=== PATIENT | male | born 1980 | race Caucasian/White ===

== ENCOUNTER 2019-10-25 17:31 | Emergency (ER) | payer OTHER, SELFPAY ==
--- NOTE | ~2019-10-25 | XR_ITS ---
XR foot RT min 3V DATE: 10/25/2019 18:17 INDICATION: Fall yesterday. Pain and bruising at the first digit TECHNIQUE: 4 views COMPARISON: None FINDINGS: There is severe osteoarthritic change at the first metatarsophalangeal joint. Diffuse osteopenia. There is a linear nondisplaced intra-articular fracture of the base of the proximal phalanx of the se cond digit. No other fracture, dislocation, periosteal reaction or bone destruction is detected. There are arterial calcifications including metatarsal artery calcifications, suggesting diabetes mos t likely. IMPRESSION: There is a linear nondisplaced intra-articular fracture of the base of the proximal phala nx of the second digit Severe osteoarthritic change at first metatarsophalangeal joint Extensive arterial calcifications for age, including tarsal artery calcifications, suggesting diabete s Reviewed, dictated and finalized at location A. IMPRESSION: There is a linear nondisplaced intra-articular fracture of the base of the proximal phalanx of the second digit Severe osteoarthritic change at first metatarsophalangeal joint Extensive arterial calcifications for age, including tarsal artery calcificatio ns, suggesting diabetes
[2019-10-25 17:32] VITALS: PULSE 101; RESP 18; TEMP 36.4; O2SAT 99
--- NOTE | 2019-10-25 17:42 | ED.FALL ---
HPI - Fall General Chief Complaint: Fall Stated Complaint: RIGHT FOOT INJURY Time Seen by Provider: 10/25/19 17:37 Source: patient and family Mode of arrival: ambulatory Limitations: no limitations History of Present Illness HPI Narrative: 38-year-old white male tripped and fell yesterday. Complaining of pain on the right big toe . Patient denies other injuries. Related Data Home Medications Medication Instructions Recorded Confirmed linagliptin [Tradjenta] mg 10/25/19 10/25/19 Allergies Allergy/AdvReac Type Severity Reaction Status Date / Time latex Allergy Unknown Unknown Verified 10/25/19 17:32 metformin AdvReac Unknown Unknown Verified 10/25/19 17:32 levimir insulin Allergy Unknown Unknown Uncoded 10/25/19 17:32 Review of Systems Review of Systems: Narrative: CONSTITUTIONAL: Denies fever, chills, or sweats. EYES: Denies visual changes, redness, or discharge. ENT: Denies rhinorrhea, congestion, sore throat, or otalgia. CARDIOVASCULAR: Denies chest pain, palpitations, or edema. RESPIRATORY: Denies cough or dyspnea. GASTROINTESTINAL: Denies abdominal pain, nausea, vomiting, or diarrhea. GENITOURINARY: Denies dysuria or hematuria. SKIN: Denies rash or itching. MUSCULOSKELETAL: Denies back pain, joint pain, or myalgia. NEUROLOGIC: Denies headache, numbness, or weakness. PSYCHIATRIC: Denies anxiety or depression. [facility] Past Medical History Medical History (Updated 10/25/19 @ 19:02 by Trino Sears MD) Chronic pain Social History Social History Gender identity (if verbalized by the patient): Female Exam Narrative: Exam Narrative: General appearance: Well-developed, well-nourished Skin: Normal color Head: Normocephalic, nontraumatic Eyes: Clear conjunctiva ENT: Oropharynx normal, ears normal, nose normal Neck: Supple, nontender Chest and respiratory: Airway patent, no respiratory distress, no accessory muscle use Heart: Regular rate/rhythm Abdomen: Soft, nontender, no organomegaly, quiet bowel sounds Vascular: Normal peripheral pulses, normal capillary refill. 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 X-ray ordered Critical Care Time Critical Care Time Critical Care Time: No Discharge Plan Discharge Clinical Impression: Closed fracture of toe Qualifiers: Encounter type: sequela Toe: unspecified toe Fracture alignment: displaced Laterality: right Qualified Code(s): S92.911S - Unspecified fracture of right toe(s), sequela Patient Disposition: Home, Self-Care Condition: Stable Instructions: Toe Fracture (ED) Additional Instructions: Return if symptoms are worsening , call Dr. Mireles for appointment, take Tylenol as as needed for aches and pain, continue home medications. Crutches, keep foot elevated Prescriptions: New tramadol 50 mg tablet 50 mg PO Q6H PRN (Reason: pain) Qty: 20 RF: 0 No Action Tradjenta 5 mg tablet RF: 0 Follow-up/Referrals: Martín Mireles MD [Physician] -
[2019-10-25 19:21] VITALS: BP 152/98; PULSE 108; RESP 19; O2SAT 99
== END 2019-10-25 19:23 | disposition home or self-care (01) ==
PROVIDERS: Emergency Provider Emergency Medicine
DX: S92.911A Unspecified fracture of right toe(s), initial encounter for closed fracture (principal); W01.0XXA Fall on same level from slipping, tripping and stumbling without subsequent striking against object, initial encounter
CPT/HCPCS: 73630; 99283

== ENCOUNTER 2022-04-07 17:57 | Emergency (ER) | payer OTHER, SELFPAY ==
--- NOTE | ~2022-04-07 | XR_ITS ---
EXAM: XR shoulder LT min 2V DATE: 04/07/2022 18:24 HISTORY: PAIN AFTER HEAVY LIFTING . COMPARISON: None. FINDINGS: Normal mineralization. No fracture or dislocation. No lytic or blastic lesion. Joint space s are maintained. No erosion or periosteal change. Soft tissues within normal limits. IMPRESSION: No acute osseous finding the left shoulder. Reviewed, dictated and finalized at location K. [employer]IC
[2022-04-07 18:07] VITALS: BP 149/99; PULSE 100; RESP 14; TEMP 36.6; O2SAT 100
[2022-04-07 18:09] VITALS: BP 149/99; PULSE 100; RESP 14; TEMP 36.6; O2SAT 100
--- NOTE | 2022-04-07 18:10 | ED.UPPEXIN ---
HPI - Extremity Injury (Upper) General Chief Complaint: Extremity Injury, Upper Stated Complaint: Left Shoulder Pain Time Seen by Provider: 04/07/22 18:10 Source: patient, RN notes reviewed and old records reviewed Mode of arrival: ambulatory Limitations: no limitations History of Present Illness HPI narrative: 41-year-old male presents to the [facility] with left shoulder since yesterday. Patient reports that he was moving furniture on , tried cracking is back yesterday and the pain started. Pain is worse when lifting his head above 90?. Patient denies any chest pain or shortness of breath. No swelling noted. No bruising noted. Has good range of motion. Full strength of the elbow and wrist. 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 Positive radial pulse. Capillary refill under 2 seconds MD complaint: injury to: left and shoulder Related Data Home Medications Medication Instructions Recorded Confirmed linagliptin 5 mg tablet (Tradjenta) mg 10/25/19 10/25/19 amlodipine 10 mg tablet mg 04/07/22 atorvastatin 10 mg tablet mg 04/07/22 gabapentin 300 mg capsule mg 04/07/22 insulin glargine 100 unit/mL (3 unit subcut 04/07/22 mL) subcutaneous pen (Lantus Solostar U-100 Insulin) Allergies Allergy/AdvReac Type Severity Reaction Status Date / Time latex Allergy Unknown Unknown Verified 04/07/22 18:09 metformin AdvReac Unknown Unknown Verified 04/07/22 18:09 levimir insulin Allergy Unknown Unknown Uncoded 04/07/22 18:09 Review of Systems Review of Systems: All systems reviewed & are unremarkable except as noted in HPI and below Constitutional: Constitutional: Reports no additional constitutional complaints Eyes: Eyes: Reports no additional eye complaints ENT: Reports system reviewed and no additional complaints, except as documented Cardiovascular: Cardiovascular: Reports no additional cardiovascular complaints, Denies chest pain and Denies dyspnea Respiratory: Respiratory: Reports no additional respiratory complaints, Denies chest congestion, Denies cough and Denies dyspnea Gastrointestinal: Gastrointestinal: Reports no additional gastrointestinal complaints, Denies abdominal pain, Denies nausea and Denies vomiting Musculoskeletal: Musculoskeletal: Reports as per HPI, Reports arthralgias (Left posterior shoulder), Denies joint swelling and Denies muscle cramps Integumentary/Breasts: Skin/Breast: Reports system reviewed and no additional complaints, except as docu Neurologic: Reports system reviewed and no additional complaints, except as documented Psychiatric: Psychiatric: Reports no additional psychiatric complaints Allergic/Immunologic: Allergic/Immunologic: Reports no additional allergic/immunologic complaints [facility] Past Medical History Medical History Abscess Arthritis Asthma Chronic pain Club foot of both lower extremities Diabetes Dizziness Food allergy History of adverse reaction to anesthesia HTN (hypertension) Muscular dystrophy Skin ulcer Vision abnormalities Weight gain Surgical History Surgical History Hx of clubfoot correction Family History Family History Other Arthritis Diabetes mellitus Heart disease Hypertension Malignant neoplasm Social History Social History Smoking packs per day: 0.1 Smoking cigarettes per day: 2.0 Years smoked: 5 Smoking pack-years: 0.50 Smoking status: Current some day smoker Alcohol intake: current Gender identity (if verbalized by the patient): Male Comments At the time of my signature, I reviewed and agree with the nursing past medical, surgical, social, and family history. There is no relevant family history pertinent to the patient complaint. Exam Const: General: cooperative, healthy appearing, comfortable, no ac
== END 2022-04-07 18:48 | disposition home or self-care (01) ==
PROVIDERS: Emergency Provider Nurse Practitioner; PCP Nurse Practitioner Family
DX: S46.912A Strain of unspecified muscle, fascia and tendon at shoulder and upper arm level, left arm, initial encounter (principal); X50.9XXA Other and unspecified overexertion or strenuous movements or postures, initial encounter; M19.90 Unspecified osteoarthritis, unspecified site; E11.9 Type 2 diabetes mellitus without complications; I10 Essential (primary) hypertension; G71.00 Muscular dystrophy, unspecified; F17.210 Nicotine dependence, cigarettes, uncomplicated
CPT/HCPCS: 73030; 99213; G0463

== ENCOUNTER 2022-05-22 13:21 | Outpatient (CLI) | payer OTHER, SELFPAY ==
--- NOTE | ~2022-05-22 | XR_ITS ---
EXAM: XR knee RT 3V DATE: 05/22/2022 13:39 HISTORY: PAIN RT KNEE JOINT. FALL 2 YRS AGO, BROKE FOOT. PAIN SINCE . COMPARISON: None available. FINDINGS: Normal mineralization. No fracture or dislocation. No lytic or blastic lesion. Mild tricom partmental osteophytosis. Smoothly marginated ossification projecting off the medial aspect of the me dial femoral condyle. Small volume joint fluid. No erosion or periosteal change. Soft tissues within normal limits. IMPRESSION: Mild tricompartmental right knee osteoarthritis. Medial osseous excrescence, in a positio n that may cause soft tissue irritation, correlate with pain/point tenderness. Small right knee joint effusion. Reviewed, dictated and finalized at location K. IMPRESSION: Mild tricompartmental right knee osteoarthritis. Medial osseous exc rescence, in a position that may cause soft tissue irritation, correlate with p ain/point tenderness. Small right knee joint effusion.
== END 2022-05-22 13:22 | disposition home or self-care (01) ==
PROVIDERS: PCP Nurse Practitioner Family; Visit Provider Nurse Practitioner Family
DX: M25.561 Pain in right knee (principal); M17.11 Unilateral primary osteoarthritis, right knee; M25.461 Effusion, right knee
CPT/HCPCS: 73562

== ENCOUNTER 2023-01-16 18:51 | Emergency (ER) | payer MEDICAID, SELFPAY ==
--- NOTE | ~2023-01-16 | XR_ITS ---
EXAMINATION: XR tibia fibula RT 2V DATE: 01/16/2023 19:12 INDICATION: Right ankle swelling TECHNIQUE: AP and lateral views of the right lower leg were obtained. COMPARISON: Right knee radiographs dated 05/22/2022 and right foot radiographs dated 10/29/2019 FINDINGS: Bone alignment is normal. No fracture. Joint spaces are normal at the right knee. Moderate osteoarthr itis at the first metatarsophalangeal joint. Mild osteoarthritis at the right ankle and multiple keny tional joints in the right mid and hindfoot.. No cortical erosions or periosteal reaction. Progressiv manuel cranial to caudal worsening subcutaneous edema beginning at the mid third of the right calf and m ost severe about the right ankle. No soft tissue gas or radiopaque foreign bodies. No evident right k nee or ankle joint effusions. IMPRESSION: 1. Prominent nonspecific soft tissue swelling about the right ankle. No acute osseous abnormality. Reviewed, dictated and finalized at location A. OPERATOR IMPRESSION: 1. Prominent nonspecific soft tissue swelling about the right ankle. No acute o sseous abnormality.
--- NOTE | 2023-01-16 18:59 | ED.LOWEXIN ---
HPI - Extremity Injury (Lower) General Chief Complaint: Extremity Problem,Nontraumatic Stated Complaint: Right Calf/Ankle Pain Time Seen by Provider: 01/16/23 18:59 Source: patient Mode of arrival: ambulatory Limitations: no limitations History of Present Illness HPI Narrative: Patient is a 42-year-old male who presents with right calf and ankle pain neutral. 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 Patient has history of MS and clubfoot. Patient concerned for redness on lateral side of ankle and swelling. Related Data Home Medications Medication Instructions Recorded Confirmed linagliptin 5 mg tablet (Tradjenta) mg 10/25/19 10/25/19 amlodipine 10 mg tablet mg 04/07/22 atorvastatin 10 mg tablet mg 04/07/22 gabapentin 300 mg capsule mg 04/07/22 insulin glargine 100 unit/mL (3 unit subcut 04/07/22 mL) subcutaneous pen (Lantus Solostar U-100 Insulin) hydrochlorothiazide 12.5 mg tablet mg 01/16/23 losartan 100 mg tablet mg 01/16/23 tirzepatide 2.5 mg/0.5 mL mg subcut 01/16/23 subcutaneous pen injector (Mounjaro) Allergies Allergy/AdvReac Type Severity Reaction Status Date / Time latex Allergy Unknown Unknown Verified 01/16/23 19:16 metformin AdvReac Unknown Unknown Verified 01/16/23 19:16 levimir insulin Allergy Unknown Unknown Uncoded 01/16/23 19:16 Review of Systems Review of Systems: All systems reviewed & are unremarkable except as noted in HPI and below Constitutional: Constitutional: Denies body ache(s), Denies chills, Denies fatigue, Denies fever(s), Denies headache(s), Denies malaise and Denies weakness Eyes: Eyes: Denies blurry vision, Denies irritation and Denies loss of vision ENT: Denies otalgia, Denies headache(s), Denies nasal discharge, Denies sinus pain and Denies sore throat Cardiovascular: Cardiovascular: Denies chest pain, Denies irregular heart rhythm and Denies dyspnea Respiratory: Respiratory: Denies dyspnea Gastrointestinal: Gastrointestinal: Denies abdominal pain, Denies melena, Denies hematochezia, Denies diarrhea, Denies nausea and Denies vomiting Musculoskeletal: Musculoskeletal: Denies back pain, Denies myalgias and Reports arthralgias Integumentary/Breasts: Skin/Breast: Denies pruritus and Denies rash Neurologic: Denies headache(s), Denies loss of vision and Denies weakness Psychiatric: Psychiatric: Reports no additional psychiatric complaints Endocrine: Endocrine: Denies fatigue PMFSH Past Medical History Medical History Abscess Arthritis Asthma Chronic pain Club foot of both lower extremities Diabetes Dizziness Food allergy History of adverse reaction to anesthesia HTN (hypertension) Muscular dystrophy Skin ulcer Vision abnormalities Weight gain Surgical History Surgical History Hx of clubfoot correction Family History Family History Other Arthritis Diabetes mellitus Heart disease Hypertension Malignant neoplasm Social History Social History Smoking packs per day: 0.1 Smoking cigarettes per day: 2.0 Years smoked: 5 Smoking pack-years: 0.50 Smoking status: Current some day smoker Alcohol intake: current Gender identity (if verbalized by the patient): Male Comments At time of signature, agree with nursing past medical, surgical, social and family history. There is no relevant family history pertinent to the presenting complaint. Exam Const: General: cooperative, healthy appearing, comfortable, no acute distress and well nourished Nutritional Appearance: well nourished Orientation/consciousness: patient oriented x3 Limitations: no limitations HENMT: Head: normal to inspection, normocephalic and atraumatic Ears: hearing grossly normal bilaterally an
[2023-01-16 19:03] VITALS: BP 168/104; PULSE 98; RESP 16; TEMP 36.8; O2SAT 100
== END 2023-01-16 20:05 | disposition home or self-care (01) ==
PROVIDERS: Emergency Provider Nurse Practitioner Family; PCP Family Medicine
DX: M76.61 Achilles tendinitis, right leg (principal); F17.210 Nicotine dependence, cigarettes, uncomplicated; G71.00 Muscular dystrophy, unspecified; M19.90 Unspecified osteoarthritis, unspecified site; E11.9 Type 2 diabetes mellitus without complications; I10 Essential (primary) hypertension
CPT/HCPCS: 73590; 99213; G0463

== ENCOUNTER 2023-01-25 15:45 | Emergency (ER) | payer MEDICAID, SELFPAY ==
--- NOTE | 2023-01-25 15:46 | ED.EXTPRO ---
HPI - Extremity Problem General Chief complaint: Extremity Problem,Nontraumatic Stated complaint: Right Foot Pain Time Seen by Provider: 01/25/23 15:45 Source: patient Mode of arrival: ambulatory Limitations: no limitations History of Present Illness HPI Narrative: Jose Roberto is a 42-year-old male patient presenting to the clinic today with complaints of right foot pain over last few days however he noticed blood blisters to the bottom of his right foot/heel approximately 20 minutes ago with redness and swelling. Area is very tender to palpation with erythema. Just finished of 5 days of prednisone for Achilles tendinitis. Related Data Home Medications Medication Instructions Recorded Confirmed linagliptin 5 mg tablet (Tradjenta) mg 10/25/19 10/25/19 amlodipine 10 mg tablet mg 04/07/22 atorvastatin 10 mg tablet mg 04/07/22 gabapentin 300 mg capsule mg 04/07/22 insulin glargine 100 unit/mL (3 unit subcut 04/07/22 mL) subcutaneous pen (Lantus Solostar U-100 Insulin) hydrochlorothiazide 12.5 mg tablet mg 01/16/23 losartan 100 mg tablet mg 01/16/23 tirzepatide 2.5 mg/0.5 mL mg subcut 01/16/23 subcutaneous pen injector (Mounjaro) Allergies Allergy/AdvReac Type Severity Reaction Status Date / Time latex Allergy Unknown Unknown Verified 01/25/23 15:59 metformin AdvReac Unknown Unknown Verified 01/25/23 15:59 levimir insulin Allergy Unknown Unknown Uncoded 01/25/23 15:59 Review of Systems Review of Systems: Pertinent positives per HPI. Patient denies any fever, chills, rash, headache, visual changes, dizziness, cough, shortness of breath, chest pain, palpitations, nausea, vomiting, diarrhea, constipation, abdominal pain, or any urinary issues. [facility] Past Medical History Medical History Abscess Arthritis Asthma Chronic pain Club foot of both lower extremities Diabetes Dizziness Food allergy History of adverse reaction to anesthesia HTN (hypertension) Muscular dystrophy Skin ulcer Vision abnormalities Weight gain Surgical History Surgical History Hx of clubfoot correction Family History Family History Other Arthritis Diabetes mellitus Heart disease Hypertension Malignant neoplasm Social History Social History Smoking packs per day: 0.1 Smoking cigarettes per day: 2.0 Years smoked: 5 Smoking pack-years: 0.50 Smoking status: Current some day smoker Alcohol intake: current Gender identity (if verbalized by the patient): Male Comments At the time of my signature, I reviewed and agree with the nursing past medical, surgical, social, and family history. There is no relevant family history pertinent to the patient complaint. Exam Narrative: General: Well-developed, well nourished, in no apparent distress Head: Normocephalic, atraumatic. Cardio: Regular rate and rhythm, s1 and s2 normal, no murmur appreciated. Resp: Clear to auscultation bilaterally, no rhonchi, rales, wheezing or rubs. Musculoskeletal: No deformity, tender to palpation over the posterior heel with redness and erythema-blood blisters to posterior, medial, and lateral heel-areas are not open or draining, grossly normal range of motion, muscle strength strong and equal, peripheral pulse strong, mild swelling noted, no cyanosis, normal gait and station Course Course Emergency Course: Portions of this record may have been created with voice recognition software. Level of Care: Express Care Visit Vital Signs Vital signs: Vital signs reviewed MDM - Extremity (Nontraumatic) MDM Narrative Medical decision making narrative: At the time of visit patient is resting comfortably on the exam table. Patient is nontoxic appearing. i suspect patient has a skin infect
[2023-01-25 15:52] VITALS: BP 174/98; PULSE 88; RESP 16; TEMP 36.5; O2SAT 100
== END 2023-01-25 16:14 | disposition home or self-care (01) ==
PROVIDERS: Emergency Provider Nurse Practitioner Family; PCP Family Medicine
DX: L08.9 Local infection of the skin and subcutaneous tissue, unspecified (principal); F17.210 Nicotine dependence, cigarettes, uncomplicated; M19.90 Unspecified osteoarthritis, unspecified site; J45.909 Unspecified asthma, uncomplicated; E11.9 Type 2 diabetes mellitus without complications; I10 Essential (primary) hypertension; G71.00 Muscular dystrophy, unspecified
CPT/HCPCS: 99213; G0463

== ENCOUNTER 2023-01-28 03:02 | Inpatient (IN) | payer BC, MEDICAID, SELFPAY ==
[2023-01-28] VITALS (7 sets, daily range): BP systolic 143–181; BP diastolic 77–99; PULSE 82–117; RESP 16–20; TEMP 36.2–38.6; O2SAT 97–100; BMI 38.8
--- NOTE | ~2023-01-28 | XR_ITS ---
Right foot Technique: AP and lateral views were obtained. Clinical History: Heel wound Findings: No acute fracture or dislocation is seen. There is advanced degenerative change the first m etatarsophalangeal joint, with associated subchondral cystic change or geode in the proximal portion of the first proximal phalanx. Remaining joint spaces are preserved. Possible tiny amount of soft tis hermila gas at the plantar aspect of the heel region. Impression: Possible small amount of soft tissue gas relatively superficially in the plantar aspect of the heel r egion. No radiographic evidence for osteomyelitis. Advanced degenerative change of the first MTP joint. Reviewed, dictated and finalized at location . [employer]ACH[employer] Impression: Possible small amount of soft tissue gas relatively superficially in the planta r aspect of the heel region. No radiographic evidence for osteomyelitis. Advanced degenerative change of the first MTP joint.
--- NOTE | ~2023-01-28 | CT_ITS ---
EXAMINATION: CT foot RT w con DATE: 01/29/2023 08:25 INDICATION: Right heel infection. TECHNIQUE: Computed tomography (CT) of the right foot was performed with 100 mL Omnipaque 350 intrave nous contrast. Automated exposure control and iterative reconstruction technique were employed. The d ose-length product was 399.95 mGy-cm. COMPARISON: Right foot radiographs 01/28/2023 FINDINGS: Bone alignment is normal. No fracture. There is mild osteoarthritis of the ankle joint, sub talar joint, and many of the midfoot joints and interphalangeal joints. There is severe osteoarthriti s of first metatarsophalangeal joint. There are widespread arterial calcifications. There is diffuse intense edema of the foot and ankle. IMPRESSION: 1. No evidence of osteomyelitis. 2. Polyarticular osteoarthritis. Reviewed, dictated and finalized at location A. [employer]
--- NOTE | 2023-01-28 03:25 | ED.GENADULT ---
HPI - General Adult General Chief complaint: Wound/Laceration Stated complaint: R foot wound Time Seen by Provider: 01/28/23 03:14 History of Present Illness HPI narrative: patient presents emergency department with concern for a he wound. He has a history of diabetes. He also had bilateral foot surgery due to clubbed feet when he was born. He has difficulty working on his feet due to pain. Three days ago he woke up and saw a blood blister on the heel of his right foot. Kept clean and covered but it progressed to involve the entire heel a separation of the skin is noted. He was seen in urgent care and started on clindamycin. Erythema was outlined than. Skin sloughing is worse now. Due to his diabetes he does not feel any pain of his heel Related Data Home Medications Medication Instructions Recorded Confirmed linagliptin 5 mg tablet (Tradjenta) mg 10/25/19 10/25/19 amlodipine 10 mg tablet mg 04/07/22 atorvastatin 10 mg tablet mg 04/07/22 gabapentin 300 mg capsule mg 04/07/22 insulin glargine 100 unit/mL (3 unit subcut 04/07/22 mL) subcutaneous pen (Lantus Solostar U-100 Insulin) hydrochlorothiazide 12.5 mg tablet mg 01/16/23 losartan 100 mg tablet mg 01/16/23 tirzepatide 2.5 mg/0.5 mL mg subcut 01/16/23 subcutaneous pen injector (Mounjaro) Allergies Allergy/AdvReac Type Severity Reaction Status Date / Time latex Allergy Unknown Unknown Verified 01/28/23 03:23 metformin AdvReac Unknown Unknown Verified 01/28/23 03:23 hydrochlorothiazide AdvReac Dizziness Verified 01/28/23 03:23 levimir insulin Allergy Unknown Unknown Uncoded 01/28/23 03:23 Review of Systems Review of Systems: review of systems negative except what is documented in the HPI [facility] Past Medical History Medical History Abscess Arthritis Asthma Chronic pain Club foot of both lower extremities Diabetes Dizziness Food allergy History of adverse reaction to anesthesia HTN (hypertension) Muscular dystrophy Skin ulcer Vision abnormalities Weight gain Surgical History Surgical History Hx of clubfoot correction Family History Family History Other Arthritis Diabetes mellitus Heart disease Hypertension Malignant neoplasm Social History Social History Smoking packs per day: 0.1 Smoking cigarettes per day: 2.0 Years smoked: 5 Smoking pack-years: 0.50 Smoking status: Current some day smoker Alcohol intake: current Gender identity (if verbalized by the patient): Male Exam Narrative: GENERAL: Well-appearing, well-nourished, and in no acute distress. HEAD: Normocephalic, atraumatic. EYES: PERRLA and EOMI. ENT: Nares clear, no rhinorrhea or epistaxis. Mucous membranes moist. NECK: Supple. CHEST: Clear to auscultation. No respiratory distress. HEART: tachycardic rate and normal sinus rhythm. ABDOMEN: Soft, nontender, nondistended. EXTREMITIES: Normal range of motion. No edema. right heel diffuse white tissue with large deficit medial aspect and erythema of plantar aspect of foot up midway to ankle SKIN: Warm, dry, no rash. NEURO: No focal deficits. Alert and oriented x3. PSYCH: Normal mood and affect. Course Vital Signs Vital signs: Vital Signs Temperature 38.6 C H 01/28/23 03:03 Pulse Rate 117 H 01/28/23 03:03 Respiratory Rate 20 01/28/23 03:03 Blood Pressure 181/99 H 01/28/23 03:03 Pulse Oximetry 100 01/28/23 03:03 Oxygen Delivery Room Air 01/28/23 03:03 Temperature 38.6 C H 01/28/23 03:03 Pulse Rate 107 H 01/28/23 04:54 Respiratory Rate 18 01/28/23 03:22 Blood Pressure 162/84 H 01/28/23 04:54 Pulse Oximetry 97 01/28/23 04:54 Oxygen Delivery Room Air 01/28/23 03:03 Medical Decision Making ALLIE Yao
[2023-01-28 03:53] LABS: Basophils Percent Auto 0.3 % (0.2-1.2); Eosinophils Absolute Auto 0.3 K/mm3 (0-0.3); Eosinophils Percent Auto 2.5 % (0-4.4); Hematocrit 30.4 % (42.0-52.0); Hemoglobin 9.8 g/dL (14.0-18.0); Immature Granulocyte Absolute 0.07 K/mm3 (0.00-0.031); Immature Granulocyte Percent A 0.6 % (0-0.5); Lymphocytes Percent Auto 6.4 % (18.3-44.2); Mean Corpuscular HGB Conc 32.2 g/dl (32-36); Mean Corpuscular Hemoglobin 28.6 pg (26-34); Mean Corpuscular Volume 88.6 fl (80-100); Mean Platelet Volume 9.6 fl (7.4-10.4); Monocytes Absolute Auto 0.8 K/mm3 (0.1-0.6); Monocytes Percent Auto 7.7 % (2.6-8.5); Neutrophils Percent Auto 82.5 % (45.5-73.1); Platelet Count Result 287 k/mm3 (150-375); Red Blood Count 3.43 M/mm3 (4.6-6.20); Red Cell Distribution Width 12.8 % (11.5-14.5); White Blood Count 10.9 K/mm3 (4.5-10.0)
[2023-01-28 04:03] LABS: Lactic Acid Reflex 0.8 mmol/L (0.7-2.0)
[2023-01-28 04:04] LABS: Alanine Aminotransferase 34 U/L (6-50); Albumin Level 3.5 g/dL (3.5-5.1); Alkaline Phosphatase 126 U/L (38-126); Anion Gap 7 mmol/L (8-16); Aspartate Amino Transferase 18 U/L (17-59); Bilirubin,Total 1.2 mg/dL (0.2-1.3); Blood Urea Nitrogen 31 mg/dL (9-20); Calcium 8.6 mg/dL (8.4-10.2); Carbon Dioxide 21 mmol/L (22-30); Chloride 107 mmol/L (98-107); Estimated CRCL calculation 66 ml/min; Estimated Glomerular Filt Rate 42; Glucose 189 mg/dL (65-110); Potassium 5.5 mmol/L (3.4-5.0); Sodium 135 mmol/L (137-145)
[2023-01-28] MEDS: VANCOMYCIN 1,250 MG/NS 250 ML 1,250 MG/250 ML BAG 166.67 MG IVPB ×2 (06:35→08:08)
--- NOTE | 2023-01-28 07:00 | PC.NURSE ---
This patient, Jose Roberto Maria, was admitted to [facility] Surg Room 330-02. Patient/family oriented to hospital policies and general routines including ID bracelet, bed and alarms, visiting hours, pain management, procedures, bathroom and other care routines, personal items, smoking policy, room service/diet, and visiting hours. Information on how to activate the Rapid Response Team has been discussed. Patient/Family are encouraged to report perceived risks to care and to ask questions if they do not understand what they are told or what they should do.
[2023-01-28 07:40] LABS: Glucose Point of Care 206 mg/dl (65-105)
[2023-01-28] MEDS: ACETAMINOPHEN 500 MG TABLET 1000 MG PO (08:15)
[2023-01-28] MEDS: INSULIN ASPART (*BKC) 100 UNITS/ML SUB-Q ×3 (08:45→21:28)
[2023-01-28 09:18] LABS: Hemoglobin A1C 6.5 % (<5.7)
[2023-01-28 11:10] LABS: Glucose Point of Care 243 mg/dl (65-105)
[2023-01-28 12:21] LABS: Anion Gap 6 mmol/L (8-16); Blood Urea Nitrogen 30 mg/dL (9-20); Calcium 8.2 mg/dL (8.4-10.2); Carbon Dioxide 20 mmol/L (22-30); Chloride 109 mmol/L (98-107); Estimated CRCL calculation 75 ml/min; Estimated Glomerular Filt Rate 48; Glucose 271 mg/dL (65-110); Potassium 4.9 mmol/L (3.4-5.0); Sodium 135 mmol/L (137-145)
--- NOTE | 2023-01-28 13:25 | PM.IMHP ---
H&P: HPI History of Present Illness Date/Time: 01/28/23 13:25 Chief Complaint: Diabetic right heel wound Narrative: 01/28: This is a 42 year old male patient With a history of type 2 diabetes hypertension hyperlipidemia who is admitted to the hospital with right heel diabetic wound. Patient reports that he was having some callus removal and had some cracks in his feet, noted 3 days ago he had a blood blister on the right heel. It began to drain the next day he. While patient was working yesterday it was causing him significant pain when he usually does not feel much in his feet due to his diabetes. He came to the hospital was found to have purulence drainage and a large boggy wound present. Patient started on IV antibiotics and admitted to the hospital. Wound Care was consulted and recommended surgical consult. At this time patient is pending surgery evaluation. X-ray shows possible small foci of gas no apparent foreign body and no signs osteomyelitis on x-ray. Patient denies fever chills, shortness of breath, chest pain, abdominal pain, nausea, vomiting or diarrhea. He states that he had some constipation but that is now relieved. Patient denies any other concerns at this time. Review of Systems Review of Systems: All systems reviewed & are unremarkable except as noted in HPI and below PMFSH Past Medical History Medical History Abscess Arthritis Asthma Chronic pain Club foot of both lower extremities Diabetes Dizziness Food allergy History of adverse reaction to anesthesia HTN (hypertension) Muscular dystrophy Skin ulcer Vision abnormalities Weight gain Surgical History Surgical History Hx of clubfoot correction Family History Family History Grandparent Arthritis Heart disease Diabetes mellitus Hypertension Malignant neoplasm Mother Heart disease Diabetes mellitus Hypertension Social History Social History Smoking packs per day: 0.1 Smoking cigarettes per day: 2.0 Years smoked: 5 Smoking pack-years: 0.50 Smoking status: Former smoker Tobacco type: cigarettes, cigars and e-cigarettes/vaping Alcohol intake: never Substance use: current Substance use type: prescription drug Lack of Transportation: No Lack of Food: Never True Current Housing: I Have Housing Concerned About Future Housing: No Difficulty Paying Gas/Electric Bills: No Difficulty Paying for Meds: No Currently Unemployed: No Education: Associate Degree Difficulty w/ Childcare or Family Care: No Gender identity (if verbalized by the patient): Male Spiritual care concerns: No Meds Home Medications and Allergies Home Medications Medication Instructions Recorded Confirmed Type linagliptin 5 mg tablet (Tradjenta) 5 mg PO DAILY 10/25/19 01/28/23 History amlodipine 10 mg tablet 10 mg PO DAILY 04/07/22 01/28/23 History atorvastatin 10 mg tablet 10 mg PO DAILY 04/07/22 01/28/23 History gabapentin 300 mg capsule 600 mg PO BID 04/07/22 01/28/23 History insulin glargine 100 unit/mL (3 50 unit subcut DAILY 04/07/22 01/28/23 History mL) subcutaneous pen (Lantus Solostar U-100 Insulin) hydrochlorothiazide 12.5 mg tablet 12.5 mg PO DAILY 01/16/23 01/28/23 History losartan 100 mg tablet 100 mg PO DAILY 01/16/23 01/28/23 History Allergies Allergy/AdvReac Type Severity Reaction Status Date / Time latex Allergy Unknown Unknown Verified 01/28/23 03:23 metformin AdvReac Unknown Unknown Verified 01/28/23 03:23 hydrochlorothiazide AdvReac Dizziness Verified 01/28/23 03:23 levimir insulin Allergy Unknown Unknown Uncoded 01/28/23 03:23 Vital Signs Vital Signs - 24 hr 01/28/23 03:03 01/28/23 03:22 01/28/23 04:54 Temperature 38.6 C H Pulse Rate 117 H 117 H 1
[2023-01-28] MEDS: metroNIDAZOLE 500 MG/ISO 100ML 500 MG/100 ML BAG 100 MG IVPB ×2 (15:50→23:20)
[2023-01-28] MEDS: GABAPENTIN 300 MG CAPSULE 600 MG PO (16:03)
[2023-01-28 16:39] LABS: Glucose Point of Care 196 mg/dl (65-105)
[2023-01-28] MEDS: CEFEPIME 2 GM/NS 50 ML 2 GM/50 ML BAG IVPB (17:02)
--- NOTE | 2023-01-28 18:38 | PM.CNGS ---
Assessment and Plan Assessment and plan (1) Diabetic foot infection: Code(s): E11.628 - Type 2 diabetes mellitus with other skin complications; L08.9 - Local infection of the skin and subcutaneous tissue, unspecified Status: Acute Assessment and Plan: I have reviewed the x-ray and assess the patient's right foot wound. He has evidence of cellulitis and some necrotic skin on the plantar surface of the right heel. There could be some deeper underlying infection involving the necrotic area, but this also could be just very superficial necrosis. Will get a CT of his right foot tomorrow morning to determine if deeper underlying infection needs to be drained. If no large abscess or infection is identified, could consider superficial debridement at the bedside. Will continue to follow along the patient. (2) Cellulitis: Qualifiers: Laterality: left Site of cellulitis: extremity Site of cellulitis of extremity: lower extremity Qualified Code(s): L03.116 - Cellulitis of left lower limb Code(s): L03.90 - Cellulitis, unspecified Status: Acute History of Present Illness Consult details Consult date: 01/28/23 Reason for consult: wound care Requesting physician: Jason Jacobo, TIFFANY Narrative: Is a 42-year-old man who presents with a right heel ulcer then I am asked to see for wound care. He had recently noticed a blister that eventually did began developing redness and drainage. There was some skin that from the area and he was experiencing pain with standing his heel. He has a history of diabetes and has had other abscesses and infections in the past, but no prior history of foot wounds. He states that his blood sugars are usually fairly well controlled. He does not recall what his last hemoglobin A1c was. The patient does have a history of clubfoot and had surgery as an infant. He denies any other prior surgeries on his foot. In the emergency department he was noted to have signs of cellulitis and was admitted for further treatment. Review of Systems Review of Systems: All systems reviewed & are unremarkable except as noted in HPI and below Constitutional: Constitutional: Denies chills and Denies fever(s) Eyes: Eyes: Denies change in vision ENT: Denies hearing loss, Denies neck pain and Denies sore throat Cardiovascular: Cardiovascular: Denies chest pain and Denies dyspnea Respiratory: Respiratory: Denies cough, Denies dyspnea and Denies wheezing Genitourinary: Genitourinary: Denies hematuria and Denies dysuria Musculoskeletal: Musculoskeletal: Denies arthralgias, Denies joint swelling and Denies neck pain Allergic/Immunologic: Allergic/Immunologic: Denies wheezing [facility] Past Medical History Medical History Abscess Arthritis Asthma Chronic pain Club foot of both lower extremities Diabetes Dizziness Food allergy History of adverse reaction to anesthesia HTN (hypertension) Muscular dystrophy Skin ulcer Vision abnormalities Weight gain Surgical History Surgical History Hx of clubfoot correction Family History Family History Grandparent Arthritis Heart disease Diabetes mellitus Hypertension Malignant neoplasm Mother Heart disease Diabetes mellitus Hypertension Social History Social History Smoking packs per day: 0.1 Smoking cigarettes per day: 2.0 Years smoked: 5 Smoking pack-years: 0.50 Smoking status: Former smoker Tobacco type: cigarettes, cigars and e-cigarettes/vaping Alcohol intake: never Substance use: current Substance use type: prescription drug Lack of Transportation: No Lack of Food: Never True Current Housing: I Have Housing Concerned About Future Housing: No Difficulty Paying Gas/E
[2023-01-28 20:27] LABS: Glucose Point of Care 212 mg/dl (65-105)
[2023-01-28] MEDS: INSULIN GLARGINE (*BKC) 100 UNITS/ML 50 UNITS SUB-Q (21:29)
[2023-01-29] MEDS: VANCOMYCIN 1,500 MG/NS 500 ML 1,500 MG/500 ML BAG 200 MG IVPB ×2 (00:20→18:20)
[2023-01-29 04:45] VITALS: BP 165/88; PULSE 89; RESP 20; TEMP 36.6; O2SAT 98
[2023-01-29] MEDS: metroNIDAZOLE 500 MG/ISO 100ML 500 MG/100 ML BAG 100 MG IVPB ×4 (05:15→22:28)
[2023-01-29 07:31] LABS: Glucose Point of Care 118 mg/dl (65-105)
[2023-01-29 07:32] LABS: Estimated CRCL calculation 75 ml/min; Estimated Glomerular Filt Rate 48
[2023-01-29 07:32] LABS: Basophils Percent Auto 0.3 % (0.2-1.2); Eosinophils Absolute Auto 0.3 K/mm3 (0-0.3); Eosinophils Percent Auto 3.1 % (0-4.4); Hematocrit 28.7 % (42.0-52.0); Hemoglobin 9.2 g/dL (14.0-18.0); Immature Granulocyte Absolute 0.05 K/mm3 (0.00-0.031); Immature Granulocyte Percent A 0.5 % (0-0.5); Lymphocytes Absolute Auto 0.83 K/mm3 (0.9-3.2); Mean Corpuscular HGB Conc 32.1 g/dl (32-36); Mean Corpuscular Hemoglobin 28.6 pg (26-34); Mean Corpuscular Volume 89.1 fl (80-100); Mean Platelet Volume 9.8 fl (7.4-10.4); Monocytes Absolute Auto 0.8 K/mm3 (0.1-0.6); Monocytes Percent Auto 8.4 % (2.6-8.5); Neutrophils Absolute Auto 7.3 K/mm3 (1.3-6.7); Neutrophils Percent Auto 78.7 % (45.5-73.1); Platelet Count Result 275 k/mm3 (150-375); Red Blood Count 3.22 M/mm3 (4.6-6.20); Red Cell Distribution Width 12.8 % (11.5-14.5); White Blood Count 9.2 K/mm3 (4.5-10.0)
[2023-01-29 07:52] LABS: Alanine Aminotransferase 26 U/L (6-50); Albumin Level 3.1 g/dL (3.5-5.1); Alkaline Phosphatase 111 U/L (38-126); Anion Gap 6 mmol/L (8-16); Aspartate Amino Transferase 16 U/L (17-59); Bilirubin,Total 1.3 mg/dL (0.2-1.3); Blood Urea Nitrogen 24 mg/dL (9-20); Calcium 8.6 mg/dL (8.4-10.2); Carbon Dioxide 20 mmol/L (22-30); Chloride 110 mmol/L (98-107); Estimated CRCL calculation 80 ml/min; Estimated Glomerular Filt Rate 52; Glucose 128 mg/dL (65-110); Potassium 4.9 mmol/L (3.4-5.0); Sodium 136 mmol/L (137-145)
[2023-01-29] MEDS: amLODIPine BESYLATE 5 MG TABLET 10 MG PO (09:28)
[2023-01-29] MEDS: CEFEPIME 2 GM/NS 50 ML 2 GM/50 ML BAG IVPB ×2 (09:28→20:42)
[2023-01-29] MEDS: GABAPENTIN 300 MG CAPSULE 600 MG PO ×2 (09:28→16:51)
[2023-01-29] MEDS: ATORVASTATIN 10 MG TABLET PO (09:28)
[2023-01-29] MEDS: LOSARTAN POTASSIUM 100 MG TABLET PO (09:28)
[2023-01-29 11:17] LABS: Glucose Point of Care 125 mg/dl (65-105)
[2023-01-29 14:00] VITALS: BP 156/95; PULSE 100; RESP 16; TEMP 36.2; O2SAT 98
--- NOTE | 2023-01-29 15:25 | PM.IMPN ---
Progress Note: A&P Assessment and Plan (1) Diabetic foot infection: Code(s): E11.628 - Type 2 diabetes mellitus with other skin complications; L08.9 - Local infection of the skin and subcutaneous tissue, unspecified Status: Acute Assessment and Plan: 01/28: Right heel wound with purulence drainage, surgery consulted for possible debridement. IV vancomycin ordered by ER. WBC 10.9. Lactic acid normal. X-ray with possible gas foci. Wound culture ordered. Added Flagyl and cefepime. (2) Renal insufficiency, mild: Code(s): N28.9 - Disorder of kidney and ureter, unspecified Status: Acute Assessment and Plan: 01/28: Cr 1.8 BUN 31 EGFR 42 estimated creatinine clearance 66, unknown baseline renal function 01/29: creatinine 1.6 BUN 24 estimated GFR 48 estimated creatinine clearance 75 (3) Diabetes: Code(s): E11.9 - Type 2 diabetes mellitus without complications Status: Acute Assessment and Plan: On Lantus, Tradjenta and Trulicity per pt report, A1c 6.5. ACHS fingerstick glucose with high dose SSI (4) HTN (hypertension): Code(s): I10 - Essential (primary) hypertension Status: Acute Assessment and Plan: Continue amlodipine and losartan, hold HCTZ due to renal dysfunction. Blood pressure reviewed on 01/29, elevated but stable. Plan Consult Wound Care who recommended Surgery Consult SSI with ACHS glucose checks Escalate IV antibiotics to vanc, cefepime, Flagyl Monitor renal function and blood pressure Time Spent With Patient Time with patient: 25 - 35 minutes Subjective Date/time seen: 01/29/23 15:25 Interval history: insulin-dependent diabetic with right heel wound in need surgical intervention. Surgery plans bedside incision and drainage uncertain if patient will be discharged after this or continue admission with IV antibiotics. Disposition pending surgery evaluation and treatment. Review of Systems Review of Systems: All systems reviewed & are unremarkable except as noted in HPI and below Exam Narrative: GENERAL: Well-appearing, well-nourished, and in no acute distress. HEAD: Normocephalic, atraumatic. EYES: PERRLA and EOMI. ENT: Nares clear, no rhinorrhea or epistaxis. Mucous membranes moist. NECK: Supple. no JVD. CHEST: Clear to auscultation. No respiratory distress. HEART: tachycardic rate and regular rhythm ABDOMEN: Soft, nontender, nondistended. EXTREMITIES: Normal range of motion. No edema. Right heel diffuse white tissue with large deficit medial aspect and erythema of plantar aspect of foot up midway to ankle, drainage present SKIN: Warm, dry, no rash. NEURO: No focal deficits. Alert and oriented x3. PSYCH: Normal mood and affect. Objective Data Vital Signs Vital Signs: Vital Signs - 24 hr 01/28/23 20:00 01/28/23 20:20 01/29/23 04:45 Temperature 36.2 C L 36.6 C Pulse Rate 82 89 Respiratory Rate 18 20 Blood Pressure 168/97 H 165/88 H Pulse Oximetry 100 98 Oxygen Delivery Room Air 01/29/23 09:30 01/29/23 14:00 Temperature 36.2 C L Pulse Rate 100 Respiratory Rate 16 Blood Pressure 156/95 H Pulse Oximetry 98 Oxygen Delivery Room Air Intake/Output Intake/Output: Intake & Output 01/26/23 01/27/23 01/28/23 01/29/23 23:59 23:59 23:59 23:59 Intake Total 1008 1265 Balance 1008 1265 Meds/Results Medications: Active Medications Generic Name Dose Route Start Last Admin Trade Name Freq PRN Reason Stop Dose Admin Amlodipine Besylate 10 mg 01/29/23 09:00 01/29/23 09:28 Amlodipine Besylate 5 Mg Tablet PO 10 mg DAILY LISSET Administration Atorvastatin Calcium 10 mg 01/29/23 09:00 01/29/23 09:28 Atorvastatin 10 Mg Tablet PO 10 mg DAILY LISSET Administration Dextrose 12.5 gm 01/28/23 07:04 Dextrose 50% 25 Gm/50 Ml Syringe IV PUSH PRN PRN Hypoglycemia Protocol Gabapentin 600 mg 01/28/23 17:00 01/29/23 09:28 Gabapentin 300 Mg Capsule PO
[2023-01-29 16:29] LABS: Glucose Point of Care 162 mg/dl (65-105)
[2023-01-29] MEDS: SILVER NITRATE (*SP) STICK 1 EACH TOPICAL (16:50)
[2023-01-29 17:40] LABS: Vancomycin Trough 15.1 ug/mL (10.0-20.0)
[2023-01-29 20:00] VITALS: PULSE 100; RESP 16; O2SAT 98
--- NOTE | 2023-01-29 20:16 | W.PM.PROC2 ---
Procedure Note - Detailed Date of Procedure 01/29/23 Pre-op Diagnosis Right heel ulcer Post-op Diagnosis Same Procedure Performed Sharp excisional debridement of right heel ulcer measuring 4cm x 3cm including skin Surgeon Dhaval Prater, Anesthesia None Indications unstageable right heel ulcer, cellulitis Findings Thin area of necrotic skin on plantar surface of right heel. No deep underlying infection or abscess. No fluid to culture. Description of Procedure Procedure, risks, benefits, and alternatives discussed with patient. Patient supine in hospital bed. Right heel prepped with betadine. Sharp excisional debridement performed to necrotic skin using scissors and 15-blade scalpel. Healthy appearing tissue immediately deep to necrotic skin. Bleeding at the anterior medial edge controlled with silver nitrate and pressure. Debridement area measured 4cm x 3cm. Silver gel, 4x4 gauze, ABD pad, and Kerlix wrap applied. Estimated Blood Loss 5 Pathology None sent Complications No immediate complications Condition Stable Disposition No change [facility] Billing Surgery - Charge Forward: Surgery Billing
[2023-01-29 20:31] LABS: Glucose Point of Care 166 mg/dl (65-105)
[2023-01-29] MEDS: INSULIN GLARGINE (*BKC) 100 UNITS/ML 50 UNITS SUB-Q (20:43)
[2023-01-29 21:25] VITALS: BP 145/86; PULSE 86; RESP 18; TEMP 36.6; O2SAT 99
[2023-01-30 04:55] VITALS: BP 134/72; PULSE 82; RESP 20; TEMP 37.3; O2SAT 97
[2023-01-30] MEDS: metroNIDAZOLE 500 MG/ISO 100ML 500 MG/100 ML BAG 100 MG IVPB ×2 (05:36→11:26)
[2023-01-30 07:37] LABS: Glucose Point of Care 65 mg/dl (65-105)
[2023-01-30 07:49] LABS: Basophils Percent Auto 0.4 % (0.2-1.2); Eosinophils Absolute Auto 0.3 K/mm3 (0-0.3); Eosinophils Percent Auto 3.9 % (0-4.4); Hematocrit 28.8 % (42.0-52.0); Hemoglobin 9.1 g/dL (14.0-18.0); Immature Granulocyte Absolute 0.05 K/mm3 (0.00-0.031); Immature Granulocyte Percent A 0.6 % (0-0.5); Lymphocytes Absolute Auto 0.76 K/mm3 (0.9-3.2); Lymphocytes Percent Auto 9.2 % (18.3-44.2); Mean Corpuscular HGB Conc 31.6 g/dl (32-36); Mean Corpuscular Hemoglobin 28.5 pg (26-34); Mean Corpuscular Volume 90.3 fl (80-100); Mean Platelet Volume 9.9 fl (7.4-10.4); Monocytes Absolute Auto 0.8 K/mm3 (0.1-0.6); Monocytes Percent Auto 9.5 % (2.6-8.5); Neutrophils Absolute Auto 6.4 K/mm3 (1.3-6.7); Neutrophils Percent Auto 76.4 % (45.5-73.1); Platelet Count Result 302 k/mm3 (150-375); Red Blood Count 3.19 M/mm3 (4.6-6.20); Red Cell Distribution Width 12.6 % (11.5-14.5); White Blood Count 8.3 K/mm3 (4.5-10.0)
[2023-01-30 07:52] LABS: Alanine Aminotransferase 22 U/L (6-50); Albumin Level 3.3 g/dL (3.5-5.1); Alkaline Phosphatase 102 U/L (38-126); Anion Gap 7 mmol/L (8-16); Aspartate Amino Transferase 16 U/L (17-59); Bilirubin,Total 1.3 mg/dL (0.2-1.3); Blood Urea Nitrogen 23 mg/dL (9-20); Calcium 8.6 mg/dL (8.4-10.2); Carbon Dioxide 22 mmol/L (22-30); Chloride 109 mmol/L (98-107); Estimated CRCL calculation 64 ml/min; Estimated Glomerular Filt Rate 39; Glucose 71 mg/dL (65-110); Potassium 4.5 mmol/L (3.4-5.0); Sodium 138 mmol/L (137-145)
[2023-01-30] MEDS: ATORVASTATIN 10 MG TABLET PO (08:36)
[2023-01-30] MEDS: amLODIPine BESYLATE 5 MG TABLET 10 MG PO (08:36)
[2023-01-30] MEDS: LOSARTAN POTASSIUM 100 MG TABLET PO (08:36)
[2023-01-30] MEDS: GABAPENTIN 300 MG CAPSULE 600 MG PO (08:36)
[2023-01-30] MEDS: CEFEPIME 2 GM/NS 50 ML 2 GM/50 ML BAG IVPB (08:37)
--- NOTE | 2023-01-30 10:58 | PM.IMPN ---
Subjective Date/time seen: 01/30/23 10:58 Objective Data Vital Signs Vital Signs: Vital Signs - 24 hr 01/29/23 14:00 01/29/23 20:00 01/29/23 21:25 Temperature 36.2 C L 36.6 C Pulse Rate 100 100 86 Respiratory Rate 16 16 18 Blood Pressure 156/95 H 145/86 H Pulse Oximetry 98 98 99 Oxygen Delivery Room Air 01/30/23 04:55 01/30/23 08:54 Temperature 37.3 C Pulse Rate 82 Respiratory Rate 20 Blood Pressure 134/72 Pulse Oximetry 97 Oxygen Delivery Room Air Intake/Output Intake/Output: Intake & Output 01/27/23 01/28/23 01/29/23 01/30/23 23:59 23:59 23:59 23:59 Intake Total 1008 2255 1124 Balance 1008 2255 1124 Meds/Results Medications: Active Medications Generic Name Dose Route Start Last Admin Trade Name Freq PRN Reason Stop Dose Admin Amlodipine Besylate 10 mg 01/29/23 09:00 01/30/23 08:36 Amlodipine Besylate 5 Mg Tablet PO 10 mg DAILY LISSET Administration Atorvastatin Calcium 10 mg 01/29/23 09:00 01/30/23 08:36 Atorvastatin 10 Mg Tablet PO 10 mg DAILY LISSET Administration Dextrose 12.5 gm 01/28/23 07:04 Dextrose 50% 25 Gm/50 Ml Syringe IV PUSH PRN PRN Hypoglycemia Protocol Gabapentin 600 mg 01/28/23 17:00 01/30/23 08:36 Gabapentin 300 Mg Capsule PO 600 mg BID LISSET Administration Glucagon 1 mg 01/28/23 07:04 Glucagon For Inj 1 Mg Vial IM PRN PRN Hypoglycemia Protocol Glucose 15 gm 01/28/23 07:04 Glucose Oral Gel 15 Gm Of Glucse In 37.5 Gm Tube PO PRN PRN Hypoglycemia Protocol Vancomycin HCl 1,500 mg in 500 mls @ 250 mls/hr 01/29/23 00:00 01/29/23 20:50 Vancomycin 1,500 Mg/Ns 500 Ml IVPB Infused Q18H LISSET Infusion Dextrose 1,000 mls @ 100 mls/hr 01/28/23 07:04 Dextrose 5% 1,000 Ml IVPB PRN PRN Hypoglycemia Protocol Metronidazole 500 mg in 100 mls @ 100 mls/hr 01/28/23 16:00 01/30/23 06:36 Flagyl 500 Mg/Iso Soln 100 Ml IVPB Infused Q6HR LISSET Infusion Cefepime HCl 2 gm in 50 mls @ 100 mls/hr 01/28/23 17:00 01/30/23 09:07 Maxipime 2 Gm/Ns 50 Ml IVPB Infused Q12HR LISSET Infusion Insulin Aspart 4 - 8 units 01/28/23 08:00 01/30/23 07:43 Insulin Aspart (*Bkc) 100 Units/Ml SUB-Q Not Given TIDWM [facility] Protocol Insulin Aspart 2 - 4 units 01/28/23 21:00 01/29/23 20:43 Insulin Aspart (*Bkc) 100 Units/Ml SUB-Q Not Given HS [facility] Protocol Insulin Glargine 50 units 01/28/23 21:00 01/29/23 20:43 Insulin Glargine (*Bkc) 100 Units/Ml SUB-Q 50 units HS LISSET Administration Losartan Potassium 100 mg 01/29/23 09:00 01/30/23 08:36 Losartan Potassium 100 Mg Tablet PO 100 mg DAILY LISSET Administration Sitagliptin Phosphate 100 mg 01/29/23 09:00 01/30/23 08:36 Sitagliptin 100 Mg Tablet PO 02/28/23 08:59 100 mg DAILY LISSET Administration Radiology Results: ITS Impressions Foot X-Ray 01/28/23 05:51 Impression: Possible small amount of soft tissue gas relatively superficially in the plantar aspect of the heel region. No radiographic evidence for osteomyelitis. Advanced degenerative change of the first MTP joint. Foot CT 01/29/23 08:30 IMPRESSION: 1. No evidence of osteomyelitis. 2. Polyarticular osteoarthritis. Labs Labs: Laboratory Results - last 24 hr 01/29/23 01/29/23 01/29/23 11:13 16:26 16:50 WBC RBC Hgb Hct MCV MCH MCHC RDW Plt Count MPV Immature Gran % (Auto) Neut % (Auto) Lymph % (Auto) [place] % (Auto) Eos % (Auto) Baso % (Auto) Lymph # (Auto) [place] # (Auto) Eos # (Auto) Baso # (Auto) Abs Immat Gran (auto) Absolute Neuts (auto) Absolute Nucleated RBC Nucleated RBC % Sodium Potassium Chloride Carbon Dioxide Anion Gap BUN Creatinine Estim Creat Clear Calc Estimated GFR Glucose POC Capillary Glucose 125 H 162 H Calcium Total Bilirubin
[2023-01-30 11:41] LABS: Glucose Point of Care 156 mg/dl (65-105)
--- NOTE | 2023-01-30 12:30 | PM.DS ---
DS: Admitting Diagnosis Discharge Date 01/30/2023 Admitting Diagnosis diabetic foot infection, renal insufficiency, diabetes, hypertension DS: Discharge Diagnosis Discharge Diagnosis (1) Diabetic foot infection: Code(s): E11.628 - Type 2 diabetes mellitus with other skin complications; L08.9 - Local infection of the skin and subcutaneous tissue, unspecified Status: Acute (2) Renal insufficiency, mild: Code(s): N28.9 - Disorder of kidney and ureter, unspecified Status: Acute (3) Diabetes: Code(s): E11.9 - Type 2 diabetes mellitus without complications Status: Acute (4) HTN (hypertension): Code(s): I10 - Essential (primary) hypertension Status: Acute (5) Chronic kidney disease: Code(s): N18.9 - Chronic kidney disease, unspecified Status: Acute DS: Summary Hospital Course Reason for hospitalization: right heel diabetic foot wound Hospital Course: 01/28:? This is a 42 year old male patient ? With a history of type 2 diabetes hypertension hyperlipidemia who is admitted to the hospital with right heel diabetic wound.? Patient reports that he was having some callus removal and had some cracks in his feet, noted 3 days ago he had a blood blister on the right heel.? It began to drain the next day he.? While patient was working yesterday it was causing him significant pain when he usually does not feel much in his feet due to his diabetes.? He came to the hospital was found to have purulence drainage and a large boggy wound present.? Patient started on IV antibiotics and admitted to the hospital.? Wound Care was consulted and recommended surgical consult.? At this time patient is pending surgery evaluation.? X-ray shows possible small foci of gas no apparent foreign body and no signs osteomyelitis on x-ray.? Patient denies fever chills, shortness of breath, chest pain, abdominal pain, nausea, vomiting or diarrhea.? He states that he had some constipation but that is now relieved.? Patient denies any other concerns at this time. 01/29: ?insulin-dependent diabetic with right heel wound in need surgical intervention.? Surgery plans bedside incision and drainage uncertain if patient will be discharged after this or continue admission with IV antibiotics.? Disposition pending surgery evaluation and treatment. 01/30: yesterday afternoon patient underwent bedside debridement necrotic tissue right heel wound down to bleeding tissue no fluid for wound culture per surgery report. Wound care recommends silver gel covered by gauze and wrapped in Kerlix. Wound with mild surrounding erythema that appears to be improving. Surgery reports that he is clear for follow-up in wound clinic. Will utilize amoxicillin and doxycycline for strep and staph coverage ten-day prescription. Patient also informed that his renal function would place him at stage III CKD and he needs to follow-up with primary care to see if they want him referred to Nephrology to monitor renal function. Patient reports that he is calling his primary care for 7-10 day follow-up after discharge. Time spent discussing smoking cessation with patient: 3 to 10 minutes Status at Discharge Cognitive/behavioral status at discharge: awake alert oriented pleasant Functional status at discharge: independent ambulation Overall status at discharge: patient is progressing back to baseline Time Spent with Patient Time attestation: Total time spent providing and/or coordinating discharge services: 35 minutes Time spent: Greater than 30 minutes Exam Narrative: GENERAL: Well-appearing, well-nourished, and in no acute distress. HEAD: Normocephalic, atraumatic. EYES: PERRLA and EOMI. ENT: Nares clear, no rhinorrhea or epistaxis. Mucous membranes moist. NECK: Supple. no JVD. CHEST: Clear to auscultation. No respiratory distress. HEART: tachycardic rate and regular rhythm ABDOMEN: Soft, nontender, nondistended. EXTREMITIES: Normal range of
[2023-01-30] MEDS: VANCOMYCIN 1,500 MG/NS 500 ML 1,500 MG/500 ML BAG 200 MG IVPB (12:39)
--- NOTE | 2023-01-30 13:10 | PM.PNGS ---
Progress Note: A&P Assessment and Plan (1) Diabetic foot infection: Code(s): E11.628 - Type 2 diabetes mellitus with other skin complications; L08.9 - Local infection of the skin and subcutaneous tissue, unspecified Status: Acute Assessment and Plan: Doing well after debridement of heel wound yesterday. Will arrange for surgical boot and [facility]. (2) Cellulitis: Qualifiers: Laterality: right Site of cellulitis: extremity Site of cellulitis of extremity: lower extremity Qualified Code(s): L03.115 - Cellulitis of right lower limb Code(s): L03.90 - Cellulitis, unspecified Status: Acute Subjective Subjective Date/Time Seen: 01/30/23 13:10 Interval history: Doing well after heel debridement yesterday. No pain. Tolerating dressing changes. Exam Extrem: Other: Dressing dry, no significant bleeding. Objective Data Vital Signs Vital Signs: Vital Signs - 24 hr 01/29/23 14:00 01/29/23 20:00 01/29/23 21:25 Temperature 36.2 C L 36.6 C Pulse Rate 100 100 86 Respiratory Rate 16 16 18 Blood Pressure 156/95 H 145/86 H Pulse Oximetry 98 98 99 Oxygen Delivery Room Air 01/30/23 04:55 01/30/23 08:54 Temperature 37.3 C Pulse Rate 82 Respiratory Rate 20 Blood Pressure 134/72 Pulse Oximetry 97 Oxygen Delivery Room Air Intake/Output Intake/Output: Intake & Output 01/27/23 01/28/23 01/29/23 01/30/23 23:59 23:59 23:59 23:59 Intake Total 1008 2255 1704 Balance 1008 2255 1704 Meds/Results Medications: Active Medications Generic Name Dose Route Start Last Admin Trade Name Freq PRN Reason Stop Dose Admin Amlodipine Besylate 10 mg 01/29/23 09:00 01/30/23 08:36 Amlodipine Besylate 5 Mg Tablet PO 10 mg DAILY LISSET Administration Atorvastatin Calcium 10 mg 01/29/23 09:00 01/30/23 08:36 Atorvastatin 10 Mg Tablet PO 10 mg DAILY LISSET Administration Dextrose 12.5 gm 01/28/23 07:04 Dextrose 50% 25 Gm/50 Ml Syringe IV PUSH PRN PRN Hypoglycemia Protocol Gabapentin 600 mg 01/28/23 17:00 01/30/23 08:36 Gabapentin 300 Mg Capsule PO 600 mg BID LISSET Administration Glucagon 1 mg 01/28/23 07:04 Glucagon For Inj 1 Mg Vial IM PRN PRN Hypoglycemia Protocol Glucose 15 gm 01/28/23 07:04 Glucose Oral Gel 15 Gm Of Glucse In 37.5 Gm Tube PO PRN PRN Hypoglycemia Protocol Vancomycin HCl 1,500 mg in 500 mls @ 250 mls/hr 01/29/23 00:00 01/30/23 12:39 Vancomycin 1,500 Mg/Ns 500 Ml IVPB 200 mls/hr Q18H LISSET Administration Dextrose 1,000 mls @ 100 mls/hr 01/28/23 07:04 Dextrose 5% 1,000 Ml IVPB PRN PRN Hypoglycemia Protocol Metronidazole 500 mg in 100 mls @ 100 mls/hr 01/28/23 16:00 01/30/23 12:26 Flagyl 500 Mg/Iso Soln 100 Ml IVPB Infused Q6HR LISSET Infusion Cefepime HCl 2 gm in 50 mls @ 100 mls/hr 01/28/23 17:00 01/30/23 09:07 Maxipime 2 Gm/Ns 50 Ml IVPB Infused Q12HR LISSET Infusion Insulin Aspart 4 - 8 units 01/28/23 08:00 01/30/23 11:27 Insulin Aspart (*Bkc) 100 Units/Ml SUB-Q Not Given TIDWM [facility] Protocol Insulin Aspart 2 - 4 units 01/28/23 21:00 01/29/23 20:43 Insulin Aspart (*Bkc) 100 Units/Ml SUB-Q Not Given HS [facility] Protocol Insulin Glargine 50 units 01/28/23 21:00 01/29/23 20:43 Insulin Glargine (*Bkc) 100 Units/Ml SUB-Q 50 units HS LISSET Administration Losartan Potassium 100 mg 01/29/23 09:00 01/30/23 08:36 Losartan Potassium 100 Mg Tablet PO 100 mg DAILY LISSET Administration Sitagliptin Phosphate 100 mg 01/29/23 09:00 01/30/23 08:36 Sitagliptin 100 Mg Tablet PO 02/28/23 08:59 100 mg DAILY LISSET Administration Radiology Results: ITS Impressions Foot X-Ray 01/28/23 05:51 Impression: Possible small amount of soft tissue gas relatively superficially in the plantar aspect of the heel region. No radiographic evidence for oste
== END 2023-01-30 14:20 | disposition home or self-care (01) | DRG 638 ==
LOC: ANHED 06:02 → ANH3MEDSUR 06:44
PROVIDERS: Admitting Provider Internal Medicine; Emergency Provider Emergency Medicine; PCP Family Medicine; Visit Provider Nurse Practitioner
DX: E11.628 Type 2 diabetes mellitus with other skin complications (principal); L03.115 Cellulitis of right lower limb; S90.821A Blister (nonthermal), right foot, initial encounter; L08.9 Local infection of the skin and subcutaneous tissue, unspecified; I12.9 Hypertensive chronic kidney disease with stage 1 through stage 4 chronic kidney disease, or unspecified chronic kidney disease; N18.30 Chronic kidney disease, stage 3 unspecified; M19.90 Unspecified osteoarthritis, unspecified site; G71.00 Muscular dystrophy, unspecified; G89.29 Other chronic pain; Q66.89 Other specified congenital deformities of feet; Z79.4 Long term (current) use of insulin; Z87.891 Personal history of nicotine dependence
CPT/HCPCS: 36415; 73620; 73701; 80048; 80053; 80202; 82565; 82948; 83036; 83605; 85025; 87040; 96365; 99285; A9270; G0378; J0692; J1815; J1836; J3370; Q9967

== ENCOUNTER 2023-02-25 10:11 | Inpatient (IN) | payer BC, SELFPAY ==
[2023-02-25] VITALS (8 sets, daily range): BP systolic 106–132; BP diastolic 70–77; PULSE 98–128; RESP 18–20; TEMP 36.5–39.9; O2SAT 97–98; BMI 37.3
--- NOTE | ~2023-02-25 | XR_ITS ---
Portable chest x-ray Comparison: None Clinical History: PICC line placement Findings: PICC line is in satisfactory position on the second image following repositioning. Tip is in the SVC. Lungs are clear. No consolidation, effusion, or pneumothorax. Cardiomediastinal silhouet te is stable. Bones and soft tissues are unremarkable. Impression: Right-sided PICC line in satisfactory position. Clear lungs. Reviewed, dictated and finalized at location M. ING HOUSE WORKER Impression: Right-sided PICC line in satisfactory position. Clear lungs.
--- NOTE | ~2023-02-25 | XR_ITS ---
EXAMINATION: XR foot RT min 3V DATE: 02/25/2023 10:45 INDICATION: Right heel ulcer. TECHNIQUE: 4 views of right foot were obtained. COMPARISON: Right foot radiographs 01/28/2023 FINDINGS: Bone alignment is normal. No fracture. 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 There is mild midfoot osteoarthritis. There is an ulcer plantar to calcaneal tuberosit y. There is an erosion of calcaneal tuberosity, consistent with osteomyelitis. There is soft tissue s welling of the foot. IMPRESSION: 1. Erosion of calcaneal tuberosity, consistent with osteomyelitis. Reviewed, dictated and finalized at location A. NG MACHINE OPERATOR
--- NOTE | ~2023-02-25 | CT_ITS ---
EXAMINATION: CTA LE RT DATE: 03/01/2023 08:49 INDICATION: Right calcaneus osteomyelitis TECHNIQUE: Computed tomographic angiography (CTA) of the right lower extremity was performed with 150 mL Omnipaque-350 intravenous contrast. The dose-length product (DLP) was 1025.92 mGy-cm. Maximum int ensity projection 3D-reconstructions of the arteries were created by the technologist on a separate w orkstation. Automated exposure control and iterative reconstruction technique were employed. COMPARISON: 01/29/2023 FINDINGS: The superficial and deep femoral arteries are normal. The popliteal artery and tibioperoneal trunk ar e unremarkable. The anterior tibial and peroneal arteries are normal. There is calcified atherosclero sis of the posterior tibial artery which demonstrates diminutive opacification throughout much of its course. There is a two-vessel runoff at the ankle. There is a plantar soft tissue defect overlying t he calcaneus with underlying cortical destruction involving the posterior tuberosity of the calcaneus . There is extensive surrounding edema of the foot and ankle. IMPRESSION: 1. Poor perfusion of the posterior tibial artery throughout much of its course with two-vessel runoff at the ankle. 2. Osteomyelitis involving the posterior tuberosity of the calcaneus. Reviewed, dictated and finalized at location F. RIMENTAL MECHANIC ELECTRICAL
--- NOTE | 2023-02-25 10:12 | ADMGEN ---
This patient, Jose Roberto Maria, was admitted to [facility] Surg Room 317-01. Patient/family oriented to hospital policies and general routines including ID bracelet, bed and alarms, visiting hours, pain management, procedures, bathroom and other care routines, personal items, smoking policy, room service/diet, and visiting hours. Information on how to activate the Rapid Response Team has been discussed. Patient/Family are encouraged to report perceived risks to care and to ask questions if they do not understand what they are told or what they should do.
--- NOTE | 2023-02-25 10:20 | PM.IMHP ---
H&P: HPI History of Present Illness Date/Time: 02/25/23 10:20 Chief Complaint: Right heel ulcer Narrative: This is a 42-year-old man who is being directly admitted for a nonhealing right heel ulcer. He was seen in the wound clinic today and has signs of cellulitis and worsening necrotic skin on heel ulcer that initially started 1 month ago. He had recently been in the emergency department 01/16/2023, 01/25/2023, 01/28/2023. Initially he had complained of some right ankle swelling which was treated with a course of oral steroids. He was then experiencing worsening pain in the right foot and began developing blisters on the heel and returned for evaluation on 01/25. He was placed on oral clindamycin at that time. He then returned to the emergency department on 01/28/2023 with worsening blistering and redness to his plantar heel area. He was then admitted to the hospital for IV antibiotics and further workup and treatment. All this while his diabetes had been pretty well controlled. His hemoglobin A1c on 01/28/2023 was 6.5%. A local debridement of the heel ulcer measuring 4 cm x 3 cm was performed by me on 01/29/2023. A CT of his foot at that time showed no worsening deeper infection or signs of osteomyelitis. He has been following with wound care nurses in the wound clinic since being discharged on 01/30/2023. He was applying Santyl ointment daily but was continuing to notice increasing areas of necrotic skin and redness. He is now having tenderness up the medial side of the right ankle and increasing erythema. Patient denies any fevers. He does have history of clubfoot surgery as an . He denies any prior history of claudication or peripheral vascular disease. Review of Systems Review of Systems: All systems reviewed & are unremarkable except as noted in HPI and below Constitutional: Constitutional: Denies chills and Denies fever(s) Eyes: Eyes: Denies change in vision ENT: Denies hearing loss, Denies neck pain and Denies sore throat Cardiovascular: Cardiovascular: Denies chest pain and Denies dyspnea Respiratory: Respiratory: Denies cough, Denies dyspnea and Denies wheezing Gastrointestinal: Gastrointestinal: Denies abdominal pain and Denies nausea Genitourinary: Genitourinary: Denies hematuria and Denies dysuria Musculoskeletal: Musculoskeletal: Reports as per HPI, Reports arthralgias and Reports joint swelling Integumentary/Breasts: Skin/Breast: Reports as per HPI Allergic/Immunologic: Allergic/Immunologic: Denies wheezing PMFSH Past Medical History Medical History (Updated 02/25/23 @ 10:54 by Dhaval Prater DO) Abscess Arthritis Asthma Chronic kidney disease Chronic pain Club foot of both lower extremities Diabetes Dizziness Food allergy History of adverse reaction to anesthesia HTN (hypertension) Muscular dystrophy Skin ulcer Vision abnormalities Weight gain Surgical History Surgical History Hx of clubfoot correction Family History Family History Grandparent Arthritis Heart disease Diabetes mellitus Hypertension Malignant neoplasm Mother Heart disease Diabetes mellitus Hypertension Social History Social History Smoking packs per day: 0.1 Smoking cigarettes per day: 2.0 Years smoked: 5 Smoking pack-years: 0.50 Smoking status: Former smoker Tobacco type: cigarettes, cigars and e-cigarettes/vaping Alcohol intake: never Substance use: current Substance use type: prescription drug Do You Feel Safe in your Home?: Yes Lack of Transportation: No Lack of Food: Never True Current Housing: I Have Housing Concerned About Future Housing: No Difficulty Paying Gas/Electric Bills: No Difficulty Paying for Meds: No Currently Unemployed: No Education: Associate Degree Difficulty w/
--- NOTE | 2023-02-25 10:36 | PC.NURSE ---
called to clarify XR orders with DO wikiera
[2023-02-25 10:54] LABS: Basophils Percent Auto 0.3 % (0.2-1.2); Eosinophils Percent Auto 0.3 % (0-4.4); Hematocrit 26.9 % (42.0-52.0); Hemoglobin 8.5 g/dL (14.0-18.0); Immature Granulocyte Absolute 0.16 K/mm3 (0.00-0.031); Immature Granulocyte Percent A 1.1 % (0-0.5); Lymphocytes Absolute Auto 0.34 K/mm3 (0.9-3.2); Lymphocytes Percent Auto 2.4 % (18.3-44.2); Mean Corpuscular HGB Conc 31.6 g/dl (32-36); Mean Corpuscular Hemoglobin 27.8 pg (26-34); Mean Corpuscular Volume 87.9 fl (80-100); Mean Platelet Volume 9.9 fl (7.4-10.4); Monocytes Absolute Auto 0.4 K/mm3 (0.1-0.6); Monocytes Percent Auto 2.6 % (2.6-8.5); Neutrophils Absolute Auto 13.4 K/mm3 (1.3-6.7); Neutrophils Percent Auto 93.3 % (45.5-73.1); Platelet Count Result 350 k/mm3 (150-375); Red Blood Count 3.06 M/mm3 (4.6-6.20); Red Cell Distribution Width 13.1 % (11.5-14.5); White Blood Count 14.4 K/mm3 (4.5-10.0)
[2023-02-25 11:05] LABS: Lactic Acid Reflex 2.2 mmol/L (0.7-2.0)
[2023-02-25 11:06] LABS: Alanine Aminotransferase 48 U/L (6-50); Albumin Level 3.1 g/dL (3.5-5.1); Alkaline Phosphatase 148 U/L (38-126); Anion Gap 12 mmol/L (8-16); Aspartate Amino Transferase 34 U/L (17-59); Bilirubin,Total 0.7 mg/dL (0.2-1.3); Blood Urea Nitrogen 51 mg/dL (9-20); Calcium 8.1 mg/dL (8.4-10.2); Carbon Dioxide 16 mmol/L (22-30); Chloride 104 mmol/L (98-107); Estimated CRCL calculation 46 ml/min; Estimated Glomerular Filt Rate 27; Glucose 208 mg/dL (65-110); Sodium 132 mmol/L (137-145)
--- NOTE | 2023-02-25 11:51 | PC.NURSE ---
called DO Josi office informed that Ct stated GFR too low for Ct with contrast. Awaiting call back.
--- NOTE | 2023-02-25 11:52 | PC.NURSE ---
vascular access to place IV for patient, patient receiving several abt for R foot ulcer.
--- NOTE | 2023-02-25 11:54 | PC.NURSE ---
confirmed with wound travel coordinator photo not needed do to wound being DM ulcers.
--- NOTE | 2023-02-25 11:57 | PC.NURSE ---
informed DO Hailekieria that GFR too low of CTA RLE, ordering US duplex arterial instead per CITY DETECTIVE, stating patient on NS @ 100 ml/hr due to kidney function
[2023-02-25] MEDS: CEFEPIME 1 GM/NS 50 ML 1 GM/50 ML BAG IVPB ×2 (12:15→21:25)
[2023-02-25] MEDS: SODIUM CHLORIDE 0.9% IV 1,000 ML 100 ML IV CONT (12:16)
--- NOTE | 2023-02-25 12:16 | PC.NURSE ---
called Do Elsa to place patient on low dose insulin and hypoglycemia protocol
[2023-02-25 12:26] LABS: Glucose Point of Care 238 mg/dl (65-105)
[2023-02-25] MEDS: metroNIDAZOLE 500 MG/ISO 100ML 500 MG/100 ML BAG 100 MG IVPB ×3 (12:55→23:24)
--- NOTE | 2023-02-25 13:17 | PM.IMCN ---
Assessment and Plan Assessment and plan (1) Sepsis: Code(s): A41.9 - Sepsis, unspecified organism Status: Acute Assessment and Plan: Meet Sepsis/SIRS criteria: HR of 121 and WBC greater than 12. Later developed fever, 102.4?. Lactic acid 2.2. Adding blood cultures and starting IV fluid bolus at 20 ml/kg - 2,000 L with maintenance at 100 mL/hr post-bolus. Suspected source is R heel wound/cellulitis. General Surgery managing wound, potential debridement tomorrow and NPO at midnight. (2) Cellulitis of right foot: Code(s): L03.115 - Cellulitis of right lower limb Status: Acute Assessment and Plan: General surgery managing, Josi CARVER. obtaining right foot XR and CT angiogram of RLE. Some concern for underlying vascular pathology. Started on cefepime, metronidazole, and vancomycin. Plan to review imaging and surgical debridement tomorrow. NPO at midnight. Will continue pain management and Tylenol for fevers. Wound cruise consultant placed. (3) Chronic kidney disease: Code(s): N18.9 - Chronic kidney disease, unspecified Status: Acute Assessment and Plan: SHABNAM superimposed on CKD. Baseline creatinine appears to be 1.5-1.9. Creatinine currently 2.6. Started on 20 mL/kg of IV fluid resuscitation. Continue to trend. (4) Diabetes: Qualifiers: Chronic kidney disease stage: unspecified stage Diabetes mellitus complication detail: with chronic kidney disease Diabetes mellitus complication status: with kidney complications Diabetes mellitus snf insulin use: with surgical assist use Diabetes mellitus type: type 2 Qualified Code(s): E11.22 - Type 2 diabetes mellitus with diabetic chronic kidney disease; Z79.4 - MCFP (current) use of insulin Code(s): E11.9 - Type 2 diabetes mellitus without complications Status: Acute Assessment and Plan: hypoglycemia protocol POC blood glucose ACHS home medication resumed/held - continued home Lantus 50 u HS and Januvia 100 mg HS, Trulicity held. correct regimen ordered - moderate dose TIDWM and HS A1C 6.5% om 01/28/23 May need high-dose corrective regimen due to current infection. Assess glucose levels tomorrow. (5) HTN (hypertension): Qualifiers: Hypertension type: primary hypertension Qualified Code(s): I10 - Essential (primary) hypertension Code(s): I10 - Essential (primary) hypertension Status: Acute Assessment and Plan: Continue home losartan. Monitor. Plan Home Meds/Chronic Conditions -HLD: Continue home atorvastatin. No monitoring necessary. -neuropathy: Continue home gabapentin. Diet: Diabetic, NPO at midnight GI Prophylaxis: Starting pantoprazole due to possibility surgical management tomorrow DVT Prophylaxis: Enoxaparin Lines: pIV Code Status: Full Code HPI Date of Consult Consult date: 02/25/23 Requesting Physician: Dhaval Prater DO Primary Care Provider: Amelia Torres, Consult Narrative Reason for consult: Medical Managament Narrative: Jose Roberto Maria is a 42 year old male who presented here for surgical management of his R Heel wound with PMH of arthritis, asthma, CKD, DM, HTN, muscular dystrophy, and club foot bilaterally with surgical correction as a child. Patient was directly admitted for a nonhealing right heel ulcer. Originally sought care on 01/16 for redness and swelling to his R lateral ankle. D/c'd with prednisone and imaging did not show an acute fracture. Pain attributed to Achilles tendinitis. Returned on 01/25 with complaints of right foot pain over a couple days with development of blood blisters to his right foot/heel accompanied by redness and swelling. Was discharged home on clindamycin p.o. with instructions to return to the ED if he developed signs and symptoms of worsening infection. Returned on 01/28 with skin sloughing, prelim drainage, and a large boggy wound. Was subsequently admitt
[2023-02-25 13:52] LABS: Reflex Lactic Acid Yes or No Add Lactic
[2023-02-25] MEDS: SODIUM CHLORIDE 0.9% IV 1,000 ML 999 ML IV CONT ×2 (13:52→15:47)
[2023-02-25] MEDS: VANCOMYCIN 1,250 MG/NS 250 ML 1,250 MG/250 ML BAG 166.67 MG IVPB ×2 (13:57→15:47)
[2023-02-25] MEDS: ACETAMINOPHEN 325 MG TABLET 650 MG PO ×2 (15:48→22:26)
[2023-02-25 16:47] LABS: Glucose Point of Care 115 mg/dl (65-105)
[2023-02-25 21:15] LABS: Glucose Point of Care 153 mg/dl (65-105)
[2023-02-25] MEDS: LOSARTAN POTASSIUM 100 MG TABLET PO (21:24)
[2023-02-25] MEDS: GABAPENTIN 300 MG CAPSULE 600 MG PO (21:24)
[2023-02-25] MEDS: INSULIN GLARGINE (*BKC) 100 UNITS/ML 50 UNITS SUB-Q (21:25)
[2023-02-25] MEDS: ATORVASTATIN 10 MG TABLET PO (21:25)
[2023-02-26] VITALS (17 sets, daily range): BP systolic 105–136; BP diastolic 60–77; PULSE 83–102; RESP 12–20; TEMP 35.8–39.3; O2SAT 93–98
[2023-02-26] MEDS: metroNIDAZOLE 500 MG/ISO 100ML 500 MG/100 ML BAG 100 MG IVPB ×3 (05:13→22:34)
[2023-02-26] MEDS: SODIUM CHLORIDE 0.9% IV 1,000 ML 100 ML IV CONT (05:13)
[2023-02-26 06:51] LABS: Basophils Absolute Auto 0.1 K/mm3 (0.0-0.1); Basophils Percent Auto 0.4 % (0.2-1.2); Eosinophils Percent Auto 0.1 % (0-4.4); Hematocrit 22.6 % (42.0-52.0); Immature Granulocyte Absolute 0.24 K/mm3 (0.00-0.031); Immature Granulocyte Percent A 2.1 % (0-0.5); Lymphocytes Absolute Auto 0.45 K/mm3 (0.9-3.2); Lymphocytes Percent Auto 3.9 % (18.3-44.2); Mean Corpuscular HGB Conc 30.1 g/dl (32-36); Mean Corpuscular Hemoglobin 27.1 pg (26-34); Mean Platelet Volume 9.9 fl (7.4-10.4); Monocytes Absolute Auto 0.7 K/mm3 (0.1-0.6); Monocytes Percent Auto 6.4 % (2.6-8.5); Neutrophils Percent Auto 87.1 % (45.5-73.1); Platelet Count Result 286 k/mm3 (150-375); Red Blood Count 2.51 M/mm3 (4.6-6.20); Red Cell Distribution Width 13.3 % (11.5-14.5); White Blood Count 11.4 K/mm3 (4.5-10.0)
[2023-02-26 07:01] LABS: Alanine Aminotransferase 38 U/L (6-50); Albumin Level 2.4 g/dL (3.5-5.1); Alkaline Phosphatase 106 U/L (38-126); Anion Gap 8 mmol/L (8-16); Aspartate Amino Transferase 34 U/L (17-59); Blood Urea Nitrogen 40 mg/dL (9-20); Carbon Dioxide 17 mmol/L (22-30); Chloride 108 mmol/L (98-107); Estimated CRCL calculation 59 ml/min; Estimated Glomerular Filt Rate 37; Glucose 144 mg/dL (65-110); Potassium 4.3 mmol/L (3.4-5.0); Sodium 133 mmol/L (137-145)
--- NOTE | 2023-02-26 07:27 | P.PNIM_ITS ---
Progress Note: A&P Assessment and Plan (1) Sepsis: Code(s): A41.9 - Sepsis, unspecified organism Status: Acute Assessment and Plan: 02/25/23: * Meet Sepsis/SIRS criteria: HR of 121 and WBC greater than 12. Later developed fever, 102.4?. Lactic acid 2.2. Adding blood cultures and starting IV fluid bolus at 20 ml/kg - 2,000 L with maintenance at 100 mL/hr post-bolus. Suspected source is R heel wound/cellulitis. General Surgery managing wound, potential debridement tomorrow and NPO at midnight. 02/26/23: * blood cultures obtained and are pending * known source- right heel necrotic ulcer with presence of osteomyelitis * Currently on Cefepime, Flagyl, and Vancomycin IV * Repeat lactate 1.0, WBC today down to 11.4 * T-max 103.8, currently afebrile with temp of 98.9. HR now in the 90's * Continue IV fluids for now (2) Cellulitis of right foot: Code(s): L03.115 - Cellulitis of right lower limb Status: Acute Assessment and Plan: 02/25/23: * General surgery managing, Josi CARVER. obtaining right foot XR and CT angiogram of RLE. Some concern for underlying vascular pathology. Started on cefepime, metronidazole, and vancomycin. Plan to review imaging and surgical debridement tomorrow. NPO at midnight. Will continue pain management and Tylenol for fevers. Wound wig sales consultant placed. 02/26/23: * Plan for surgical debridement with General surgery today. * Wound nurse consulted * Continue IV antibiotics * Continue NPO status for now and IVF (3) Chronic kidney disease: Code(s): N18.9 - Chronic kidney disease, unspecified Status: Acute Assessment and Plan: 02/25/23: * SHABNAM superimposed on CKD. Baseline creatinine appears to be 1.5-1.9. Creatinine currently 2.6. Started on 20 mL/kg of IV fluid resuscitation. Continue to trend. 02/26/23: * BUN 40, creatinine 2.0 * Continue to trend (4) Diabetes: Qualifiers: Chronic kidney disease stage: unspecified stage Diabetes mellitus complication detail: with chronic kidney disease Diabetes mellitus complication status: with kidney complications Diabetes mellitus longwall foreman insulin use: with retirement use Diabetes mellitus type: type 2 Qualified Code(s): E11.22 - Type 2 diabetes mellitus with diabetic chronic kidney disease; Z79.4 - rad tech (current) use of insulin Code(s): E11.9 - Type 2 diabetes mellitus without complications Status: Acute Assessment and Plan: 02/25/23: * hypoglycemia protocol * POC blood glucose ACHS * home medication resumed/held - continued home Lantus 50 u HS and Januvia 100 mg HS, Trulicity held. * correct regimen ordered - moderate dose TIDWM and HS * A1C 6.5% om 01/28/23 * May need high-dose corrective regimen due to current infection. Assess glucose levels tomorrow. 02/26/23: * BG ranging 115-153 * Continue with current regimen for now. (5) HTN (hypertension): Qualifiers: Hypertension type: primary hypertension Qualified Code(s): I10 - Essential (primary) hypertension Code(s): I10 - Essential (primary) hypertension Status: Acute Assessment and Plan: 02/25/23: * Continue home losartan. Monitor. 02/26/23: * BP ranging 116/67-132/70 * No change to current treatment plan. (6) Anemia: Code(s): D64.9 - Anemia, unspecified Status: Acute Assessment and Plan: 02/26/23: * Could be secondary to acute on chronic kidney disease or dilutional from receiving 2L NS and started on IVF per sepsis guidelines. Vi
--- NOTE | 2023-02-26 07:27 | PM.IMPN ---
Progress Note: A&P Assessment and Plan (1) Sepsis: Code(s): A41.9 - Sepsis, unspecified organism Status: Acute Assessment and Plan: 02/25/23: Meet Sepsis/SIRS criteria: HR of 121 and WBC greater than 12. Later developed fever, 102.4?. Lactic acid 2.2. Adding blood cultures and starting IV fluid bolus at 20 ml/kg - 2,000 L with maintenance at 100 mL/hr post-bolus. Suspected source is R heel wound/cellulitis. General Surgery managing wound, potential debridement tomorrow and NPO at midnight. 02/26/23: blood cultures obtained and are pending known source- right heel necrotic ulcer with presence of osteomyelitis Currently on Cefepime, Flagyl, and Vancomycin IV Repeat lactate 1.0, WBC today down to 11.4 T-max 103.8, currently afebrile with temp of 98.9. HR now in the 's Continue IV fluids for now (2) Cellulitis of right foot: Code(s): L03.115 - Cellulitis of right lower limb Status: Acute Assessment and Plan: 02/25/23: General surgery managing, Josi CARVER. obtaining right foot XR and CT angiogram of RLE. Some concern for underlying vascular pathology. Started on cefepime, metronidazole, and vancomycin. Plan to review imaging and surgical debridement tomorrow. NPO at midnight. Will continue pain management and Tylenol for fevers. Wound direct response consultant placed. 02/26/23: Plan for surgical debridement with General surgery today. Wound nurse consulted Continue IV antibiotics Continue NPO status for now and IVF (3) Chronic kidney disease: Code(s): N18.9 - Chronic kidney disease, unspecified Status: Acute Assessment and Plan: 02/25/23: SHABNAM superimposed on CKD. Baseline creatinine appears to be 1.5-1.9. Creatinine currently 2.6. Started on 20 mL/kg of IV fluid resuscitation. Continue to trend. 02/26/23: BUN 40, creatinine 2.0 Continue to trend (4) Diabetes: Qualifiers: Chronic kidney disease stage: unspecified stage Diabetes mellitus complication detail: with chronic kidney disease Diabetes mellitus complication status: with kidney complications Diabetes mellitus buttermaker continuous churn insulin use: with correction use Diabetes mellitus type: type 2 Qualified Code(s): E11.22 - Type 2 diabetes mellitus with diabetic chronic kidney disease; Z79.4 - alf (current) use of insulin Code(s): E11.9 - Type 2 diabetes mellitus without complications Status: Acute Assessment and Plan: 02/25/23: hypoglycemia protocol POC blood glucose ACHS home medication resumed/held - continued home Lantus 50 u HS and Januvia 100 mg HS, Trulicity held. correct regimen ordered - moderate dose TIDWM and HS A1C 6.5% om 01/28/23 May need high-dose corrective regimen due to current infection. Assess glucose levels tomorrow. 02/26/23: BG ranging 115-153 Continue with current regimen for now. (5) HTN (hypertension): Qualifiers: Hypertension type: primary hypertension Qualified Code(s): I10 - Essential (primary) hypertension Code(s): I10 - Essential (primary) hypertension Status: Acute Assessment and Plan: 02/25/23: Continue home losartan. Monitor. 02/26/23: BP ranging 116/67-132/70 No change to current treatment plan. (6) Anemia: Code(s): D64.9 - Anemia, unspecified Status: Acute Assessment and Plan: 02/26/23: Could be secondary to acute on chronic kidney disease or dilutional from receiving 2L NS and started on IVF per sepsis guidelines. Vital signs are currently stable. No active signs of bleeding. Initial H/H- 8.5/26.9 Now 6.8/22.6, will repeat later today BUN 40 Time Spent With Patient Time with patient: Greater than 35 minutes Subjective Date/time seen: 02/26/23 07:27 Interval history: This is a 42 year old male who was a direct admit for a nonhealing right heel ulcer with necrotic tissue. He has a significant past medical history of diabetes. On initial presentation to t
[2023-02-26 07:32] LABS: Hemoglobin 6.8 g/dL (14.0-18.0)
--- NOTE | 2023-02-26 08:09 | PC.NURSE ---
stat hgb ordered to confirm result
[2023-02-26 08:30] LABS: Hematocrit 27.8 % (42.0-52.0); Hemoglobin 8.5 g/dL (14.0-18.0)
[2023-02-26 08:33] LABS: Glucose Point of Care 127 mg/dl (65-105)
[2023-02-26] MEDS: ACETAMINOPHEN 325 MG TABLET 650 MG PO (08:40)
[2023-02-26] MEDS: CEFEPIME 1 GM/NS 50 ML 1 GM/50 ML BAG IVPB ×2 (10:04→20:39)
[2023-02-26 11:24] LABS: Glucose Point of Care 123 mg/dl (65-105)
--- NOTE | 2023-02-26 11:52 | PCPTNOTE ---
The patient treatment was not able to be completed at this time due to patient out of room for I&D procedure. Will plan to continue treatment per plan of care.
--- NOTE | 2023-02-26 11:55 | PC.NURSE ---
pt to surgery via bed
[2023-02-26] MEDS: LACTATED RINGERS 1,000 ML 30 ML IV CONT (12:05)
[2023-02-26] MEDS: VANCOMYCIN 1,500 MG/NS 500 ML 1,500 MG/500 ML BAG 250 MG IVPB ×2 (12:10→12:18)
[2023-02-26 12:25] LABS: Glucose Point of Care 108 mg/dl (65-105)
--- NOTE | 2023-02-26 12:42 | WPDANESEPPF ---
Anes - Initial Pre Proc Eval Procedure: Operation Date: 02/26/23 13:30 Proposed Procedures p Debridement Right Heel(Right) - Dhaval Prater DO Date/Time: 02/26/23 12:42 Surgeon: Dhaval Prater DO Pre Op Diagnosis: Cellulitis of left lower extremity Patient Data Age: 42 Gender: M Height: 1.8 m Weight: 121.6 kg Last Vital Signs Temp 37.1 C 02/26/23 11:55 Pulse 102 H 02/26/23 11:55 Resp 20 02/26/23 11:55 BP 124/71 02/26/23 11:55 Pulse Ox 97 02/26/23 11:55 O2 Del Method Room Air 02/26/23 11:55 Allergies Allergy/AdvReac Type Severity Reaction Status Date / Time insulin detemir Allergy Unknown Unknown Verified 02/25/23 11:29 [From Levemir U-100 Insulin] latex Allergy Unknown Unknown Verified 02/25/23 10:27 metformin AdvReac Unknown Unknown Verified 02/25/23 10:27 hydrochlorothiazide AdvReac Dizziness Verified 02/25/23 10:27 Home Medications Medication Instructions Recorded Confirmed Type linagliptin 5 mg tablet (Tradjenta) 5 mg PO HS 10/25/19 02/25/23 History atorvastatin 10 mg tablet 10 mg PO HS 04/07/22 02/25/23 History gabapentin 300 mg capsule 600 mg PO HS 04/07/22 02/25/23 History insulin glargine 100 unit/mL (3 50 unit subcut HS 04/07/22 02/25/23 History mL) subcutaneous pen (Lantus Solostar U-100 Insulin) losartan 100 mg tablet 100 mg PO HS 01/16/23 02/25/23 History dulaglutide 0.75 mg/0.5 mL 0.75 mg subcut WEEKLY 02/25/23 02/25/23 History subcutaneous pen injector (Trulicity) Laboratory Tests 02/25/23 02/25/23 02/25/23 14:07 16:40 20:54 WBC RBC Hgb Hct MCV MCH MCHC RDW Plt Count MPV Immature Gran % (Auto) Neut % (Auto) Lymph % (Auto) [place] % (Auto) Eos % (Auto) Baso % (Auto) Lymph # (Auto) [place] # (Auto) Eos # (Auto) Baso # (Auto) Abs Immat Gran (auto) Absolute Neuts (auto) Absolute Nucleated RBC Nucleated RBC % Sodium Potassium Chloride Carbon Dioxide Anion Gap BUN Creatinine Estim Creat Clear Calc Estimated GFR Glucose POC Capillary Glucose 115 H mg/dl 153 H mg/dl (65-105) (65-105) Lactic Acid 1.0 mmol/L (0.7-2.0) Calcium Total Bilirubin AST ALT Alkaline Phosphatase Total Protein Albumin 02/26/23 02/26/23 02/26/23 06:22 08:05 08:17 WBC 11.4 H K/mm3 (4.5-10.0) RBC 2.51 L M/mm3 (4.6-6.20) Hgb 6.8 L* g/dL 8.5 L g/dL (14.0-18.0) (14.0-18.0) Hct 22.6 L % 27.8 L % (42.0-52.0) (42.0-52.0) MCV 90.0 fl (80-100) MCH 27.1 pg (26-34) MCHC 30.1 L g/dl (32-36) RDW 13.3 % (11.5-14.5) Plt Count 286 k/mm3 (150-375) MPV 9.9 fl (7.4-10.4) Immature Gran % (Auto) 2.1 H % (0-0.5) Neut % (Auto) 87.1 H % (45.5-73.1) Lymph % (Auto) 3.9 L % (18.3-44.2) [place] % (Auto) 6.4 % (2.6-8.5) Eos % (Auto) 0.1 % (0-4.4) Baso % (Auto) 0.4 % (0.2-1.2) Lymph # (Auto) 0.45 L K/mm3 (0.9-3.2) [place] # (Auto) 0.7 H K/mm3 (0.1-0.6) Eos # (Auto) 0.0 K/mm3 (0-0.3) Baso # (Auto) 0.1 K/mm3 (0.0-0.1) Abs Immat Gran (auto) 0.24 H K/mm3 (0.00-0.031) Absolute Neuts (auto) 10.0 H K/mm3 (1.3-6.7) Absolute Nucleated RBC 0.0 K/mm3 (0.0-0.012) Nucleated RBC % 0.0 % (0.0-0.2) Sodium 133 L mmol/L (137-145) Potassium 4.3 mmol/L (3.4-5.0) Chloride 108 H mmol/L
--- NOTE | 2023-02-26 12:55 | WPDHPUPDATE1 ---
History and Physical Update Update Date/Time: 02/26/23 12:55 History and Physical has been reviewed, including an updated exam of the patient. There are NO changes in the patient's condition. Risks, benefits, and alternatives have been discussed and questions answered. Patient agrees to proceed with procedure.
--- NOTE | 2023-02-26 13:52 | P.OP_ITS ---
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 Sharp excisional debridement of right heel ulcer including skin, subcutaneous fat, tendon and bone measuring 4.4 cm x 4.4 cm and 4.4 cm x 1.5 cm 2. Biopsy of right calcaneus Surgeon Dhaval Prater, DO Anesthesia General Indications This is a 42-year-old man who presented with a right heel ulcer that was progressively worsening and also showing signs of cellulitis. He began having symptoms a little over 1 month ago and was hospitalized last month for cellulitis. Superficial debridement was performed at that time and there did not appear to be any deeper underlying infection. The patient continued to have worsening necrotic skin on the surface and was also beginning to have some worsening pain and redness. He was readmitted yesterday and follow-up foot x- ray did show signs of possible osteomyelitis within the calcaneus. Discussions were made with the patient about treatment options and decision was made to proceed with debridement of right heel ulcer. Findings Right heel excisional debridement was performed using a 15 blade scalpel. A wide enough debridement was performed of all the necrotic skin on the plantar surface of the heel. This measured 4.5 cm x 4.5 cm. There was then also an area the posterior heel that had necrotic skin and this was debrided with 15 blade scalpel as well. This area measured 4.5 cm x 1.5 cm. Debridement included skin, subcutaneous fat, tendon, and bone. The calcaneus did appear somewhat soft and was biopsied to confirm osteomyelitis. Description of Procedure Procedure as well as risks, benefits, alternatives were discussed with the patie nt. Written consent was placed chart prior to procedure patient was brought back to surgical suite. Was placed supine on operating table. Time-out was done to patient procedure. He was then intubated by the anesthesia department. His right foot area was prepped and draped in sterile fashion using Betadine prep. Sharp excisional debridement was then performed using a 15 blade scalpel to the necrotic skin and subcutaneous tissue on the plantar surface of the right heel. Excision was carried out down to healthy bleeding tissue. There was some necrotic subcutaneous fat that carried out down to the plantar fascia. There was also some soft appearing bone along the plantar surface of the calcaneus. A biopsy the surface of the bone was performed using a heavy rongeur clamp. After completely excising all of the tissue, hemostasis was then achieved with electrocautery. There was also some posterior heel necrotic tissue that was sharply debrided using a 15 blade scalpel. This was also debrided down to healthy-appearing subcutaneous tissue. The wound was then irrigated with sterile saline. Hemostasis appeared adequate no other abnormalities were noted. The wound bed was then packed with half-inch iodoform gauze. Fluffed gauze, ABD pads, and Kerlix wrap was then applied. The patient was then awakened from anesthesia, extubated, and transferred to recovery. Estimated Blood Loss 5 Urine Output 450 Pathology Yes (Calcaneus biopsy) Complications No immediate complications Condition Stable Disposition Floor [facility] Billing Surgery - Charge Forward: Surgery Billing
[2023-02-26 14:06] LABS: Glucose Point of Care 102 mg/dl (65-105)
--- NOTE | 2023-02-26 15:20 | PC.NURSE ---
pt returned to floor from surgery, at bedside VSS
[2023-02-26 16:00] LABS: Hematocrit 22.1 % (42.0-52.0); Mean Corpuscular HGB Conc 30.3 g/dl (32-36); Mean Corpuscular Hemoglobin 27.2 pg (26-34); Mean Corpuscular Volume 89.8 fl (80-100); Mean Platelet Volume 9.6 fl (7.4-10.4); Platelet Count Result 256 k/mm3 (150-375); Red Blood Count 2.46 M/mm3 (4.6-6.20); Red Cell Distribution Width 13.3 % (11.5-14.5); White Blood Count 7.2 K/mm3 (4.5-10.0)
[2023-02-26 16:05] LABS: Hemoglobin 6.7 g/dL (14.0-18.0)
[2023-02-26 16:49] LABS: Glucose Point of Care 97 mg/dl (65-105)
[2023-02-26 17:00] LABS: Hematocrit 22.4 % (42.0-52.0)
[2023-02-26 17:03] LABS: Hemoglobin 6.9 g/dL (14.0-18.0)
[2023-02-26] MEDS: ATORVASTATIN 10 MG TABLET PO (20:37)
[2023-02-26] MEDS: GABAPENTIN 300 MG CAPSULE 600 MG PO (20:37)
[2023-02-26] MEDS: LOSARTAN POTASSIUM 100 MG TABLET PO (20:37)
[2023-02-26] MEDS: INSULIN GLARGINE (*BKC) 100 UNITS/ML 50 UNITS SUB-Q (20:43)
[2023-02-26 21:24] LABS: Glucose Point of Care 151 mg/dl (65-105)
[2023-02-27] VITALS (12 sets, daily range): BP systolic 118–140; BP diastolic 72–88; PULSE 84–98; RESP 16–24; TEMP 36.2–36.6; O2SAT 92–100
[2023-02-27 00:35] LABS: Hematocrit 24.6 % (42.0-52.0); Hemoglobin 7.5 g/dL (14.0-18.0)
[2023-02-27] MEDS: metroNIDAZOLE 500 MG/ISO 100ML 500 MG/100 ML BAG 100 MG IVPB (05:43)
[2023-02-27 06:35] LABS: Basophils Percent Auto 0.3 % (0.2-1.2); Eosinophils Absolute Auto 0.1 K/mm3 (0-0.3); Eosinophils Percent Auto 1.7 % (0-4.4); Immature Granulocyte Percent A 1.5 % (0-0.5); Lymphocytes Absolute Auto 0.62 K/mm3 (0.9-3.2); Lymphocytes Percent Auto 9.3 % (18.3-44.2); Mean Corpuscular Hemoglobin 26.8 pg (26-34); Mean Corpuscular Volume 89.6 fl (80-100); Mean Platelet Volume 9.8 fl (7.4-10.4); Monocytes Absolute Auto 0.7 K/mm3 (0.1-0.6); Monocytes Percent Auto 10.8 % (2.6-8.5); Neutrophils Absolute Auto 5.1 K/mm3 (1.3-6.7); Neutrophils Percent Auto 76.4 % (45.5-73.1); Platelet Count Result 313 k/mm3 (150-375); Red Blood Count 2.31 M/mm3 (4.6-6.20); Red Cell Distribution Width 13.5 % (11.5-14.5); White Blood Count 6.6 K/mm3 (4.5-10.0)
[2023-02-27 06:44] LABS: Sodium 135 mmol/L (137-145)
[2023-02-27 06:46] LABS: Alanine Aminotransferase 38 U/L (6-50); Albumin Level 2.5 g/dL (3.5-5.1); Alkaline Phosphatase 101 U/L (38-126); Anion Gap 6 mmol/L (8-16); Aspartate Amino Transferase 40 U/L (17-59); Bilirubin,Total 0.7 mg/dL (0.2-1.3); Blood Urea Nitrogen 31 mg/dL (9-20); Calcium 8.4 mg/dL (8.4-10.2); Carbon Dioxide 19 mmol/L (22-30); Chloride 110 mmol/L (98-107); Estimated CRCL calculation 74 ml/min; Estimated Glomerular Filt Rate 48; Glucose 100 mg/dL (65-110); Hematocrit 20.7 % (42.0-52.0); Hemoglobin 6.2 g/dL (14.0-18.0); Potassium 4.4 mmol/L (3.4-5.0)
[2023-02-27 07:59] LABS: Platelet Estimate Adequate (Adequate)
[2023-02-27 08:03] LABS: Schistocytes None Seen (NORMAL)
[2023-02-27 08:03] LABS: Glucose Point of Care 95 mg/dl (65-105)
[2023-02-27 08:04] LABS: Anisocytosis 1+ (NORMAL); Hypochromasia 1+ (NORMAL)
--- NOTE | 2023-02-27 08:57 | WPDANESPN ---
Anes - Prog Note Post-Op Date/Time: 02/27/23 08:57 Cardiovascular status: normal Respiratory status: normal Airway patency: baseline Mental status: baseline Post-Op hydration status: normal Vital Signs: Last Vital Signs Temp 36.6 C 02/27/23 08:44 Pulse 93 02/27/23 08:44 Resp 20 02/27/23 08:44 BP 130/76 02/27/23 08:44 Pulse Ox 92 02/27/23 08:44 O2 Del Method Room Air 02/26/23 20:00 O2 Flow Rate 2 02/26/23 14:50 Pain Score (VAS): 0/10 I/O: Intake & Output 02/26/23 02/27/23 02/27/23 23:59 07:59 15:59 Intake Total 790 1150 Output Total 700 550 Balance 90 600 Laboratory Tests 02/27/23 06:14 02/27/23 06:14 02/26/23 02/26/23 02/26/23 11:17 12:22 14:03 WBC RBC Hgb Hct MCV MCH MCHC RDW Plt Count MPV Immature Gran % (Auto) Neut % (Auto) Lymph % (Auto) [place] % (Auto) Eos % (Auto) Baso % (Auto) Lymph # (Auto) [place] # (Auto) Eos # (Auto) Baso # (Auto) Abs Immat Gran (auto) Absolute Neuts (auto) Absolute Nucleated RBC Nucleated RBC % Platelet Estimate Hypochromasia Anisocytosis Schistocytes Sodium Potassium Chloride Carbon Dioxide Anion Gap BUN Creatinine Estim Creat Clear Calc Estimated GFR Glucose POC Capillary Glucose 123 H 108 H 102 Calcium Total Bilirubin AST ALT Alkaline Phosphatase Total Protein Albumin 02/26/23 02/26/23 02/26/23 15:55 16:44 16:55 WBC 7.2 RBC 2.46 L Hgb 6.7 L* 6.9 L* Hct 22.1 L 22.4 L MCV 89.8 MCH 27.2 MCHC 30.3 L RDW 13.3 Plt Count 256 MPV 9.6 Immature Gran % (Auto) Neut % (Auto) Lymph % (Auto) [place] % (Auto) Eos % (Auto) Baso % (Auto) Lymph # (Auto) [place] # (Auto) Eos # (Auto) Baso # (Auto) Abs Immat Gran (auto) Absolute Neuts (auto) Absolute Nucleated RBC Nucleated RBC % Platelet Estimate Hypochromasia Anisocytosis Schistocytes Sodium Potassium Chloride Carbon Dioxide Anion Gap BUN Creatinine Estim Creat Clear Calc Estimated GFR Glucose POC Capillary Glucose 97 Calcium Total Bilirubin AST ALT Alkaline Phosphatase Total Protein Albumin 02/26/23 02/27/23 02/27/23 20:40 00:25 06:14 WBC 6.6 RBC 2.31 L Hgb 7.5 L 6.2 L* Hct 24.6 L 20.7 L* MCV 89.6 MCH 26.8 MCHC 30.0 L RDW 13.5 Plt Count 313 MPV 9.8 Immature Gran % (Auto) 1.5 H Neut % (Auto) 76.4 H Lymph % (Auto) 9.3 L [place] % (Auto) 10.8 H Eos % (Auto) 1.7 Baso % (Auto) 0.3 Lymph # (Auto) 0.62 L [place] # (Auto) 0.7 H Eos # (Auto) 0.1 Baso # (Auto) 0.0 Abs Immat Gran (auto) 0.10 H Absolute Neuts (auto) 5.1 Absolute Nucleated RBC 0.0 Nucleated RBC % 0.0 Platelet Estimate Adequate Hypochromasia 1+ Anisocytosis 1+ Schistocytes None seen Sodium 135 L Potassium 4.4 Chloride 110 H Carbon Dioxide 19 L Anion Gap 6 L BUN 31 H Creatinine 1.60 H Estim Creat Clear Calc 74 Estimated GFR 48 L Glucose 100 POC Capillary Glucose 151 H Calcium 8.4 Total Bilirubin 0.7 AST 40 ALT 38 Alkaline Phosphatase 101 Total Protein 6.0 L Albumin 2.5 L 02/27/23 07:59 WBC RBC Hgb Hct MCV MCH MCHC RDW Plt Count MPV Immature Gran % (Auto) Neut % (Auto) Lymph % (Auto) [place] % (Auto) Eos % (Auto) Baso % (Auto) Lymph # (Auto) [place] # (Auto) Eos # (Auto) Baso # (Auto) Abs Immat Gran (auto) Absolute Neuts (auto) Absolute Nucleated RBC Nucleated RBC % Platelet Estimate Hypochromasia Anisocytosis Schistocytes Sodium Potassium Chloride Carbon Dioxide Anion Gap BUN Creatinine Estim Creat Clear Calc Estimated GFR Glucose POC Capillary Glucose 95 Calcium Total Bilirubin AST ALT [place]
[2023-02-27] MEDS: CEFEPIME 1 GM/NS 50 ML 1 GM/50 ML BAG IVPB (09:51)
[2023-02-27] MEDS: ENOXAPARIN 40 MG/0.4 ML SYRINGE SUB-Q (09:52)
[2023-02-27] MEDS: HYDROcodone/acetaminophen (*CRX) 10-325 MG TABLET 1 TAB PO (10:13)
--- NOTE | 2023-02-27 10:42 | PM.PNGS ---
Progress Note: A&P Assessment and Plan (1) Ulcer of right heel: Qualifiers: Non-pressure ulcer stage: with fat layer exposed Qualified Code(s): L97.412 - Non-pressure chronic ulcer of right heel and midfoot with fat layer exposed Code(s): L97.419 - Non-pressure chronic ulcer of right heel and midfoot with unspecified severity Status: Acute Assessment and Plan: S/p excisional debridement and biopsy of calcaneus yesterday. Wound care consulted today and evaluated the patient. Will start Santyl dressing changes for enzymatic debridement of the plantar heel wound. Non-weight bearing on RLE. PT/OT following. Will need workup for arterial flow in the right lower extremity. Could consider getting a CTA right lower extremity since his renal function has improved and appears closer to his baseline. We are still not capable of getting arterial dopplers at this facility since the machine is down. (2) Cellulitis of right foot: Code(s): L03.115 - Cellulitis of right lower limb Status: Acute Assessment and Plan: Improving. Continue IV antibiotics. (3) Diabetes: Qualifiers: Diabetes mellitus type: type 2 Diabetes mellitus meterman insulin use: with prison use Diabetes mellitus complication status: with kidney complications Diabetes mellitus complication detail: with chronic kidney disease Chronic kidney disease stage: unspecified stage Qualified Code(s): E11.22 - Type 2 diabetes mellitus with diabetic chronic kidney disease; Z79.4 - meterman (current) use of insulin Code(s): E11.9 - Type 2 diabetes mellitus without complications Status: Acute Assessment and Plan: Management per Hospitalist. (4) Anemia: Code(s): D64.9 - Anemia, unspecified Status: Acute Assessment and Plan: Acute on chronic anemia. Hgb still low at 6.2 today. Stool occult was ordered by Hospitalist. Will type and screen, transfuse 1 unit PRBCs. Monitor labs post transfusion. (5) Sepsis: Code(s): A41.9 - Sepsis, unspecified organism Status: Acute Assessment and Plan: Secondary to diabetic foot ulcer with osteomyelitis. S/p excisional debridement with biopsy of calcaneus. Tachycardia and fevers resolved. Blood cx NGTD. Continue broad-spectrum IV antibiotics, will eventually need a PICC line when blood cx are negative (almost at 48 hours). Plan I have discussed the patient's case and plan of care with Dr. Prater. 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 Feeling better without any fevers. No new complaints. Denies any foot pain. Hemoglobin low again yesterday evening and this morning. Hemoglobin 6.2 on morning labs. Denies any shortness of breath, dizziness, lightheadedness. Denies any blood in stool or urine that he is noticed. No significant bleeding from the foot wound. Exam Const: General: comfortable and no acute distress Orientation/consciousness: patient oriented x3 Extrem: Other: Right foot dressing removed, posterior heel wound with 100% of the wound bed appearing pink with no necrotic tissue. Plantar heel ulcer that probes to bone with about 80-90% of the wound bed is pale yellow with minimal luna slough and a few small areas of pink tissue, no purulent drainage. (see wound care note for measurements) Overall swelling to right foot improved. Able to palpate a very faint pedal pulse and can palpate posterior tibial pulse. Objective Data Vital Signs Vital Signs: Vital Signs - 24 hr 02/26/23 11:55 02/26/23 11:30 02/26/23 13:50 Temperature 98.8 F 99.8 F H 97.0 F L Pulse Rate 102 H 86 Respiratory Rate 20 14 Blood Pressure 124/71 105/60 Pulse Oximetry 97 97
[2023-02-27 11:18] LABS: Glucose Point of Care 129 mg/dl (65-105)
[2023-02-27 11:30] LABS: Vancomycin Trough 14.1 ug/mL (10.0-20.0)
[2023-02-27] MEDS: SODIUM CHLORIDE 0.9% IV 250 ML 30 ML IV CONT (12:06)
--- NOTE | 2023-02-27 14:40 | PCPTNOTE ---
The patient treatment was not able to be completed at this time due to patient receiving blood. Will follow up later this afternoon to perform transfers and gait interventions.
--- NOTE | 2023-02-27 15:35 | P.PNIM_ITS ---
Progress Note: A&P Assessment and Plan (1) Sepsis: Code(s): A41.9 - Sepsis, unspecified organism Status: Acute Assessment and Plan: 02/25/23: * Meet Sepsis/SIRS criteria: HR of 121 and WBC greater than 12. Later developed fever, 102.4?. Lactic acid 2.2. Adding blood cultures and starting IV fluid bolus at 20 ml/kg - 2,000 L with maintenance at 100 mL/hr post-bolus. Suspected source is R heel wound/cellulitis. General Surgery managing wound, potential debridement tomorrow and NPO at midnight. 02/26/23: * blood cultures obtained and are pending * known source- right heel necrotic ulcer with presence of osteomyelitis * Currently on Cefepime, Flagyl, and Vancomycin IV * Repeat lactate 1.0, WBC today down to 11.4 * T-max 103.8, currently afebrile with temp of 98.9. HR now in the 90's * Continue IV fluids for now 02/27/23: * Blood cultures showing no growth day 1 on preliminary * Patient is postop day 1 from a debridement of his right foot ulcer * Continue IV Cefepime 2 gm and Vancomycin, we will de-escalate the Flagyl. * VSS, he is afebrile * WBC 6.6 (2) Cellulitis of right foot: Code(s): L03.115 - Cellulitis of right lower limb Status: Acute Assessment and Plan: 02/25/23: * General surgery managing, Josi CARVER. obtaining right foot XR and CT angiogram of RLE. Some concern for underlying vascular pathology. Started on cefepime, metronidazole, and vancomycin. Plan to review imaging and surgical debridement tomorrow. NPO at midnight. Will continue pain management and Tylenol for fevers. Wound salon sales consultant placed. 02/26/23: * Plan for surgical debridement with General surgery today. * Wound nurse consulted * Continue IV antibiotics * Continue NPO status for now and IVF (3) Chronic kidney disease: Code(s): N18.9 - Chronic kidney disease, unspecified Status: Acute Assessment and Plan: 02/25/23: * SHABNAM superimposed on CKD. Baseline creatinine appears to be 1.5-1.9. Creatinine currently 2.6. Started on 20 mL/kg of IV fluid resuscitation. Continue to trend. 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 * correct regimen ordered - moderate dose TIDWM and HS * A1C 6.5% om 01/28/23 * May need high-dose corrective regimen due to current infection. Assess glucose levels tomorrow. 02/26/23: * BG ranging 115-153 * Continue with current regimen for now. 02/27/23: * Blood sugars ranging 95-129 * Continue with current treatment plan (5) HTN (hypertension): Qualifiers: Hypertension type: primary hypertension Qualified Code(s): I10 - Essential (primary) hypertension Code(s): I10 - Essential (primary) hypertension Status: Acute
--- NOTE | 2023-02-27 15:35 | PM.IMPN ---
Progress Note: A&P Assessment and Plan (1) Sepsis: Code(s): A41.9 - Sepsis, unspecified organism Status: Acute Assessment and Plan: 02/25/23: Meet Sepsis/SIRS criteria: HR of 121 and WBC greater than 12. Later developed fever, 102.4?. Lactic acid 2.2. Adding blood cultures and starting IV fluid bolus at 20 ml/kg - 2,000 L with maintenance at 100 mL/hr post-bolus. Suspected source is R heel wound/cellulitis. General Surgery managing wound, potential debridement tomorrow and NPO at midnight. 02/26/23: blood cultures obtained and are pending known source- right heel necrotic ulcer with presence of osteomyelitis Currently on Cefepime, Flagyl, and Vancomycin IV Repeat lactate 1.0, WBC today down to 11.4 T-max 103.8, currently afebrile with temp of 98.9. HR now in the 90's Continue IV fluids for now 02/27/23: Blood cultures showing no growth day 1 on preliminary Patient is postop day 1 from a debridement of his right foot ulcer Continue IV Cefepime 2 gm and Vancomycin, we will de-escalate the Flagyl. VSS, he is afebrile WBC 6.6 (2) Cellulitis of right foot: Code(s): L03.115 - Cellulitis of right lower limb Status: Acute Assessment and Plan: 02/25/23: General surgery managing, Josi CARVER. obtaining right foot XR and CT angiogram of RLE. Some concern for underlying vascular pathology. Started on cefepime, metronidazole, and vancomycin. Plan to review imaging and surgical debridement tomorrow. NPO at midnight. Will continue pain management and Tylenol for fevers. Wound life consultant placed. 02/26/23: Plan for surgical debridement with General surgery today. Wound nurse consulted Continue IV antibiotics Continue NPO status for now and IVF (3) Chronic kidney disease: Code(s): N18.9 - Chronic kidney disease, unspecified Status: Acute Assessment and Plan: 02/25/23: SHABNAM superimposed on CKD. Baseline creatinine appears to be 1.5-1.9. Creatinine currently 2.6. Started on 20 mL/kg of IV fluid resuscitation. Continue to trend. 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 correct regimen ordered - moderate dose TIDWM and HS A1C 6.5% om 01/28/23 May need high-dose corrective regimen due to current infection. Assess glucose levels tomorrow. 02/26/23: BG ranging 115-153 Continue with current regimen for now. 02/27/23: Blood sugars ranging 95-129 Continue with current treatment plan (5) HTN (hypertension): Qualifiers: Hypertension type: primary hypertension Qualified Code(s): I10 - Essential (primary) hypertension Code(s): I10 - Essential (primary) hypertension Status: Acute Assessment and Plan: 02/25/23: Continue home losartan. Monitor. 02/26/23: BP ranging 116/67-132/70 No change to current treatment plan. 02/27/23: Blood pressure stable No change to current treatment plan (6) Anemia: Code(s): D64.9 - Anemia, unspecified Status: Acute Assessment and Plan: 02/26/23: Could be secondary to acute on chronic kidney disease or dilutional from receiving 2L NS and started on IVF per sepsis guidelines. Vit
[2023-02-27] MEDS: VANCOMYCIN 1,750 MG/NS 500 ML 1,750 MG/500 ML BAG 250 MG IVPB (16:03)
[2023-02-27 16:24] LABS: Glucose Point of Care 111 mg/dl (65-105)
[2023-02-27 16:58] LABS: Hematocrit 26.8 % (42.0-52.0); Hemoglobin 8.1 g/dL (14.0-18.0); Mean Corpuscular HGB Conc 30.2 g/dl (32-36); Mean Corpuscular Hemoglobin 27.2 pg (26-34); Mean Corpuscular Volume 89.9 fl (80-100); Mean Platelet Volume 9.7 fl (7.4-10.4); Platelet Count Result 322 k/mm3 (150-375); Red Blood Count 2.98 M/mm3 (4.6-6.20); Red Cell Distribution Width 13.5 % (11.5-14.5)
--- NOTE | 2023-02-27 19:34 | PC.NURSE ---
Genny Martinez LPN provided care for this patient on 02/27/23. I have reviewed her charting and agree with her assessment
[2023-02-27 21:20] LABS: Glucose Point of Care 145 mg/dl (65-105)
[2023-02-27] MEDS: LOSARTAN POTASSIUM 100 MG TABLET PO (21:44)
[2023-02-27] MEDS: GABAPENTIN 300 MG CAPSULE 600 MG PO (21:44)
[2023-02-27] MEDS: ATORVASTATIN 10 MG TABLET PO (21:45)
[2023-02-27] MEDS: INSULIN GLARGINE (*BKC) 100 UNITS/ML 50 UNITS SUB-Q (21:45)
[2023-02-28 06:00] VITALS: BP 128/78; PULSE 83; RESP 18; TEMP 36.6; O2SAT 99
[2023-02-28 06:47] LABS: Basophils Percent Auto 0.6 % (0.2-1.2); Eosinophils Absolute Auto 0.2 K/mm3 (0-0.3); Eosinophils Percent Auto 4.2 % (0-4.4); Hematocrit 26.8 % (42.0-52.0); Hemoglobin 8.1 g/dL (14.0-18.0); Immature Granulocyte Absolute 0.07 K/mm3 (0.00-0.031); Immature Granulocyte Percent A 1.4 % (0-0.5); Lymphocytes Absolute Auto 0.67 K/mm3 (0.9-3.2); Lymphocytes Percent Auto 13.3 % (18.3-44.2); Mean Corpuscular HGB Conc 30.2 g/dl (32-36); Mean Corpuscular Hemoglobin 26.9 pg (26-34); Mean Platelet Volume 9.6 fl (7.4-10.4); Monocytes Absolute Auto 0.6 K/mm3 (0.1-0.6); Monocytes Percent Auto 11.8 % (2.6-8.5); Neutrophils Absolute Auto 3.5 K/mm3 (1.3-6.7); Neutrophils Percent Auto 68.7 % (45.5-73.1); Platelet Count Result 339 k/mm3 (150-375); Red Blood Count 3.01 M/mm3 (4.6-6.20); Red Cell Distribution Width 13.7 % (11.5-14.5)
[2023-02-28 06:58] LABS: Alanine Aminotransferase 34 U/L (6-50); Albumin Level 2.8 g/dL (3.5-5.1); Alkaline Phosphatase 92 U/L (38-126); Anion Gap 8 mmol/L (8-16); Aspartate Amino Transferase 36 U/L (17-59); Bilirubin,Total 0.6 mg/dL (0.2-1.3); Blood Urea Nitrogen 23 mg/dL (9-20); Calcium 8.6 mg/dL (8.4-10.2); Carbon Dioxide 20 mmol/L (22-30); Chloride 111 mmol/L (98-107); Estimated CRCL calculation 90 ml/min; Estimated Glomerular Filt Rate > 60; Glucose 90 mg/dL (65-110); Potassium 4.3 mmol/L (3.4-5.0); Sodium 139 mmol/L (137-145)
[2023-02-28 07:39] LABS: Glucose Point of Care 93 mg/dl (65-105)
--- NOTE | 2023-02-28 08:04 | P.PNIM_ITS ---
Progress Note: A&P Assessment and Plan (1) Sepsis: Code(s): A41.9 - Sepsis, unspecified organism Status: Acute Assessment and Plan: 02/25/23: * Meet Sepsis/SIRS criteria: HR of 121 and WBC greater than 12. Later developed fever, 102.4?. Lactic acid 2.2. Adding blood cultures and starting IV fluid bolus at 20 ml/kg - 2,000 L with maintenance at 100 mL/hr post-bolus. Suspected source is R heel wound/cellulitis. General Surgery managing wound, potential debridement tomorrow and NPO at midnight. 02/26/23: * blood cultures obtained and are pending * known source- right heel necrotic ulcer with presence of osteomyelitis * Currently on Cefepime, Flagyl, and Vancomycin IV * Repeat lactate 1.0, WBC today down to 11.4 * T-max 103.8, currently afebrile with temp of 98.9. HR now in the 90's * Continue IV fluids for now 02/27/23: * Blood cultures showing no growth day 1 on preliminary * Patient is postop day 1 from a debridement of his right foot ulcer * Continue IV Cefepime 2 gm and Vancomycin, we will de-escalate the Flagyl. * VSS, he is afebrile * WBC 6.6 02/28/23: * Blood cultures still showing no growth on preliminary * VSS, he remains afebrile * WBC 5.0 * Continue with IV Cefepime and Vancomycin * PICC line placed today * Will need 6 weeks of antibiotics per general surgery team * administrative coordinator working on home health needs for IV antibiotics. (2) Cellulitis of right foot: Code(s): L03.115 - Cellulitis of right lower limb Status: Acute Assessment and Plan: 02/25/23: * General surgery managing, Josi CARVER. obtaining right foot XR and CT angiogram of RLE. Some concern for underlying vascular pathology. Started on cefepime, metronidazole, and vancomycin. Plan to review imaging and surgical debridement tomorrow. NPO at midnight. Will continue pain management and Tylenol for fevers. Wound financial analysis consultant placed. 02/26/23: * Plan for surgical debridement with General surgery today. * Wound nurse consulted * Continue IV antibiotics * Continue NPO status for now and IVF 02/28/23: * General surgery following * Patient is post op day 2 of surgical debridement of right heel ulcer. * Wound covered with clean dry dressing (3) Chronic kidney disease: Code(s): N18.9 - Chronic kidney disease, unspecified Status: Acute Assessment and Plan: 02/25/23: * SHABNAM superimposed on CKD. Baseline creatinine appears to be 1.5-1.9. Creatinine currently 2.6. Started on 20 mL/kg of IV fluid resuscitation. Continue to trend. 02/26/23: * BUN 40, creatinine 2.0 * Continue to trend 02/27/23: * BUN 31, creatinine 1.6 * Continue to trend labs 02/28/23: * BUN 23, Creatinine 1.30 (4) Diabetes: Qualifiers: Chronic kidney disease stage: unspecified stage Diabetes mellitus complication detail: with chronic kidney disease Diabetes mellitus complication status: with kidney complications Diabetes mellitus superintendent marine oil terminal insulin use: with long-term use Diabetes mellitus type: type 2 Qualified Code(s): E11.22 - Type 2 diabetes mellitus with diabetic chronic kidney disease; Z79.4 - extermination supervisor (current) use of insulin Code(s): E11.9 - Type 2 diabetes mellitus without complications Status: Acute Assessment and Plan: 02/25/23: * hypoglycemia protocol * POC blood glucose ACHS * home medication resumed/held - continued home Lantus 50 u HS and Januvia 100 mg HS, Trulicity held. * correct regimen ordered - moderate dose TIDWM and HS * A1C 6.5% om 01/28/23
--- NOTE | 2023-02-28 08:04 | PM.IMPN ---
Progress Note: A&P Assessment and Plan (1) Sepsis: Code(s): A41.9 - Sepsis, unspecified organism Status: Acute Assessment and Plan: 02/25/23: Meet Sepsis/SIRS criteria: HR of 121 and WBC greater than 12. Later developed fever, 102.4?. Lactic acid 2.2. Adding blood cultures and starting IV fluid bolus at 20 ml/kg - 2,000 L with maintenance at 100 mL/hr post-bolus. Suspected source is R heel wound/cellulitis. General Surgery managing wound, potential debridement tomorrow and NPO at midnight. 02/26/23: blood cultures obtained and are pending known source- right heel necrotic ulcer with presence of osteomyelitis Currently on Cefepime, Flagyl, and Vancomycin IV Repeat lactate 1.0, WBC today down to 11.4 T-max 103.8, currently afebrile with temp of 98.9. HR now in the 90's Continue IV fluids for now 02/27/23: Blood cultures showing no growth day 1 on preliminary Patient is postop day 1 from a debridement of his right foot ulcer Continue IV Cefepime 2 gm and Vancomycin, we will de-escalate the Flagyl. VSS, he is afebrile WBC 6.6 02/28/23: Blood cultures still showing no growth on preliminary VSS, he remains afebrile WBC 5.0 Continue with IV Cefepime and Vancomycin PICC line placed today Will need 6 weeks of antibiotics per general surgery team hr coordinator working on home health needs for IV antibiotics. (2) Cellulitis of right foot: Code(s): L03.115 - Cellulitis of right lower limb Status: Acute Assessment and Plan: 02/25/23: General surgery managing, Josi CARVER. obtaining right foot XR and CT angiogram of RLE. Some concern for underlying vascular pathology. Started on cefepime, metronidazole, and vancomycin. Plan to review imaging and surgical debridement tomorrow. NPO at midnight. Will continue pain management and Tylenol for fevers. Wound recruitment consultant placed. 02/26/23: Plan for surgical debridement with General surgery today. Wound nurse consulted Continue IV antibiotics Continue NPO status for now and IVF 02/28/23: General surgery following Patient is post op day 2 of surgical debridement of right heel ulcer. Wound covered with clean dry dressing (3) Chronic kidney disease: Code(s): N18.9 - Chronic kidney disease, unspecified Status: Acute Assessment and Plan: 02/25/23: SHABNAM superimposed on CKD. Baseline creatinine appears to be 1.5-1.9. Creatinine currently 2.6. Started on 20 mL/kg of IV fluid resuscitation. Continue to trend. 02/26/23: BUN 40, creatinine 2.0 Continue to trend 02/27/23: BUN 31, creatinine 1.6 Continue to trend labs 02/28/23: BUN 23, Creatinine 1.30 (4) Diabetes: Qualifiers: Chronic kidney disease stage: unspecified stage Diabetes mellitus complication detail: with chronic kidney disease Diabetes mellitus complication status: with kidney complications Diabetes mellitus senior care insulin use: with senior care use Diabetes mellitus type: type 2 Qualified Code(s): E11.22 - Type 2 diabetes mellitus with diabetic chronic kidney disease; Z79.4 - group home (current) use of insulin Code(s): E11.9 - Type 2 diabetes mellitus without complications Status: Acute Assessment and Plan: 02/25/23: hypoglycemia protocol POC blood glucose ACHS home medication resumed/held - continued home Lantus 50 u HS and Januvia 100 mg HS, Trulicity held. correct regimen ordered - moderate dose TIDWM and HS A1C 6.5% om 01/28/23 May need high-dose corrective regimen due to current infection. Assess glucose levels tomorrow. 02/26/23: BG ranging 115-153 Continue with current regimen for now. 02/27/23: Blood sugars ranging 95-129 Continue with current treatment plan 02/28/23: BG ranging 93-145 Continue with current treatment plan (5) HTN (hypertension): Qualifiers: Hypertension type: primary hypertension Qualified Code(s): I10 - Essential (primary) hyperte
[2023-02-28] MEDS: COLLAGENASE OINT 30 GM TUBE 1 APPLIC TOPICAL (09:47)
[2023-02-28] MEDS: CEFEPIME 2 GM/NS 50 ML 2 GM/50 ML BAG IVPB ×2 (09:47→21:22)
[2023-02-28] MEDS: ENOXAPARIN 40 MG/0.4 ML SYRINGE SUB-Q (09:47)
[2023-02-28 11:29] LABS: Glucose Point of Care 103 mg/dl (65-105)
--- NOTE | 2023-02-28 11:46 | PCPTNOTE ---
Patient declined PT services. Patient states he is ambulating independently in room and maintains NWB R foot. Patient states he will be able to manage the 3 steps to enter his home and maintain weight bearing status. Educated patient that he would not be able to use crutches due to contraindication with PIC Line. Patient voices understanding and will use walker.
[2023-02-28] MEDS: LIDOCAINE HCL 1% PF INJ 5 ML VIAL INFILTRATE (13:15)
[2023-02-28 14:00] VITALS: BP 133/82; PULSE 83; RESP 16; TEMP 36.4; O2SAT 98
[2023-02-28] MEDS: VANCOMYCIN 1,750 MG/NS 500 ML 1,750 MG/500 ML BAG 250 MG IVPB (14:14)
--- NOTE | 2023-02-28 16:18 | PM.PNGS ---
Progress Note: A&P Assessment and Plan (1) Ulcer of right heel: Qualifiers: Non-pressure ulcer stage: with fat layer exposed Qualified Code(s): L97.412 - Non-pressure chronic ulcer of right heel and midfoot with fat layer exposed Code(s): L97.419 - Non-pressure chronic ulcer of right heel and midfoot with unspecified severity Status: Acute Assessment and Plan: S/p excisional debridement and biopsy of calcaneus 02/26. Santyl dressing changes for enzymatic debridement of the plantar heel wound. Non-weight bearing on RLE. PT/OT following. Will need workup for arterial flow in the right lower extremity. Will get CTA RLE tomorrow. PICC line ordered today. Will arrange for IV antibiotics and outpatient wound care. (2) Cellulitis of right foot: Code(s): L03.115 - Cellulitis of right lower limb Status: Acute Assessment and Plan: Improving. Continue IV antibiotics. (3) Diabetes: Qualifiers: Diabetes mellitus type: type 2 Diabetes mellitus intermediate insulin use: with music writer use Diabetes mellitus complication status: with kidney complications Diabetes mellitus complication detail: with chronic kidney disease Chronic kidney disease stage: unspecified stage Qualified Code(s): E11.22 - Type 2 diabetes mellitus with diabetic chronic kidney disease; Z79.4 - nursing home (current) use of insulin Code(s): E11.9 - Type 2 diabetes mellitus without complications Status: Acute Assessment and Plan: Management per Hospitalist. (4) Anemia: Code(s): D64.9 - Anemia, unspecified Status: Acute Assessment and Plan: H&H stable since transfusion (5) Sepsis: Code(s): A41.9 - Sepsis, unspecified organism Status: Acute Assessment and Plan: Secondary to diabetic foot ulcer with osteomyelitis. S/p excisional debridement with biopsy of calcaneus. Tachycardia and fevers resolved. Blood cx NGTD. Continue broad-spectrum IV antibiotics, will eventually need a PICC line when blood cx are negative (almost at 48 hours). Subjective Subjective Date/Time Seen: 02/28/23 16:18 Interval history: Patient doing well with wound care. No significant pain. No fevers since surgery. Exam Const: General: comfortable and no acute distress Orientation/consciousness: patient oriented x3 Extrem: Other: Right foot dressing removed, posterior heel wound with 100% of the wound bed appearing pink with no necrotic tissue. Plantar heel ulcer that probes to bone with about 80-90% of the wound bed is pale yellow with minimal luna slough and a few small areas of pink tissue, no purulent drainage. (see wound care note for measurements) Overall swelling to right foot improved. Able to palpate a very faint pedal pulse and can palpate posterior tibial pulse. Objective Data Vital Signs Vital Signs: Vital Signs - 24 hr 02/27/23 16:44 02/27/23 21:33 02/27/23 20:00 Temperature 36.5 C 36.4 C Pulse Rate 85 90 Respiratory Rate 22 H 18 Blood Pressure 124/72 140/88 Pulse Oximetry 100 98 98 Oxygen Delivery Room Air 02/28/23 06:00 02/28/23 14:00 Temperature 36.6 C 36.4 C Pulse Rate 83 83 Respiratory Rate 18 16 Blood Pressure 128/78 133/82 Pulse Oximetry 99 98 Oxygen Delivery Intake/Output Intake/Output: Intake & Output 02/25/23 02/26/23 02/27/23 02/28/23 23:59 23:59 23:59 23:59 Intake Total 4190 2490 3230 1222 Output Total 800 1600 1065 850 Balance 3390 890 2165 372 Meds/Results Medications: Active Medications Generic Name Dose Route Start Last Admin Trade Name Freq PRN Reason Stop Dose Admin Acetaminophen 650 mg 02/25/23 10:11 02/26/23 08:40 Acetaminophen 325 Mg Tablet PO 650 mg Q4H PRN Administration Mild Pain (1-3) or Fever Hydrocodone Bitart/Acetaminophen 1 tab 02/25/23 10:11 Hydrocodone/Acetaminophen (*Crx) 5-325 Mg Tablet PO Q4H PRN Moderate Pain (4-6) Hydrocodone Bitart/Acetamin
[2023-02-28 16:37] LABS: Glucose Point of Care 104 mg/dl (65-105)
[2023-02-28 20:00] VITALS: O2SAT 98
[2023-02-28] MEDS: ACETAMINOPHEN 325 MG TABLET 650 MG PO (21:20)
[2023-02-28] MEDS: GABAPENTIN 300 MG CAPSULE 600 MG PO (21:22)
[2023-02-28] MEDS: ATORVASTATIN 10 MG TABLET PO (21:22)
[2023-02-28] MEDS: LOSARTAN POTASSIUM 100 MG TABLET PO (21:22)
[2023-02-28] MEDS: CENTRAL LINE FLUSH 10 ML IV PUSH (21:23)
[2023-02-28 22:00] VITALS: BP 134/92; PULSE 88; RESP 18; TEMP 36.6; O2SAT 100
[2023-02-28 23:08] LABS: Glucose Point of Care 94 mg/dl (65-105)
[2023-03-01 05:54] LABS: Basophils Percent Auto 0.4 % (0.2-1.2); Eosinophils Absolute Auto 0.3 K/mm3 (0-0.3); Eosinophils Percent Auto 4.9 % (0-4.4); Hematocrit 27.3 % (42.0-52.0); Hemoglobin 8.2 g/dL (14.0-18.0); Immature Granulocyte Absolute 0.16 K/mm3 (0.00-0.031); Lymphocytes Absolute Auto 0.83 K/mm3 (0.9-3.2); Lymphocytes Percent Auto 15.5 % (18.3-44.2); Mean Corpuscular Hemoglobin 26.9 pg (26-34); Mean Corpuscular Volume 89.5 fl (80-100); Mean Platelet Volume 9.3 fl (7.4-10.4); Monocytes Absolute Auto 0.5 K/mm3 (0.1-0.6); Monocytes Percent Auto 8.6 % (2.6-8.5); Neutrophils Absolute Auto 3.6 K/mm3 (1.3-6.7); Neutrophils Percent Auto 67.6 % (45.5-73.1); Platelet Count Result 320 k/mm3 (150-375); Red Blood Count 3.05 M/mm3 (4.6-6.20); Red Cell Distribution Width 13.2 % (11.5-14.5); White Blood Count 5.4 K/mm3 (4.5-10.0)
[2023-03-01 06:00] VITALS: BP 145/88; PULSE 75; RESP 16; TEMP 35.8; O2SAT 98
[2023-03-01 06:12] LABS: Alanine Aminotransferase 29 U/L (6-50); Albumin Level 2.5 g/dL (3.5-5.1); Alkaline Phosphatase 85 U/L (38-126); Anion Gap 7 mmol/L (8-16); Aspartate Amino Transferase 29 U/L (17-59); Bilirubin,Total 0.6 mg/dL (0.2-1.3); Blood Urea Nitrogen 18 mg/dL (9-20); Calcium 8.4 mg/dL (8.4-10.2); Carbon Dioxide 21 mmol/L (22-30); Chloride 112 mmol/L (98-107); Estimated CRCL calculation 105 ml/min; Estimated Glomerular Filt Rate > 60; Glucose 84 mg/dL (65-110); Potassium 4.3 mmol/L (3.4-5.0); Sodium 140 mmol/L (137-145)
[2023-03-01] MEDS: CENTRAL LINE FLUSH 10 ML IV PUSH ×3 (06:26→20:52)
[2023-03-01 07:48] LABS: Glucose Point of Care 90 mg/dl (65-105)
--- NOTE | 2023-03-01 08:17 | P.PNIM_ITS ---
Progress Note: A&P Assessment and Plan (1) Sepsis: Code(s): A41.9 - Sepsis, unspecified organism Status: Acute Assessment and Plan: 02/25/23: * Meet Sepsis/SIRS criteria: HR of 121 and WBC greater than 12. Later developed fever, 102.4?. Lactic acid 2.2. Adding blood cultures and starting IV fluid bolus at 20 ml/kg - 2,000 L with maintenance at 100 mL/hr post-bolus. Suspected source is R heel wound/cellulitis. General Surgery managing wound, potential debridement tomorrow and NPO at midnight. 02/26/23: * blood cultures obtained and are pending * known source- right heel necrotic ulcer with presence of osteomyelitis * Currently on Cefepime, Flagyl, and Vancomycin IV * Repeat lactate 1.0, WBC today down to 11.4 * T-max 103.8, currently afebrile with temp of 98.9. HR now in the 90's * Continue IV fluids for now 02/27/23: * Blood cultures showing no growth day 1 on preliminary * Patient is postop day 1 from a debridement of his right foot ulcer * Continue IV Cefepime 2 gm and Vancomycin, we will de-escalate the Flagyl. * VSS, he is afebrile * WBC 6.6 02/28/23: * Blood cultures still showing no growth on preliminary * VSS, he remains afebrile * WBC 5.0 * Continue with IV Cefepime and Vancomycin * PICC line placed today * Will need 6 weeks of antibiotics per general surgery team * intermission coordinator working on home health needs for IV antibiotics. 03/01/23: * Blood culture still showing no growth day 3 on preliminary * Continue with IV cefepime and vancomycin for now * Patient will need 5 weeks of antibiotics per General surgery team. General surgery wants him to remain on Vancomycin and Cefepime for the full duration. * intermission coordinator working on home health needs for IV antibiotics (2) Cellulitis of right foot: Code(s): L03.115 - Cellulitis of right lower limb Status: Acute Assessment and Plan: 02/25/23: * General surgery managing, Josi CARVER. obtaining right foot XR and CT angiogram of RLE. Some concern for underlying vascular pathology. Started on cefepime, metronidazole, and vancomycin. Plan to review imaging and surgical debridement tomorrow. NPO at midnight. Will continue pain management and Tylenol for fevers. Wound aviation consultant placed. 02/26/23: * Plan for surgical debridement with General surgery today. * Wound nurse consulted * Continue IV antibiotics * Continue NPO status for now and IVF 02/28/23: * General surgery following * Patient is post op day 2 of surgical debridement of right heel ulcer. * Wound covered with clean dry dressing 03/01/23: * General surgery following * Continue with IV antibiotic * Patient is postop day 3 of surgical debridement of his right heel ulcer * Continue with wound care (3) Diabetes: Qualifiers: Chronic kidney disease stage: unspecified stage Diabetes mellitus complication detail: with chronic kidney disease Diabetes mellitus complication status: with kidney complications Diabetes mellitus mcc insulin use: with mcc use Diabetes mellitus type: type 2 Qualified Code(s): E11.22 - Type 2 diabetes mellitus with diabetic chronic kidney disease; Z79.4 - terminal operations supervisor (current) use of insulin Code(s): E11.9 - Type 2 diabetes mellitus without complications Status: Acute Assessment and Plan: 02/25/23: * hypoglycemia protocol * POC blood glucose ACHS * home medication resumed/held - continued home Lantus 50 u HS and Januvia 100 mg HS, Trulicity held. * correct regimen ordered - moderate dose TIDWM and HS * A1C 6.5% om 01/28/23
--- NOTE | 2023-03-01 08:17 | PM.IMPN ---
Progress Note: A&P Assessment and Plan (1) Sepsis: Code(s): A41.9 - Sepsis, unspecified organism Status: Acute Assessment and Plan: 02/25/23: Meet Sepsis/SIRS criteria: HR of 121 and WBC greater than 12. Later developed fever, 102.4?. Lactic acid 2.2. Adding blood cultures and starting IV fluid bolus at 20 ml/kg - 2,000 L with maintenance at 100 mL/hr post-bolus. Suspected source is R heel wound/cellulitis. General Surgery managing wound, potential debridement tomorrow and NPO at midnight. 02/26/23: blood cultures obtained and are pending known source- right heel necrotic ulcer with presence of osteomyelitis Currently on Cefepime, Flagyl, and Vancomycin IV Repeat lactate 1.0, WBC today down to 11.4 T-max 103.8, currently afebrile with temp of 98.9. HR now in the 90's Continue IV fluids for now 02/27/23: Blood cultures showing no growth day 1 on preliminary Patient is postop day 1 from a debridement of his right foot ulcer Continue IV Cefepime 2 gm and Vancomycin, we will de-escalate the Flagyl. VSS, he is afebrile WBC 6.6 02/28/23: Blood cultures still showing no growth on preliminary VSS, he remains afebrile WBC 5.0 Continue with IV Cefepime and Vancomycin PICC line placed today Will need 6 weeks of antibiotics per general surgery team information technology coordinator working on home health needs for IV antibiotics. 03/01/23: Blood culture still showing no growth day 3 on preliminary Continue with IV cefepime and vancomycin for now Patient will need 5 weeks of antibiotics per General surgery team. General surgery wants him to remain on Vancomycin and Cefepime for the full duration. information technology coordinator working on home health needs for IV antibiotics (2) Cellulitis of right foot: Code(s): L03.115 - Cellulitis of right lower limb Status: Acute Assessment and Plan: 02/25/23: General surgery managing, Josi CARVER. obtaining right foot XR and CT angiogram of RLE. Some concern for underlying vascular pathology. Started on cefepime, metronidazole, and vancomycin. Plan to review imaging and surgical debridement tomorrow. NPO at midnight. Will continue pain management and Tylenol for fevers. Wound leasing consultant placed. 02/26/23: Plan for surgical debridement with General surgery today. Wound nurse consulted Continue IV antibiotics Continue NPO status for now and IVF 02/28/23: General surgery following Patient is post op day 2 of surgical debridement of right heel ulcer. Wound covered with clean dry dressing 03/01/23: General surgery following Continue with IV antibiotic Patient is postop day 3 of surgical debridement of his right heel ulcer Continue with wound care (3) Diabetes: Qualifiers: Chronic kidney disease stage: unspecified stage Diabetes mellitus complication detail: with chronic kidney disease Diabetes mellitus complication status: with kidney complications Diabetes mellitus watermelon harvesting supervisor insulin use: with [facility] use Diabetes mellitus type: type 2 Qualified Code(s): E11.22 - Type 2 diabetes mellitus with diabetic chronic kidney disease; Z79.4 - jail (current) use of insulin Code(s): E11.9 - Type 2 diabetes mellitus without complications Status: Acute Assessment and Plan: 02/25/23: hypoglycemia protocol POC blood glucose ACHS home medication resumed/held - continued home Lantus 50 u HS and Januvia 100 mg HS, Trulicity held. correct regimen ordered - moderate dose TIDWM and HS A1C 6.5% om 01/28/23 May need high-dose corrective regimen due to current infection. Assess glucose levels tomorrow. 02/26/23: BG ranging 115-153 Continue with current regimen for now. 02/27/23: Blood sugars ranging 95-129 Continue with current treatment plan 02/28/23: BG ranging 93-145 Continue with current treatment plan 03/01/23: Blood sugars ranging 84-90 Continue with current treatment plan (4) HTN (hypertension):
[2023-03-01] MEDS: ENOXAPARIN 40 MG/0.4 ML SYRINGE SUB-Q (09:10)
[2023-03-01] MEDS: CEFEPIME 2 GM/NS 50 ML 2 GM/50 ML BAG IVPB ×2 (09:10→20:52)
[2023-03-01] MEDS: COLLAGENASE OINT 30 GM TUBE 1 APPLIC TOPICAL (09:11)
--- NOTE | 2023-03-01 11:16 | PM.PNGS ---
Progress Note: A&P Assessment and Plan (1) Ulcer of right heel: Qualifiers: Non-pressure ulcer stage: with fat layer exposed Qualified Code(s): L97.412 - Non-pressure chronic ulcer of right heel and midfoot with fat layer exposed Code(s): L97.419 - Non-pressure chronic ulcer of right heel and midfoot with unspecified severity Status: Acute Assessment and Plan: S/p excisional debridement and biopsy of calcaneus 02/26. Santyl dressing changes for enzymatic debridement of the plantar heel wound. Non-weight bearing on RLE. PT/OT following. CTA RLE pending from this AM Will plan for Cefepime and Vancomycin for 5 more weeks as outpatient. (2) Cellulitis of right foot: Code(s): L03.115 - Cellulitis of right lower limb Status: Acute Assessment and Plan: Resolved (3) Diabetes: Qualifiers: Diabetes mellitus type: type 2 Diabetes mellitus skilled nursing insulin use: with state manager use Diabetes mellitus complication status: with kidney complications Diabetes mellitus complication detail: with chronic kidney disease Chronic kidney disease stage: unspecified stage Qualified Code(s): E11.22 - Type 2 diabetes mellitus with diabetic chronic kidney disease; Z79.4 - repairer cylinder heads (current) use of insulin Code(s): E11.9 - Type 2 diabetes mellitus without complications Status: Acute Assessment and Plan: Management per Hospitalist. (4) Anemia: Code(s): D64.9 - Anemia, unspecified Status: Acute Assessment and Plan: H&H stable since transfusion (5) Sepsis: Code(s): A41.9 - Sepsis, unspecified organism Status: Acute Assessment and Plan: Resolved Subjective Subjective Date/Time Seen: 03/01/23 11:16 Interval history: Doing well with wound care. No foot pain. Redness has resolved. Exam Const: General: comfortable and no acute distress Orientation/consciousness: patient oriented x3 Extrem: Other: Right foot dressing removed, posterior heel wound with 100% of the wound bed appearing pink with no necrotic tissue. Plantar heel ulcer that probes to bone with about 80-90% of the wound bed is pale yellow with minimal luna slough and a few small areas of pink tissue, no purulent drainage. (see wound care note for measurements) Overall swelling to right foot improved. Able to palpate a very faint pedal pulse and can palpate posterior tibial pulse. Objective Data Vital Signs Vital Signs: Vital Signs - 24 hr 02/28/23 14:00 02/28/23 20:00 02/28/23 22:00 Temperature 36.4 C 36.6 C Pulse Rate 83 88 Respiratory Rate 16 18 Blood Pressure 133/82 134/92 H Pulse Oximetry 98 98 100 Oxygen Delivery Room Air 03/01/23 06:00 03/01/23 09:15 Temperature 35.8 C L Pulse Rate 75 Respiratory Rate 16 Blood Pressure 145/88 H Pulse Oximetry 98 Oxygen Delivery Room Air Intake/Output Intake/Output: Intake & Output 02/26/23 02/27/23 02/28/23 03/01/23 23:59 23:59 23:59 23:59 Intake Total 2490 3230 1272 930 Output Total 1600 1065 850 800 Balance 890 2165 422 130 Meds/Results Medications: Active Medications Generic Name Dose Route Start Last Admin Trade Name Freq PRN Reason Stop Dose Admin Acetaminophen 650 mg 02/25/23 10:11 02/28/23 21:20 Acetaminophen 325 Mg Tablet PO 650 mg Q4H PRN Administration Mild Pain (1-3) or Fever Hydrocodone Bitart/Acetaminophen 1 tab 02/25/23 10:11 Hydrocodone/Acetaminophen (*Crx) 5-325 Mg Tablet PO Q4H PRN Moderate Pain (4-6) Hydrocodone Bitart/Acetaminophen 1 tab 02/26/23 14:59 02/27/23 10:13 Hydrocodone/Acetaminophen (*Crx) 10-325 Mg Tablet PO 1 tab Q6H PRN Administration Pain Rated 7-10 Atorvastatin Calcium 10 mg 02/25/23 21:00 02/28/23 21:22 Atorvastatin 10 Mg Tablet PO 10 mg HS LISSET Administration Collagenase 1 applic 02/28/23 09:00 03/01/23 09:11 Collagenase Oint 30 Gm Tube TOPICAL 1 applic QAM
[2023-03-01 11:42] LABS: Glucose Point of Care 101 mg/dl (65-105)
[2023-03-01] MEDS: VANCOMYCIN 1,750 MG/NS 500 ML 1,750 MG/500 ML BAG 250 MG IVPB (13:23)
[2023-03-01 13:24] VITALS: BP 136/84; PULSE 85; RESP 20; TEMP 36.2; O2SAT 100
--- NOTE | 2023-03-01 14:22 | PC.NURSE ---
On 03/01/23, the FINANCIAL ANALYSIS ADVISOR, Genny, provided care and [facility] on [facility]. I have reviewed the FINANCIAL ANALYSIS ADVISOR's documentation and agree with the findings.
[2023-03-01 17:03] LABS: Glucose Point of Care 105 mg/dl (65-105)
[2023-03-01 20:00] VITALS: O2SAT 99
[2023-03-01] MEDS: LOSARTAN POTASSIUM 100 MG TABLET PO (20:52)
[2023-03-01] MEDS: GABAPENTIN 300 MG CAPSULE 600 MG PO (20:52)
[2023-03-01] MEDS: ATORVASTATIN 10 MG TABLET PO (20:52)
[2023-03-01 21:50] LABS: Glucose Point of Care 123 mg/dl (65-105)
[2023-03-01 22:00] VITALS: BP 150/87; PULSE 85; RESP 13; TEMP 37; O2SAT 99
[2023-03-02] MEDS: CENTRAL LINE FLUSH 10 ML IV PUSH ×3 (05:00→21:46)
[2023-03-02 05:15] LABS: Basophils Percent Auto 0.4 % (0.2-1.2); Eosinophils Absolute Auto 0.2 K/mm3 (0-0.3); Eosinophils Percent Auto 2.8 % (0-4.4); Hematocrit 27.4 % (42.0-52.0); Hemoglobin 8.3 g/dL (14.0-18.0); Immature Granulocyte Absolute 0.18 K/mm3 (0.00-0.031); Immature Granulocyte Percent A 2.4 % (0-0.5); Lymphocytes Absolute Auto 0.98 K/mm3 (0.9-3.2); Lymphocytes Percent Auto 13.1 % (18.3-44.2); Mean Corpuscular HGB Conc 30.3 g/dl (32-36); Mean Corpuscular Volume 89.3 fl (80-100); Monocytes Absolute Auto 0.6 K/mm3 (0.1-0.6); Monocytes Percent Auto 7.3 % (2.6-8.5); Neutrophils Absolute Auto 5.5 K/mm3 (1.3-6.7); Platelet Count Result 351 k/mm3 (150-375); Red Blood Count 3.07 M/mm3 (4.6-6.20); Red Cell Distribution Width 13.2 % (11.5-14.5); White Blood Count 7.5 K/mm3 (4.5-10.0)
[2023-03-02 05:24] LABS: Alanine Aminotransferase 29 U/L (6-50); Albumin Level 2.6 g/dL (3.5-5.1); Alkaline Phosphatase 85 U/L (38-126); Anion Gap 5 mmol/L (8-16); Aspartate Amino Transferase 34 U/L (17-59); Bilirubin,Total 0.7 mg/dL (0.2-1.3); Blood Urea Nitrogen 17 mg/dL (9-20); Calcium 8.3 mg/dL (8.4-10.2); Carbon Dioxide 23 mmol/L (22-30); Chloride 110 mmol/L (98-107); Estimated CRCL calculation 97 ml/min; Estimated Glomerular Filt Rate > 60; Glucose 108 mg/dL (65-110); Potassium 4.3 mmol/L (3.4-5.0); Sodium 138 mmol/L (137-145)
[2023-03-02 06:00] VITALS: BP 146/89; PULSE 79; RESP 16; TEMP 36.4; O2SAT 99
[2023-03-02 07:49] LABS: Glucose Point of Care 105 mg/dl (65-105)
--- NOTE | 2023-03-02 08:16 | P.PNIM_ITS ---
Progress Note: A&P Assessment and Plan (1) Sepsis: Code(s): A41.9 - Sepsis, unspecified organism Status: Acute Assessment and Plan: 02/25/23: * Meet Sepsis/SIRS criteria: HR of 121 and WBC greater than 12. Later developed fever, 102.4?. Lactic acid 2.2. Adding blood cultures and starting IV fluid bolus at 20 ml/kg - 2,000 L with maintenance at 100 mL/hr post-bolus. Suspected source is R heel wound/cellulitis. General Surgery managing wound, potential debridement tomorrow and NPO at midnight. 02/26/23: * blood cultures obtained and are pending * known source- right heel necrotic ulcer with presence of osteomyelitis * Currently on Cefepime, Flagyl, and Vancomycin IV * Repeat lactate 1.0, WBC today down to 11.4 * T-max 103.8, currently afebrile with temp of 98.9. HR now in the 90's * Continue IV fluids for now 02/27/23: * Blood cultures showing no growth day 1 on preliminary * Patient is postop day 1 from a debridement of his right foot ulcer * Continue IV Cefepime 2 gm and Vancomycin, we will de-escalate the Flagyl. * VSS, he is afebrile * WBC 6.6 02/28/23: * Blood cultures still showing no growth on preliminary * VSS, he remains afebrile * WBC 5.0 * Continue with IV Cefepime and Vancomycin * PICC line placed today * Will need 6 weeks of antibiotics per general surgery team * academic services coordinator working on home health needs for IV antibiotics. 03/01/23: * Blood culture still showing no growth day 3 on preliminary * Continue with IV cefepime and vancomycin for now * Patient will need 5 weeks of antibiotics per General surgery team. General surgery wants him to remain on Vancomycin and Cefepime for the full duration. * academic services coordinator working on home health needs for IV antibiotics 03/02/23: * No change to current treatment plan (2) Cellulitis of right foot: Code(s): L03.115 - Cellulitis of right lower limb Status: Acute Assessment and Plan: 02/25/23: * General surgery managing, Josi CARVER. obtaining right foot XR and CT angiogram of RLE. Some concern for underlying vascular pathology. Started on cefepime, metronidazole, and vancomycin. Plan to review imaging and surgical debridement tomorrow. NPO at midnight. Will continue pain management and Tylenol for fevers. Wound alliance consultant placed. 02/26/23: * Plan for surgical debridement with General surgery today. * Wound nurse consulted * Continue IV antibiotics * Continue NPO status for now and IVF 02/28/23: * General surgery following * Patient is post op day 2 of surgical debridement of right heel ulcer. * Wound covered with clean dry dressing 03/01/23: * General surgery following * Continue with IV antibiotic * Patient is postop day 3 of surgical debridement of his right heel ulcer * Continue with wound care 03/02/23: * Post op day 4 * No change to current treatment plan (3) Diabetes: Qualifiers: Chronic kidney disease stage: unspecified stage Diabetes mellitus complication detail: with chronic kidney disease Diabetes mellitus complication status: with kidney complications Diabetes mellitus termite control representative insulin use: with custodial use Diabetes mellitus type: type 2 Qualified Code(s): E11.22 - Type 2 diabetes mellitus with diabetic chronic kidney disease; Z79.4 - intermediate card tender (current) use of insulin Code(s): E11.9 - Type 2 diabetes mellitus without complications Status: Acute Assessment and Plan: 02/25/23: * hypoglycemia protocol * POC blood glucose ACHS * home medication resumed/held - continued home Lantus
--- NOTE | 2023-03-02 08:16 | PM.IMPN ---
Progress Note: A&P Assessment and Plan (1) Sepsis: Code(s): A41.9 - Sepsis, unspecified organism Status: Acute Assessment and Plan: 02/25/23: Meet Sepsis/SIRS criteria: HR of 121 and WBC greater than 12. Later developed fever, 102.4?. Lactic acid 2.2. Adding blood cultures and starting IV fluid bolus at 20 ml/kg - 2,000 L with maintenance at 100 mL/hr post-bolus. Suspected source is R heel wound/cellulitis. General Surgery managing wound, potential debridement tomorrow and NPO at midnight. 02/26/23: blood cultures obtained and are pending known source- right heel necrotic ulcer with presence of osteomyelitis Currently on Cefepime, Flagyl, and Vancomycin IV Repeat lactate 1.0, WBC today down to 11.4 T-max 103.8, currently afebrile with temp of 98.9. HR now in the 90's Continue IV fluids for now 02/27/23: Blood cultures showing no growth day 1 on preliminary Patient is postop day 1 from a debridement of his right foot ulcer Continue IV Cefepime 2 gm and Vancomycin, we will de-escalate the Flagyl. VSS, he is afebrile WBC 6.6 02/28/23: Blood cultures still showing no growth on preliminary VSS, he remains afebrile WBC 5.0 Continue with IV Cefepime and Vancomycin PICC line placed today Will need 6 weeks of antibiotics per general surgery team home care coordinator working on home health needs for IV antibiotics. 03/01/23: Blood culture still showing no growth day 3 on preliminary Continue with IV cefepime and vancomycin for now Patient will need 5 weeks of antibiotics per General surgery team. General surgery wants him to remain on Vancomycin and Cefepime for the full duration. home care coordinator working on home health needs for IV antibiotics 03/02/23: No change to current treatment plan (2) Cellulitis of right foot: Code(s): L03.115 - Cellulitis of right lower limb Status: Acute Assessment and Plan: 02/25/23: General surgery managing, Josi CARVER. obtaining right foot XR and CT angiogram of RLE. Some concern for underlying vascular pathology. Started on cefepime, metronidazole, and vancomycin. Plan to review imaging and surgical debridement tomorrow. NPO at midnight. Will continue pain management and Tylenol for fevers. Wound salesforce consultant placed. 02/26/23: Plan for surgical debridement with General surgery today. Wound nurse consulted Continue IV antibiotics Continue NPO status for now and IVF 02/28/23: General surgery following Patient is post op day 2 of surgical debridement of right heel ulcer. Wound covered with clean dry dressing 03/01/23: General surgery following Continue with IV antibiotic Patient is postop day 3 of surgical debridement of his right heel ulcer Continue with wound care 03/02/23: Post op day 4 No change to current treatment plan (3) Diabetes: Qualifiers: Chronic kidney disease stage: unspecified stage Diabetes mellitus complication detail: with chronic kidney disease Diabetes mellitus complication status: with kidney complications Diabetes mellitus long-term insulin use: with long-term use Diabetes mellitus type: type 2 Qualified Code(s): E11.22 - Type 2 diabetes mellitus with diabetic chronic kidney disease; Z79.4 - terminal operations supervisor (current) use of insulin Code(s): E11.9 - Type 2 diabetes mellitus without complications Status: Acute Assessment and Plan: 02/25/23: hypoglycemia protocol POC blood glucose ACHS home medication resumed/held - continued home Lantus 50 u HS and Januvia 100 mg HS, Trulicity held. correct regimen ordered - moderate dose TIDWM and HS A1C 6.5% om 01/28/23 May need high-dose corrective regimen due to current infection. Assess glucose levels tomorrow. 02/26/23: BG ranging 115-153 Continue with current regimen for now. 02/27/23: Blood sugars ranging 95-129 Continue with current treatment plan 02/28/23: BG ranging 93-145 Continue with current treatment pl
[2023-03-02] MEDS: COLLAGENASE OINT 30 GM TUBE 1 APPLIC TOPICAL (08:46)
[2023-03-02] MEDS: CEFEPIME 2 GM/NS 50 ML 2 GM/50 ML BAG IVPB ×2 (08:46→21:45)
[2023-03-02] MEDS: ENOXAPARIN 40 MG/0.4 ML SYRINGE SUB-Q (08:47)
[2023-03-02 12:11] LABS: Glucose Point of Care 119 mg/dl (65-105)
[2023-03-02 14:00] VITALS: BP 136/78; PULSE 84; RESP 16; TEMP 36.3; O2SAT 100
[2023-03-02] MEDS: VANCOMYCIN 1,750 MG/NS 500 ML 1,750 MG/500 ML BAG 250 MG IVPB (15:03)
--- NOTE | 2023-03-02 15:10 | PM.PNGS ---
Progress Note: A&P Assessment and Plan (1) Ulcer of right heel: Qualifiers: Non-pressure ulcer stage: with fat layer exposed Qualified Code(s): L97.412 - Non-pressure chronic ulcer of right heel and midfoot with fat layer exposed Code(s): L97.419 - Non-pressure chronic ulcer of right heel and midfoot with unspecified severity Status: Acute Assessment and Plan: S/p excisional debridement and biopsy of calcaneus 02/26. Santyl dressing changes for enzymatic debridement of the plantar heel wound. Non-weight bearing on RLE. PT/OT following. Will plan for Cefepime and Vancomycin for 5 more weeks as outpatient. (2) Peripheral vascular disease: Code(s): I73.9 - Peripheral vascular disease, unspecified Status: Acute Assessment and Plan: CTA RLE shows occluded posterior tibial artery with 2 vessel runoff. Discussed risks of worsening vascular disease. Will start patient on Aspirin and Plavix. Might need to be evaluated by vascular surgeon eventually, but might not be much to do with below knee vessels. Inflow appears normal. (3) Cellulitis of right foot: Code(s): L03.115 - Cellulitis of right lower limb Status: Acute Assessment and Plan: Resolved (4) Diabetes: Qualifiers: Diabetes mellitus type: type 2 Diabetes mellitus tank terminal gauger insulin use: with longterm use Diabetes mellitus complication status: with kidney complications Diabetes mellitus complication detail: with chronic kidney disease Chronic kidney disease stage: unspecified stage Qualified Code(s): E11.22 - Type 2 diabetes mellitus with diabetic chronic kidney disease; Z79.4 - watermaster (current) use of insulin Code(s): E11.9 - Type 2 diabetes mellitus without complications Status: Acute Assessment and Plan: Management per Hospitalist. (5) Anemia: Code(s): D64.9 - Anemia, unspecified Status: Acute Assessment and Plan: H&H stable since transfusion (6) Sepsis: Code(s): A41.9 - Sepsis, unspecified organism Status: Acute Assessment and Plan: Resolved Subjective Subjective Date/Time Seen: 03/02/23 15:10 Interval history: No significant changes. Tolerating wound care. Exam Const: General: comfortable and no acute distress Orientation/consciousness: patient oriented x3 Extrem: Other: Right foot dressing removed, posterior heel wound with 100% of the wound bed appearing pink with no necrotic tissue. Plantar heel ulcer that probes to bone with about 80-90% of the wound bed is pale yellow with minimal luna slough and a few small areas of pink tissue, no purulent drainage. (see wound care note for measurements) Overall swelling to right foot improved. Objective Data Vital Signs Vital Signs: Vital Signs - 24 hr 03/01/23 22:00 03/01/23 20:00 03/02/23 06:00 Temperature 37.0 C 36.4 C L Pulse Rate 85 79 Respiratory Rate 13 16 Blood Pressure 150/87 H 146/89 H Pulse Oximetry 99 99 99 Oxygen Delivery Room Air 03/02/23 08:00 Temperature Pulse Rate Respiratory Rate Blood Pressure Pulse Oximetry Oxygen Delivery Room Air Intake/Output Intake/Output: Intake & Output 02/27/23 02/28/23 03/01/23 03/02/23 23:59 23:59 23:59 23:59 Intake Total 3230 1272 2600 250 Output Total 1065 850 800 Balance 2165 422 1800 250 Meds/Results Medications: Active Medications Generic Name Dose Route Start Last Admin Trade Name Freq PRN Reason Stop Dose Admin Acetaminophen 650 mg 02/25/23 10:11 02/28/23 21:20 Acetaminophen 325 Mg Tablet PO 650 mg Q4H PRN Administration Mild Pain (1-3) or Fever Hydrocodone Bitart/Acetaminophen 1 tab 02/25/23 10:11 Hydrocodone/Acetaminophen (*Crx) 5-325 Mg Tablet PO Q4H PRN Moderate Pain (4-6) Hydrocodone Bitart/Acetaminophen 1 tab 02/26/23 14:59 02/27/23 10:13 Hydrocodone/Acetaminophen (*Crx) 10-325 Mg Tablet PO 1 tab Q6H PRN A
[2023-03-02] MEDS: CLOPIDOGREL BISULFATE 75 MG TABLET PO (16:46)
[2023-03-02] MEDS: ASPIRIN 81 MG ENTERIC TABLET PO (16:46)
[2023-03-02 21:18] LABS: Glucose Point of Care 129 mg/dl (65-105)
[2023-03-02] MEDS: GABAPENTIN 300 MG CAPSULE 600 MG PO (21:45)
[2023-03-02] MEDS: ATORVASTATIN 10 MG TABLET PO (21:46)
[2023-03-02] MEDS: LOSARTAN POTASSIUM 100 MG TABLET PO (21:46)
[2023-03-02 21:55] VITALS: BP 138/86; PULSE 87; RESP 18; TEMP 36.2; O2SAT 100
[2023-03-03 06:00] VITALS: BP 151/97; PULSE 82; RESP 16; TEMP 36.2; O2SAT 99
[2023-03-03] MEDS: CENTRAL LINE FLUSH 10 ML IV PUSH (06:12)
[2023-03-03 06:14] LABS: Basophils Percent Auto 0.5 % (0.2-1.2); Eosinophils Absolute Auto 0.2 K/mm3 (0-0.3); Eosinophils Percent Auto 2.7 % (0-4.4); Hematocrit 27.2 % (42.0-52.0); Hemoglobin 8.3 g/dL (14.0-18.0); Immature Granulocyte Absolute 0.29 K/mm3 (0.00-0.031); Immature Granulocyte Percent A 3.7 % (0-0.5); Lymphocytes Absolute Auto 0.98 K/mm3 (0.9-3.2); Lymphocytes Percent Auto 12.6 % (18.3-44.2); Mean Corpuscular HGB Conc 30.5 g/dl (32-36); Mean Corpuscular Hemoglobin 27.3 pg (26-34); Mean Corpuscular Volume 89.5 fl (80-100); Mean Platelet Volume 8.9 fl (7.4-10.4); Monocytes Absolute Auto 0.5 K/mm3 (0.1-0.6); Monocytes Percent Auto 6.6 % (2.6-8.5); Neutrophils Absolute Auto 5.8 K/mm3 (1.3-6.7); Neutrophils Percent Auto 73.9 % (45.5-73.1); Platelet Count Result 334 k/mm3 (150-375); Red Blood Count 3.04 M/mm3 (4.6-6.20); Red Cell Distribution Width 13.2 % (11.5-14.5); White Blood Count 7.8 K/mm3 (4.5-10.0)
[2023-03-03 06:27] LABS: Alanine Aminotransferase 38 U/L (6-50); Albumin Level 2.6 g/dL (3.5-5.1); Alkaline Phosphatase 91 U/L (38-126); Anion Gap 4 mmol/L (8-16); Aspartate Amino Transferase 44 U/L (17-59); Bilirubin,Total 0.8 mg/dL (0.2-1.3); Blood Urea Nitrogen 14 mg/dL (9-20); Calcium 8.4 mg/dL (8.4-10.2); Carbon Dioxide 24 mmol/L (22-30); Chloride 110 mmol/L (98-107); Estimated CRCL calculation 90 ml/min; Estimated Glomerular Filt Rate > 60; Glucose 105 mg/dL (65-110); Potassium 4.4 mmol/L (3.4-5.0); Sodium 138 mmol/L (137-145)
[2023-03-03 07:53] LABS: Glucose Point of Care 100 mg/dl (65-105)
[2023-03-03 08:00] VITALS: PULSE 82; RESP 16; O2SAT 99
[2023-03-03] MEDS: COLLAGENASE OINT 30 GM TUBE 1 APPLIC TOPICAL (08:47)
[2023-03-03] MEDS: CEFEPIME 2 GM/NS 50 ML 2 GM/50 ML BAG IVPB (08:47)
[2023-03-03] MEDS: ASPIRIN 81 MG ENTERIC TABLET PO (08:47)
[2023-03-03] MEDS: CLOPIDOGREL BISULFATE 75 MG TABLET PO (08:47)
--- NOTE | 2023-03-03 10:14 | P.PNIM_ITS ---
Progress Note: A&P Assessment and Plan (1) Sepsis: Code(s): A41.9 - Sepsis, unspecified organism Status: Acute Assessment and Plan: 02/25/23: * Meet Sepsis/SIRS criteria: HR of 121 and WBC greater than 12. Later developed fever, 102.4?. Lactic acid 2.2. Adding blood cultures and starting IV fluid bolus at 20 ml/kg - 2,000 L with maintenance at 100 mL/hr post-bolus. Suspected source is R heel wound/cellulitis. General Surgery managing wound, potential debridement tomorrow and NPO at midnight. 02/26/23: * blood cultures obtained and are pending * known source- right heel necrotic ulcer with presence of osteomyelitis * Currently on Cefepime, Flagyl, and Vancomycin IV * Repeat lactate 1.0, WBC today down to 11.4 * T-max 103.8, currently afebrile with temp of 98.9. HR now in the 90's * Continue IV fluids for now 02/27/23: * Blood cultures showing no growth day 1 on preliminary * Patient is postop day 1 from a debridement of his right foot ulcer * Continue IV Cefepime 2 gm and Vancomycin, we will de-escalate the Flagyl. * VSS, he is afebrile * WBC 6.6 02/28/23: * Blood cultures still showing no growth on preliminary * VSS, he remains afebrile * WBC 5.0 * Continue with IV Cefepime and Vancomycin * PICC line placed today * Will need 6 weeks of antibiotics per general surgery team * community outreach coordinator working on home health needs for IV antibiotics. 03/01/23: * Blood culture still showing no growth day 3 on preliminary * Continue with IV cefepime and vancomycin for now * Patient will need 5 weeks of antibiotics per General surgery team. General surgery wants him to remain on Vancomycin and Cefepime for the full duration. * community outreach coordinator working on home health needs for IV antibiotics 03/02/23: * No change to current treatment plan (2) Cellulitis of right foot: Code(s): L03.115 - Cellulitis of right lower limb Status: Acute Assessment and Plan: 02/25/23: * General surgery managing, Josi CARVER. obtaining right foot XR and CT angiogram of RLE. Some concern for underlying vascular pathology. Started on cefepime, metronidazole, and vancomycin. Plan to review imaging and surgical debridement tomorrow. NPO at midnight. Will continue pain management and Tylenol for fevers. Wound executive talent acquisition consultant placed. 02/26/23: * Plan for surgical debridement with General surgery today. * Wound nurse consulted * Continue IV antibiotics * Continue NPO status for now and IVF 02/28/23: * General surgery following * Patient is post op day 2 of surgical debridement of right heel ulcer. * Wound covered with clean dry dressing 03/01/23: * General surgery following * Continue with IV antibiotic * Patient is postop day 3 of surgical debridement of his right heel ulcer * Continue with wound care 03/02/23: * Post op day 4 * No change to current treatment plan 03/03/23: * Post op day 5 * Plan for discharge today with General surgery services * He will have home health and IV antibiotics for the next 5 weeks. (3) Diabetes: Qualifiers: Chronic kidney disease stage: unspecified stage Diabetes mellitus complication detail: with chronic kidney disease Diabetes mellitus complication status: with kidney complications Diabetes mellitus intermediate teacher insulin use: with intermediate teacher use Diabetes mellitus type: type 2 Qualified Code(s): E11.22 - Type 2 diabetes mellitus with diabetic chronic kidney disease; Z79.4 - buttermaker (current) use of insulin Code(s): E11.9 - Type 2 diabetes mellitus without complications Sta
--- NOTE | 2023-03-03 10:14 | PM.IMPN ---
Progress Note: A&P Assessment and Plan (1) Sepsis: Code(s): A41.9 - Sepsis, unspecified organism Status: Acute Assessment and Plan: 02/25/23: Meet Sepsis/SIRS criteria: HR of 121 and WBC greater than 12. Later developed fever, 102.4?. Lactic acid 2.2. Adding blood cultures and starting IV fluid bolus at 20 ml/kg - 2,000 L with maintenance at 100 mL/hr post-bolus. Suspected source is R heel wound/cellulitis. General Surgery managing wound, potential debridement tomorrow and NPO at midnight. 02/26/23: blood cultures obtained and are pending known source- right heel necrotic ulcer with presence of osteomyelitis Currently on Cefepime, Flagyl, and Vancomycin IV Repeat lactate 1.0, WBC today down to 11.4 T-max 103.8, currently afebrile with temp of 98.9. HR now in the 90's Continue IV fluids for now 02/27/23: Blood cultures showing no growth day 1 on preliminary Patient is postop day 1 from a debridement of his right foot ulcer Continue IV Cefepime 2 gm and Vancomycin, we will de-escalate the Flagyl. VSS, he is afebrile WBC 6.6 02/28/23: Blood cultures still showing no growth on preliminary VSS, he remains afebrile WBC 5.0 Continue with IV Cefepime and Vancomycin PICC line placed today Will need 6 weeks of antibiotics per general surgery team hospital education coordinator working on home health needs for IV antibiotics. 03/01/23: Blood culture still showing no growth day 3 on preliminary Continue with IV cefepime and vancomycin for now Patient will need 5 weeks of antibiotics per General surgery team. General surgery wants him to remain on Vancomycin and Cefepime for the full duration. hospital education coordinator working on home health needs for IV antibiotics 03/02/23: No change to current treatment plan (2) Cellulitis of right foot: Code(s): L03.115 - Cellulitis of right lower limb Status: Acute Assessment and Plan: 02/25/23: General surgery managing, Josi CARVER. obtaining right foot XR and CT angiogram of RLE. Some concern for underlying vascular pathology. Started on cefepime, metronidazole, and vancomycin. Plan to review imaging and surgical debridement tomorrow. NPO at midnight. Will continue pain management and Tylenol for fevers. Wound rehab consultant placed. 02/26/23: Plan for surgical debridement with General surgery today. Wound nurse consulted Continue IV antibiotics Continue NPO status for now and IVF 02/28/23: General surgery following Patient is post op day 2 of surgical debridement of right heel ulcer. Wound covered with clean dry dressing 03/01/23: General surgery following Continue with IV antibiotic Patient is postop day 3 of surgical debridement of his right heel ulcer Continue with wound care 03/02/23: Post op day 4 No change to current treatment plan 03/03/23: Post op day 5 Plan for discharge today with General surgery services He will have home health and IV antibiotics for the next 5 weeks. (3) Diabetes: Qualifiers: Chronic kidney disease stage: unspecified stage Diabetes mellitus complication detail: with chronic kidney disease Diabetes mellitus complication status: with kidney complications Diabetes mellitus group home insulin use: with terminal supervisor use Diabetes mellitus type: type 2 Qualified Code(s): E11.22 - Type 2 diabetes mellitus with diabetic chronic kidney disease; Z79.4 - penitentiary (current) use of insulin Code(s): E11.9 - Type 2 diabetes mellitus without complications Status: Acute Assessment and Plan: 02/25/23: hypoglycemia protocol POC blood glucose ACHS home medication resumed/held - continued home Lantus 50 u HS and Januvia 100 mg HS, Trulicity held. correct regimen ordered - moderate dose TIDWM and HS A1C 6.5% om 01/28/23 May need high-dose corrective regimen due to current infection. Assess glucose levels tomorrow. 02/26/23: BG ranging 115-153 Continue with current regimen for n
[2023-03-03 11:35] LABS: Vancomycin Trough 15.6 ug/mL (10.0-20.0)
[2023-03-03 11:38] LABS: Glucose Point of Care 113 mg/dl (65-105)
--- NOTE | 2023-03-03 11:53 | PM.DS ---
DS: Admitting Diagnosis Discharge Date 03/03/2023 Admitting Diagnosis Diabetic right heel ulcer Cellulitis of right foot Diabetes mellitus type 2 Sepsis DS: Discharge Diagnosis Discharge Diagnosis (1) Ulcer of right heel: Qualifiers: Non-pressure ulcer stage: with fat layer exposed Qualified Code(s): L97.412 - Non-pressure chronic ulcer of right heel and midfoot with fat layer exposed Code(s): L97.419 - Non-pressure chronic ulcer of right heel and midfoot with unspecified severity Status: Acute (2) Osteomyelitis: Code(s): M86.9 - Osteomyelitis, unspecified Status: Acute (3) Peripheral vascular disease: Code(s): I73.9 - Peripheral vascular disease, unspecified Status: Acute (4) Cellulitis of right foot: Code(s): L03.115 - Cellulitis of right lower limb Status: Acute (5) Sepsis: Code(s): A41.9 - Sepsis, unspecified organism Status: Acute (6) Anemia: Code(s): D64.9 - Anemia, unspecified Status: Acute (7) Diabetes: Qualifiers: Diabetes mellitus type: type 2 Diabetes mellitus termite inspector insulin use: with snf use Diabetes mellitus complication status: with kidney complications Diabetes mellitus complication detail: with chronic kidney disease Chronic kidney disease stage: unspecified stage Qualified Code(s): E11.22 - Type 2 diabetes mellitus with diabetic chronic kidney disease; Z79.4 - terminal clerk (current) use of insulin Code(s): E11.9 - Type 2 diabetes mellitus without complications Status: Acute DS: Summary Hospital Course Reason for hospitalization: This is a 42-year-old man who was directly admitted on 02/25/2023 for a nonhealing right heel ulcer. He was seen [facility] by Dr. Prater and was found to have signs of cellulitis and worsening necrotic skin on the heel ulcer that initially started a month prior. The patient was admitted and started on broad-spectrum IV antibiotics. Hospital Course: The patient was started on broad-spectrum IV antibiotics for his diabetic right foot ulcer with cellulitis. She he had plain films of the right foot that showed erosion of the calcaneal tuberosity, consistent with osteomyelitis. This was new from his CT of the right foot about a month ago. He was taken for sharp excisional debridement of the right heel ulcer and biopsy of right calcaneus by Dr. Prater on 02/26/2023. Wound care was consulted postoperatively for recommendations on wound care. Postop day 1 he was started on Santyl and wound gel dressing changes daily. Hospitalist was consulted for medical management. He also initially appeared septic with SHABNAM. He was tachycardic and febrile, which resolved after receiving IV fluids and IV antibiotics. His white blood cell count was 14,400 initially, which normalized. He also appears to have some chronic anemia with his hemoglobin dropping down to 6.2 at the lowest during his hospitalization. No evidence of acute bleeding. He did require a transfusion of 1 unit of packed red blood cells, and his hemoglobin has been stable between 8.1-8.3 for the past 4 days. His renal function has also improved with IV fluids and treating his sepsis. After his renal function improved, he had a CTA of the right lower extremity that showed poor perfusion of the posterior tibial artery throughout much of its course with 2 vessel runoff at the ankle. May need outpatient vascular surgery referral and the patient is aware. He was started on aspirin and Plavix for his peripheral arterial disease. PICC line was placed for long-term IV antibiotics. Care coordination helped facilitate home health and outpatient IV infusion set up. He was educated on the services prior to discharge. His PCP will be managing his IV antibiotics after discharge. Plan is for a total of 6 weeks of IV cefepime and vancomycin. Discussed with Dr. Prater and patient is stable for discharge today. Status at Discharge F
[2023-03-03] MEDS: VANCOMYCIN 1,750 MG/NS 500 ML 1,750 MG/500 ML BAG 250 MG IVPB (13:39)
--- NOTE | 2023-03-03 13:39 | PHAR ---
VANCO LEVEL = 15.6 TARGET 15-20 NO CHANGE IN DOSING RECHECK TROUGH LEVEL 03/06
--- NOTE | 2023-03-03 13:44 | PC.NURSE ---
Cefepime dose to be given early so pt can discharge per MD instruction.
[2023-03-03 14:00] VITALS: BP 159/92; PULSE 89; RESP 18; TEMP 36.8; O2SAT 98
--- NOTE | 2023-03-03 14:48 | PC.NURSE ---
Cefepime to be given this evening at pt's home per infusion services.
--- NOTE | 2023-03-03 14:52 | PCPTNOTE ---
Patient reports having no PT needs at this time. Patient declines practicing stair climbing. Patient reports he has a walker for home use and plans to get a knee scooter for home use.
== END 2023-03-03 15:50 | disposition home health service (06) | DRG 854 ==
PROVIDERS: Nurse Practitioner Acute Care; Student in an Organized Health Care Education/Training Program; Admitting Provider Surgery; PCP Family Medicine; Visit Provider Nurse Practitioner Family
PROC: 0QBL0ZX Excision of Right Tarsal, Open Approach, Diagnostic (ICD-10-PCS; principal; 2023-02-26 13:30)
DX: A41.9 Sepsis, unspecified organism (principal); L03.115 Cellulitis of right lower limb; L97.419 Non-pressure chronic ulcer of right heel and midfoot with unspecified severity; N17.9 Acute kidney failure, unspecified; M86.171 Other acute osteomyelitis, right ankle and foot; E11.69 Type 2 diabetes mellitus with other specified complication; E11.621 Type 2 diabetes mellitus with foot ulcer; I73.9 Peripheral vascular disease, unspecified; D64.9 Anemia, unspecified; E11.22 Type 2 diabetes mellitus with diabetic chronic kidney disease; I10 Essential (primary) hypertension; G71.00 Muscular dystrophy, unspecified; M19.90 Unspecified osteoarthritis, unspecified site; D63.1 Anemia in chronic kidney disease; E66.9 Obesity, unspecified; Z68.37 Body mass index [BMI] 37.0-37.9, adult; Z79.4 Long term (current) use of insulin; Z87.891 Personal history of nicotine dependence
CPT/HCPCS: 36415; 36430; 36569; 73630; 73706; 80053; 80202; 82948; 83605; 85014; 85018; 85025; 85027; 86850; 86900; 86901; 86923; 87040; 88309; 88311; 97116; 97161; A9270; J0692; J1650; J1815; J1836; J2405; J2704; J3010; J3370; J7030; J7050; J7120; P9016; Q9967

== ENCOUNTER 2023-03-06 14:52 | Outpatient (NON) | payer BC, SELFPAY ==
[2023-03-06 18:51] LABS: Basophils Absolute Auto 0.1 K/mm3 (0.0-0.1); Basophils Percent Auto 0.6 % (0.2-1.2); Eosinophils Absolute Auto 0.2 K/mm3 (0-0.3); Eosinophils Percent Auto 2.9 % (0-4.4); Hematocrit 30.6 % (42.0-52.0); Hemoglobin 9.4 g/dL (14.0-18.0); Immature Granulocyte Absolute 0.17 K/mm3 (0.00-0.031); Immature Granulocyte Percent A 2.1 % (0-0.5); Lymphocytes Absolute Auto 0.79 K/mm3 (0.9-3.2); Lymphocytes Percent Auto 9.6 % (18.3-44.2); Mean Corpuscular HGB Conc 30.7 g/dl (32-36); Mean Corpuscular Hemoglobin 27.7 pg (26-34); Mean Corpuscular Volume 90.3 fl (80-100); Mean Platelet Volume 9.5 fl (7.4-10.4); Monocytes Absolute Auto 0.5 K/mm3 (0.1-0.6); Monocytes Percent Auto 5.8 % (2.6-8.5); Neutrophils Absolute Auto 6.5 K/mm3 (1.3-6.7); Platelet Count Result 360 k/mm3 (150-375); Red Blood Count 3.39 M/mm3 (4.6-6.20); Red Cell Distribution Width 13.5 % (11.5-14.5); White Blood Count 8.3 K/mm3 (4.5-10.0)
[2023-03-06 19:01] LABS: Alanine Aminotransferase 36 U/L (6-50); Albumin Level 3.2 g/dL (3.5-5.1); Alkaline Phosphatase 104 U/L (38-126); Anion Gap 7 mmol/L (8-16); Aspartate Amino Transferase 57 U/L (17-59); Bilirubin,Total 0.7 mg/dL (0.2-1.3); Blood Urea Nitrogen 21 mg/dL (9-20); CRP 2.1 mg/dL (<1.0); Calcium 8.7 mg/dL (8.4-10.2); Carbon Dioxide 24 mmol/L (22-30); Chloride 107 mmol/L (98-107); Estimated Glomerular Filt Rate 56; Glucose 167 mg/dL (65-110); Potassium 4.6 mmol/L (3.4-5.0); Sodium 138 mmol/L (137-145)
[2023-03-06 19:10] LABS: Vancomycin Trough 16.2 ug/mL (10.0-20.0)
== END 2023-03-06 14:53 | disposition home or self-care (01) ==
PROVIDERS: PCP Family Medicine; Visit Provider Family Medicine
DX: L97.419 Non-pressure chronic ulcer of right heel and midfoot with unspecified severity (principal); L03.115 Cellulitis of right lower limb
CPT/HCPCS: 36415; 80053; 80202; 85025; 86140

== ENCOUNTER 2023-03-25 14:48 | Outpatient (NON) | payer BC, SELFPAY ==
[2023-03-25 15:16] LABS: Basophils Percent Auto 0.7 % (0.2-1.2); Eosinophils Absolute Auto 0.4 K/mm3 (0-0.3); Eosinophils Percent Auto 8.5 % (0-4.4); Hematocrit 28.4 % (42.0-52.0); Hemoglobin 8.8 g/dL (14.0-18.0); Immature Granulocyte Absolute 0.03 K/mm3 (0.00-0.031); Immature Granulocyte Percent A 0.7 % (0-0.5); Lymphocytes Absolute Auto 0.59 K/mm3 (0.9-3.2); Lymphocytes Percent Auto 12.9 % (18.3-44.2); Mean Corpuscular Hemoglobin 27.3 pg (26-34); Mean Corpuscular Volume 88.2 fl (80-100); Mean Platelet Volume 10.2 fl (7.4-10.4); Monocytes Absolute Auto 0.4 K/mm3 (0.1-0.6); Monocytes Percent Auto 9.2 % (2.6-8.5); Neutrophils Absolute Auto 3.1 K/mm3 (1.3-6.7); Platelet Count Result 199 k/mm3 (150-375); Red Blood Count 3.22 M/mm3 (4.6-6.20); White Blood Count 4.6 K/mm3 (4.5-10.0)
[2023-03-25 15:20] LABS: Alanine Aminotransferase 22 U/L (6-50); Albumin Level 3.4 g/dL (3.5-5.1); Alkaline Phosphatase 122 U/L (38-126); Anion Gap 7 mmol/L (8-16); Aspartate Amino Transferase 24 U/L (17-59); Blood Urea Nitrogen 22 mg/dL (9-20); CRP 2.9 mg/dL (<1.0); Calcium 8.7 mg/dL (8.4-10.2); Carbon Dioxide 21 mmol/L (22-30); Chloride 111 mmol/L (98-107); Estimated Glomerular Filt Rate 45; Glucose 141 mg/dL (65-110); Potassium 4.3 mmol/L (3.4-5.0); Sodium 139 mmol/L (137-145)
[2023-03-25 15:38] LABS: Vancomycin Trough 20.3 ug/mL (10.0-20.0)
== END 2023-03-25 14:49 | disposition home or self-care (01) ==
LOC: ANHLAB 14:52
PROVIDERS: PCP Family Medicine; Visit Provider Family Medicine
DX: L97.419 Non-pressure chronic ulcer of right heel and midfoot with unspecified severity (principal); L03.115 Cellulitis of right lower limb
CPT/HCPCS: 36415; 80053; 80202; 85025; 86140

== ENCOUNTER 2023-03-31 14:50 | Outpatient (NON) | payer BC, SELFPAY ==
[2023-03-31 15:38] LABS: Anion Gap 8 mmol/L (8-16); Blood Urea Nitrogen 26 mg/dL (9-20); Calcium 8.4 mg/dL (8.4-10.2); Carbon Dioxide 15 mmol/L (22-30); Chloride 115 mmol/L (98-107); Estimated Glomerular Filt Rate 42; Glucose 198 mg/dL (65-110); Potassium 4.2 mmol/L (3.4-5.0); Sodium 138 mmol/L (137-145)
[2023-03-31 16:10] LABS: Vancomycin Trough 9.6 ug/mL (10.0-20.0)
== END 2023-03-31 14:51 | disposition home or self-care (01) ==
PROVIDERS: PCP Family Medicine; Visit Provider Family Medicine
DX: L03.115 Cellulitis of right lower limb (principal); A41.9 Sepsis, unspecified organism
CPT/HCPCS: 80048; 80202

== ENCOUNTER 2023-04-08 14:21 | Outpatient (RCR) | payer BC, SELFPAY ==
[2023-03-12 15:31] LABS: Basophils Absolute Auto 0.1 K/mm3 (0.0-0.1); Basophils Percent Auto 0.9 % (0.2-1.2); Eosinophils Absolute Auto 0.2 K/mm3 (0-0.3); Hematocrit 28.6 % (42.0-52.0); Hemoglobin 8.6 g/dL (14.0-18.0); Immature Granulocyte Absolute 0.03 K/mm3 (0.00-0.031); Immature Granulocyte Percent A 0.5 % (0-0.5); Lymphocytes Absolute Auto 0.83 K/mm3 (0.9-3.2); Lymphocytes Percent Auto 12.6 % (18.3-44.2); Mean Corpuscular HGB Conc 30.1 g/dl (32-36); Mean Corpuscular Hemoglobin 26.9 pg (26-34); Mean Corpuscular Volume 89.4 fl (80-100); Mean Platelet Volume 10.4 fl (7.4-10.4); Monocytes Absolute Auto 0.5 K/mm3 (0.1-0.6); Monocytes Percent Auto 7.4 % (2.6-8.5); Neutrophils Percent Auto 75.6 % (45.5-73.1); Platelet Count Result 202 k/mm3 (150-375); Red Cell Distribution Width 13.8 % (11.5-14.5); White Blood Count 6.6 K/mm3 (4.5-10.0)
[2023-03-12 16:05] LABS: Alanine Aminotransferase 25 U/L (6-50); Albumin Level 3.1 g/dL (3.5-5.1); Alkaline Phosphatase 108 U/L (38-126); Anion Gap 9 mmol/L (8-16); Aspartate Amino Transferase 17 U/L (17-59); Bilirubin,Total 0.9 mg/dL (0.2-1.3); Blood Urea Nitrogen 30 mg/dL (9-20); CRP 2.8 mg/dL (<1.0); Calcium 8.7 mg/dL (8.4-10.2); Carbon Dioxide 20 mmol/L (22-30); Chloride 109 mmol/L (98-107); Estimated Glomerular Filt Rate 56; Glucose 167 mg/dL (65-110); Sodium 138 mmol/L (137-145)
[2023-03-12 16:06] LABS: Vancomycin Trough 17.8 ug/mL (10.0-20.0)
[2023-03-18 15:31] LABS: Basophils Absolute Auto 0.1 K/mm3 (0.0-0.1); Basophils Percent Auto 1.2 % (0.2-1.2); Eosinophils Absolute Auto 0.4 K/mm3 (0-0.3); Eosinophils Percent Auto 6.8 % (0-4.4); Hematocrit 27.1 % (42.0-52.0); Hemoglobin 8.4 g/dL (14.0-18.0); Immature Granulocyte Absolute 0.03 K/mm3 (0.00-0.031); Immature Granulocyte Percent A 0.6 % (0-0.5); Lymphocytes Absolute Auto 0.74 K/mm3 (0.9-3.2); Lymphocytes Percent Auto 14.5 % (18.3-44.2); Mean Corpuscular Hemoglobin 27.2 pg (26-34); Mean Corpuscular Volume 87.7 fl (80-100); Mean Platelet Volume 10.3 fl (7.4-10.4); Monocytes Absolute Auto 0.5 K/mm3 (0.1-0.6); Monocytes Percent Auto 8.8 % (2.6-8.5); Neutrophils Absolute Auto 3.5 K/mm3 (1.3-6.7); Neutrophils Percent Auto 68.1 % (45.5-73.1); Platelet Count Result 194 k/mm3 (150-375); Red Blood Count 3.09 M/mm3 (4.6-6.20); Red Cell Distribution Width 14.6 % (11.5-14.5); White Blood Count 5.1 K/mm3 (4.5-10.0)
[2023-03-18 15:37] LABS: Alanine Aminotransferase 21 U/L (6-50); Albumin Level 3.2 g/dL (3.5-5.1); Alkaline Phosphatase 111 U/L (38-126); Anion Gap 9 mmol/L (8-16); Aspartate Amino Transferase 18 U/L (17-59); Bilirubin,Total 0.8 mg/dL (0.2-1.3); Blood Urea Nitrogen 24 mg/dL (9-20); CRP 1.9 mg/dL (<1.0); Calcium 8.8 mg/dL (8.4-10.2); Carbon Dioxide 19 mmol/L (22-30); Chloride 110 mmol/L (98-107); Estimated Glomerular Filt Rate 48; Glucose 199 mg/dL (65-110); Potassium 4.4 mmol/L (3.4-5.0); Sodium 138 mmol/L (137-145)
[2023-03-18 16:21] LABS: Vancomycin Trough 19.8 ug/mL (10.0-20.0)
[2023-04-04 15:26] LABS: Basophils Percent Auto 0.6 % (0.2-1.2); Eosinophils Absolute Auto 0.4 K/mm3 (0-0.3); Eosinophils Percent Auto 5.9 % (0-4.4); Hematocrit 29.5 % (42.0-52.0); Immature Granulocyte Absolute 0.04 K/mm3 (0.00-0.031); Immature Granulocyte Percent A 0.6 % (0-0.5); Lymphocytes Absolute Auto 0.74 K/mm3 (0.9-3.2); Lymphocytes Percent Auto 10.6 % (18.3-44.2); Mean Corpuscular HGB Conc 30.5 g/dl (32-36); Mean Corpuscular Hemoglobin 27.1 pg (26-34); Mean Corpuscular Volume 88.9 fl (80-100); Monocytes Absolute Auto 0.6 K/mm3 (0.1-0.6); Monocytes Percent Auto 8.6 % (2.6-8.5); Neutrophils Absolute Auto 5.1 K/mm3 (1.3-6.7); Neutrophils Percent Auto 73.7 % (45.5-73.1); Platelet Count Result 203 k/mm3 (150-375); Red Blood Count 3.32 M/mm3 (4.6-6.20); Red Cell Distribution Width 15.6 % (11.5-14.5)
[2023-04-04 15:44] LABS: CRP 1.2 mg/dL (<1.0)
[2023-04-08 14:47] LABS: Basophils Percent Auto 0.7 % (0.2-1.2); Eosinophils Absolute Auto 0.4 K/mm3 (0-0.3); Eosinophils Percent Auto 6.2 % (0-4.4); Immature Granulocyte Absolute 0.03 K/mm3 (0.00-0.031); Immature Granulocyte Percent A 0.5 % (0-0.5); Lymphocytes Absolute Auto 0.81 K/mm3 (0.9-3.2); Lymphocytes Percent Auto 13.5 % (18.3-44.2); Mean Corpuscular Hemoglobin 27.1 pg (26-34); Mean Corpuscular Volume 87.3 fl (80-100); Mean Platelet Volume 10.3 fl (7.4-10.4); Monocytes Absolute Auto 0.5 K/mm3 (0.1-0.6); Monocytes Percent Auto 8.8 % (2.6-8.5); Neutrophils Absolute Auto 4.2 K/mm3 (1.3-6.7); Neutrophils Percent Auto 70.3 % (45.5-73.1); Platelet Count Result 190 k/mm3 (150-375); Red Blood Count 3.32 M/mm3 (4.6-6.20); Red Cell Distribution Width 15.9 % (11.5-14.5)
[2023-04-08 15:07] LABS: Vancomycin Trough 27.9 ug/mL (10.0-20.0)
[2023-04-08 15:11] LABS: Alanine Aminotransferase 36 U/L (6-50); Albumin Level 3.4 g/dL (3.5-5.1); Alkaline Phosphatase 125 U/L (38-126); Anion Gap 6 mmol/L (8-16); Aspartate Amino Transferase 24 U/L (17-59); Blood Urea Nitrogen 28 mg/dL (9-20); CRP 0.9 mg/dL (<1.0); Calcium 8.7 mg/dL (8.4-10.2); Carbon Dioxide 16 mmol/L (22-30); Chloride 117 mmol/L (98-107); Estimated Glomerular Filt Rate 39; Glucose 171 mg/dL (65-110); Potassium 4.3 mmol/L (3.4-5.0); Sodium 139 mmol/L (137-145)
== END 2023-06-10 23:59 | disposition home or self-care (01) ==
LOC: HOME HLTH 14:21
PROVIDERS: PCP Family Medicine; Visit Provider Family Medicine
DX: L97.419 Non-pressure chronic ulcer of right heel and midfoot with unspecified severity (principal); L03.115 Cellulitis of right lower limb
CPT/HCPCS: 80053; 80202; 85025; 86140

== ENCOUNTER 2023-05-05 07:14 | Outpatient (RCR) | payer BC, MEDICAID, SELFPAY ==
[2023-02-06 12:30] VITALS: BMI 40.2
--- NOTE | 2023-04-07 13:58 | WPDWOUNDNOTE ---
Wound Care Note Date/Time: 03/31/23 11:00 History: This is patient's 1st outpatient wound clinic follow-up since being discharged from the hospital on 03/03/2023. He was hospitalized for a worsening right heel ulcer with signs of cellulitis and osteomyelitis. He underwent surgical debridement of the right heel ulcer on 02/26/2023. He was discharged on IV cefepime and vancomycin through a PICC line for 6 weeks. He has been performing santal and silver gel dressing changes daily. He is minimizing any weight-bearing to the right foot. Wound history: Sharp excisional debridement of right heel ulcer on 02/26/2023 Wound width: 5.2cm Wound length: 4.3cm Wound depth: 3cm Drainage: Serosanguineous Surrounding tissue appearance: Mostly red healthy tissue with yellow slough Percentage granulation tissue: 20% Assessment and Plan Assessment and plan (1) Ulcer of right heel: Qualifiers: Non-pressure ulcer stage: with fat layer exposed Qualified Code(s): L97.412 - Non-pressure chronic ulcer of right heel and midfoot with fat layer exposed Code(s): L97.419 - Non-pressure chronic ulcer of right heel and midfoot with unspecified severity Status: Acute Assessment and Plan: Patient is currently still on IV antibiotics but that is due to be completed in the next week. Continue nonweightbearing status and continue local wound care with Santyl wound gel with Adaptic and Kerlix wrap. Follow-up in wound clinic in 4 weeks. (2) Osteomyelitis: Code(s): M86.9 - Osteomyelitis, unspecified Status: Acute (3) Peripheral vascular disease: Code(s): I73.9 - Peripheral vascular disease, unspecified Status: Acute Assessment and Plan: Currently on aspirin and clopidogrel. Awaiting appointment with vascular surgeon at [facility]. 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 Review of Systems Review of Systems: All systems reviewed & are unremarkable except as noted in HPI and below Exam Extrem: Other: Right heel plantar ulcer with measurements as above. There is also a posterior superficial right heel ulcer that appears healthy with good granulation tissue.
--- NOTE | 2023-04-11 12:20 | PCWOUND ---
WOCN NOTE Received confirmation from Мария Michelle Mobile Home Set Up Person at [facility] that patient has been offically discharged from home health services as of 04/10/23. Will contact a local DME company to see if patient's insurance will cover home supplies of 3x3 oil emulsion adaptic, ABD pads, and kerlex rolls. Patient's next appointment in the wound center is on 04/06/23.
--- NOTE | 2023-05-05 14:03 | WPDWOUNDNOTE ---
Wound Care Note Date/Time: 05/05/23 14:03 History: This is patient's 2nd outpatient wound clinic follow-up since being discharged from the hospital on 03/03/2023.? He was hospitalized for a worsening right heel ulcer with signs of cellulitis and osteomyelitis.? He underwent surgical debridement of the right heel ulcer on 02/26/2023.? He was discharged on IV cefepime and vancomycin through a PICC line for 6 weeks.? He has been performing santal and silver gel dressing changes daily.? He is minimizing any weight-bearing to the right foot. Wound history: Sharp excisional debridement of right heel ulcer on 02/26/2023 Wound width: 4 cm Wound length: 4.5 cm Wound depth: 5 cm Drainage: serosanguinous Surrounding tissue appearance: healthy Tunnelin wounds communicate under skin Percentage granulation tissue: 60% Treatment/Procedures: sharp debridement of loose fat necrosis performed by wound nurse Assessment and Plan Assessment and plan (1) Ulcer of right heel: Qualifiers: Non-pressure ulcer stage: with fat layer exposed Qualified Code(s): L97.412 - Non-pressure chronic ulcer of right heel and midfoot with fat layer exposed Code(s): L97.419 - Non-pressure chronic ulcer of right heel and midfoot with unspecified severity Status: Acute Assessment and Plan: Right plantar heel ulcer now appears to be tunneling deeper. No sign purulence drainage or surrounding cellulitis. Begin new gauze packing with the Santyl. Continue daily dressing changes. Will have patient follow-up in the office in 4 weeks. 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 insulin use: with long filler cigar roller machine use Diabetes mellitus complication status: with kidney complications Diabetes mellitus complication detail: with chronic kidney disease Chronic kidney disease stage: unspecified stage Qualified Code(s): E11.22 - Type 2 diabetes mellitus with diabetic chronic kidney disease; Z79.4 - long-term (current) use of insulin Code(s): E11.9 - Type 2 diabetes mellitus without complications Status: Acute Exam Extrem: Other: Right heel ulcer is now tunneling a little deeper with some fat necrosis and the plantar wound is communicating to the posterior wound. No purulence drainage noted.
== END 2023-05-07 23:59 | disposition home or self-care (01) ==
LOC: ANHWOC 07:14
PROVIDERS: PCP Family Medicine; Visit Provider Surgery
DX: E11.621 Type 2 diabetes mellitus with foot ulcer (principal); L97.418 Non-pressure chronic ulcer of right heel and midfoot with other specified severity
CPT/HCPCS: 99213; 99214; G0463

== ENCOUNTER 2023-05-13 12:31 | Outpatient (RCR) | payer BC, SELFPAY ==
[2023-05-08 00:04] VITALS: BMI 40.2
== END 2023-07-28 15:06 | disposition home or self-care (01) ==
LOC: ANHWOC 12:31
PROVIDERS: PCP Family Medicine; Visit Provider Surgery
DX: E11.621 Type 2 diabetes mellitus with foot ulcer (principal); L97.418 Non-pressure chronic ulcer of right heel and midfoot with other specified severity
CPT/HCPCS: 99214; G0463

== ENCOUNTER 2023-05-22 14:09 | Inpatient (IN) | payer BC, SELFPAY ==
[2023-05-20 10:02] VITALS: BMI 33.5
--- NOTE | 2023-05-20 10:12 | PC.NURSE ---
Report to the Outpatient Waiting Room, entrance under the green pavilion located off [facility], at time 1000 on date 05/22/23. Planned Procedure Time: 1200. Time changes happen often and if your time is changed the preop area will call you the afternoon before. - You and your visitor will be asked to self-screen and do not enter if you have any COVID symptoms. - A mask is optional within the hospital at this time. Patients may have clear liquids (water, carbonated beverages, clear teas, apple juice) until 3 hours prior to surgery with a maximum of 20 ounces. - No food from midnight until time of surgery Take the following medications with a SIP of water the morning of surgery: ANTIBIOTIC DO NOT STOP ANY OF YOUR OTHER PRESCRIPTION MEDICATIONS PRIOR TO SURGERY ?EXCEPT THE FOLLOWING Medications to discontinue per physician: PLAVIX Date to take last dose: CHECK WITH DR. KWONG Please no make-up, nail irish, hairspray, perfume, deodorant, or body powder the day of surgery. No jewelry (including any body piercings) or valuables the day of surgery, leave them at home. Please take a shower or bath the night before, or the morning of, surgery with an antibacterial soap. Wear comfortable, loose fitting clothing. - Jewelry must be removed prior to entering the operating room. Rings and piercings that are not removed may be cut off. - The hospital will not accept responsibility for valuables. - Please leave all valuables, including medications, at home the day of surgery. If you are going home after surgery, a licensed marine engine driver must drive you home. - NO public transportation without another adult if you receive anesthesia. - We recommend that an adult stay with you for 24 hours following discharge. - We also recommend that you do not drive, make important decision, drink alcoholic beverages, or take any drugs that were not prescribed by your health care provider for at least 24 hours after your discharge time. Follow any additional instructions given to you from your surgeon. If you or anyone in your household have experienced Covid symptoms in the past week, please notify your surgeon or the nurse liaison at the phone number below for possible testing. Telephone instructions given to PT Leonard PATTERSON and asked if any additional questions and then verbalized understanding. Patient advised to call surgeon office or pre surgery nurse liaison [phone] if any additional questions.
[2023-05-22] VITALS (16 sets, daily range): BP systolic 106–139; BP diastolic 66–88; PULSE 82–100; RESP 12–18; TEMP 36.4–36.9; O2SAT 97–100; BMI 35.6
--- NOTE | 2023-05-22 10:08 | ECG_ITS ---
Measurements Intervals [place] Rate: 97 P: 45 AK: 162 QRS: 28 QRSD: 97 T: 30 QT: 334 QTc: 426 Interpretive Statements SINUS RHYTHM NO PREVIOUS ECG AVAILABLE FOR COMPARISON Electronically Signed On 05-22-2023 11:05:48 CDT by Davon Barney M.D.
[2023-05-22] MEDS: LACTATED RINGERS 1,000 ML 30 ML IV CONT (10:20)
[2023-05-22 10:31] LABS: Glucose Point of Care 161 mg/dl (65-105)
--- NOTE | 2023-05-22 11:23 | WPDANESEPPF ---
Anes - Initial Pre Proc Eval Procedure: Operation Date: 05/22/23 12:00 Proposed Procedures p Right Below Knee Amputation - Dhaval Prater DO Date/Time: 05/22/23 11:23 Surgeon: Dhaval Prater DO Pre Op Diagnosis: Patient Data Age: 42 Gender: M Height: 1.8 m Weight: 115.9 kg Last Vital Signs Temp 98.4 F 05/22/23 09:55 Pulse 100 05/22/23 09:55 Resp 16 05/22/23 09:55 BP 138/88 05/22/23 09:55 Pulse Ox 100 05/22/23 09:55 O2 Del Method Room Air 05/22/23 09:55 Allergies Allergy/AdvReac Type Severity Reaction Status Date / Time insulin detemir Allergy Unknown Other Verified 05/22/23 10:43 [From Levemir U-100 Insulin] latex Allergy Unknown Anaphylaxis Verified 05/22/23 10:43 metformin AdvReac Unknown Gastrointestinal Verified 05/22/23 10:43 Upset hydrochlorothiazide AdvReac Dizziness Verified 05/22/23 10:43 Home Medications Medication Instructions Recorded Confirmed Type linagliptin 5 mg tablet (Tradjenta) 5 mg PO HS 10/25/19 05/20/23 History atorvastatin 10 mg tablet 10 mg PO HS 04/07/22 05/20/23 History gabapentin 300 mg capsule 600 mg PO HS 04/07/22 05/20/23 History losartan 100 mg tablet 100 mg PO HS 01/16/23 05/20/23 History aspirin 81 mg tablet,delayed 81 mg PO QAM #30 tabs 03/03/23 05/20/23 Rx release collagenase clostridium histo. 250 1 applic topical QAM #1 tube 03/03/23 05/20/23 Rx unit/gram topical ointment (Santyl) hydrocodone 5 mg-acetaminophen 325 1 tablet PO Q4H PRN Moderate Pain 03/03/23 05/20/23 Rx mg tablet (4-6) #40 tabs clopidogrel 75 mg tablet See Rx Instructions .Route 04/30/23 05/22/23 Rx .COMPLEX #30 tabs cephalexin 500 mg capsule 500 mg PO BID 05/20/23 05/20/23 History tirzepatide 5 mg/0.5 mL 5 mg subcut WEEKLY 05/20/23 05/20/23 History subcutaneous pen injector (Mounjaro) Laboratory Tests 05/22/23 10:28 POC Capillary Glucose 161 H mg/dl (65-105) Patient hx anesthesia problems: none Family hx anesthesia problems: none Results Review: All pre-operative results and documents have been reviewed as part of the pre-operative evaluation. [facility] Past Medical History Medical History Abscess Arthritis Asthma Chronic kidney disease Chronic pain Club foot of both lower extremities Diabetes Dizziness Food allergy History of adverse reaction to anesthesia HTN (hypertension) Muscular dystrophy Skin ulcer Vision abnormalities Weight gain Surgical History Surgical History Hx of clubfoot correction Family History Family History Grandparent Arthritis Heart disease Diabetes mellitus Hypertension Malignant neoplasm Mother Heart disease Diabetes mellitus Hypertension Social History Social History Smoking packs per day: 0.1 Smoking cigarettes per day: 2.0 Years smoked: 4 Smoking pack-years: 0.40 Smoking status: Former smoker Tobacco type: cigarettes Second hand tobacco smoke exposure: Yes Smoking end date: 12/18/22 Alcohol intake: current Alcohol use details: 1/YEAR Substance use: never Substance use type: does not use Do You Feel Safe in your Home?: Yes Lack of Transportation: No Lack of Food: Never True Current Housing: I Have Housing Concerned About Future Housing: No Difficulty Paying Gas/Electric Bills: No Difficulty Paying for Meds: No Currently Unemployed: No Education: Associate Degree Difficulty w/ Childcare or Family Care: No Living arrangements: with family Gender identity (if verbalized by the patient): Male Spiritual care concerns: No Anes - Eval Final PreProcedure Day of Procedure 05/22/23 11:23 Patient weight: obese Heart: regular rate and rhythm Lungs: clear to auscultation Airwa
--- NOTE | 2023-05-22 11:29 | WPDHPUPDATE1 ---
History and Physical Update Update Date/Time: 05/22/23 11:29 History and Physical has been reviewed, including an updated exam of the patient. There are NO changes in the patient's condition. Risks, benefits, and alternatives have been discussed and questions answered. Patient agrees to proceed with procedure.
--- NOTE | 2023-05-22 11:29 | PM.IMHP ---
H&P: HPI History of Present Illness Date/Time: 05/22/23 11:29 Chief Complaint: Osteomyelitis right foot Narrative: 42 yo man presents for right below knee amputation. he has been dealing with osteomyelitis of the right calcaneous for thepast 3 months. Local wound debridement and fdc antibiotics were attempted with no significant success. 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 Review of Systems Review of Systems: All systems reviewed & are unremarkable except as noted in HPI and below Constitutional: Constitutional: Denies chills, Denies fever(s), Denies headache(s) and Denies weight loss Eyes: Eyes: Denies change in vision ENT: Denies dizziness, Denies headache(s), Denies neck mass and Denies throat swelling Cardiovascular: Cardiovascular: Denies chest pain, Denies lightheadedness and Denies dyspnea Respiratory: Respiratory: Denies cough, Denies dyspnea and Denies wheezing Gastrointestinal: Gastrointestinal: Denies abdominal pain, Denies change in bowel habits, Denies nausea and Denies vomiting Genitourinary: Genitourinary: Denies hematuria and Denies dysuria Musculoskeletal: Musculoskeletal: Reports as per HPI Integumentary/Breasts: Skin/Breast: Reports as per HPI Neurologic: Denies dizziness and Denies headache(s) Allergic/Immunologic: Allergic/Immunologic: Denies throat swelling and Denies wheezing PMFSH Past Medical History Medical History Abscess Arthritis Asthma Chronic kidney disease Chronic pain Club foot of both lower extremities Diabetes Dizziness Food allergy History of adverse reaction to anesthesia HTN (hypertension) Muscular dystrophy Skin ulcer Vision abnormalities Weight gain Surgical History Surgical History Hx of clubfoot correction Family History Family History Grandparent Arthritis Heart disease Diabetes mellitus Hypertension Malignant neoplasm Mother Heart disease Diabetes mellitus Hypertension Social History Social History Smoking packs per day: 0.1 Smoking cigarettes per day: 2.0 Years smoked: 4 Smoking pack-years: 0.40 Smoking status: Former smoker Tobacco type: cigarettes Second hand tobacco smoke exposure: Yes Smoking end date: 12/18/22 Alcohol intake: current Alcohol use details: 1/YEAR Substance use: never Substance use type: does not use Do You Feel Safe in your Home?: Yes Lack of Transportation: No Lack of Food: Never True Current Housing: I Have Housing Concerned About Future Housing: No Difficulty Paying Gas/Electric Bills: No Difficulty Paying for Meds: No Currently Unemployed: No Education: Associate Degree Difficulty w/ Childcare or Family Care: No Living arrangements: with family Gender identity (if verbalized by the patient): Male Spiritual care concerns: No Meds Home Medications and Allergies Home Medications Medication Instructions Recorded Confirmed Type linagliptin 5 mg tablet (Tradjenta) 5 mg PO HS 10/25/19 05/20/23 History atorvastatin 10 mg tablet 10 mg PO HS 04/07/22 05/20/23 History gabapentin 300 mg capsule 600 mg PO HS 04/07/22 05/20/23 History losartan 100 mg tablet 100 mg PO HS 01/16/23 05/20/23 History aspirin 81 mg tablet,delayed 81 mg PO QAM #30 tabs 03/03/23 05/20/23 Rx release collagenase clostridium histo. 250 1 applic topical QAM #1 tube 03/03/23 05/20/23 Rx unit/gram topical ointment (Santyl) hydrocodone 5 mg-acetaminophen 325 1 tablet PO Q4H PRN Moderate Pain 03/03/23 05/20/23 Rx mg tablet (4-6) #40 tabs clopidogrel 75 mg tablet See Rx Instructions .Route 04/30/23 05/22/23 Rx .COMPLEX #30 tabs cephale
[2023-05-22] MEDS: ceFAZolin 2 GM/D5W 50 ML 2 GM/50 ML BAG IVPB ×2 (11:39→20:14)
[2023-05-22] MEDS: TRANEXAMIC ACID 1,000 MG/10 ML AMPUL 1000 MG IV PUSH (12:13)
--- NOTE | 2023-05-22 13:03 | W.PM.PROC2 ---
Procedure Note - Detailed Date of Procedure 05/22/23 Pre-op Diagnosis Osteomyelitis of the right foot, right heel ulcer, type 2 diabetes Post-op Diagnosis Same Procedure Performed Right below knee amputation Surgeon Dhaval Prater, DO Anesthesia General Indications this is a 42-year-old man who presented with a nonhealing right heel ulcer. He was found to have osteomyelitis of the right heel and has been treated with local debridement and 6 weeks of IV antibiotics. Since completing the round of antibiotics, he has seen worsening infection involving the skin and subcutaneous tissues around the right heel. He was seen by vascular surgery who felt there was nothing else to be done intervention grullon that would improve chances of this healing. Discussions were then made with patient about further surgical options and decision was made to proceed with right below-knee amputation. Findings Right below-knee amputation was performed. The patient had a chronic ulceration to the right heel with necrotic gangrenous tissue. The ankle and lower leg appeared free of any signs of cellulitis or infection. The right leg was sent to the lab for pathology. No other abnormalities were noted. Description of Procedure Procedure as well as risks, benefits, and alternatives were discussed with the patient. Written consent was obtained and placed in chart prior to procedure. Patient was brought back to surgical suite. He was placed supine on operating table. Time-out was done to confirm patient and procedure. He was then intubated by the anesthesia department. His right leg was prepped and draped in sterile fashion using chlorhexidine prep. A tourniquet was used to help minimize blood loss during the procedure. Tourniquet time was 20 minutes. The location for amputation and skin incisions were carefully marked out on the below knee leg. an incision was made to include a larger posterior flap using a 10 blade scalpel. The incision was carried down through the subcutaneous tissue to the fascia. The fascia of the anterior muscle compartment was incised 1st and then this was carried out around to the lateral compartment and around the tibia. The periosteum was incised with the 10 blade scalpel and then a bone elevator was used to gently dissect back far enough on the tibia to where we could perform the amputation. A [employer] saw was then used to transect the tibia. I then continued the dissection down through the muscle and onto the fibula. The fibula periosteum was also cleared all the way back to where I could transect the fibula about 1 cm proximal to where the tibia was transected. The [place] saw again was used to transect the fibula at this point. The posterior compartment muscles were then dissected using the 20 blade scalpel until the tissue was completely dissected and leg was freed up and removed. The right lower leg was then sent to the lab for pathology. Curved hemostats were then placed on all the visible vessels and then the vessels were ligated using 3-0 Vicryl [id number] sutures. After ligating all the vessels, the tourniquet was released. There were a few other small branch vessels that were then ligated with 3-0 Vicryl [id number] sutures and electrocautery. Hemostasis then appeared adequate. I then used a Dion saw 1 more time to bevel the anterior edge the tibia. I then irrigated the stump using sterile saline. No other significant abnormalities were noted and hemostasis appeared adequate. The fascia was then brought together over the tibia and fibula using 0 Vicryl simple interrupted sutures. This appeared to approximate the fascia very well and bring the posterior flap up over the stump. Skin edges were then reapproximated using a skin stapler. Xeroform gauze was then applied followed by fluff gauze, ABD pads, Kerlix wrap, and large Bon wrap. The patient's leg was then also placed in a knee immobilizer. The patient was then pj
[2023-05-22] MEDS: fentaNYL CITRATE INJ (*CRX) 100 MCG/2 ML VIAL 25 MCG IV PUSH ×2 (13:28→13:32)
--- NOTE | 2023-05-22 14:16 | ADMGEN ---
This patient, Jose Roberto Maria, was admitted to Medical Room 252-01. Patient/family oriented to hospital policies and general routines including ID bracelet, bed and alarms, visiting hours, pain management, procedures, bathroom and other care routines, personal items, smoking policy, room service/diet, and visiting hours. Information on how to activate the Rapid Response Team has been discussed. Patient/Family are encouraged to report perceived risks to care and to ask questions if they do not understand what they are told or what they should do.
[2023-05-22 14:50] LABS: Glucose Point of Care 144 mg/dl (65-105)
[2023-05-22] MEDS: oxyCODONE HCL (*CRX) 5 MG TAB IR PO ×2 (15:49→20:20)
[2023-05-22] MEDS: IBUPROFEN 600 MG TABLET PO ×2 (15:49→20:14)
[2023-05-22 17:04] LABS: Glucose Point of Care 162 mg/dl (65-105)
[2023-05-22] MEDS: GABAPENTIN 300 MG CAPSULE 600 MG PO (20:14)
[2023-05-22] MEDS: ATORVASTATIN 10 MG TABLET PO (20:15)
[2023-05-22] MEDS: LOSARTAN POTASSIUM 100 MG TABLET PO (20:15)
[2023-05-22 20:39] LABS: Glucose Point of Care 162 mg/dl (65-105)
[2023-05-23] MEDS: IBUPROFEN 600 MG TABLET PO ×4 (03:02→19:32)
[2023-05-23] MEDS: ceFAZolin 2 GM/D5W 50 ML 2 GM/50 ML BAG IVPB ×2 (03:02→12:01)
[2023-05-23] MEDS: oxyCODONE HCL (*CRX) 5 MG TAB IR PO ×2 (03:33→19:32)
[2023-05-23 06:27] LABS: Hematocrit 26.8 % (42.0-52.0); Hemoglobin 8.4 g/dL (14.0-18.0); Mean Corpuscular HGB Conc 31.3 g/dl (32-36); Mean Corpuscular Hemoglobin 27.5 pg (26-34); Mean Corpuscular Volume 87.6 fl (80-100); Mean Platelet Volume 9.8 fl (7.4-10.4); Platelet Count Result 239 k/mm3 (150-375); Red Blood Count 3.06 M/mm3 (4.6-6.20); Red Cell Distribution Width 14.7 % (11.5-14.5)
[2023-05-23 06:31] VITALS: BP 116/73; PULSE 97; RESP 16; TEMP 36.4; O2SAT 100
[2023-05-23 06:39] LABS: Anion Gap 10 mmol/L (4-12); Blood Urea Nitrogen 36 mg/dL (9-20); Calcium 8.9 mg/dL (8.4-10.2); Carbon Dioxide 20 mmol/L (22-30); Chloride 106 mmol/L (98-107); Estimated CRCL calculation 39 ml/min; Estimated Glomerular Filt Rate 23; Glucose 139 mg/dL (65-110); Potassium 4.9 mmol/L (3.4-5.0); Sodium 136 mmol/L (137-145)
--- NOTE | 2023-05-23 08:17 | WPDANESPN ---
Anes - Prog Note Post-Op Date/Time: 05/23/23 08:17 Cardiovascular status: normal Respiratory status: normal Airway patency: baseline Mental status: baseline Post-Op hydration status: normal Vital Signs: Last Vital Signs Temp 36.4 C L 05/23/23 06:31 Pulse 97 05/23/23 06:31 Resp 16 05/23/23 06:31 BP 116/73 05/23/23 06:31 Pulse Ox 100 05/23/23 06:31 O2 Del Method Room Air 05/22/23 20:00 O2 Flow Rate 2 05/22/23 14:16 Pain Score (VAS): 04/26 I/O: Intake & Output 05/22/23 05/23/23 05/23/23 23:59 07:59 15:59 Intake Total 842 300 Output Total 350 1600 Balance 492 -1300 Laboratory Tests 05/23/23 05:24 05/23/23 05:24 05/22/23 05/22/23 05/22/23 10:28 13:23 17:00 WBC RBC Hgb Hct MCV MCH MCHC RDW Plt Count MPV Sodium Potassium Chloride Carbon Dioxide Anion Gap BUN Creatinine Estim Creat Clear Calc Estimated GFR Glucose POC Capillary Glucose 161 H 144 H 162 H Calcium 05/22/23 05/23/23 20:13 05:24 WBC 8.0 RBC 3.06 L Hgb 8.4 L Hct 26.8 L MCV 87.6 MCH 27.5 MCHC 31.3 L RDW 14.7 H Plt Count 239 MPV 9.8 Sodium 136 L Potassium 4.9 Chloride 106 Carbon Dioxide 20 L Anion Gap 10 BUN 36 H Creatinine 3.00 H Estim Creat Clear Calc 39 Estimated GFR 23 L Glucose 139 H POC Capillary Glucose 162 H Calcium 8.9 Post-procedural complaints: none Patient Feedback: Patient satisfied with anesthetic care.
[2023-05-23 08:32] LABS: Glucose Point of Care 143 mg/dl (65-105)
[2023-05-23] MEDS: ASPIRIN 81 MG ENTERIC TABLET PO (09:02)
[2023-05-23] MEDS: polyethylene glycoL 3350 17 GM POWD.PACK PO (09:03)
[2023-05-23] MEDS: ENOXAPARIN 40 MG/0.4 ML SYRINGE SUB-Q (09:03)
--- NOTE | 2023-05-23 09:09 | PM.PNGS ---
Progress Note: A&P Assessment and Plan (1) Osteomyelitis: Qualifiers: Osteomyelitis type: other acute Osteomyelitis location: foot Laterality: right Qualified Code(s): M86.171 - Other acute osteomyelitis, right ankle and foot Code(s): M86.9 - Osteomyelitis, unspecified Status: Acute Assessment and Plan: Doing well on POD#1. PT/OT today. Increase activity as tolerated. Will look at wound tomorrow. Anticipate 2-3 more days in hospital. Might need Home health or outpatient PT on discharge. (2) Ulcer of right heel: Qualifiers: Non-pressure ulcer stage: with fat layer exposed Qualified Code(s): L97.412 - Non-pressure chronic ulcer of right heel and midfoot with fat layer exposed Code(s): L97.419 - Non-pressure chronic ulcer of right heel and midfoot with unspecified severity Status: Acute Subjective Subjective Date/Time Seen: 05/22/ 09:09 Interval history: Doing well on POD#1. Pain controlled. Tolerating diet. Exam Extrem: Other: Right BKA dressing dry. Objective Data Vital Signs Vital Signs: Vital Signs - 24 hr 05/22/23 09:55 05/22/23 12:56 05/22/23 13:00 Temperature 36.9 C Pulse Rate 100 82 82 Respiratory Rate 16 15 Blood Pressure 138/88 111/84 106/66 Pulse Oximetry 100 100 99 Oxygen Delivery Room Air Simple Face Mask Simple Face Mask Oxygen Flow Rate 10 10 05/22/23 13:15 05/22/23 13:29 05/22/23 13:45 Temperature Pulse Rate 84 86 86 Respiratory Rate 16 15 12 Blood Pressure 122/76 129/77 132/77 Pulse Oximetry 100 97 100 Oxygen Delivery Simple Face Mask Room Air Nasal Cannula Oxygen Flow Rate 10 2 05/22/23 14:00 05/22/23 14:15 05/22/23 14:30 Temperature 36.4 C 36.4 C Pulse Rate 88 89 88 Respiratory Rate 13 14 14 Blood Pressure 123/84 139/84 130/81 Pulse Oximetry 100 100 99 Oxygen Delivery Nasal Cannula Oxygen Flow Rate 2 05/22/23 14:16 05/22/23 14:56 05/22/23 15:00 Temperature 36.4 C Pulse Rate 88 Respiratory Rate 15 Blood Pressure 129/70 Pulse Oximetry 100 99 100 Oxygen Delivery Nasal Cannula Room Air Oxygen Flow Rate 2 05/22/23 15:54 05/22/23 20:00 05/22/23 21:22 Temperature 36.4 C 36.4 C Pulse Rate 86 86 99 Respiratory Rate 16 16 18 Blood Pressure 128/74 120/70 Pulse Oximetry 100 100 100 Oxygen Delivery Room Air Oxygen Flow Rate 05/22/23 23:54 05/23/23 06:31 Temperature 36.7 C 36.4 C L Pulse Rate 93 97 Respiratory Rate 18 16 Blood Pressure 138/87 116/73 Pulse Oximetry 99 100 Oxygen Delivery Oxygen Flow Rate Intake/Output Intake/Output: Intake & Output 05/20/23 05/21/23 05/22/23 05/23/23 23:59 23:59 23:59 23:59 Intake Total 1392 300 Output Total 350 1600 Balance 1042 -1300 Meds/Results Medications: Active Medications Generic Name Dose Route Start Last Admin Trade Name Freq PRN Reason Stop Dose Admin Acetaminophen 650 mg 05/22/23 14:09 Acetaminophen 325 Mg Tablet PO Q6H PRN Mild Pain (1-3) or Fever Aspirin 81 mg 05/23/23 09:00 Aspirin 81 Mg Enteric Tablet PO QAM [facility] Atorvastatin Calcium 10 mg 05/22/23 21:00 05/22/23 20:15 Atorvastatin 10 Mg Tablet PO 10 mg HS [facility] Administration Diphenhydramine HCl 25 mg 05/22/23 14:09 Diphenhydramine Hcl Inj 50 Mg/Ml Vial IV PUSH Q6H PRN Itching Enoxaparin Sodium 40 mg 05/23/23 09:00 Enoxaparin 40 Mg/0.4 Ml Syringe SUB-Q DAILY [facility] Gabapentin 600 mg 05/22/23 21:00 05/22/23 20:14 Gabapentin 300 Mg Capsule PO 600 mg HS LISSET Administration Hydromorphone HCl 0.5 mg 05/22/23 14:09 Hydromorphone Hcl Inj (*Crx) 1 Mg/Ml Syr IV PUSH Q2H PRN Pain Rated 4-6 Hydromorphone HCl 1 mg 05/22/23 14:09 Hydromorphone Hcl Inj (*Crx) 1 Mg/Ml Syr IV PUSH Q2H PRN Pain Rated 7-10 Cefazolin Sodium 2 gm in 50 mls @ 100 mls/hr 05/22/23 20:00 05/23/23 03:35 Ancef 2 Gm/D5w 50 Ml IVPB 05/23/23 12:29 Infus
--- NOTE | 2023-05-23 11:36 | PC.NURSE ---
On 05/23/23, the student, [Armando Galeana], provided care and completed [facility] documentation on this patient. I have reviewed the student's documentation and agree with the findings.
[2023-05-23 12:12] LABS: Glucose Point of Care 165 mg/dl (65-105)
[2023-05-23 12:44] VITALS: BP 112/70; PULSE 96; RESP 18; TEMP 36.6; O2SAT 100
[2023-05-23 15:54] VITALS: BP 131/88; PULSE 103; RESP 18; TEMP 37.5; O2SAT 99
[2023-05-23 17:18] LABS: Glucose Point of Care 138 mg/dl (65-105)
[2023-05-23] MEDS: ATORVASTATIN 10 MG TABLET PO (19:32)
[2023-05-23] MEDS: GABAPENTIN 300 MG CAPSULE 600 MG PO (19:36)
[2023-05-23] MEDS: LOSARTAN POTASSIUM 100 MG TABLET PO (19:36)
[2023-05-23 20:00] VITALS: PULSE 96; RESP 18; O2SAT 100
[2023-05-23 21:02] LABS: Glucose Point of Care 139 mg/dl (65-105)
[2023-05-24 04:44] LABS: Hematocrit 25.6 % (42.0-52.0); Hemoglobin 7.7 g/dL (14.0-18.0); Mean Corpuscular HGB Conc 30.1 g/dl (32-36); Mean Corpuscular Hemoglobin 26.6 pg (26-34); Mean Corpuscular Volume 88.6 fl (80-100); Platelet Count Result 235 k/mm3 (150-375); Red Blood Count 2.89 M/mm3 (4.6-6.20); Red Cell Distribution Width 14.6 % (11.5-14.5); White Blood Count 7.4 K/mm3 (4.5-10.0)
[2023-05-24 05:01] LABS: Anion Gap 5 mmol/L (4-12); Blood Urea Nitrogen 39 mg/dL (9-20); Calcium 8.7 mg/dL (8.4-10.2); Carbon Dioxide 24 mmol/L (22-30); Chloride 107 mmol/L (98-107); Estimated CRCL calculation 37 ml/min; Estimated Glomerular Filt Rate 22; Glucose 144 mg/dL (65-110); Potassium 5.1 mmol/L (3.4-5.0); Sodium 136 mmol/L (137-145)
[2023-05-24 06:00] VITALS: BP 142/75; PULSE 89; RESP 18; TEMP 36.8; O2SAT 98
[2023-05-24 08:12] LABS: Glucose Point of Care 141 mg/dl (65-105)
[2023-05-24] MEDS: polyethylene glycoL 3350 17 GM POWD.PACK PO (08:34)
[2023-05-24] MEDS: ASPIRIN 81 MG ENTERIC TABLET PO (08:34)
[2023-05-24] MEDS: ENOXAPARIN 40 MG/0.4 ML SYRINGE SUB-Q (08:34)
[2023-05-24] MEDS: IBUPROFEN 600 MG TABLET PO ×2 (08:34→14:33)
[2023-05-24 11:21] VITALS: BP 136/78; PULSE 101; RESP 18; TEMP 36.6; O2SAT 100
--- NOTE | 2023-05-24 11:45 | PM.DS ---
DS: Admitting Diagnosis Discharge Date May 24, 2023 Admitting Diagnosis Osteomyelitis right lower extremity DS: Discharge Diagnosis Discharge Diagnosis (1) Diabetic foot infection: Code(s): E11.628 - Type 2 diabetes mellitus with other skin complications; L08.9 - Local infection of the skin and subcutaneous tissue, unspecified Status: Acute Assessment and Plan: Patient underwent right below-knee amputation by Dr. Prater. He did well. Discharged home with follow-up to see Dr. Milner in the office in 2 weeks. DS: Summary Hospital Course Hospital Course: Patient [facility] on May 22, 2023 and underwent a uncomplicated right below-knee amputation by Dr. Prater. Postoperative ileus course in the recovery was uneventful and he was transferred to the surgical floor for routine postoperative care. One on the surgical floor he did very well and the wound appeared to be healing well. He saw Physical and Occupational therapy and was instructed how to use a walker. He did well was able to ambulate minimal assistance with the aid of a walker. His right BKA stump was inspected daily and it was healing well without any wound complications. He was tolerating minimal amounts of oral pain medications for his pain. On postop day 2. He was doing well to be discharged home in improved condition. He will follow-up see Dr. Prater on June 05, 2023. At that time if he needs further therapy then it can be set up as an outpatient. He was struck to call the office if he had any concerns prior to that time. Discharge with oxycodone for pain medications at home. Status at Discharge Functional status at discharge: uses cane/walker Time Spent with Patient Time attestation: Total time spent providing and/or coordinating discharge services: Time spent: Less than 30 minutes Exam Extrem: Other: Right below-knee amputation stump healing well. Edges of the skin reapproximated well. No redness or drainage. No hematoma. DS: Data Data Completed and Pending Pending studies at discharge: Pending at discharge 05/22/23 12:18 Surgical [PTH] Routine Labs on day of discharge: Labs from last 24 hours 05/24/23 05/24/23 05/23/23 08:08 04:07 20:51 WBC 7.4 RBC 2.89 L Hgb 7.7 L Hct 25.6 L MCV 88.6 MCH 26.6 MCHC 30.1 L RDW 14.6 H Plt Count 235 MPV 10.0 Sodium 136 L Potassium 5.1 H Chloride 107 Carbon Dioxide 24 Anion Gap 5 BUN 39 H Creatinine 3.20 H Estim Creat Clear Calc 37 Estimated GFR 22 L Glucose 144 H POC Capillary Glucose 141 H 139 H Calcium 8.7 05/23/23 05/23/23 17:09 12:08 WBC RBC Hgb Hct MCV MCH MCHC RDW Plt Count MPV Sodium Potassium Chloride Carbon Dioxide Anion Gap BUN Creatinine Estim Creat Clear Calc Estimated GFR Glucose POC Capillary Glucose 138 H 165 H Calcium Discharge Plan Discharge Attending physician on discharge: Dhaval Prater Discharging Clinician: Segun Cartagena Anticipated Discharge Date/Time: 05/24/23 11:41 Patient Disposition: Home, Self-Care Activity: may shower Diet: regular Wound Care Instructions: follow printed instructions Discharge Instructions: Patient may discharge home today. Okay to shower at home and read wrap right BKA stump after showering. No soaking the stump under water. Keep immobilizer in place. Use walker to ambulate. Follow-up to see Dr. Prater in the office as scheduled. Call office at [phone] if any concerns. Patient Instructions: Antibiotic Form Stand Alone Forms: General Discharge Information Follow-up/Referrals: Dhaval Prater, [Physician] - Discharge Medications: New oxycodone 5 mg tablet 5 mg PO Q4H PRN (Reason: pain) Qty: 15 0RF Continued atorvastatin 10 mg tablet 10 mg PO HS gabapentin 300 mg capsule 600 mg PO HS losartan 100 m
[2023-05-24 12:20] LABS: Glucose Point of Care 144 mg/dl (65-105)
== END 2023-05-24 17:22 | disposition home or self-care (01) | DRG 617 ==
LOC: ANH2MED 14:20
PROVIDERS: Admitting Provider Surgery; PCP Family Medicine; Visit Provider Surgery
PROC: 0Y6H0Z1 Detachment at Right Lower Leg, High, Open Approach (ICD-10-PCS; CPT 27882; principal; 2023-05-22 12:00)
DX: E11.69 Type 2 diabetes mellitus with other specified complication (principal); L97.418 Non-pressure chronic ulcer of right heel and midfoot with other specified severity; M86.8X7 Other osteomyelitis, ankle and foot; E11.622 Type 2 diabetes mellitus with other skin ulcer; E11.51 Type 2 diabetes mellitus with diabetic peripheral angiopathy without gangrene; M19.90 Unspecified osteoarthritis, unspecified site; E11.22 Type 2 diabetes mellitus with diabetic chronic kidney disease; I12.9 Hypertensive chronic kidney disease with stage 1 through stage 4 chronic kidney disease, or unspecified chronic kidney disease; N18.9 Chronic kidney disease, unspecified; I73.9 Peripheral vascular disease, unspecified; J45.909 Unspecified asthma, uncomplicated; G71.00 Muscular dystrophy, unspecified; Z87.891 Personal history of nicotine dependence; E66.9 Obesity, unspecified; Z68.35 Body mass index [BMI] 35.0-35.9, adult
CPT/HCPCS: 36415; 80048; 82948; 85027; 88307; 88311; 93005; 97110; 97161; 97165; 97530; A9270; J0330; J0690; J1170; J1650; J2250; J2405; J2704; J3010; J7120; L1830

== ENCOUNTER 2023-12-30 17:16 | Inpatient (IN) | payer BC, SELFPAY ==
--- NOTE | ~2023-12-30 | XR_ITS ---
CHEST RADIOGRAPH, PA AND LATERAL CLINICAL HISTORY: weakness . COMPARISON: 02/28/2023 TECHNIQUE: PA and lateral views of the chest. FINDINGS The cardiomediastinal silhouette is unremarkable. The lungs are clear. Visualized osseous structures and soft tissues are unremarkable. IMPRESSION: No focal infiltrate or effusion. Reviewed, dictated and finalized at location A. LACER JACQUARD
--- NOTE | ~2023-12-30 | XR_ITS ---
EXAMINATION: XR chest 1V portable DATE: 12/31/2023 10:06 INDICATION: Central line placement. TECHNIQUE: A single frontal view of the chest was obtained on 2 radiographs. COMPARISON: Chest 2 views 12/30/2023 FINDINGS: There is no pneumonia, pleural effusion, or pneumothorax. The heart size is normal. Calcifi ed right hilar and mediastinal lymph nodes are consistent with old granulomatous disease. A right int ernal jugular central venous catheter is seen with tip at superior cavoatrial junction. IMPRESSION: 1. Central line tip at superior cavoatrial junction. Reviewed, dictated and finalized at location A. PROGRAMMER
--- NOTE | ~2023-12-30 | US_ITS ---
EXAMINATION: US renal BI DATE: 01/03/2024 16:13 INDICATION: SHABNAM on CKD TECHNIQUE: Multiple grayscale and Doppler ultrasound images of the kidneys were obtained. COMPARISON: None. FINDINGS: The right kidney measures 15.0 x 7.0 x 7.1 cm. The left kidney measures 14.0 x 7.2 x 5.5 cm. The kidn eys demonstrate normal parenchymal echogenicity. There is no hydronephrosis. The bladder is mostly em pty and therefore not well evaluated. IMPRESSION: Unremarkable renal sonogram findings. Reviewed, dictated and finalized at location K. NG ROOM MANAGER
--- NOTE | ~2023-12-30 | XR_ITS ---
EXAMINATION: XR chest 1V portable DATE: 01/02/2024 17:06 INDICATION: Acute on chronic kidney disease. TECHNIQUE: A single frontal view of the chest was obtained. COMPARISON: Chest single view 12/31/2023 FINDINGS: There is mild atelectasis in right midlung zone. No pleural effusion or pneumothorax. The h eart size is normal. Calcified right hilar and mediastinal lymph nodes are consistent with old granul omatous disease. A right internal jugular central venous catheter is seen with tip in the superior ve na cava. IMPRESSION: 1. Central line tip in the superior vena cava. 2. Mild atelectasis in right mid lung zone. Reviewed, dictated and finalized at location A. R EQUIPMENT LIEUTENANT
--- NOTE | ~2023-12-30 | CT_ITS ---
History: Frequent falls and fatigue PROCEDURE: CT head without contrast. COMPARISON: None TECHNIQUE: Axial imaging of the head performed from the skull base to the vertex without IV contrast. Sagittal a nd coronal reformations obtained. DLP: 681 mGy-cm FINDINGS: The ventricles are normal in size, shape and position. There is no mass, mass effect or midline shift. There is no abnormal extra-axial fluid collection or intracranial hemorrhage. Visualized paranasal sinuses are clear. The mastoid air cells are well aerated. No acute displaced fractures within the overlying cranium. Impression: No acute intracranial hemorrhage or suspicious mass effect. Reviewed, dictated and finalized at location A. GRAPH SERVICE CLERK Impression: No acute intracranial hemorrhage or suspicious mass effect.
[2023-12-30 17:30] VITALS: BP 119/56; PULSE 71; RESP 15; TEMP 36.4; O2SAT 99
--- NOTE | 2023-12-30 17:30 | ED.GENADULT ---
HPI - General Adult General Chief complaint: Unspecified <Marla Vallejo PA-C - Last Filed: 12/31/23 09:35> Stated complaint: bumps on forhead, stopped antiviral, feel weird <Marla Vallejo PA-C - Last Filed: 12/31/23 09:35> Time Seen by Provider: 12/30/23 17:31 <Marla Vallejo PA-C - Last Filed: 12/31/23 09:35> Focused HPI: This is a 43 year old male that presents to the ER for confusion. Reports frequent falls, decreased PO intake, fatigue. Reports back pain. This has been ongoing over the last week. Reports he was on Valacyclovir and stopped taking it because he thought it was the cause of his symptoms. He was on this for a rash on his face that was possible shingles. Denies fever. GENERAL: Well-appearing, well-nourished, and in no acute distress. HEAD: Normocephalic, atraumatic. CHEST: Clear to auscultation. ?No respiratory distress. HEART: Regular rate and rhythm.? NEURO: ?Alert and oriented x3. Patient screened in triage and initial orders placed.? ?Additional care and disposition to be based upon?diagnostic testing and treatment. <Marla Vallejo PA-C - Last Filed: 12/31/23 09:35> History of Present Illness HPI narrative: Agree with HPI. Denies history of chronic kidney disease or seeing Nephrology. Reports photophobia and increased confusion and fatigue or last week and a half. Only took 50% of his Valtrex prescription. <Terry Jolley MD - Last Filed: 12/30/23 22:03> Related Data Home medications: Home Medications Medication Instructions Recorded Confirmed linagliptin 5 mg tablet (Tradjenta) 5 mg PO HS 10/25/19 12/30/23 atorvastatin 10 mg tablet 10 mg PO HS 04/07/22 12/30/23 gabapentin 300 mg capsule 600 mg PO HS 04/07/22 12/30/23 losartan 100 mg tablet 100 mg PO HS 01/16/23 12/30/23 clopidogrel 75 mg tablet 75 mg PO DAILY 12/30/23 12/30/23 ergocalciferol (vitamin D2) 1,250 1,250 mcg PO DAILY 12/30/23 12/30/23 mcg (50,000 unit) capsule hydrochlorothiazide 25 mg tablet 25 mg PO DAILY 12/30/23 12/30/23 semaglutide 7 mg tablet (Rybelsus) 7 mg PO DAILY 12/30/23 12/30/23 <Marla Vallejo PA-C - Last Filed: 12/31/23 09:35> Allergies/adverse reactions: Allergies Allergy/AdvReac Type Severity Reaction Status Date / Time insulin detemir Allergy Unknown Other Verified 12/30/23 22:30 [From Levemir U-100 Insulin] latex Allergy Unknown Anaphylaxis Verified 12/30/23 22:30 metformin AdvReac Unknown Gastrointestinal Verified 12/30/23 22:30 Upset hydrochlorothiazide AdvReac Dizziness Verified 12/30/23 22:30 <Marla Vallejo PA-C - Last Filed: 12/31/23 09:35> Review of Systems Review of Systems: All systems reviewed & are unremarkable except as noted in HPI and below <Terry Jolley MD - Last Filed: 12/30/23 22:03> Constitutional: Constitutional: Reports no additional constitutional complaints <Terry Jolley MD - Last Filed: 12/30/23 22:03> ENT: Reports system reviewed and no additional complaints, except as documented <Terry Jolley MD - Last Filed: 12/30/23 22:03> Cardiovascular: Cardiovascular: Reports no additional cardiovascular complaints <Terry Jolley MD - Last Filed: 12/30/23 22:03> Respiratory: Respiratory: Reports no additional respiratory complaints <Terry Jolley MD - Last Filed: 12/30/23 22:03> Gastrointestinal: Gastrointestinal: Reports no additional gastrointestinal complaints <Terry Jolley MD - Last Filed: 12/30/23 22:03> [facility] Past Medical History Medical History: Medical History (Updated 12/31/23 @ 07:20 by Jody Mckeon DO) Arthritis Asthma Hobbs muscular dystrophy Chronic kidney disease Chronic pain Club foot of both lower extremities Diabetes Food allergy History of adverse reaction to anesthesia HTN (hypertension) Obesity (BMI 30-39.9) Peripheral vascular disease <Marla Vallejo PA-C - Last Filed: 12/31/23 09:35> Surgical History Surgical History: Surgical History (Updated 12/31/23 @ 02:00 by Jody Mckeon DO) Hx of amputation below knee Right below knee amputation 05/22/23 Hx of clubfoot correction <Marla Vallejo PA-C - Last Filed: 12/31/23 09:35> Family History Family History: Family History Grandparent Arthritis Heart disease Diabetes mellitus Hypertension Malignant neoplasm Mother Heart disease Diabetes mellitus Hypertension <Marla Vallejo PA-C - Last Filed: 12/31/23 09:35> Social History Social History: Social History (Updated 12/31/23 @ 07:21 by Jody Mckeon DO) Social History: He lives with his of 10 years. He has his son who is 20 years old. He is currently working for [employer]. He did smoke a few cigarettes a day for approximately 5 years but quit smoking many years ago. He does not use alcohol or illicit substances. Code status: Full code Surrogate decision maker: Smoking packs per day: 0.1 Smoking cigarettes per day: 2.0 Years smoked: 4 Smoking pack-years: 0.40 Smoking status: Former smoker Second hand tobacco smoke exposure: Yes Alcohol intake: former Alcohol use details: 1/YEAR Substance use: never Substance use type: does not use Do You Feel Safe in your Home?: Yes Lack of Transportation: No Lack of Food: Never True Current Housing: I Have Housing Concerned About Future Housing: No Difficulty Paying Gas/Electric Bills: No Difficulty Paying for Meds: No Currently Unemployed: No Education: Associate Degree Difficulty w/ Childcare or Family Care: No Living arrangements: with family Gender identity (if verbalized by the patient): Male Spiritual care concerns: No <Marla Vallejo PA-C - Last Filed: 12/31/23 09:35> Exam Narrative: GENERAL: Well-appearing, Obese, and in no acute distress. HEAD: Normocephalic, atraumatic. EYES: PERRL and EOMI. ENT: Mucous membranes moist. CHEST: Clear to auscultation. No respiratory distress. HEART: Regular rate and rhythm. Normal peripheral pulses. ABDOMEN: Soft, nontender, nondistended. EXTREMITIES: Normal range of motion. No edema. right BKA. SKIN: Warm, dry, no rash. Skin lesions to forehead look like skin tags. No vesicles or pustules. NEURO: Alert and oriented x3. PSYCH: Normal mood and affect. <Terry Jolley MD - Last Filed: 12/30/23 22:03> Course Course Emergency Course: Patient will be given IV insulin/ D50/calcium gluconate/ 500 mL IV fluid. He will also be given oral Lokelma. Discussed case with Nephrology who recommended small fluid bolus. Suspect patient will likely require dialysis. General surgery also contacted. Will plan admission hospitalist service. Informed patient the seriousness of his condition. Discussed that he may require temporary or possibly permanent dialysis and it is too early to tell. EKG with narrow QRS and no hyperacute T-waves. Will also give sodium bicarb. <Terry Jolley MD - Last Filed: 12/30/23 22:03> Vital Signs Vital signs: Vital Signs Temperature 97.5 F L 12/30/23 17:30 Pulse Rate 71 12/30/23 17:30 Respiratory Rate 15 12/30/23 17:30 Blood Pressure 119/56 L 12/30/23 17:30 Pulse Oximetry 99 12/30/23 17:30 Oxygen Delivery Room Air 12/30/23 17:30 Temperature 97.5 F L 12/31/23 08:14 Pulse Rate 78 12/31/23 08:14 Respiratory Rate 16 12/31/23 08:14 Blood Pressure 99/48 L 12/31/23 08:00 Pulse Oximetry 99 12/31/23 08:00 Oxygen Delivery Room Air 12/31/23 07:02 <Marla Vallejo PA-C - Last Filed: 12/31/23 09:35> Vital Signs Temperature 97.5 F L 12/30/23 17:30 Pulse Rate 71 12/30/23 17:30 Respiratory Rate 15 12/30/23 17:30 Blood Pressure 119/56 L 12/30/23 17:30 Pulse Oximetry 99 12/30/23 17:30 Oxygen Delivery Room Air 12/30/23 17:30 Temperature 97.5 F L 12/31/23 08:14 Pulse Rate 78 12/31/23 08:14 Respiratory Rate 16 12/31/23 08:14 Blood Pressure 99/48 L 12/31/23 08:00 Pulse Oximetry 99 12/31/23 08:00 Oxygen Delivery Room Air 12/31/23 07:02 <Terry Jolley MD - Last Filed: 12/30/23 22:03> Medical Decision Making Vital Signs Vital Signs: Vital Signs Temperature 97.5 F L 12/30/23 17:30 Pulse Rate 71 12/30/23 17:30 Respiratory Rate 15 12/30/23 17:30 Blood Pressure 119/56 L 12/30/23 17:30 Pulse Oximetry 99 12/30/23 17:30 Oxygen Delivery Room Air 12/30/23 17:30 Temperature 97.5 F L 12/31/23 08:14 Pulse Rate 78 12/31/23 08:14 Respiratory Rate 16 12/31/23 08:14 Blood Pressure 99/48 L 12/31/23 08:00 Pulse Oximetry 99 12/31/23 08:00 Oxygen Delivery Room Air 12/31/23 07:02 <Marla Vallejo PA-C - Last Filed: 12/31/23 09:35> Vital Signs Temperature 97.5 F L 12/30/23 17:30 Pulse Rate 71 12/30/23 17:30 Respiratory Rate 15 12/30/23 17:30 Blood Pressure 119/56 L 12/30/23 17:30 Pulse Oximetry 99 12/30/23 17:30 Oxygen Delivery Room Air 12/30/23 17:30 Temperature 97.5 F L 12/31/23 08:14 Pulse Rate 78 12/31/23 08:14 Respiratory Rate 16 12/31/23 08:14 Blood Pressure 99/48 L 12/31/23 08:00 Pulse Oximetry 99 12/31/23 08:00 Oxygen Delivery Room Air 12/31/23 07:02 <Terry Jolley MD - Last Filed: 12/30/23 22:03> Lab Data Result diagrams: 12/31/23 04:29 12/31/23 04:29 <Marla Vallejo PA-C - Last Filed: 12/31/23 09:35> Labs: Lab Results 12/30/23 12/30/23 12/30/23 Range/Units 17:44 17:45 21:41 WBC 11.2 H (4.5-10.0) K/mm3 RBC 2.91 L (4.6-6.20) M/mm3 Hgb 8.6 L (14.0-18.0) g/dL Hct 28.1 L (42.0-52.0) % MCV 96.6 (80-100) fl MCH 29.6 (26-34) pg MCHC 30.6 L (32-36) g/dl RDW 15.3 H (11.5-14.5) % Plt Count 198 (150-375) k/mm3 MPV 11.3 H (7.4-10.4) fl Immature Gran % (Auto) Not Reportable Neut % (Auto) Not Reportable Lymph % (Auto) Not Reportable Roane % (Auto) Not Reportable Eos % (Auto) Not Reportable Baso % (Auto) Not Reportable Lymph # (Auto) Not Reportable Roane # (Auto) Not Reportable Eos # (Auto) Not Reportable Baso # (Auto) Not Reportable Abs Immat Gran (auto) Not Reportable Absolute Neuts (auto) Not Reportable Absolute Nucleated RBC Not Reportable Total Counted 100 Neutrophils % (Manual) 83 H (46-73) % Band Neutrophils % 2 (0-6) % Lymphocytes % (Manual) 7 L (18-44) % Monocytes % (Manual) 5 (3-9) % Metamyelocytes % 2 % Myelocytes % 1 % Nucleated RBC % Not Reportable Abs Neuts (Manual) 9.52 H (1.3-6.7) K/mm3 Abs Lymphs (Manual) 0.78 L (1.1-4.5) K/mm3 Abs Monocytes (Manual) 0.56 (0.1-0.90) K/mm3 Platelet Estimate Adequate (Adequate) Schistocytes None seen Sodium 135 L (137-145) mmol/L Potassium 7.1 H* (3.4-5.0) mmol/L Chloride 110 H (98-107) mmol/L Carbon Dioxide < 5 L (22-30) mmol/L Anion Gap (4-12) mmol/L BUN 125 H D (9-20) mg/dL Creatinine 16.00 H (0.7-1.3) mg/dL Estim Creat Clear Calc 8 ml/min Estimated GFR 3 L (59 - ) Glucose 134 H (65-110) mg/dL POC Capillary Glucose 136 H (65-105) mg/dl Calcium 6.0 L (8.4-10.2) mg/dL Total Bilirubin 0.6 (0.2-1.3) mg/dL AST 15 L (17-59) U/L ALT 13 (6-50) U/L Alkaline Phosphatase 165 H (38-126) U/L Total Creatine Kinase 256 H (55-170) U/L Total Protein 7.0 (6.3-8.2) g/dL Albumin 3.9 (3.5-5.1) g/dL <Marla Vallejo PA-C - Last Filed: 12/31/23 09:35> Lab Results 12/30/23 12/30/23 12/30/23 Range/Units 17:44 17:45 21:41 WBC 11.2 H (4.5-10.0) K/mm3 RBC 2.91 L (4.6-6.20) M/mm3 Hgb 8.6 L (14.0-18.0) g/dL Hct 28.1 L (42.0-52.0) % MCV 96.6 (80-100) fl MCH 29.6 (26-34) pg MCHC 30.6 L (32-36) g/dl RDW 15.3 H (11.5-14.5) % Plt Count 198 (150-375) k/mm3 MPV 11.3 H (7.4-10.4) fl Immature Gran % (Auto) Not Reportable Neut % (Auto) Not Reportable Lymph % (Auto) Not Reportable Roane % (Auto) Not Reportable Eos % (Auto) Not Reportable Baso % (Auto) Not Reportable Lymph # (Auto) Not Reportable Roane # (Auto) Not Reportable Eos # (Auto) Not Reportable Baso # (Auto) Not Reportable Abs Immat Gran (auto) Not Reportable Absolute Neuts (auto) Not Reportable Absolute Nucleated RBC Not Reportable Total Counted 100 Neutrophils % (Manual) 83 H (46-73) % Band Neutrophils % 2 (0-6) % Lymphocytes % (Manual) 7 L (18-44) % Monocytes % (Manual) 5 (3-9) % Metamyelocytes % 2 % Myelocytes % 1 % Nucleated RBC % Not Reportable Abs Neuts (Manual) 9.52 H (1.3-6.7) K/mm3 Abs Lymphs (Manual) 0.78 L (1.1-4.5) K/mm3 Abs Monocytes (Manual) 0.56 (0.1-0.90) K/mm3 Platelet Estimate Adequate (Adequate) Schistocytes None seen Sodium 135 L (137-145) mmol/L Potassium 7.1 H* (3.4-5.0) mmol/L Chloride 110 H (98-107) mmol/L Carbon Dioxide < 5 L (22-30) mmol/L Anion Gap (4-12) mmol/L BUN 125 H D (9-20) mg/dL Creatinine 16.00 H (0.7-1.3) mg/dL Estim Creat Clear Calc 8 ml/min Estimated GFR 3 L (59 - ) Glucose 134 H (65-110) mg/dL POC Capillary Glucose 136 H (65-105) mg/dl Calcium 6.0 L (8.4-10.2) mg/dL Total Bilirubin 0.6 (0.2-1.3) mg/dL AST 15 L (17-59) U/L ALT 13 (6-50) U/L Alkaline Phosphatase 165 H (38-126) U/L Total Creatine Kinase 256 H (55-170) U/L Total Protein 7.0 (6.3-8.2) g/dL Albumin 3.9 (3.5-5.1) g/dL <Terry Jolley MD - Last Filed: 12/30/23 22:03> Imaging Data Radiologist's impression: ITS Impressions Head CT 12/30/23 18:14 Impression: No acute intracranial hemorrhage or suspicious mass effect. Chest X-Ray 12/30/23 18:18 IMPRESSION: No focal infiltrate or effusion. <Terry Jolley MD - Last Filed: 12/30/23 22:03> Critical Care Time Critical Care Time Critical Care Time: Yes <Terry Jolley MD - Last Filed: 12/30/23 22:03> Total Critical Care Time: 35 <Terry Jolley MD - Last Filed: 12/30/23 22:03> Discharge Plan Discharge Clinical Impression: Uremic encephalopathy, Acute hyperkalemia Acute on chronic renal failure Qualifiers: Acute renal failure type: unspecified Chronic kidney disease stage: stage 3 (moderate) Chronic kidney disease stage 3 subtype: unspecified whether 3a or 3b Qualified Code(s): N17.9 - Acute kidney failure, unspecified <Marla Vallejo PA-C - Last Filed: 12/31/23 09:35> Patient Disposition: Still a Patient <Marla Vallejo PA-C - Last Filed: 12/31/23 09:35> Condition: Stable <Marla Vallejo PA-C - Last Filed: 12/31/23 09:35>
--- NOTE | 2023-12-30 17:35 | ECG_ITS ---
Test Date: 2023-12-30 17:42:26 Measurements Intervals [place] Rate: 70 P: 50 RI: 226 QRS: 22 QRSD: 119 T: 34 QT: 437 QTc: 474 Interpretive Statements SINUS RHYTHM WITH FIRST DEGREE AV BLOCK INTRAVENTRICULAR CONDUCTION DELAY MINIMAL Q WAVES- INFERIOR LEADS BORDERLINE ECG No previous ECG available for comparison Electronically Signed On 12-30-2023 18:32:06 CEMENT RUBBER by Chago Valenzuela D.O.
[2023-12-30 17:59] LABS: Hematocrit 28.1 % (42.0-52.0); Hemoglobin 8.6 g/dL (14.0-18.0); Mean Corpuscular HGB Conc 30.6 g/dl (32-36); Mean Corpuscular Hemoglobin 29.6 pg (26-34); Mean Corpuscular Volume 96.6 fl (80-100); Mean Platelet Volume 11.3 fl (7.4-10.4); Platelet Count Result 198 k/mm3 (150-375); Red Blood Count 2.91 M/mm3 (4.6-6.20); Red Cell Distribution Width 15.3 % (11.5-14.5); White Blood Count 11.2 K/mm3 (4.5-10.0)
[2023-12-30 18:16] LABS: Alanine Aminotransferase 13 U/L (6-50); Albumin Level 3.9 g/dL (3.5-5.1); Alkaline Phosphatase 165 U/L (38-126); Aspartate Amino Transferase 15 U/L (17-59); Bilirubin,Total 0.6 mg/dL (0.2-1.3); Carbon Dioxide < 5 mmol/L (22-30); Chloride 110 mmol/L (98-107); Glucose 134 mg/dL (65-110); Potassium 7.1 mmol/L (3.4-5.0); Sodium 135 mmol/L (137-145)
[2023-12-30 18:17] LABS: Estimated CRCL calculation 8 ml/min; Estimated Glomerular Filt Rate 3
[2023-12-30 18:18] LABS: Blood Urea Nitrogen 125 mg/dL (9-20)
[2023-12-30 18:41] LABS: Band Neutrophils Percent 2 % (0-6); Lymphocytes Absolute Manual 0.78 K/mm3 (1.1-4.5); Lymphocytes Percent Manual 7 % (18-44); Metamyelocytes Percent 2 %; Monocytes Absolute Manual 0.56 K/mm3 (0.1-0.90); Monocytes Percent Manual 5 % (3-9); Myelocytes Percent 1 %; Neutrophils Absolute Manual 9.52 K/mm3 (1.3-6.7); Neutrophils Percent Manual 83 % (46-73); Platelet Estimate Adequate (Adequate); Total Cells Counted 100
[2023-12-30 18:42] VITALS: BP 111/54; PULSE 72; RESP 21; O2SAT 98
[2023-12-30 18:42] LABS: Schistocytes None Seen
[2023-12-30 18:46] VITALS: RESP 20
[2023-12-30 19:06] LABS: Creatine Kinase 256 U/L (55-170)
[2023-12-30] MEDS: INSULIN HUMAN REGULAR (*BKC) 100 UNITS/ML IV PUSH (19:44)
[2023-12-30] MEDS: DEXTROSE 50% 25 GM/50 ML SYRINGE IV PUSH (19:44)
[2023-12-30] MEDS: CALCIUM GLUCONATE 1,000 MG/10 ML VIAL 1000 MG IV PUSH (19:44)
[2023-12-30] MEDS: SODIUM ZIRCONIUM CYCLOSILICATE 10 GM POWD.PACK PO (19:45)
[2023-12-30] MEDS: SODIUM CHLORIDE 0.9% IV 500 ML 999 ML IV CONT (20:54)
[2023-12-30 21:43] LABS: Glucose Point of Care 136 mg/dl (65-105)
[2023-12-30] MEDS: SODIUM BICARBONATE 8.4% 50 MEQ/50 ML SYRINGE IV PUSH (22:43)
[2023-12-30 23:04] LABS: Calcium 6.2 mg/dL (8.4-10.2); Carbon Dioxide < 5 mmol/L (22-30); Chloride 110 mmol/L (98-107); Estimated CRCL calculation 7 ml/min; Estimated Glomerular Filt Rate 3; Glucose 125 mg/dL (65-110); Potassium 7.3 mmol/L (3.4-5.0); Sodium 135 mmol/L (137-145)
[2023-12-30 23:11] LABS: Blood Urea Nitrogen 131 mg/dL (9-20)
--- NOTE | 2023-12-30 23:40 | ADMGEN ---
This patient, Jose Roberto Maria, was admitted to IMU Room 204-01. Patient/family oriented to hospital policies and general routines including ID bracelet, bed and alarms, visiting hours, pain management, procedures, bathroom and other care routines, personal items, smoking policy, room service/diet, and visiting hours. Information on how to activate the Rapid Response Team has been discussed. Patient/Family are encouraged to report perceived risks to care and to ask questions if they do not understand what they are told or what they should do.
[2023-12-30 23:45] VITALS: BP 105/61; PULSE 69; RESP 23; TEMP 34.5; O2SAT 100; BMI 38.7
[2023-12-30 23:57] LABS: Glucose Point of Care 119 mg/dl (65-105)
[2023-12-31] VITALS (34 sets, daily range): BP systolic 88–168; BP diastolic 48–100; PULSE 65–102; RESP 16–28; TEMP 34.1–37; O2SAT 94–100
[2023-12-31] MEDS: INSULIN HUMAN REGULAR (*BKC) 100 UNITS/ML 10 UNITS IV PUSH (00:25)
[2023-12-31] MEDS: SODIUM BICARBONATE 8.4% 150 MEQ in DEXTROSE 5% 1,000 ML 950 ML 100 MEQ IV CONT ×3 (00:25→21:45)
--- NOTE | 2023-12-31 01:32 | PM.IMHP ---
H&P: HPI History of Present Illness Date/Time: 12/31/23 01:32 Chief Complaint: ?I am not all here? Narrative: 43-year-old male with past medical history of chronic kidney disease stage 3, peripheral artery disease, diabetic gastroparesis, controlled diabetes mellitus, essential hypertension and Hobbs's muscular dystrophy who presented to the ER with not feeling right. The patient reports that he had went to his primary care provider for evaluation of a low hematocrit. He found notice hematocrit was low when he tried to donate platelets. To evaluated low hematocrit is primary had ordered an DOUGLAS, ESR, and CBC. As outpatient is hemoglobin was 10. He also had outpatient fasting lipid panel which demonstrated a mildly low HDL but LDL within goal. The patient had not had a recent outpatient electrolyte panel. His last BUN and creatinine was from within our system 3.2 in May which is up from his outpatient value in April of 2.6. The patient reports that he has had chronic foamy urine that ?looks like beer? for quite a long time. He was unaware that he had some chronic kidney disease and is never seen a pulling unit operator. He reported that while he was at his primary provider's office his had mention that the patient had increased number of papules across his forehead and scalp. He provider thought the patient may have HSV and place patient on Valtrex on 12/11/2023. The patient reported that about for a few days days and treatment he was feeling off. He was having body aches and feeling restless. He also had decreased appetite and increased fatigue. He denied having any shortness of breath with was noted to have labored respirations at the time my evaluation. He has continued to feel bad since then. He also reports that his vision feels off and that light seems too bright. He specifically says that he has ?photophobia?. He states that colors appear distorted. He is having difficulty focusing on stuff on his phone due to the brightness of the screen. He has been having a generalized headache that is mild in waxing and waning. He does report some neck discomfort but denies any increased pain with flexion of the neck are with leg extension. He has not had any fevers or chills. He reported that he had urinated once on the day of presentation to the hospital but he is unsure if it is the same amount that he usually urinates. He has noticed that his urine has been darker for the last week or 2. He states that he usually only urinates 2 or 3 times a day in this is been a long-standing issue for him. His last A1c was obtained on 12/11/2023 and was 6.4%. 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 He has gastroparesis which he attributes to his Hobbs's muscular dystrophy. He has erectile dysfunction. He denies history of diabetic peripheral neuropathy or known nephropathy. He denies diabetic retinopathy. The patient is relatively good historian but is slow to respond. On review of patient's electronic medication history he was started on right pulse on 12/02/2023. He states that he was started on this to help with weight loss since he does not qualify for injectable medications for weight loss with his A1c being below 6.4. In the ER patient was noted have severe hyperkalemia with potassium greater than 7 and worsening renal function with a creatinine of 16. He received usual treatment for hyperkalemia including will,, insulin, glucose, calcium and bicarb. Despite these measures patient is potassium increased further. He received repeat treatment including an hour long nebulizer treatment. Repeat BMP this morning demonstrate persistent hyperkalemia. He reports a ?allergic reaction? to Levemir which cause severe hypoglycemia. He is also on Tradjenta for diabetes management. He reports he had a sleep study many years ago that did not indicate obstructive sleep apnea but his primary provider has discussed repeat sleep study recently. Review of Systems Review of Systems: 12 systems were reviewed with pertinent positives and negatives per HPI. Except as documented in the HPI, all other systems were reviewed and are negative. [facility] Past Medical History Medical History (Updated 12/31/23 @ 07:20 by Jody Mckeon DO) Arthritis Asthma Hobbs muscular dystrophy Chronic kidney disease Chronic pain Club foot of both lower extremities Diabetes Food allergy History of adverse reaction to anesthesia HTN (hypertension) Obesity (BMI 30-39.9) Peripheral vascular disease Surgical History Surgical History (Updated 12/31/23 @ 02:00 by Jody Mckeon DO) Hx of amputation below knee Right below knee amputation 05/22/23 Hx of clubfoot correction Family History Family History Grandparent Arthritis Heart disease Diabetes mellitus Hypertension Malignant neoplasm Mother Heart disease Diabetes mellitus Hypertension Social History Social History (Updated 12/31/23 @ 07:21 by Jody Mckeon DO) Social History: He lives with his of 10 years. He has his son who is 20 years old. He is currently working for [employer]. He did smoke a few cigarettes a day for approximately 5 years but quit smoking many years ago. He does not use alcohol or illicit substances. Code status: Full code Surrogate decision maker: Smoking packs per day: 0.1 Smoking cigarettes per day: 2.0 Years smoked: 4 Smoking pack-years: 0.40 Smoking status: Former smoker Second hand tobacco smoke exposure: Yes Alcohol intake: former Alcohol use details: 1/YEAR Substance use: never Substance use type: does not use Do You Feel Safe in your Home?: Yes Lack of Transportation: No Lack of Food: Never True Current Housing: I Have Housing Concerned About Future Housing: No Difficulty Paying Gas/Electric Bills: No Difficulty Paying for Meds: No Currently Unemployed: No Education: Associate Degree Difficulty w/ Childcare or Family Care: No Living arrangements: with family Gender identity (if verbalized by the patient): Male Spiritual care concerns: No Meds Home Medications and Allergies Home Medications Medication Instructions Recorded Confirmed Type linagliptin 5 mg tablet (Tradjenta) 5 mg PO HS 10/25/19 12/30/23 History atorvastatin 10 mg tablet 10 mg PO HS 04/07/22 12/30/23 History gabapentin 300 mg capsule 600 mg PO HS 04/07/22 12/30/23 History losartan 100 mg tablet 100 mg PO HS 01/16/23 12/30/23 History aspirin 81 mg tablet,delayed 81 mg PO QAM #30 tabs 03/03/23 12/30/23 Rx release clopidogrel 75 mg tablet 75 mg PO DAILY 12/30/23 12/30/23 History ergocalciferol (vitamin D2) 1,250 1,250 mcg PO DAILY 12/30/23 12/30/23 History mcg (50,000 unit) capsule hydrochlorothiazide 25 mg tablet 25 mg PO DAILY 12/30/23 12/30/23 History semaglutide 7 mg tablet (Rybelsus) 7 mg PO DAILY 12/30/23 12/30/23 History Allergies Allergy/AdvReac Type Severity Reaction Status Date / Time insulin detemir Allergy Unknown Other Verified 12/30/23 22:30 [From Levemir U-100 Insulin] latex Allergy Unknown Anaphylaxis Verified 12/30/23 22:30 metformin AdvReac Unknown Gastrointestinal Verified 12/30/23 22:30 Upset hydrochlorothiazide AdvReac Dizziness Verified 12/30/23 22:30 Vital Signs Vital Signs - 24 hr 12/30/23 17:30 12/30/23 18:46 12/30/23 18:42 Temperature 97.5 F L Pulse Rate 71 72 Respiratory Rate 15 20 21 H Blood Pressure 119/56 L 111/54 L Pulse Oximetry 99 98 Oxygen Delivery Room Air 12/30/23 23:45 12/31/23 00:00 Temperature 94.1 F L Pulse Rate 69 69 Respiratory Rate 23 H Blood Pressure 105/61 Pulse Oximetry 100 Oxygen Delivery Exam Narrative: Weight 126 kg BMI 38.7 Const: Other: Acutely ill-appearing, obese, appears stated age HENMT: Other: Mucous membranes are tacky, crowded posterior oropharynx Eyes: Other: Pupils are equal and reactive, positive conjunctival pallor, no scleral icterus Neck: Other: Large neck circumference, no JVD Resp: Other: Clear to auscultation bilaterally, labored respirations Cardio: Other: Regular rate, regular rhythm, 2+ bilateral radial pulses, 2+ left pedal pulse GI: Other: Obese, nontender, positive bowel sounds, no obvious organomegaly Back/Spine/Pelvis: Other: No CVA tenderness Skin: Other: Cool to touch, 2-3 second cap refill, no mottling, papular rash to the forehead scalp cheeks temples bilateral without associated erythema, ulceration or vesicles Neuro: Other: Alert oriented x4, speech is clear but slow, no facial asymmetry, no gross motor deficits noted, negative Kernig's sign Extrem: Other: Right [id number] amputation stump in good condition, patient reports chronic edema to the eye left lower extremity associated with his history of prior clubfoot deformity with correction Psych: Other: Anxious, restless, otherwise pleasant and cooperative, judgment and insight intact H&P: Results Labs Labs: Laboratory Tests 12/30/23 17:45 12/30/23 22:37 12/30/23 12/30/23 12/30/23 17:44 17:45 21:41 WBC 11.2 H RBC 2.91 L Hgb 8.6 L Hct 28.1 L MCV 96.6 MCH 29.6 MCHC 30.6 L RDW 15.3 H Plt Count 198 MPV 11.3 H Immature Gran % (Auto) Not Reportable Neut % (Auto) Not Reportable Lymph % (Auto) Not Reportable [place] % (Auto) Not Reportable Eos % (Auto) Not Reportable Baso % (Auto) Not Reportable Lymph # (Auto) Not Reportable [place] # (Auto) Not Reportable Eos # (Auto) Not Reportable Baso # (Auto) Not Reportable Abs Immat Gran (auto) Not Reportable Absolute Neuts (auto) Not Reportable Absolute Nucleated RBC Not Reportable Total Counted 100 Neutrophils % (Manual) 83 H Band Neutrophils % 2 Lymphocytes % (Manual) 7 L Monocytes % (Manual) 5 Metamyelocytes % 2 Myelocytes % 1 Nucleated RBC % Not Reportable Abs Neuts (Manual) 9.52 H Abs Lymphs (Manual) 0.78 L Abs Monocytes (Manual) 0.56 Platelet Estimate Adequate Schistocytes None seen Sodium 135 L Potassium 7.1 H* Chloride 110 H Carbon Dioxide < 5 L Anion Gap BUN 125 H D Creatinine 16.00 H Estim Creat Clear Calc 8 Estimated GFR 3 L Glucose 134 H POC Capillary Glucose 136 H Calcium 6.0 L Total Bilirubin 0.6 AST 15 L ALT 13 Alkaline Phosphatase 165 H Total Creatine Kinase 256 H Total Protein 7.0 Albumin 3.9 12/30/23 12/30/23 22:37 23:49 WBC RBC Hgb Hct MCV MCH MCHC RDW Plt Count MPV Immature Gran % (Auto) Neut % (Auto) Lymph % (Auto) [place] % (Auto) Eos % (Auto) Baso % (Auto) Lymph # (Auto) [place] # (Auto) Eos # (Auto) Baso # (Auto) Abs Immat Gran (auto) Absolute Neuts (auto) Absolute Nucleated RBC Total Counted Neutrophils % (Manual) Band Neutrophils % Lymphocytes % (Manual) Monocytes % (Manual) Metamyelocytes % Myelocytes % Nucleated RBC % Abs Neuts (Manual) Abs Lymphs (Manual) Abs Monocytes (Manual) Platelet Estimate Schistocytes Sodium 135 L Potassium 7.3 H* Chloride 110 H Carbon Dioxide < 5 L Anion Gap BUN 131 H Creatinine 16.20 H Estim Creat Clear Calc 7 Estimated GFR 3 L Glucose 125 H POC Capillary Glucose 119 H Calcium 6.2 L Total Bilirubin AST ALT Alkaline Phosphatase Total Creatine Kinase Total Protein Albumin Impressions Head CT 12/30/23 18:14 (personally reviewed and agree with radiologic interpretation) Impression: No acute intracranial hemorrhage or suspicious mass effect. Chest X-Ray 12/30/23 18:18 (personally reviewed agree with radiologic interpretation) IMPRESSION: No focal infiltrate or effusion. EKG: Personally reviewed and interpreted agree with cardiology interpretation below. Patient's T-waves are mildly peaked. Measurements Intervals [place] Rate: 70 P: 50 TN: 226 QRS: 22 QRSD: 119 T: 34 QT: 437 QTc: 474 Interpretive Statements SINUS RHYTHM WITH FIRST DEGREE AV BLOCK INTRAVENTRICULAR CONDUCTION DELAY MINIMAL Q WAVES- INFERIOR LEADS BORDERLINE ECG No previous ECG available for comparison Assessment and Plan Assessment and plan (1) Acute on chronic renal failure: Qualifiers: Acute renal failure type: unspecified Chronic kidney disease stage: stage 3 (moderate) Chronic kidney disease stage 3 subtype: unspecified whether 3a or 3b Qualified Code(s): N17.9 - Acute kidney failure, unspecified; N18.30 - Chronic kidney disease, stage 3 unspecified Code(s): N17.9 - Acute kidney failure, unspecified; N18.9 - Chronic kidney disease, unspecified Status: Acute (2) Acute hyperkalemia: Code(s): E87.5 - Hyperkalemia Status: Acute (3) Uremic encephalopathy: Code(s): G93.49 - Other encephalopathy; N19 - Unspecified kidney failure Status: Acute (4) Valtrex overdose: Qualifiers: Encounter type: initial encounter Injury intent: accidental or unintentional Qualified Code(s): T37.5X1A - Poisoning by antiviral drugs, accidental (unintentional), initial encounter Code(s): T37.5X1A - Poisoning by antiviral drugs, accidental (unintentional), initial encounter Status: Acute (5) Vision changes: Code(s): H53.9 - Unspecified visual disturbance Status: Acute (6) Anemia: Qualifiers: Anemia type: unspecified type Qualified Code(s): D64.9 - Anemia, unspecified Code(s): D64.9 - Anemia, unspecified Status: Acute (7) Hypothermia: Qualifiers: Encounter type: initial encounter Qualified Code(s): T68.XXXA - Hypothermia, initial encounter Code(s): T68.XXXA - Hypothermia, initial encounter Status: Acute Plan Patient has acute on chronic renal failure with associated severe hyperkalemia. Renal failure is likely multifactorial. The patient had not had a recent electrolyte panel since May. I suspect the patient has had gradual worsening of his renal function that may have been a more acutely exacerbated with recent addition of Rybelsus to his medication regimen. In addition the patient chronic use of losartan and hydrochlorothiazide. Patient also reports history of foamy urine does have diabetes. He likely has at least some component of underlying diabetic nephropathy despite his hemoglobin A1c demonstrating good glycemic control. Patient did have recent an DOUGLAS that was negative but elevated ESR on outpatient labs of 52. The patient has been anuric and has not been able to produce urine specimen for lab testing. Will obtain complement levels, and acute hepatitis panel. Will obtain renal ultrasound. Nephrology has been consulted. Given the patient's severe metabolic acidosis patient has been started on had bicarb drip. Will also start the patient on p.o. bicarb supplementation and PhosLo given his hyperphosphatemia. The patient has persistent hyperkalemia repeat treatment with will,, calcium gluconate, sodium bicarbonate, hour long albuterol nebulizer and insulin and glucose have been ordered. The patient does have vision changes and seems mildly encephalopathic. Infectious causes less likely. I suspect encephalopathy is due to the degree of the patient's uremia with markedly elevated BUN and creatinine and likely some component of toxicity due to recent Valtrex use in the setting of chronic kidney disease with acute decompensation. Patient is reporting photophobia but this is likely due to encephalopathy from medications and uremia. Photophobia due to meningitis seems less likely given lactic nuchal rigidity. The patient's skin rash for which Valtrex was started does not seem consistent with HSV and seems more papular in nature. The patient was hypothermic but I suspect this is more due to environmental exposures the patient's room is quite cold and he has removing his clothes and blankets due to general discomfort and sensory input. However, will obtain blood cultures to rule out underlying infection given mild leukocytosis. Patient was placed under Ayush Hugger for few hours and hypothermia has resolved. Patient does have acute on chronic anemia. Her iron studies have been obtained and results have returned prior to the end of my shift. Study seem to be consistent with anemia of chronic disease. Patient does have diabetes but is currently euglycemic. Will order Accu-Cheks q.6 hours while NPO. With hypoglycemia protocol. 2 hours spent in critical care activities Due to a high probability of clinically significant, life threatening deterioration, the patient required my highest level of preparedness to intervene emergently and I personally spent this critical care time directly and personally managing the patient. This critical care time included obtaining a history; examining the patient; pulse oximetry; ordering and review of studies; arranging urgent treatment with development of a management plan; evaluation of patient's response to treatment; frequent reassessment; and discussions with other providers. It was exclusive of separately billable procedures and treating other patients and teaching time. Please see Assessment and Plan section and the rest of the note for further information on patient assessment and treatment. Quality VTE Prophylaxis VTE prophylaxis: pharmacologic ordered (Heparin 5000 units subQ q.12 hours) Hospitalist [facility] Advance Care Plan I have confirmed that the patient's Advanced Care Plan is present, code status is documented, or surrogate decision maker is listed in patient medical record.: Yes Medication Reconciliation I have utilized all available resources to obtain, update and review the patients current medications (includes all prescriptions, OTC, herbals, cannabis, and nutritional supplements).: Yes
[2023-12-31 04:02] LABS: Glucose Point of Care 90 mg/dl (65-105)
[2023-12-31 04:02] LABS: Glucose Point of Care 105 mg/dl (65-105)
[2023-12-31 04:02] LABS: Glucose Point of Care 112 mg/dl (65-105)
[2023-12-31 04:44] LABS: Hematocrit 24.2 % (42.0-52.0); Hemoglobin 7.6 g/dL (14.0-18.0); Mean Corpuscular HGB Conc 31.4 g/dl (32-36); Mean Corpuscular Hemoglobin 29.6 pg (26-34); Mean Corpuscular Volume 94.2 fl (80-100); Mean Platelet Volume 10.9 fl (7.4-10.4); Platelet Count Result 177 k/mm3 (150-375); Red Blood Count 2.57 M/mm3 (4.6-6.20); Red Cell Distribution Width 15.4 % (11.5-14.5); White Blood Count 9.2 K/mm3 (4.5-10.0)
[2023-12-31 04:45] LABS: Immature Reticulocyte Fraction 25.4 % (3.0-15.9); Reticulocyte Hemoglobin Conten 29.1 pg (28.2-36.6); Reticulocyte Percent 4.93 % (0.7-4.3); Reticulocytes Absolute 0.13 10^6/uL (0.02-0.10)
[2023-12-31 04:57] LABS: Magnesium 2.3 mg/dL (1.6-2.3)
[2023-12-31 05:01] LABS: Iron 212 ug/dL (49-181)
[2023-12-31 05:06] LABS: Alanine Aminotransferase 12 U/L (6-50); Albumin Level 3.5 g/dL (3.5-5.1); Alkaline Phosphatase 149 U/L (38-126); Aspartate Amino Transferase 12 U/L (17-59); Bilirubin,Total 0.4 mg/dL (0.2-1.3); Calcium 6.2 mg/dL (8.4-10.2); Carbon Dioxide < 5 mmol/L (22-30); Chloride 110 mmol/L (98-107); Glucose 94 mg/dL (65-110); Potassium 6.9 mmol/L (3.4-5.0); Sodium 136 mmol/L (137-145)
[2023-12-31 05:10] LABS: Percent Iron Saturation 109 % (20-50)
[2023-12-31 05:11] LABS: Complement C3 77 mg/dL (88-165)
[2023-12-31 05:20] LABS: Estimated CRCL calculation 8 ml/min; Estimated Glomerular Filt Rate 3
[2023-12-31 05:21] LABS: Blood Urea Nitrogen 130 mg/dL (9-20); Phosphorus 13.4 mg/dL (2.5-4.5)
[2023-12-31 05:27] LABS: Erythrocyte Sedimentation Rate 76 mm/hr (0-20)
[2023-12-31 05:31] LABS: Hepatitis B Surface Antigen Negative (Negative)
[2023-12-31 05:34] LABS: HIV 1/2 Ab P24 Ag Result Negative (Negative)
[2023-12-31 05:36] LABS: Hepatitis B Core IgM Result Negative (Negative)
[2023-12-31 05:48] LABS: Hepatitis B Surface Anti Res Negative; Hepatitis C Virus Antibody Negative (Negative)
[2023-12-31 06:04] LABS: Folic Acid 13.9 ng/mL (2.76->20)
[2023-12-31] MEDS: ALBUTEROL SULFATE NEB 2.5 MG/3 ML INH 15 MG INHALATION (06:57)
[2023-12-31] MEDS: INSULIN HUMAN REGULAR (*BKC) 100 UNITS/ML IV PUSH (07:56)
[2023-12-31] MEDS: SODIUM BICARBONATE 8.4% 50 MEQ/50 ML SYRINGE IV PUSH (07:57)
[2023-12-31] MEDS: DEXTROSE 50% 25 GM/50 ML SYRINGE IV PUSH (07:57)
[2023-12-31] MEDS: SODIUM ZIRCONIUM CYCLOSILICATE 10 GM POWD.PACK PO (07:58)
[2023-12-31] MEDS: CALCIUM GLUCONATE 1,000 MG/10 ML VIAL 1000 MG IV PUSH (07:58)
[2023-12-31] MEDS: CALCIUM ACETATE 667 MG TABLET PO ×2 (07:59→14:44)
[2023-12-31] MEDS: SODIUM BICARBONATE TAB 650 MG TABLET PO ×2 (07:59→14:44)
[2023-12-31 09:04] LABS: Glucose Point of Care 155 mg/dl (65-105)
--- NOTE | 2023-12-31 09:50 | P.CONGS_ITS ---
Assessment and Plan Assessment and plan (1) Acute on chronic renal failure: Qualifiers: Acute renal failure type: unspecified Chronic kidney disease stage: stage 3 (moderate) Chronic kidney disease stage 3 subtype: unspecified whether 3a or 3b Qualified Code(s): N17.9 - Acute kidney failure, unspecified; N18.30 - Chronic kidney disease, stage 3 unspecified Code(s): N17.9 - Acute kidney failure, unspecified; N18.9 - Chronic kidney disease, unspecified Status: Acute (2) Acute hyperkalemia: Code(s): E87.5 - Hyperkalemia Status: Acute (3) Uremic encephalopathy: Code(s): G93.49 - Other encephalopathy; N19 - Unspecified kidney failure Status: Acute Plan A reviewed the current workup from the emergency department. Patient has significant acute renal failure with electrolyte disturbances and will need urgent hemodialysis. Will proceed with bedside temporary Tomasz dialysis catheter placement. Discussed procedure, risks, benefits, and alternatives with patient. Questions answered. History of Present Illness Consult details Consult date: 12/31/23 Reason for consult: other (Acute renal failure) Requesting physician: Terry Jolley MD Narrative: This is a 43-year-old man who I am asked to see for dialysis access. He presented to the emergency department overnight with mental status changes and lethargy. He was found to be in acute renal failure with hyperkalemia. He is a known diabetic but diabetes is typically fairly well controlled. He had started a new medication recently could contributed to his renal failure. The patient was admitted to the IMU and is in need of fairly urgent hemodialysis. Review of Systems Review of Systems: All systems reviewed & are unremarkable except as noted in HPI and below Eyes: Eyes: Denies change in vision ENT: Denies hearing loss, Denies neck pain and Denies sore throat Cardiovascular: Cardiovascular: Denies chest pain and Denies dyspnea Respiratory: Respiratory: Denies cough, Denies dyspnea and Denies wheezing Genitourinary: Genitourinary: Denies hematuria and Denies dysuria Musculoskeletal: Musculoskeletal: Reports arthralgias, Denies joint swelling and Denies neck pain Allergic/Immunologic: Allergic/Immunologic: Denies wheezing PMFSH Past Medical History Medical History Arthritis Asthma Hobbs muscular dystrophy Chronic kidney disease Chronic pain Club foot of both lower extremities Diabetes Food allergy History of adverse reaction to anesthesia HTN (hypertension) Obesity (BMI 30-39.9) Peripheral vascular disease Surgical History Surgical History Hx of amputation below knee Right below knee amputation 05/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 He has his son who is 20 y ears old. He is currently working for [employer] He did smoke a few cigarettes a day for approximately 5 years but quit smoking many years ago. He does not use alcohol or illicit substances. Code status: Full code Surrogate decision maker: Smoking packs per day: 0.1 Smoking cigarettes per day: 2.0 Years smoked: 4 Smoking pack-years: 0.40 Smoking status: Former smoker Second hand tobacco smoke exposure: Yes Alcohol intake: former Alcohol use details: 1/YEAR Substance use: never Substance use type: does not use Do You Feel Safe in your Home?: Yes Lack of Transportation: No Lack of Food: Never True Current Housing: I Have Housing Concerned About Future Housing: No Difficulty Paying Gas/Electric Bills: No Difficulty Paying for Meds: No Currently Unemployed: No Education: Associate Degree Difficulty w/ Childcare or Family Care: No Living arrangements: with family Gender identity (if verbalized by the patient): Male Spiritual care concerns: No Meds Home Medications and Allergies Home Medications Medication Instructions Recorded Confirmed Type linagliptin 5 mg tablet (Tradjenta) 5 mg PO HS 10/25/19 12/30/23 History atorvastatin 10 mg tablet 10 mg PO HS 04/07/22 12/30/23 History gabapentin 300 mg capsule 600 mg PO HS 04/07/22 12/30/23 History losartan 100 mg tablet 100 mg PO HS 01/16/23 12/30/23 History aspirin 81 mg tablet,delayed 81 mg PO QAM #30 tabs 03/03/23 12/30/23 Rx release clopidogrel 75 mg tablet 75 mg PO DAILY 12/30/23 12/30/23 History ergocalciferol (vitamin D2) 1,250 1,250 mcg PO DAILY 12/30/23 12/30/23 History mcg (50,000 unit) capsule hydrochlorothiazide 25 mg tablet 25 mg PO DAILY 12/30/23 12/30/23 History semaglutide 7 mg tablet (Rybelsus) 7 mg PO DAILY 12/30/23 12/30/23 History Allergies Allergy/AdvReac Type Severity Reaction Status Date / Time insulin detemir Allergy Unknown Other Verified 12/30/23 22:30 [From Levemir U-100 Insulin] latex Allergy Unknown Anaphylaxis Verified 12/30/23 22:30 metformin AdvReac Unknown Gastrointestinal Verified 12/30/23 22:30 Upset hydrochlorothiazide AdvReac Dizziness Verified 12/30/23 22:30 Vital Signs Vital Signs - 24 hr 12/30/23 17:30 12/30/23 18:46 12/30/23 18:42 Temperature 97.5 F L Pulse Rate 71 72 Respiratory Rate 15 20 21 H Blood Pressure 119/56 L 111/54 L Pulse Oximetry 99 98 Oxygen Delivery Room Air 12/30/23 23:45 12/31/23 00:00 12/31/23 00:00 Temperature 94.1 F L Pulse Rate 69 69 Respiratory Rate 23 H Blood Pressure 105/61 Pulse Oximetry 100 Oxygen Delivery Room Air 12/31/23 00:00 12/31/23 00:15 12/31/23 01:15 Temperature 94.1 F L 93.3 F L Pulse Rate 68 Respiratory Rate Blood Pressure Pulse Oximetry Oxygen Delivery 12/31/23 02:15 12/31/23 02:00 12/31/23 03:15 Temperature 93.5 F L 96 F L Pulse Rate 65 Respiratory Rate Blood Pressure Pulse Oximetry Oxygen Delivery 12/31/23 04:00 12/31/23 04:00 12/31/23 04:50 Temperature 96.7 F L 97.7 F Pulse Rate 67 Respiratory Rate 23 H Blood Pressure 100/58 L Pulse Oximetry 99 Oxygen Delivery Room Air 12/31/23 05:00 12/31/23 04:00 12/31/23 06:00 Temperature 97.5 F L 97.3 F L Pulse Rate 67 Respiratory Rate Blood Pressure Pulse Oximetry Oxygen Delivery 12/31/23 06:00 12/31/23 07:01 12/31/23 07:02 Temperature Pulse Rate 66 68 Respiratory Rate 28 H Blood Pressure Pulse Oximetry 94 Oxygen Delivery Room Air 12/31/23 08:14 12/31/23 08:07 12/31/23 08:00 Temperature 97.5 F L 97.6 F Pulse Rate 78 76 76 Respiratory Rate 16 22 H 16 Blood Pressure 99/48 L Pulse Oximetry 99 Oxygen Delivery Exam Const: General: alert; No acute distress Orientation/consciousness: patient oriented x3 Limitations: no limitations HENMT: Head: normocephalic and atraumatic Ears: hearing grossly normal bilaterally Face/Nose/Sinus: Normal external nose present and Normal nares present Mouth: Yes Normal oral and palatal mucosa present and Yes moist mucous membranes Eyes: General: appearance normal, both eyes and all related structures Conjunctivae: conjunctivae normal Sclera: sclerae normal Pupils: Equal, round and reactive pupils present EOM: EOMs intact bilaterally Neck: Neck: normal visual inspection, full ROM, no lymphadenopathy, supple and no JVD Lymphatic: no lymphadenopathy noted Chest: Chest palpation & inspection: normal inspection of the chest Resp: Effort & Inspection: normal respiratory effort and able to speak in complete sentences Auscultation: clear to auscultation bilaterally Percussion: percussion normal Cardio: Jugular venous distension: no JVD Rate: regular rate Rhythm: regular rhythm Heart sounds: S1 normal heart sound present and S2 normal heart sound present Peripheral pulses: Peripheral pulses 2+ throughout GI: Inspection: normal to inspection Auscultation: normal bowel sounds : General: Yes no CVA tenderness Back/Spine/Pelvis: Back: no CVA tenderness Skin: General skin exam: normal color and dry skin Neuro: General: patient oriented x3, gait normal, moves all extremities, no focal motor deficits and CN's II-XI intact bilaterally Cranial nerves: Yes Equal, round and reactive pupils present Speech: normal speech Extrem: General: normal to inspection and capillary refill normal Results Labs 12/31/23 11:28 12/31/23 11:28 Labs: Abnormal lab results 12/30/23 12/30/23 12/30/23 Range/Units 17:44 17:45 21:41 WBC 11.2 H (4.5-10.0) K/mm3 RBC 2.91 L (4.6-6.20) M/mm3 Hgb 8.6 L (14.0-18.0) g/dL Hct 28.1 L (42.0-52.0) % MCHC 30.6 L (32-36) g/dl RDW 15.3 H (11.5-14.5) % MPV 11.3 H (7.4-10.4) fl Neutrophils % (Manual) 83 H (46-73) % Lymphocytes % (Manual) 7 L (18-44) % Abs Neuts (Manual) 9.52 H (1.3-6.7) K/mm3 Abs Lymphs (Manual) 0.78 L (1.1-4.5) K/mm3 ESR (0-20) mm/hr Absolute Retic (0.02-0.10) 10^6/uL Percent Retic (0.7-4.3) % Immature Retic Fraction (3.0-15.9) % Sodium 135 L (137-145) mmol/L Potassium 7.1 H* (3.4-5.0) mmol/L Chloride 110 H (98-107) mmol/L Carbon Dioxide < 5 L (22-30) mmol/L BUN 125 H D (9-20) mg/dL Creatinine 16.00 H (0.7-1.3) mg/dL Estimated GFR 3 L (59 - ) Glucose 134 H (65-110) mg/dL POC Capillary Glucose 136 H (65-105) mg/dl Calcium 6.0 L (8.4-10.2) mg/dL Phosphorus (2.5-4.5) mg/dL Iron (49-181) ug/dL TIBC (265-497) ug/dL % Saturation (20-50) % AST 15 L (17-59) U/L Alkaline Phosphatase 165 H (38-126) U/L Total Creatine Kinase 256 H (55-170) U/L C-Reactive Protein (<1.0) mg/dL Complement C3 (88-165) mg/dL 12/30/23 12/30/23 12/31/23 Range/Units 22:37 23:49 01:00 WBC (4.5-10.0) K/mm3 RBC (4.6-6.20) M/mm3 Hgb (14.0-18.0) g/dL Hct (42.0-52.0) % MCHC (32-36) g/dl RDW (11.5-14.5) % MPV (7.4-10.4) fl Neutrophils % (Manual) (46-73) % Lymphocytes % (Manual) (18-44) % Abs Neuts (Manual) (1.3-6.7) K/mm3 Abs Lymphs (Manual) (1.1-4.5) K/mm3 ESR (0-20) mm/hr Absolute Retic (0.02-0.10) 10^6/uL Percent Retic (0.7-4.3) % Immature Retic Fraction (3.0-15.9) % Sodium 135 L (137-145) mmol/L Potassium 7.3 H* (3.4-5.0) mmol/L Chloride 110 H (98-107) mmol/L Carbon Dioxide < 5 L (22-30) mmol/L BUN 131 H (9-20) mg/dL Creatinine 16.20 H (0.7-1.3) mg/dL Estimated GFR 3 L (59 - ) Glucose 125 H (65-110) mg/dL POC Capillary Glucose 119 H 112 H (65-105) mg/dl Calcium 6.2 L (8.4-10.2) mg/dL Phosphorus (2.5-4.5) mg/dL Iron (49-181) ug/dL TIBC (265-497) ug/dL % Saturation (20-50) % AST (17-59) U/L Alkaline Phosphatase (38-126) U/L Total Creatine Kinase (55-170) U/L C-Reactive Protein (<1.0) mg/dL Complement C3 (88-165) mg/dL 12/31/23 12/31/23 Range/Units 04:29 08:59 WBC (4.5-10.0) K/mm3 RBC 2.57 L (4.6-6.20) M/mm3 Hgb 7.6 L (14.0-18.0) g/dL Hct 24.2 L (42.0-52.0) % MCHC 31.4 L (32-36) g/dl RDW 15.4 H (11.5-14.5) % MPV 10.9 H (7.4-10.4) fl Neutrophils % (Manual) (46-73) % Lymphocytes % (Manual) (18-44) % Abs Neuts (Manual) (1.3-6.7) K/mm3 Abs Lymphs (Manual) (1.1-4.5) K/mm3 ESR 76 H (0-20) mm/hr Absolute Retic 0.13 H (0.02-0.10) 10^6/uL Percent Retic 4.93 H (0.7-4.3) % Immature Retic Fraction 25.4 H (3.0-15.9) % Sodium 136 L (137-145) mmol/L Potassium 6.9 H* (3.4-5.0) mmol/L Chloride 110 H (98-107) mmol/L Carbon Dioxide < 5 L (22-30) mmol/L BUN 130 H (9-20) mg/dL Creatinine 16.40 H (0.7-1.3) mg/dL Estimated GFR 3 L (59 - ) Glucose (65-110) mg/dL POC Capillary Glucose 155 H (65-105) mg/dl Calcium 6.2 L (8.4-10.2) mg/dL Phosphorus 13.4 H (2.5-4.5) mg/dL Iron 212 H (49-181) ug/dL TIBC 195 L (265-497) ug/dL % Saturation 109 H (20-50) % AST 12 L (17-59) U/L Alkaline Phosphatase 149 H (38-126) U/L Total Creatine Kinase (55-170) U/L C-Reactive Protein 5.0 H (<1.0) mg/dL Complement C3 77 L (88-165) mg/dL Diabetes panel 12/30/23 12/30/23 12/31/23 Range/Units 17:44 22:37 04:29 Sodium 135 L 135 L 136 L (137-145) mmol/L Potassium 7.1 H* 7.3 H* 6.9 H* (3.4-5.0) mmol/L Chloride 110 H 110 H 110 H (98-107) mmol/L Carbon Dioxide < 5 L < 5 L < 5 L (22-30) mmol/L BUN 125 H D 131 H 130 H (9-20) mg/dL Creatinine 16.00 H 16.20 H 16.40 H (0.7-1.3) mg/dL Glucose 134 H 125 H 94 (65-110) mg/dL Calcium 6.0 L 6.2 L 6.2 L (8.4-10.2) mg/dL AST 15 L 12 L (17-59) U/L ALT 13 12 (6-50) U/L Alkaline Phosphatase 165 H 149 H (38-126) U/L Total Protein 7.0 7.0 (6.3-8.2) g/dL Albumin 3.9 3.5 (3.5-5.1) g/dL Calcium panel 12/30/23 12/30/23 12/31/23 Range/Units 17:44 22:37 04:29 Calcium 6.0 L 6.2 L 6.2 L (8.4-10.2) mg/dL Phosphorus 13.4 H (2.5-4.5) mg/dL Albumin 3.9 3.5 (3.5-5.1) g/dL Pituitary panel 12/30/23 12/30/23 12/31/23 Range/Units 17:44 22:37 04:29 Sodium 135 L 135 L 136 L (137-145) mmol/L Potassium 7.1 H* 7.3 H* 6.9 H* (3.4-5.0) mmol/L Chloride 110 H 110 H 110 H (98-107) mmol/L Carbon Dioxide < 5 L < 5 L < 5 L (22-30) mmol/L BUN 125 H D 131 H 130 H (9-20) mg/dL Creatinine 16.00 H 16.20 H 16.40 H (0.7-1.3) mg/dL Glucose 134 H 125 H 94 (65-110) mg/dL Calcium 6.0 L 6.2 L 6.2 L (8.4-10.2) mg/dL Adrenal panel 12/30/23 12/30/23 12/31/23 Range/Units 17:44 22:37 04:29 Sodium 135 L 135 L 136 L (137-145) mmol/L Potassium 7.1 H* 7.3 H* 6.9 H* (3.4-5.0) mmol/L Chloride 110 H 110 H 110 H (98-107) mmol/L Carbon Dioxide < 5 L < 5 L < 5 L (22-30) mmol/L BUN 125 H D 131 H 130 H (9-20) mg/dL Creatinine 16.00 H 16.20 H 16.40 H (0.7-1.3) mg/dL Glucose 134 H 125 H 94 (65-110) mg/dL Calcium 6.0 L 6.2 L 6.2 L (8.4-10.2) mg/dL Total Bilirubin 0.6 0.4 (0.2-1.3) mg/dL AST 15 L 12 L (17-59) U/L ALT 13 12 (6-50) U/L Alkaline Phosphatase 165 H 149 H (38-126) U/L Total Protein 7.0 7.0 (6.3-8.2) g/dL Albumin 3.9 3.5 (3.5-5.1) g/dL All other labs normal. Imaging Additional studies: ITS Impressions Head CT 12/30/23 18:14 Impression: No acute intracranial hemorrhage or suspicious mass effect. Chest X-Ray 12/30/23 18:18 IMPRESSION: No focal infiltrate or effusion
--- NOTE | 2023-12-31 09:52 | W.PM.PROC2 ---
Procedure Note - Detailed Date of Procedure 12/31/23 Pre-op Diagnosis Acute/Chronic kidney disease, hyperkalema, uremic enceph Post-op Diagnosis Same Procedure Performed Right IJ Giorgio dialysis catheter placement using ultrasound guidance Surgeon Dhaval Prater, DO Anesthesia Local (1% Lidocaine) Indications This is a 43-year-old man who presented to the emergency department and acute renal failure. He has electrolyte disturbances and is in need urgent hemodialysis. Discussions were made with the patient and decision was made to proceed with bedside Giorgio dialysis catheter placement. Findings SonoSite ultrasound was used to identify the right internal jugular vein. This was visualized as a compressible vessel just lateral to the right carotid artery. The 18 gauge introducer needle was advanced under ultrasound guidance. Once within the lumen of the internal jugular vein, dark nonpulsatile blood was returned. The 0.035 in guidewire was then advanced through the needle and advanced smoothly. A 16 cm 12 Filipino triple-lumen dialysis catheter was then placed. Chest x-ray is pending to confirm placement. Description of Procedure Procedure, risks, benefits, and alternatives were discussed with the patient. Written consent was obtained and placed in chart prior to procedure. Patient was placed supine in hospital bed and placed in slight Trendelenburg position. Time-out was done to confirm patient and procedure. The right neck and chest area was prepped and draped in sterile fashion using chlorhexidine prep. SonoSite ultrasound was used to identify the right internal jugular vein. 1% lidocaine was infiltrated directly over this area. An 18 gauge introducer needle was advanced under ultrasound guidance directly into the right internal jugular vein. Dark nonpulsatile blood was aspirated. A 0.035 in guidewire was then advanced through the needle. The guidewire advanced smoothly. The needle was then withdrawn leaving the guidewire in place. A small reese incision was made at the insertion site using an 11 blade scalpel. The blue dilators were then advanced over the guidewire to dilate the vessel. The 12 Filipino triple lumen 16 cm dialysis catheter was then advanced over the guidewire until it was in place. The guidewire was removed. All 3 lumens were then aspirated and flushed with sterile saline. All 3 lumens function with ease. Caps were placed over the lumens. Glue was placed at the insertion site and the catheter was secured in place using 3 0 nylon simple interrupted sutures. A Tegaderm dressing was then applied over top. The patient was then sat up in bed and chest x-ray was ordered to confirm placement. Implants 12 Filipino triple-lumen 16 cm dialysis catheter Estimated Blood Loss 5 Urine Output 0 Complications No immediate complications Condition Critical Disposition No change [facility] Billing Surgery - Charge Forward: Surgery Billing
--- NOTE | 2023-12-31 10:04 | PM.IMPN ---
Progress Note: A&P Assessment and Plan (1) Acute on chronic renal failure: Qualifiers: Acute renal failure type: unspecified Chronic kidney disease stage: stage 3 (moderate) Chronic kidney disease stage 3 subtype: unspecified whether 3a or 3b Qualified Code(s): N17.9 - Acute kidney failure, unspecified; N18.30 - Chronic kidney disease, stage 3 unspecified Code(s): N17.9 - Acute kidney failure, unspecified; N18.9 - Chronic kidney disease, unspecified Status: Acute (2) Acute hyperkalemia: Code(s): E87.5 - Hyperkalemia Status: Acute (3) Uremic encephalopathy: Code(s): G93.49 - Other encephalopathy; N19 - Unspecified kidney failure Status: Acute (4) Valtrex overdose: Qualifiers: Encounter type: initial encounter Injury intent: accidental or unintentional Qualified Code(s): T37.5X1A - Poisoning by antiviral drugs, accidental (unintentional), initial encounter Code(s): T37.5X1A - Poisoning by antiviral drugs, accidental (unintentional), initial encounter Status: Acute (5) Vision changes: Code(s): H53.9 - Unspecified visual disturbance Status: Acute (6) Anemia: Qualifiers: Anemia type: unspecified type Qualified Code(s): D64.9 - Anemia, unspecified Code(s): D64.9 - Anemia, unspecified Status: Acute (7) Hypothermia: Qualifiers: Encounter type: initial encounter Qualified Code(s): T68.XXXA - Hypothermia, initial encounter Code(s): T68.XXXA - Hypothermia, initial encounter Status: Acute Plan SHABNAM on CKD, severe acute hypokalemia, severe metabolic acidosis, hypocalcemia 6.2 Patient has CKD, creatinine is trending up slowly till May 24, 2023 creatinine 3.2 May 24, 2023 Upon arrival in the ED, creatinine bumped up to 16 wishes trending up since admission Sodium bicarbonate is less than 5 ABG showed decompensated metabolic acidosis, pH 7.005 Patient received causing gluconate IV push, patient is on sodium bicarbonate IV drip 150 mg and 100 mL/hour Repeated calcium level 6.2 will provide ca gluconate 2 g IV push dialysis catheter is placed and patient is on emergent dialysis Continue bicarbonate drip Follow-up BMP after dialysis and daily, 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 obtain blood cultures to rule out underlying infection given mild leukocytosis. Patient was placed under Ayush Hugger for few hours and hypothermia has resolved. ESSENTIAL HYPERTENSION Hold losartan and hydrochlorothiazide because acute renal failure Patient is on hemodialysis Diabetes Start insulin sliding scale a.c. and q.h.s. consulted Dr. Perez, he considers patient does not need ICU monitoring Patient condition is critical, continue morning per patient in IMU Subjective Date/time seen: 12/31/23 10:04 Interval history: I saw examined patient today when patient was on dialysis. Patient has anxiety, lower extremity pain, patient has tachypnea, neck chest pain, shortness of breath. Patient denies abdomen pain, nausea vomiting diarrhea. Patient also denies chest pain. Patient is lethargic but alert oriented x3 Exam Narrative: GENERAL: Ill-appearing in no acute distress. Well-nourished. - EYES: EOMI. Anicteric. - HENT: Moist mucous membranes. Pale - LUNGS: Clear to auscultation bilaterally, no wheezing, rhonchi, or rales. Tachypnea - CARDIOVASCULAR: Regular rate and rhythm. No murmur. No JVD. Tachycardia - ABDOMEN: Soft, non-tender and non-distended. No palpable masses. - EXTREMITIES: No edema. Peripheral pulses 2+. Non-tender. - NEUROLOGIC: No focal neurological deficits. CN II-XII grossly intact. - PSYCHIATRIC: Awake, Alert and oriented x 3. Appropriate mood and affect. - SKIN: No rashes or lesions. Warm. - LYMPH: No cervical lymphadenopathy. Objective Data Vital Signs Vital Signs: Vital Signs - 24 hr 12/30/23 17:30 12/30/23 18:46 12/30/23 18:42 Temperature 97.5 F L Pulse Rate 71 72 Respiratory Rate 15 20 21 H Blood Pressure 119/56 L 111/54 L Pulse Oximetry 99 98 Oxygen Delivery Room Air 12/30/23 23:45 12/31/23 00:00 12/31/23 00:00 Temperature 94.1 F L Pulse Rate 69 69 Respiratory Rate 23 H Blood Pressure 105/61 Pulse Oximetry 100 Oxygen Delivery Room Air 12/31/23 00:00 12/31/23 00:15 12/31/23 01:15 Temperature 94.1 F L 93.3 F L Pulse Rate 68 Respiratory Rate Blood Pressure Pulse Oximetry Oxygen Delivery 12/31/23 02:15 12/31/23 02:00 12/31/23 03:15 Temperature 93.5 F L 96 F L Pulse Rate 65 Respiratory Rate Blood Pressure Pulse Oximetry Oxygen Delivery 12/31/23 04:00 12/31/23 04:00 12/31/23 04:50 Temperature 96.7 F L 97.7 F Pulse Rate 67 Respiratory Rate 23 H Blood Pressure 100/58 L Pulse Oximetry 99 Oxygen Delivery Room Air 12/31/23 05:00 12/31/23 04:00 12/31/23 06:00 Temperature 97.5 F L 97.3 F L Pulse Rate 67 Respiratory Rate Blood Pressure Pulse Oximetry Oxygen Delivery 12/31/23 06:00 12/31/23 07:01 12/31/23 07:02 Temperature Pulse Rate 66 68 Respiratory Rate 28 H Blood Pressure Pulse Oximetry 94 Oxygen Delivery Room Air 12/31/23 08:14 12/31/23 08:07 12/31/23 08:00 Temperature 97.5 F L 97.6 F Pulse Rate 78 76 76 Respiratory Rate 16 22 H 16 Blood Pressure 99/48 L Pulse Oximetry 99 Oxygen Delivery Intake/Output Intake/Output: Intake & Output 12/28/23 12/29/23 12/30/23 12/31/23 23:59 23:59 23:59 23:59 Intake Total 500 Output Total 0 Balance 500 0 Meds/Results Medications: Active Medications Generic Name Dose Route Start Last Admin Trade Name Freq PRN Reason Stop Dose Admin Aspirin 81 mg 12/31/23 09:00 Aspirin 81 Mg Enteric Tablet PO QAM [facility] Calcium Acetate 667 mg 12/31/23 09:00 12/31/23 07:59 Calcium Acetate 667 Mg Tablet PO 667 mg TID [facility] Administration Clopidogrel Bisulfate 75 mg 12/31/23 09:00 Clopidogrel Bisulfate 75 Mg Tablet PO DAILY [facility] Dextrose 12.5 gm 12/31/23 07:36 Dextrose 50% 25 Gm/50 Ml Syringe IV PUSH PRN PRN Hypoglycemia Protocol Ergocalciferol units 12/31/23 09:00 Ergocalciferol 50,000 Units Capsule PO DAILY [facility] Gabapentin 600 mg 12/31/23 21:00 Gabapentin 300 Mg Capsule PO HS [facility] Glucagon 1 mg 12/31/23 07:36 Glucagon For Inj 1 Mg Vial IM PRN PRN Hypoglycemia Protocol Glucose 15 gm 12/31/23 07:36 Glucose Oral Gel 15 Gm Of Glucse In 37.5 Gm Tube PO PRN PRN Hypoglycemia Protocol Heparin Sodium (Porcine) 5,000 units 12/31/23 09:00 Heparin Sodium 5,000 Units/Ml Vial SUB-Q Q12HR [facility] Sodium Bicarbonate 150 meq/ 1,100 mls @ 100 mls/hr 12/31/23 00:00 12/31/23 00:25 Dextrose IV CONT 100 mls/hr .Q11H [facility] Administration Dextrose 1,000 mls @ 100 mls/hr 12/31/23 07:36 Dextrose 5% 1,000 Ml IVPB PRN PRN Hypoglycemia Protocol Insulin Aspart 2 - 5 units 12/31/23 12:00 Insulin Aspart (*Bkc) 100 Units/Ml SUB-Q Q6HR [facility] Protocol Miscellaneous Information 0 each 01/01/24 00:01 Please Check Vit D Dose- This Is A Weekly Dose Not Daily. XX 01/31/24 00:00 CLARIFY [facility] Ondansetron HCl 4 mg 12/30/23 21:52 Ondansetron Inj 4 Mg/2 Ml Vial IV PUSH Q4H PRN Nausea Sodium Bicarbonate 650 mg 12/31/23 09:00 12/31/23 07:59 Sodium Bicarbonate Tab 650 Mg Tablet PO 650 mg BID [facility] Administration Radiology Results: ITS Impressions Head CT 12/30/23 18:14 Impression: No acute intracranial hemorrhage or suspicious mass effect. Labs Labs: Laboratory Results - last 24 hr 12/30/23 12/30/23 12/30/23 17:44 17:45 21:41 WBC 11.2 H RBC 2.91 L Hgb 8.6 L Hct 28.1 L MCV 96.6 MCH 29.6 MCHC 30.6 L RDW 15.3 H Plt Count 198 MPV 11.3 H Immature Gran % (Auto) Not Reportable Neut % (Auto) Not Reportable Lymph % (Auto) Not Reportable [place] % (Auto) Not Reportable Eos % (Auto) Not Reportable Baso % (Auto) Not Reportable Lymph # (Auto) Not Reportable [place] # (Auto) Not Reportable Eos # (Auto) Not Reportable Baso # (Auto) Not Reportable Abs Immat Gran (auto) Not Reportable Absolute Neuts (auto) Not Reportable Absolute Nucleated RBC Not Reportable Total Counted 100 Neutrophils % (Manual) 83 H Band Neutrophils % 2 Lymphocytes % (Manual) 7 L Monocytes % (Manual) 5 Metamyelocytes % 2 Myelocytes % 1 Nucleated RBC % Not Reportable Abs Neuts (Manual) 9.52 H Abs Lymphs (Manual) 0.78 L Abs Monocytes (Manual) 0.56 Platelet Estimate Adequate Schistocytes None seen ESR Absolute Retic Percent Retic Immature Retic Fraction Retic Hgb Content Sodium 135 L Potassium 7.1 H* Chloride 110 H Carbon Dioxide < 5 L Anion Gap BUN 125 H D Creatinine 16.00 H Estim Creat Clear Calc 8 Estimated GFR 3 L Glucose 134 H POC Capillary Glucose 136 H Calcium 6.0 L Phosphorus Magnesium Iron TIBC % Saturation Ferritin Total Bilirubin 0.6 AST 15 L ALT 13 Alkaline Phosphatase 165 H Total Creatine Kinase 256 H C-Reactive Protein Total Protein 7.0 Albumin 3.9 Vitamin B12 Folate TSH (Reflex) Complement C3 Complement C4 Hep Bs Antigen Hep Bs Antibody Hep B Core IgM Ab Hepatitis C Ab Screen HIV 1&2 Ab/P24 Ag 4thGn 12/30/23 12/30/23 12/31/23 22:37 23:49 01:00 WBC RBC Hgb Hct MCV MCH MCHC RDW Plt Count MPV Immature Gran % (Auto) Neut % (Auto) Lymph % (Auto) [place] % (Auto) Eos % (Auto) Baso % (Auto) Lymph # (Auto) [place] # (Auto) Eos # (Auto) Baso # (Auto) Abs Immat Gran (auto) Absolute Neuts (auto) Absolute Nucleated RBC Total Counted Neutrophils % (Manual) Band Neutrophils % Lymphocytes % (Manual) Monocytes % (Manual) Metamyelocytes % Myelocytes % Nucleated RBC % Abs Neuts (Manual) Abs Lymphs (Manual) Abs Monocytes (Manual) Platelet Estimate Schistocytes ESR Absolute Retic Percent Retic Immature Retic Fraction Retic Hgb Content Sodium 135 L Potassium 7.3 H* Chloride 110 H Carbon Dioxide < 5 L Anion Gap BUN 131 H Creatinine 16.20 H Estim Creat Clear Calc 7 Estimated GFR 3 L Glucose 125 H POC Capillary Glucose 119 H 112 H Calcium 6.2 L Phosphorus Magnesium Iron TIBC % Saturation Ferritin Total Bilirubin AST ALT Alkaline Phosphatase Total Creatine Kinase C-Reactive Protein Total Protein Albumin Vitamin B12 Folate TSH (Reflex) Complement C3 Complement C4 Hep Bs Antigen Hep Bs Antibody Hep B Core IgM Ab Hepatitis C Ab Screen HIV 1&2 Ab/P24 Ag 4thGn 12/31/23 12/31/23 12/31/23 01:38 03:55 04:29 WBC 9.2 RBC 2.57 L Hgb 7.6 L Hct 24.2 L MCV 94.2 MCH 29.6 MCHC 31.4 L RDW 15.4 H Plt Count 177 MPV 10.9 H Immature Gran % (Auto) Neut % (Auto) Lymph % (Auto) [place] % (Auto) Eos % (Auto) Baso % (Auto) Lymph # (Auto) [place] # (Auto) Eos # (Auto) Baso # (Auto) Abs Immat Gran (auto) Absolute Neuts (auto) Absolute Nucleated RBC Total Counted Neutrophils % (Manual) Band Neutrophils % Lymphocytes % (Manual) Monocytes % (Manual) Metamyelocytes % Myelocytes % Nucleated RBC % Abs Neuts (Manual) Abs Lymphs (Manual) Abs Monocytes (Manual) Platelet Estimate Schistocytes ESR 76 H Absolute Retic 0.13 H Percent Retic 4.93 H Immature Retic Fraction 25.4 H Retic Hgb Content 29.1 Sodium 136 L Potassium 6.9 H* Chloride 110 H Carbon Dioxide < 5 L Anion Gap BUN 130 H Creatinine 16.40 H Estim Creat Clear Calc 8 Estimated GFR 3 L Glucose 94 POC Capillary Glucose 90 105 Calcium 6.2 L Phosphorus 13.4 H Magnesium 2.3 Iron 212 H TIBC 195 L % Saturation 109 H Ferritin 178.00 Total Bilirubin 0.4 AST 12 L ALT 12 Alkaline Phosphatase 149 H Total Creatine Kinase C-Reactive Protein 5.0 H Total Protein 7.0 Albumin 3.5 Vitamin B12 880.0 Folate 13.9 TSH (Reflex) 1.490 Complement C3 77 L Complement C4 28.7 Hep Bs Antigen Negative Hep Bs Antibody Negative Hep B Core IgM Ab Negative Hepatitis C Ab Screen Negative HIV 1&2 Ab/P24 Ag 4thGn Negative 12/31/23 08:59 WBC RBC Hgb Hct MCV MCH MCHC RDW Plt Count MPV Immature Gran % (Auto) Neut % (Auto) Lymph % (Auto) [place] % (Auto) Eos % (Auto) Baso % (Auto) Lymph # (Auto) [place] # (Auto) Eos # (Auto) Baso # (Auto) Abs Immat Gran (auto) Absolute Neuts (auto) Absolute Nucleated RBC Total Counted Neutrophils % (Manual) Band Neutrophils % Lymphocytes % (Manual) Monocytes % (Manual) Metamyelocytes % Myelocytes % Nucleated RBC % Abs Neuts (Manual) Abs Lymphs (Manual) Abs Monocytes (Manual) Platelet Estimate Schistocytes ESR Absolute Retic Percent Retic Immature Retic Fraction Retic Hgb Content Sodium Potassium Chloride Carbon Dioxide Anion Gap BUN Creatinine Estim Creat Clear Calc Estimated GFR Glucose POC Capillary Glucose 155 H Calcium Phosphorus Magnesium Iron TIBC % Saturation Ferritin Total Bilirubin AST ALT Alkaline Phosphatase Total Creatine Kinase C-Reactive Protein Total Protein Albumin Vitamin B12 Folate TSH (Reflex) Complement C3 Complement C4 Hep Bs Antigen Hep Bs Antibody Hep B Core IgM Ab Hepatitis C Ab Screen HIV 1&2 Ab/P24 Ag 4thGn
[2023-12-31 10:33] LABS: Alveolar/Arterial O2 Gradient 13.2 mmHg; Base Excess ABG -24.8 mEq/l (+/-2.0); Fractional Inspired Oxygen 21 %; HCO3 ABG 4.4 mEq/l (22.0-26.0); Oxygen Content ABG 10.3 %vol (16.0-22.0); Oxygen Saturation ABG 95.8 % (95.0-100.0); Oxyhemoglobin 95.6 % THb (90.0-100.0); PO2 FiO2 Ratio Arterial Blood 5.48 %
[2023-12-31 10:36] LABS: pH ABG 7.005 (7.350-7.450)
[2023-12-31 10:37] LABS: Device ROOM AIR; Modified Allen's Test Pass; Site Drawn RIGHT RADIAL; Total Hemoglobin 7.5 g/dL (12.0-18.0)
[2023-12-31] MEDS: SODIUM CHLORIDE 0.9% IV 1,000 ML 999 ML IV CONT (10:51)
--- NOTE | 2023-12-31 11:26 | P.CONNP_ITS ---
Assessment and Plan Assessment and plan (1) SHABNAM (acute kidney injury): Code(s): N17.9 - Acute kidney failure, unspecified Status: Acute Assessment and Plan: * etiology not clear * however, complicated by hyperkaleia, acidosis, and possible uremia * proceed with dialysis today and likely tomorrow * check urine studies, renal ultrasound and CPK * given rapid decline in renal function, check serologies * follow trend of repeat labs and UOP (2) Chronic kidney disease, stage IV (severe): Code(s): N18.4 - Chronic kidney disease, stage 4 (severe) Status: Chronic Assessment and Plan: * last creatinine was ~ 3.0 - 3.2mg/dl in May 2023 * not clear what true baseline creatinine really is * try to obtain records from PCP * suspect an element of CKD from HTN, DM, and vascular disease (3) Acute hyperkalemia: Code(s): E87.5 - Hyperkalemia Status: Acute Assessment and Plan: * as noted on admission * resistant to medical therapy * dialysis today to treat * follow repeat K+ levels (4) Uremic encephalopathy: Code(s): G93.49 - Other encephalopathy; N19 - Unspecified kidney failure Status: Acute Assessment and Plan: * suspected based on slow response and admission symptoms * dialysis today * follow mentation (5) Acidosis: Code(s): E87.20 - Acidosis, unspecified Status: Acute Assessment and Plan: * as noted by admission labs * presumably due to #1 * reassess post dialysis (6) Anemia: Qualifiers: Anemia type: unspecified type Qualified Code(s): D64.9 - Anemia, unspecified Code(s): D64.9 - Anemia, unspecified Status: Acute Assessment and Plan: * presumably worsened by SHABNAM and CKD * follow trend of H/H * IVAN with dialysis (7) HTN (hypertension): Qualifiers: Hypertension type: primary hypertension Qualified Code(s): I10 - Essential (primary) hypertension Code(s): I10 - Essential (primary) hypertension Status: Chronic Assessment and Plan: * reasonable control at this time * follow trend of hemodynamics * diuretics and ARB on hold (8) Diabetes: Qualifiers: Diabetes mellitus type: type 2 Diabetes mellitus group home insulin use: with group home use Diabetes mellitus complication status: with kidney complications Diabetes mellitus complication detail: with chronic kidney disease Chronic kidney disease stage: unspecified stage Qualified Code(s): E11.22 - Type 2 diabetes mellitus with diabetic chronic kidney disease; Z79.4 - terminal makeup operator (current) use of insulin Code(s): E11.9 - Type 2 diabetes mellitus without complications Status: Chronic Assessment and Plan: * follow accu-cheks * glycemic control per hospitalists Long extensive discussion (greater than 20 min) with the patient regarding his severe renal dysfunction in association with hyperkalemia, metabolic acidosis, and the possibility of uremia. Unfortunately, the only solution to really correct all these issues and timely fashion would be renal replacement therapy / dialysis which the patient was agreeable to. Surgery is already placed a temporary dialysis catheter and he is currently receiving dialysis at the time of this visit. I will continue to follow the patient with you while he remains hospitalized and make further recommendations as deemed necessary. Thank you for allowing me to participate in the care of this patient. History of Present Illness Reason for Consult Consult date: 12/31/23 Reason for consult: acute renal failure (on chronic kidney disease) Chief Complaint Chief complaint: Chronic kidney disease, hyperkalema, uremic enceph History of Present Illness Narrative: The patient is a 43-year-old male with extensive past medical history as outlined below who presented to [facility] Emergency room with symptoms of not feeling right. The patient reports that he recently saw his primary care physician for routine follow-up and was noted that he had papules across his face and scalp. 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 Apparently, after few days of treatment with this medication, that is when the patient stated that he started not feeling right. He reports fatigue, generalized body aches, as well as feeling restless. Other associated symptoms included poor oral intake and lack of an appetite in association with worsening fatigue, photophobia, neck discomfort, difficulty focusing, and mild headaches. He believes that he has been urinating just fine but does admit that he has chronic foam in general. Given these multitude of symptoms and the progression of symptoms as mentioned, he presented to the emergency room for further assessment. Workup and evaluation in emergency room demonstrated the patient be hemodynamically stable and in no acute distress. Routine blood tests were done which showed numerous abnormalities including severe hyperkalemia with a potassium greater than seven, severe renal dysfunction with a BUN greater than 100 and a creatinine of 16, metabolic acidosis, hypocalcemia, and relative anemia. He received medical management for his hyperkalemia but his potassium level continued to rise. There was concern that he may require renal replacement therapy /dialysis for treatment of these laboratory abnormalities given its resistance to medical management. He was subsequently admitted to hospital for further evaluation and therapy. On repeat labs done this morning, his hyperkalemia persists as well as as his significant renal dysfunction. After discussion with the patient and nursing staff, it was felt the patient would need renal replacement therapy/dialysis. Surgery was consulted and he had a temporary dialysis catheter placed earlier today for anticipation of renal replacement therapy/dialysis. Renal consultation was requested due to his acute kidney injury/ acute renal failure on top of his baseline chronic kidney disease. Despite the fact the patient has clear evidence of chronic kidney disease by labs done in May of this year, he reports he has never been told that he had any kidney problems or has never seen a stitcher tape controlled machine before. He had a creatinine of 2.6 mg/dL in April of 2023 and subsequently in May of 2023 had a creatinine of 3.2 mg/dL. Most of his care here at [facility] late to wound care so I am unclear if any other further evaluation has ever been done with regard to his renal insufficiency. Presumably, his baseline chronic kidney disease secondary to hypertension, diabetes, and vascular disease. On further questioning, he denies any hematuria, dysuria, hemoptysis, epistaxis, flank pain, history of kidney stones, or frequent urinary tract infections. Currently, at the time my visit, the patient is tolerating his hemodialysis treatment (seen on HD at 11:15AM) and appears to be in no acute distress. Review of Systems Review of Systems: As per HPI. [facility] Past Medical History Medical History Acute on chronic anemia Arthritis Asthma Hobbs muscular dystrophy Chronic kidney disease Chronic pain Club foot of both lower extremities Diabetes Food allergy History of adverse reaction to anesthesia HTN (hypertension) Obesity (BMI 30-39.9) Peripheral vascular disease Surgical History Surgical History Hx of amputation below knee Right below knee amputation 05/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 He has his son who is 20 years old. He is currently working for [employer]. He did smoke a few cigarettes a day for approximately 5 years but quit smoking many years ago. He does not use alcohol or illicit substances. Code status: Full code Surrogate decision maker: Smoking packs per day: 0.1 Smoking cigarettes per day: 2.0 Years smoked: 4 Smoking pack-years: 0.40 Smoking status: Former smoker Second hand tobacco smoke exposure: Yes Alcohol intake: former Alcohol use details: 1/YEAR Substance use: never Substance use type: does not use Do You Feel Safe in your Home?: Yes Lack of Transportation: No Lack of Food: Never True Current Housing: I Have Housing Concerned About Future Housing: No Difficulty Paying Gas/Electric Bills: No Difficulty Paying for Meds: No Currently Unemployed: No Education: Associate Degree Difficulty w/ Childcare or Family Care: No Living arrangements: with family Gender identity (if verbalized by the patient): Male Spiritual care concerns: No Meds Home Medications and Allergies Home Medications Medication Instructions Recorded Confirmed Type linagliptin 5 mg tablet (Tradjenta) 5 mg PO HS 10/25/19 12/30/23 History atorvastatin 10 mg tablet 10 mg PO HS 04/07/22 12/30/23 History gabapentin 300 mg capsule 600 mg PO HS 04/07/22 12/30/23 History losartan 100 mg tablet 100 mg PO HS 01/16/23 12/30/23 History aspirin 81 mg tablet,delayed 81 mg PO QAM #30 tabs 03/03/23 12/30/23 Rx release clopidogrel 75 mg tablet 75 mg PO DAILY 12/30/23 12/30/23 History ergocalciferol (vitamin D2) 1,250 1,250 mcg PO DAILY 12/30/23 12/30/23 History mcg (50,000 unit) capsule hydrochlorothiazide 25 mg tablet 25 mg PO DAILY 12/30/23 12/30/23 History semaglutide 7 mg tablet (Rybelsus) 7 mg PO DAILY 12/30/23 12/30/23 History Allergies Allergy/AdvReac Type Severity Reaction Status Date / Time insulin detemir Allergy Unknown Other Verified 01/02/24 12:16 [From Levemir U-100 Insulin] latex Allergy Unknown Anaphylaxis Verified 01/02/24 12:16 metformin AdvReac Unknown Gastrointestinal Verified 01/02/24 12:16 Upset hydrochlorothiazide AdvReac Dizziness Verified 01/02/24 12:16 Vital Signs Vital Signs Temp Pulse Resp BP Pulse Ox O2 Del Method 12/31/23 11:15 74 113/62 12/31/23 11:00 71 102/59 L 12/31/23 10:51 97.9 F 71 22 H 88/55 L 12/31/23 08:00 97.6 F 76 16 99/48 L 99 12/31/23 08:07 76 22 H 12/31/23 08:14 97.5 F L 78 16 12/31/23 07:02 94 Room Air 12/31/23 07:01 68 28 H 12/31/23 06:00 66 12/31/23 06:00 97.3 F L 12/31/23 04:00 67 12/31/23 05:00 97.5 F L 12/31/23 04:50 97.7 F 67 23 H 100/58 L 99 12/31/23 04:00 96.7 F L 12/31/23 04:00 Room Air 12/31/23 03:15 96 F L 12/31/23 02:00 65 12/31/23 02:15 93.5 F L 12/31/23 01:15 93.3 F L 12/31/23 00:15 94.1 F L 12/31/23 00:00 68 12/31/23 00:00 Room Air 12/31/23 00:00 69 12/30/23 23:45 94.1 F L 69 23 H 105/61 100 12/30/23 18:42 72 21 H 111/54 L 98 12/30/23 18:46 20 Exam Narrative: GENERAL APPEARANCE: well developed well nourished [place] male in no acute distress HEENT: normocephalic, atraumatic, normal conjunctiva and sclera, nares patient NECK: no lymphadenopathy, thyromegaly, or JVD MOUTH: normal lips, teeth, and gums CARDIOVASCULAR: RRR, normal S1 and S2, no rub RESPIRATORY: clear to auscultation bilaterally ABDOMEN: soft, nontender, nondistended, positive bowel sounds present EXTREMITIES: no evidence of cyanosis, clubbing, or edema; s/p right BKA NEUROLOGICAL: alert and oriented x 3; CN II - XII intact bilaterally; no focal deficits noted Results Lab Results 01/03/24 06:58 01/03/24 06:57 Lab results: Most recent lab results ABG pH 7.374 (7.350-7.450) 12/31/23 14:34 ABG pCO2 24.0 mmHg (35.0-45.0) L 12/31/23 14:34 ABG pO2 106.8 mmHg (80.0-100.0) H 12/31/23 14:34 ABG HCO3 13.7 mEq/l (22.0-26.0) L 12/31/23 14:34 ABG O2 Saturation 97.9 % (95.0-100.0) 12/31/23 14:34 Calcium 6.7 mg/dL (8.4-10.2) L 12/31/23 16:21 Phosphorus 13.4 mg/dL (2.5-4.5) H 12/31/23 04:29 Magnesium 2.3 mg/dL (1.6-2.3) 12/31/23 04:29
[2023-12-31] MEDS: EPOETIN ALFA-EPBX 10,000 UNITS/ML VIAL 10000 UNITS IV PUSH (12:10)
[2023-12-31] MEDS: CALCIUM GLUC 2,000 MG/NS 100ML 2,000 MG/100 ML BAG 100 MG IVPB (12:15)
[2023-12-31 12:37] LABS: Anion Gap 23 mmol/L (4-12); Blood Urea Nitrogen 113 mg/dL (9-20); Calcium 6.3 mg/dL (8.4-10.2); Carbon Dioxide 7 mmol/L (22-30); Chloride 105 mmol/L (98-107); Estimated CRCL calculation 9 ml/min; Estimated Glomerular Filt Rate 4; Glucose 139 mg/dL (65-110); Potassium 5.5 mmol/L (3.4-5.0); Sodium 135 mmol/L (137-145)
[2023-12-31 13:12] LABS: Basophils Percent Auto 0.2 % (0.2-1.2); Eosinophils Percent Auto 0.2 % (0-4.4); Hematocrit 22.2 % (42.0-52.0); Hemoglobin 7.1 g/dL (14.0-18.0); Immature Granulocyte Absolute 0.11 K/mm3 (0.00-0.031); Lymphocytes Absolute Auto 0.22 K/mm3 (0.9-3.2); Lymphocytes Percent Auto 3.9 % (18.3-44.2); Mean Corpuscular Hemoglobin 29.7 pg (26-34); Mean Corpuscular Volume 92.9 fl (80-100); Mean Platelet Volume 11.8 fl (7.4-10.4); Monocytes Absolute Auto 0.2 K/mm3 (0.1-0.6); Monocytes Percent Auto 4.3 % (2.6-8.5); Neutrophils Percent Auto 89.4 % (45.5-73.1); Nucleated Red Blood Cells Perc 0.4 % (0.0-0.2); Platelet Count Result 178 k/mm3 (150-375); Red Blood Count 2.39 M/mm3 (4.6-6.20); Red Cell Distribution Width 15.4 % (11.5-14.5); White Blood Count 5.6 K/mm3 (4.5-10.0)
[2023-12-31] MEDS: HYDROmorphone HCL INJ (*CRX) 1 MG/ML SYR 0.5 MG IV PUSH (13:17)
[2023-12-31 14:37] LABS: Alveolar/Arterial O2 Gradient 14.2 mmHg; Base Excess ABG -10.4 mEq/l (+/-2.0); Fractional Inspired Oxygen 21 %; HCO3 ABG 13.7 mEq/l (22.0-26.0); Oxygen Content ABG 10.3 %vol (16.0-22.0); Oxygen Saturation ABG 97.9 % (95.0-100.0); Oxyhemoglobin 96.5 % THb (90.0-100.0); PO2 ABG 106.8 mmHg (80.0-100.0); PO2 FiO2 Ratio Arterial Blood 5.09 %; pH ABG 7.374 (7.350-7.450)
[2023-12-31 14:39] LABS: Device ROOM AIR; Modified Allen's Test Pass; Site Drawn RIGHT RADIAL; Total Hemoglobin 7.4 g/dL (12.0-18.0)
[2023-12-31 14:52] LABS: Glucose Point of Care 102 mg/dl (65-105)
[2023-12-31 16:38] LABS: Anion Gap 23 mmol/L (4-12); Blood Urea Nitrogen 69 mg/dL (9-20); Calcium 6.7 mg/dL (8.4-10.2); Carbon Dioxide 12 mmol/L (22-30); Chloride 103 mmol/L (98-107); Estimated CRCL calculation 13 ml/min; Estimated Glomerular Filt Rate 6; Glucose 99 mg/dL (65-110); Potassium 3.3 mmol/L (3.4-5.0); Sodium 138 mmol/L (137-145)
[2023-12-31 20:08] LABS: Glucose Point of Care 136 mg/dl (65-105)
[2023-12-31] MEDS: GABAPENTIN 300 MG CAPSULE 600 MG PO (21:43)
[2023-12-31] MEDS: HEPARIN SODIUM 5,000 UNITS/ML VIAL 5000 UNITS SUB-Q (21:44)
[2024-01-01] VITALS (32 sets, daily range): BP systolic 115–157; BP diastolic 63–88; PULSE 72–90; RESP 16–24; TEMP 36.3–38.3; O2SAT 94–100
[2024-01-01 05:58] LABS: Basophils Percent Auto 0.2 % (0.2-1.2); Immature Granulocyte Absolute 0.06 K/mm3 (0.00-0.031); Immature Granulocyte Percent A 1.5 % (0-0.5); Lymphocytes Absolute Auto 0.54 K/mm3 (0.9-3.2); Lymphocytes Percent Auto 13.3 % (18.3-44.2); Mean Corpuscular HGB Conc 32.3 g/dl (32-36); Mean Corpuscular Hemoglobin 28.8 pg (26-34); Mean Corpuscular Volume 89.3 fl (80-100); Mean Platelet Volume 10.8 fl (7.4-10.4); Monocytes Absolute Auto 0.6 K/mm3 (0.1-0.6); Neutrophils Absolute Auto 2.8 K/mm3 (1.3-6.7); Nucleated Red Blood Cells Perc 0.5 % (0.0-0.2); Platelet Count Result 153 k/mm3 (150-375); Red Blood Count 2.15 M/mm3 (4.6-6.20); Red Cell Distribution Width 15.6 % (11.5-14.5); White Blood Count 4.1 K/mm3 (4.5-10.0)
[2024-01-01 06:16] LABS: Hemoglobin 6.2 g/dL (14.0-18.0)
[2024-01-01 06:17] LABS: Hematocrit 19.2 % (42.0-52.0)
[2024-01-01 07:42] LABS: Glucose Point of Care 165 mg/dl (65-105)
[2024-01-01 07:52] LABS: Anion Gap 16 mmol/L (4-12); Blood Urea Nitrogen 77 mg/dL (9-20); Calcium 4.8 mg/dL (8.4-10.2); Carbon Dioxide 20 mmol/L (22-30); Chloride 99 mmol/L (98-107); Estimated CRCL calculation 13 ml/min; Estimated Glomerular Filt Rate 6; Glucose 140 mg/dL (65-110); Potassium 3.3 mmol/L (3.4-5.0); Sodium 135 mmol/L (137-145)
[2024-01-01] MEDS: CALCIUM GLUC 2,000 MG/NS 100ML 2,000 MG/100 ML BAG 100 MG IVPB (08:28)
[2024-01-01] MEDS: SODIUM BICARBONATE TAB 650 MG TABLET PO ×2 (08:32→18:29)
[2024-01-01] MEDS: CLOPIDOGREL BISULFATE 75 MG TABLET PO (08:32)
[2024-01-01] MEDS: ASPIRIN 81 MG ENTERIC TABLET PO (08:32)
[2024-01-01] MEDS: CALCIUM ACETATE 667 MG TABLET PO (08:32)
[2024-01-01] MEDS: HEPARIN SODIUM 5,000 UNITS/ML VIAL 5000 UNITS SUB-Q ×2 (09:00→21:01)
--- NOTE | 2024-01-01 10:01 | PM.PNNEP ---
Progress Note: A&P Assessment and Plan (1) SHABNAM (acute kidney injury): Code(s): N17.9 - Acute kidney failure, unspecified Status: Acute Assessment and Plan: etiology not clear however, complicated by hyperkaleia, acidosis, and possible uremia proceed with dialysis today and likely tomorrow urine studies not done -- will reorder given rapid decline in renal function, checking serologies follow trend of repeat labs and UOP (2) Chronic kidney disease, stage IV (severe): Code(s): N18.4 - Chronic kidney disease, stage 4 (severe) Status: Chronic Assessment and Plan: last creatinine was ~ 3.0 - 3.2mg/dl in May 2023 not clear what true baseline creatinine really is try to obtain records from PCP suspect an element of CKD from HTN, DM, and vascular disease (3) Acute hyperkalemia: Code(s): E87.5 - Hyperkalemia Status: Acute Assessment and Plan: resolved as noted on admission resistant to medical therapy dialysis today to treat follow repeat K+ levels (4) Uremic encephalopathy: Code(s): G93.49 - Other encephalopathy; N19 - Unspecified kidney failure Status: Acute Assessment and Plan: clinical improvement suspected based on slow response and admission symptoms dialysis today follow mentation (5) Acidosis: Code(s): E87.20 - Acidosis, unspecified Status: Acute Assessment and Plan: better as noted by admission labs presumably due to #1 reassess post dialysis (6) Anemia: Qualifiers: Anemia type: unspecified type Qualified Code(s): D64.9 - Anemia, unspecified Code(s): D64.9 - Anemia, unspecified Status: Acute Assessment and Plan: presumably worsened by SHABNAM and CKD PRBC transfusion per protocol follow trend of H/H IVAN with dialysis (7) HTN (hypertension): Qualifiers: Hypertension type: primary hypertension Qualified Code(s): I10 - Essential (primary) hypertension Code(s): I10 - Essential (primary) hypertension Status: Chronic Assessment and Plan: reasonable control at this time follow trend of hemodynamics diuretics and ARB on hold (8) Diabetes: Qualifiers: Diabetes mellitus type: type 2 Diabetes mellitus predatory animal exterminator insulin use: with predatory animal exterminator use Diabetes mellitus complication status: with kidney complications Diabetes mellitus complication detail: with chronic kidney disease Chronic kidney disease stage: unspecified stage Qualified Code(s): E11.22 - Type 2 diabetes mellitus with diabetic chronic kidney disease; Z79.4 - emt intermediate (current) use of insulin Code(s): E11.9 - Type 2 diabetes mellitus without complications Status: Chronic Assessment and Plan: follow accu-cheks glycemic control per hospitalists Will continue to follow. Subjective Date/time seen: 01/01/24 10:01 Interval history: Follow-up for acute kidney injury/acute renal failure on chronic kidney disease. Tolerated dialyis treatment yesterday without any issues or problems; tolerating dialysis treatment at the time of my visit (seen on HD at 9:50AM); potassium and acidossis doing better; mentation seems a bit improved as well. Exam Narrative: General: WD/WN male in NAD Heart: normal S1 and S2; no rub Lungs: clear to auscultation Abdomen: soft, nontender, nondistended, positive bowel sounds Extremities: no cyanosis or clubbing; no edema; s/p right BKA Skin: warm and dry Objective Data Vital Signs Vital Signs: Vital Signs Temp Pulse Resp BP Pulse Ox O2 Del Method 01/01/24 10:00 86 136/79 01/01/24 10:19 99.7 F H 87 24 H 142/80 H 94 01/01/24 09:45 85 133/80 01/01/24 09:00 81 117/73 01/01/24 08:44 99.9 F H 81 24 H 127/74 97 01/01/24 08:48 96 Room Air 01/01/24 08:00 98.7 F 83 24 H 120/68 96 01/01/24 04:00 84 01/01/24 04:00 100 F H 85 20 128/69 97 01/01/24 04:00 Room Air 01/01/24 00:00 87 01/01/24 00:00 98.6 F 89 20 115/63 98 12/31/23 23:18 Room Air 12/31/23 20:00 91 12/31/23 20:00 Room Air 12/31/23 20:00 97.5 F L 91 20 128/71 96 Intake/Output Intake/Output: Intake & Output 12/29/23 12/30/23 12/31/23 01/01/24 23:59 23:59 23:59 23:59 Intake Total 500 2295 2030 Output Total 0 1000 Balance 500 2295 1030 Meds/Results Medications: Active Medications Generic Name Dose Route Start Last Admin Trade Name Freq PRN Reason Stop Dose Admin Aspirin 81 mg 12/31/23 09:00 01/01/24 08:32 Aspirin 81 Mg Enteric Tablet PO 81 mg QAM LISSET Administration Calcium Acetate 2,001 mg 01/01/24 13:00 01/01/24 18:33 Calcium Acetate 667 Mg Tablet PO 2,001 mg TID LISSET Administration Clopidogrel Bisulfate 75 mg 12/31/23 09:00 01/01/24 08:32 Clopidogrel Bisulfate 75 Mg Tablet PO 75 mg DAILY LISSET Administration Dextrose 12.5 gm 12/31/23 07:36 Dextrose 50% 25 Gm/50 Ml Syringe IV PUSH PRN PRN Hypoglycemia Protocol Epoetin Pawel-epbx 10,000 units 01/01/24 20:11 01/01/24 11:13 Epoetin Pawel-Epbx 10,000 Units/Ml Vial IV PUSH 01/01/24 20:12 10,000 units ONCE ONE Administration Ergocalciferol units 12/31/23 09:00 Ergocalciferol 50,000 Units Capsule PO DAILY LISSET Gabapentin 600 mg 12/31/23 21:00 12/31/23 21:43 Gabapentin 300 Mg Capsule PO 600 mg HS LISSET Administration Glucagon 1 mg 12/31/23 07:36 Glucagon For Inj 1 Mg Vial IM PRN PRN Hypoglycemia Protocol Glucose 15 gm 12/31/23 07:36 Glucose Oral Gel 15 Gm Of Glucse In 37.5 Gm Tube PO PRN PRN Hypoglycemia Protocol Heparin Sodium (Porcine) 5,000 units 12/31/23 09:00 01/01/24 09:00 Heparin Sodium 5,000 Units/Ml Vial SUB-Q 5,000 units Q12HR LISSET Administration Hydromorphone HCl 0.5 mg 12/31/23 12:47 12/31/23 13:17 Hydromorphone Hcl Inj (*Crx) 1 Mg/Ml Syr IV PUSH 0.5 mg Q4HR PRN Administration Pain Rated 7-10 Dextrose 1,000 mls @ 100 mls/hr 12/31/23 07:36 Dextrose 5% 1,000 Ml IVPB PRN PRN Hypoglycemia Protocol Albumin Human 50 mls @ 999 mls/hr 12/31/23 10:08 Albutein IVPB 01/30/24 10:07 Q10M PRN HYPOTENSION Insulin Aspart 2 - 5 units 12/31/23 12:00 01/01/24 18:44 Insulin Aspart (*Bkc) 100 Units/Ml SUB-Q Not Given Q6HR [facility] Protocol Magnesium Citrate 300 ml 01/02/24 01:00 Magnesium Citrate 300 Ml Btl PO 01/02/24 01:01 ONCE ONE Miscellaneous Information 0 each 01/01/24 00:01 Please Check Vit D Dose- This Is A Weekly Dose Not Daily. XX 01/31/24 00:00 CLARIFY [facility] Ondansetron HCl 4 mg 12/30/23 21:52 01/01/24 14:09 Ondansetron Inj 4 Mg/2 Ml Vial IV PUSH 4 mg Q4H PRN Administration Nausea Sodium Bicarbonate 650 mg 12/31/23 09:00 01/01/24 18:29 Sodium Bicarbonate Tab 650 Mg Tablet PO 650 mg BID LISSET Administration Radiology Results: ITS Impressions Head CT 12/30/23 18:14 Impression: No acute intracranial hemorrhage or suspicious mass effect. Chest X-Ray 12/31/23 10:09 IMPRESSION: 1. Central line tip at superior cavoatrial junction. Labs Labs: Laboratory Tests 01/01/24 05:37 01/01/24 06:48 Calcium 4.8 L* Microbiology 12/31/23 08:18 Blood Blood Culture - Preliminary 12/31/23 08:27 Blood Blood Culture - Preliminary
[2024-01-01] MEDS: TUBING, BLOOD PLUM PUMP TUBING 1 EACH XX ×2 (10:19→11:15)
--- NOTE | 2024-01-01 10:24 | PM.IMPN ---
Progress Note: A&P Assessment and Plan (1) Acute on chronic renal failure: Qualifiers: Acute renal failure type: unspecified Chronic kidney disease stage: stage 3 (moderate) Chronic kidney disease stage 3 subtype: unspecified whether 3a or 3b Qualified Code(s): N17.9 - Acute kidney failure, unspecified; N18.30 - Chronic kidney disease, stage 3 unspecified Code(s): N17.9 - Acute kidney failure, unspecified; N18.9 - Chronic kidney disease, unspecified Status: Acute (2) Acute hyperkalemia: Code(s): E87.5 - Hyperkalemia Status: Acute (3) Uremic encephalopathy: Code(s): G93.49 - Other encephalopathy; N19 - Unspecified kidney failure Status: Acute (4) Valtrex overdose: Qualifiers: Encounter type: initial encounter Injury intent: accidental or unintentional Qualified Code(s): T37.5X1A - Poisoning by antiviral drugs, accidental (unintentional), initial encounter Code(s): T37.5X1A - Poisoning by antiviral drugs, accidental (unintentional), initial encounter Status: Acute (5) Vision changes: Code(s): H53.9 - Unspecified visual disturbance Status: Acute (6) Anemia: Qualifiers: Anemia type: unspecified type Qualified Code(s): D64.9 - Anemia, unspecified Code(s): D64.9 - Anemia, unspecified Status: Acute (7) Hypothermia: Qualifiers: Encounter type: initial encounter Qualified Code(s): T68.XXXA - Hypothermia, initial encounter Code(s): T68.XXXA - Hypothermia, initial encounter Status: Acute Plan SHABNAM on CKD, severe acute hyperkalemia, severe metabolic acidosis, hypocalcemia Patient has CKD, creatinine is trending up slowly till May 24, 2023 creatinine 3.2 May 24, 2023 Upon arrival in the ED, creatinine bumped up to 16 wishes trending up since admission, K 7.3 Sodium bicarbonate is less than 5 ABG showed decompensated metabolic acidosis, pH 7.005 Patient received causing gluconate IV push, patient is on sodium bicarbonate IV drip 150 mg and 100 mL/hour Repeated calcium level 6.2 will provide ca gluconate 2 g IV push dialysis catheter is placed and patient is on emergent dialysis Continue bicarbonate drip Follow-up BMP after dialysis and daily, Consult screen tender, appreciate screen tender's input 12/31: Bicarbonate 20, discontinue sodium bicarbonate drip today, continue sodium bicarbonate p.o., severe hypocalcemia CT Ca4.8, increase calcium acetate to 2001 mg t.i.d. p.o., calcium gluconate 2 g IV push, K3.3 Acute metabolic encephalopathy Patient was lethargic but oriented UPA Patient is drowsy Likely secondary to uremia, electrolyte disorders Neuro check Mental status improving Severe anemia Hemoglobin 6.2 12/31 Below baseline Patient states he had black stools in past 1 week Follow-up stool guaiac, iron panel, ferritin level wnl Most likely resulting from acute renal failure but need to r/o GIB Patient received 2 pack RBC 12/31 Consult GI for evaluation treatment SIRS The patient was hypothermic but I suspect this is more due to environmental exposures the patient's room is quite cold and he has removing his clothes and blankets due to general discomfort and sensory input. obtain blood cultures to rule out underlying infection given mild leukocytosis. Patient was placed under Ayush Hugger for few hours and hypothermia has resolved. ESSENTIAL HYPERTENSION Hold losartan and hydrochlorothiazide because acute renal failure Patient is on hemodialysis Diabetes Start insulin sliding scale a.c. and q.h.s. consulted Dr. Perez, he considers patient does not need ICU monitoring Patient condition is critical, continue morning per patient in IMU Subjective Date/time seen: 01/01/24 10:24 Interval history: I saw examined patient today. Patient underwent hemodialysis today. Patient feels better today, 1 L fluids was removed. Patient denies abdomen pain but the patient stated he had black stools in past 1 week. Patient denies abdomen pain, nausea vomiting diarrhea today. Patient also denies chest pain. Patient is lethargic but alert oriented x3 Exam Narrative: GENERAL: Pleasant, in no acute distress. Well-nourished. - EYES: EOMI. Anicteric. Pale - HENT: Moist mucous membranes. - LUNGS: Clear to auscultation bilaterally, no wheezing, rhonchi, or rales. - CARDIOVASCULAR: Regular rate and rhythm. No murmur. No JVD. - ABDOMEN: Soft, non-tender and non-distended. No palpable masses. - EXTREMITIES: No edema. Right below-knee amputation. Non-tender. - NEUROLOGIC: No focal neurological deficits. CN II-XII grossly intact. - PSYCHIATRIC: Awake, Alert and oriented x 3. Appropriate mood and affect. - SKIN: No rashes or lesions. Warm. - LYMPH: No cervical lymphadenopathy. Objective Data Vital Signs Vital Signs: Vital Signs - 24 hr 12/31/23 10:51 12/31/23 11:00 12/31/23 11:15 Temperature 97.9 F Pulse Rate 71 71 74 Respiratory Rate 22 H Blood Pressure 88/55 L 102/59 L 113/62 Pulse Oximetry Oxygen Delivery 12/31/23 11:30 12/31/23 11:45 12/31/23 12:00 Temperature Pulse Rate 80 91 89 Respiratory Rate Blood Pressure 139/75 111/76 150/80 H Pulse Oximetry Oxygen Delivery 12/31/23 12:15 12/31/23 12:30 12/31/23 12:45 Temperature Pulse Rate 88 91 93 Respiratory Rate Blood Pressure 141/90 H 147/95 H 168/89 H Pulse Oximetry Oxygen Delivery 12/31/23 13:00 12/31/23 13:15 12/31/23 13:30 Temperature Pulse Rate 89 102 H 98 Respiratory Rate Blood Pressure 161/100 H 119/65 117/78 Pulse Oximetry Oxygen Delivery 12/31/23 15:10 12/31/23 13:45 12/31/23 14:02 Temperature 97.8 F Pulse Rate 99 96 98 Respiratory Rate 18 Blood Pressure 151/91 H 153/95 H 149/97 H Pulse Oximetry Oxygen Delivery 12/31/23 16:00 12/31/23 14:15 12/31/23 16:00 Temperature 98 F Pulse Rate 94 87 94 Respiratory Rate 24 H Blood Pressure 148/86 H Pulse Oximetry 100 Oxygen Delivery 12/31/23 18:00 12/31/23 20:00 12/31/23 20:00 Temperature 97.5 F L Pulse Rate 93 91 Respiratory Rate 20 Blood Pressure 128/71 Pulse Oximetry 96 Oxygen Delivery Room Air 12/31/23 20:00 12/31/23 23:18 01/01/24 00:00 Temperature 98.6 F Pulse Rate 91 89 Respiratory Rate 20 Blood Pressure 115/63 Pulse Oximetry 98 Oxygen Delivery Room Air 01/01/24 00:00 01/01/24 04:00 01/01/24 04:00 Temperature 100 F H Pulse Rate 87 85 Respiratory Rate 20 Blood Pressure 128/69 Pulse Oximetry 97 Oxygen Delivery Room Air 01/01/24 04:00 01/01/24 08:00 01/01/24 08:48 Temperature 98.7 F Pulse Rate 84 83 Respiratory Rate 24 H Blood Pressure 120/68 Pulse Oximetry 96 96 Oxygen Delivery Room Air 01/01/24 08:44 01/01/24 09:00 01/01/24 09:45 Temperature 99.9 F H Pulse Rate 81 81 85 Respiratory Rate 24 H Blood Pressure 127/74 117/73 133/80 Pulse Oximetry 97 Oxygen Delivery 01/01/24 10:19 01/01/24 09:15 01/01/24 09:30 Temperature 99.7 F H Pulse Rate 87 82 81 Respiratory Rate 24 H Blood Pressure 142/80 H 136/67 127/74 Pulse Oximetry 94 Oxygen Delivery Intake/Output Intake/Output: Intake & Output 12/29/23 12/30/23 12/31/23 01/01/24 23:59 23:59 23:59 23:59 Intake Total 500 2295 600 Output Total 0 Balance 500 2295 600 Meds/Results Medications: Active Medications Generic Name Dose Route Start Last Admin Trade Name Freq PRN Reason Stop Dose Admin Aspirin 81 mg 12/31/23 09:00 01/01/24 08:32 Aspirin 81 Mg Enteric Tablet PO 81 mg QAM LISSET Administration Calcium Acetate 667 mg 12/31/23 09:00 01/01/24 08:32 Calcium Acetate 667 Mg Tablet PO 667 mg TID LISSET Administration Clopidogrel Bisulfate 75 mg 12/31/23 09:00 01/01/24 08:32 Clopidogrel Bisulfate 75 Mg Tablet PO 75 mg DAILY LISSET Administration Dextrose 12.5 gm 12/31/23 07:36 Dextrose 50% 25 Gm/50 Ml Syringe IV PUSH PRN PRN Hypoglycemia Protocol Epoetin Pawel-epbx 10,000 units 01/01/24 20:11 Epoetin Pawel-Epbx 10,000 Units/Ml Vial IV PUSH 01/01/24 20:12 ONCE ONE Ergocalciferol units 12/31/23 09:00 Ergocalciferol 50,000 Units Capsule PO DAILY LISSET Gabapentin 600 mg 12/31/23 21:00 12/31/23 21:43 Gabapentin 300 Mg Capsule PO 600 mg HS LISSET Administration Glucagon 1 mg 12/31/23 07:36 Glucagon For Inj 1 Mg Vial IM PRN PRN Hypoglycemia Protocol Glucose 15 gm 12/31/23 07:36 Glucose Oral Gel 15 Gm Of Glucse In 37.5 Gm Tube PO PRN PRN Hypoglycemia Protocol Heparin Sodium (Porcine) 5,000 units 12/31/23 09:00 12/31/23 21:44 Heparin Sodium 5,000 Units/Ml Vial SUB-Q 5,000 units Q12HR LISSET Administration Hydromorphone HCl 0.5 mg 12/31/23 12:47 12/31/23 13:17 Hydromorphone Hcl Inj (*Crx) 1 Mg/Ml Syr IV PUSH 0.5 mg Q4HR PRN Administration Pain Rated 7-10 Sodium Bicarbonate 150 meq/ 1,100 mls @ 100 mls/hr 12/31/23 00:00 12/31/23 21:45 Dextrose IV CONT 100 mls/hr .Q11H LISSET Administration Dextrose 1,000 mls @ 100 mls/hr 12/31/23 07:36 Dextrose 5% 1,000 Ml IVPB PRN PRN Hypoglycemia Protocol Albumin Human 50 mls @ 999 mls/hr 12/31/23 10:08 Albutein IVPB 01/30/24 10:07 Q10M PRN HYPOTENSION Sodium Chloride 250 mls @ 30 mls/hr 01/01/24 06:25 Normal Saline Iv IV CONT 01/01/24 14:44 .Q8H20M STA Insulin Aspart 2 - 5 units 12/31/23 12:00 01/01/24 05:21 Insulin Aspart (*Bkc) 100 Units/Ml SUB-Q Not Given Q6HR [facility] Protocol Miscellaneous Information 0 each 01/01/24 00:01 Please Check Vit D Dose- This Is A Weekly Dose Not Daily. XX 01/31/24 00:00 CLARIFY LISSET Ondansetron HCl 4 mg 12/30/23 21:52 Ondansetron Inj 4 Mg/2 Ml Vial IV PUSH Q4H PRN Nausea Sodium Bicarbonate 650 mg 12/31/23 09:00 01/01/24 08:32 Sodium Bicarbonate Tab 650 Mg Tablet PO 650 mg BID LISSET Administration Radiology Results: ITS Impressions Head CT 12/30/23 18:14 Impression: No acute intracranial hemorrhage or suspicious mass effect. Chest X-Ray 12/31/23 10:09 IMPRESSION: 1. Central line tip at superior cavoatrial junction. Labs Labs: Laboratory Results - last 24 hr 12/31/23 12/31/23 12/31/23 10:27 11:28 14:34 WBC 5.6 RBC 2.39 L Hgb 7.1 L Hct 22.2 L MCV 92.9 MCH 29.7 MCHC 32.0 RDW 15.4 H Plt Count 178 MPV 11.8 H Immature Gran % (Auto) 2.0 H Neut % (Auto) 89.4 H Lymph % (Auto) 3.9 L [place] % (Auto) 4.3 Eos % (Auto) 0.2 Baso % (Auto) 0.2 Lymph # (Auto) 0.22 L [place] # (Auto) 0.2 Eos # (Auto) 0.0 Baso # (Auto) 0.0 Abs Immat Gran (auto) 0.11 H Absolute Neuts (auto) 5.0 Absolute Nucleated RBC 0.020 H Nucleated RBC % 0.4 H Puncture Site Right radial Right radial ABG pH 7.005 L* 7.374 ABG pCO2 18.0 L* 24.0 L ABG pO2 115.0 H 106.8 H ABG PO2/FiO2 Ratio 5.48 5.09 ABG HCO3 4.4 L 13.7 L ABG O2 Saturation 95.8 97.9 ABG O2 Content 10.3 L 10.3 L ABG Base Excess -24.8 -10.4 A-a Gradient 13.2 14.2 Oxyhemoglobin 95.6 96.5 Total Hemoglobin 7.5 L* 7.4 L* O2 Delivery Device Room air Room air O2 Liters/Min Not Reportable Not Reportable FiO2 21 21 Sodium 135 L Potassium 5.5 H Chloride 105 Carbon Dioxide 7 L Anion Gap 23 H BUN 113 H D Creatinine 13.80 H Estim Creat Clear Calc 9 Estimated GFR 4 L Glucose 139 H POC Capillary Glucose Calcium 6.3 L Blood Type Antibody Screen Crossmatch 12/31/23 12/31/23 12/31/23 14:47 16:21 20:04 WBC RBC Hgb Hct MCV MCH MCHC RDW Plt Count MPV Immature Gran % (Auto) Neut % (Auto) Lymph % (Auto) [place] % (Auto) Eos % (Auto) Baso % (Auto) Lymph # (Auto) [place] # (Auto) Eos # (Auto) Baso # (Auto) Abs Immat Gran (auto) Absolute Neuts (auto) Absolute Nucleated RBC Nucleated RBC % Puncture Site ABG pH ABG pCO2 ABG pO2 ABG PO2/FiO2 Ratio ABG HCO3 ABG O2 Saturation ABG O2 Content ABG Base Excess A-a Gradient Oxyhemoglobin Total Hemoglobin O2 Delivery Device O2 Liters/Min FiO2 Sodium 138 Potassium 3.3 L Chloride 103 Carbon Dioxide 12 L Anion Gap 23 H BUN 69 H D Creatinine 9.50 H Estim Creat Clear Calc 13 Estimated GFR 6 L Glucose 99 POC Capillary Glucose 102 136 H Calcium 6.7 L Blood Type Antibody Screen Crossmatch 01/01/24 01/01/24 01/01/24 05:37 06:48 07:33 WBC 4.1 L RBC 2.15 L Hgb 6.2 L* Hct 19.2 L* MCV 89.3 MCH 28.8 MCHC 32.3 RDW 15.6 H Plt Count 153 MPV 10.8 H Immature Gran % (Auto) 1.5 H Neut % (Auto) 70.0 Lymph % (Auto) 13.3 L [place] % (Auto) 14.0 H Eos % (Auto) 1.0 Baso % (Auto) 0.2 Lymph # (Auto) 0.54 L [place] # (Auto) 0.6 Eos # (Auto) 0.0 Baso # (Auto) 0.0 Abs Immat Gran (auto) 0.06 H Absolute Neuts (auto) 2.8 Absolute Nucleated RBC 0.020 H Nucleated RBC % 0.5 H Puncture Site ABG pH ABG pCO2 ABG pO2 ABG PO2/FiO2 Ratio ABG HCO3 ABG O2 Saturation ABG O2 Content ABG Base Excess A-a Gradient Oxyhemoglobin Total Hemoglobin O2 Delivery Device O2 Liters/Min FiO2 Sodium 135 L Potassium 3.3 L Chloride 99 Carbon Dioxide 20 L Anion Gap 16 H BUN 77 H Creatinine 9.50 H Estim Creat Clear Calc 13 Estimated GFR 6 L Glucose 140 H POC Capillary Glucose 165 H Calcium 4.8 L* Blood Type Antibody Screen Crossmatch 01/01/24 08:15 WBC RBC Hgb Hct MCV MCH MCHC RDW Plt Count MPV Immature Gran % (Auto) Neut % (Auto) Lymph % (Auto) [place] % (Auto) Eos % (Auto) Baso % (Auto) Lymph # (Auto) [place] # (Auto) Eos # (Auto) Baso # (Auto) Abs Immat Gran (auto) Absolute Neuts (auto) Absolute Nucleated RBC Nucleated RBC % Puncture Site ABG pH ABG pCO2 ABG pO2 ABG PO2/FiO2 Ratio ABG HCO3 ABG O2 Saturation ABG O2 Content ABG Base Excess A-a Gradient Oxyhemoglobin Total Hemoglobin O2 Delivery Device O2 Liters/Min FiO2 Sodium Potassium Chloride Carbon Dioxide Anion Gap BUN Creatinine Estim Creat Clear Calc Estimated GFR Glucose POC Capillary Glucose Calcium Blood Type A Positive Antibody Screen Negative Crossmatch See Detail
[2024-01-01] MEDS: EPOETIN ALFA-EPBX 10,000 UNITS/ML VIAL 10000 UNITS IV PUSH (11:13)
[2024-01-01] MEDS: SODIUM CHLORIDE 0.9% IV 250 ML 30 ML IV CONT (11:59)
[2024-01-01] MEDS: HEPARIN SODIUM 1,000 UNITS/ML VIAL 2000 UNITS IV PUSH (12:50)
[2024-01-01 13:30] LABS: Glucose Point of Care 161 mg/dl (65-105)
[2024-01-01] MEDS: CALCIUM ACETATE 667 MG TABLET 2001 MG PO ×2 (14:05→18:33)
[2024-01-01] MEDS: ONDANSETRON INJ 4 MG/2 ML VIAL IV PUSH (14:09)
--- NOTE | 2024-01-01 15:54 | WPDGICN ---
Assessment and Plan Assessment and plan (1) Acute on chronic anemia: Code(s): D64.9 - Anemia, unspecified Status: Acute Assessment and Plan: dark stools most likely anemia from worsening renal failure but will evaluate also with egd and colonoscopy to assess if gi source keep hgb>7 (2) Acute on chronic renal failure: Qualifiers: Acute renal failure type: unspecified Chronic kidney disease stage: stage 3 (moderate) Chronic kidney disease stage 3 subtype: unspecified whether 3a or 3b Qualified Code(s): N17.9 - Acute kidney failure, unspecified; N18.30 - Chronic kidney disease, stage 3 unspecified Code(s): N17.9 - Acute kidney failure, unspecified; N18.9 - Chronic kidney disease, unspecified Status: Acute Assessment and Plan: just started on dialysis (3) Uremic encephalopathy: Code(s): G93.49 - Other encephalopathy; N19 - Unspecified kidney failure Status: Acute Assessment and Plan: improved after dialysis (4) Muscular dystrophy: Code(s): G71.00 - Muscular dystrophy, unspecified Status: Acute GI Consult Note Consult date/time: 01/01/24 15:54 Reason for consult: acute on chronic anemia HPI: Jose Roberto Maria is a 43 year old male with history of chronic kidney disease stage 4, peripheral artery disease s/p right BKA, diabetic gastroparesis, diabetes mellitus, essential hypertension and Hobbs's muscular dystrophy admitted to hospital after generalized weakness and lethargy. He also has chronic anemia and this admission hgb ~8 but repeat down to 6.2. He was just started on dialysis after got IV access by surgery because uremia and hyperkalemia. He is feeling better. He noted darker stools for last 2 weeks. He says that about 2- years ago had both EGD and colonoscopy when he was diagnosed with gastroparesis. Review of Systems Constitutional: Constitutional: Reports fatigue and Reports lethargy Eyes: Eyes: Denies blurry vision ENT: Reports Normal hearing present Cardiovascular: Cardiovascular: Denies chest pain Respiratory: Respiratory: Reports dyspnea on exertion Gastrointestinal: Gastrointestinal: Denies abdominal pain Genitourinary: Comments: just started on dialysis Musculoskeletal: Musculoskeletal: Denies neck pain Integumentary/Breasts: Skin/Breast: Denies rash Neurologic: Denies Abnormal speech present [facility] Past Medical History Medical History (Updated 01/01/24 @ 15:58 by Magdaleno Reich MD) Acute on chronic anemia Arthritis Asthma Hobbs muscular dystrophy Chronic kidney disease Chronic pain Club foot of both lower extremities Diabetes Food allergy History of adverse reaction to anesthesia HTN (hypertension) Obesity (BMI 30-39.9) Peripheral vascular disease Surgical History Surgical History Hx of amputation below knee Right below knee amputation 05/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 He has his son who is 20 years old. He is currently working for [email or web address]. He did smoke a few cigarettes a day for approximately 5 years but quit smoking many years ago. He does not use alcohol or illicit substances. Code status: Full code Surrogate decision maker: Smoking packs per day: 0.1 Smoking cigarettes per day: 2.0 Years smoked: 4 Smoking pack-years: 0.40 Smoking status: Former smoker Second hand tobacco smoke exposure: Yes Alcohol intake: former Alcohol use details: 1/YEAR Substance use: never Substance use type: does not use Do You Feel Safe in your Home?: Yes Lack of Transportation: No Lack of Food: Never True Current Housing: I Have Housing Concerned About Future Housing: No Difficulty Paying Gas/Electric Bills: No Difficulty Paying for Meds: No Currently Unemployed: No Education: Associate Degree Difficulty w/ Childcare or Family Care: No Living arrangements: with family Gender identity (if verbalized by the patient): Male Spiritual care concerns: No Meds Home Medications and Allergies Home Medications Medication Instructions Recorded Confirmed Type linagliptin 5 mg tablet (Tradjenta) 5 mg PO HS 10/25/19 12/30/23 History atorvastatin 10 mg tablet 10 mg PO HS 04/07/22 12/30/23 History gabapentin 300 mg capsule 600 mg PO HS 04/07/22 12/30/23 History losartan 100 mg tablet 100 mg PO HS 01/16/23 12/30/23 History aspirin 81 mg tablet,delayed 81 mg PO QAM #30 tabs 03/03/23 12/30/23 Rx release clopidogrel 75 mg tablet 75 mg PO DAILY 12/30/23 12/30/23 History ergocalciferol (vitamin D2) 1,250 1,250 mcg PO DAILY 12/30/23 12/30/23 History mcg (50,000 unit) capsule hydrochlorothiazide 25 mg tablet 25 mg PO DAILY 12/30/23 12/30/23 History semaglutide 7 mg tablet (Rybelsus) 7 mg PO DAILY 12/30/23 12/30/23 History Allergies Allergy/AdvReac Type Severity Reaction Status Date / Time insulin detemir Allergy Unknown Other Verified 12/30/23 22:30 [From Levemir U-100 Insulin] latex Allergy Unknown Anaphylaxis Verified 12/30/23 22:30 metformin AdvReac Unknown Gastrointestinal Verified 12/30/23 22:30 Upset hydrochlorothiazide AdvReac Dizziness Verified 12/30/23 22:30 Vital Signs Vital Signs - 24 hr 12/31/23 16:00 12/31/23 16:00 12/31/23 18:00 Temperature 98 F Pulse Rate 94 94 93 Respiratory Rate 24 H Blood Pressure 148/86 H Pulse Oximetry 100 Oxygen Delivery 12/31/23 20:00 12/31/23 20:00 12/31/23 20:00 Temperature 97.5 F L Pulse Rate 91 91 Respiratory Rate 20 Blood Pressure 128/71 Pulse Oximetry 96 Oxygen Delivery Room Air 12/31/23 23:18 01/01/24 00:00 01/01/24 00:00 Temperature 98.6 F Pulse Rate 89 87 Respiratory Rate 20 Blood Pressure 115/63 Pulse Oximetry 98 Oxygen Delivery Room Air 01/01/24 04:00 01/01/24 04:00 01/01/24 04:00 Temperature 100 F H Pulse Rate 85 84 Respiratory Rate 20 Blood Pressure 128/69 Pulse Oximetry 97 Oxygen Delivery Room Air 01/01/24 08:00 01/01/24 08:48 01/01/24 08:44 Temperature 98.7 F 99.9 F H Pulse Rate 83 81 Respiratory Rate 24 H 24 H Blood Pressure 120/68 127/74 Pulse Oximetry 96 96 97 Oxygen Delivery Room Air 01/01/24 09:00 01/01/24 09:45 01/01/24 10:19 Temperature 99.7 F H Pulse Rate 81 85 87 Respiratory Rate 24 H Blood Pressure 117/73 133/80 142/80 H Pulse Oximetry 94 Oxygen Delivery 01/01/24 10:00 01/01/24 10:33 01/01/24 10:45 Temperature 98.4 F Pulse Rate 86 84 85 Respiratory Rate 16 Blood Pressure 136/79 142/79 H 147/82 H Pulse Oximetry 97 Oxygen Delivery 01/01/24 10:52 01/01/24 11:15 01/01/24 11:00 Temperature 98.5 F 99.3 F Pulse Rate 85 86 80 Respiratory Rate 16 16 Blood Pressure 131/81 155/81 H 143/80 H Pulse Oximetry 97 97 Oxygen Delivery 01/01/24 11:30 01/01/24 11:30 01/01/24 12:00 Temperature 99.1 F 98.4 F Pulse Rate 88 88 88 Respiratory Rate 18 18 Blood Pressure 151/83 H 151/83 H 143/70 H Pulse Oximetry 97 97 Oxygen Delivery 01/01/24 12:00 01/01/24 12:15 01/01/24 12:41 Temperature 100 F H Pulse Rate 88 87 90 Respiratory Rate 16 Blood Pressure 143/70 H 157/79 H 151/85 H Pulse Oximetry 97 Oxygen Delivery 01/01/24 09:15 01/01/24 09:30 01/01/24 10:15 Temperature Pulse Rate 82 81 90 Respiratory Rate Blood Pressure 136/67 127/74 143/88 H Pulse Oximetry Oxygen Delivery 01/01/24 10:19 01/01/24 10:30 01/01/24 10:52 Temperature Pulse Rate 87 84 85 Respiratory Rate Blood Pressure 142/80 H 136/75 131/81 Pulse Oximetry Oxygen Delivery 01/01/24 11:15 01/01/24 11:45 01/01/24 12:30 Temperature Pulse Rate 86 88 88 Respiratory Rate Blood Pressure 155/81 H 143/71 H 151/79 H Pulse Oximetry Oxygen Delivery 01/01/24 12:35 01/01/24 12:00 Temperature 99.2 F Pulse Rate 87 84 Respiratory Rate 20 Blood Pressure 156/83 H 146/82 H Pulse Oximetry 97 Oxygen Delivery Exam Const: General: alert; No acute distress Orientation/consciousness: patient oriented x3 HENMT: Head: normocephalic and atraumatic Ears: hearing grossly normal bilaterally Mouth: Yes Normal oral and palatal mucosa present Eyes: General: appearance normal, both eyes and all related structures Neck: Neck: normal visual inspection and supple Chest: Chest palpation & inspection: normal inspection of the chest Resp: Effort & Inspection: normal respiratory effort and able to speak in complete sentences Auscultation: clear to auscultation bilaterally Cardio: Jugular venous distension: no JVD Rate: regular rate Rhythm: regular rhythm GI: Inspection: normal to inspection GI Palp: Yes Soft to palpation and No Tenderness to palpation present (GI) Auscultation: normal bowel sounds : General: Yes no CVA tenderness Back/Spine/Pelvis: Back: no CVA tenderness Skin: General skin exam: normal color Neuro: General: patient oriented x3 Cranial nerves: Yes Equal, round and reactive pupils present Speech: normal speech Extrem: Other: right BKA Results Labs 01/01/24 05:37 01/01/24 06:48 Labs: Short CBC 01/01/24 Range/Units 05:37 WBC 4.1 L (4.5-10.0) K/mm3 Hgb 6.2 L* (14.0-18.0) g/dL Hct 19.2 L* (42.0-52.0) % Plt Count 153 (150-375) k/mm3 BMP 12/31/23 01/01/24 16:21 06:48 Sodium 138 135 L Potassium 3.3 L 3.3 L Chloride 103 99 Carbon Dioxide 12 L 20 L BUN 69 H D 77 H Creatinine 9.50 H 9.50 H Glucose 99 140 H Calcium 6.7 L 4.8 L*
[2024-01-01 15:57] LABS: Glucose Point of Care 150 mg/dl (65-105)
[2024-01-01] MEDS: BISACODYL 5 MG TABLET EC 20 MG PO (18:29)
[2024-01-01] MEDS: polyethylene glycoL 3350 238 GM BOTTLE PO (18:33)
[2024-01-01 19:59] LABS: Glucose Point of Care 175 mg/dl (65-105)
[2024-01-01] MEDS: GABAPENTIN 300 MG CAPSULE 600 MG PO (21:01)
[2024-01-02] VITALS (13 sets, daily range): BP systolic 99–160; BP diastolic 53–89; PULSE 66–88; RESP 16–21; TEMP 36.1–37; O2SAT 95–100
[2024-01-02] MEDS: MAGNESIUM CITRATE 300 ML BTL PO (01:00)
[2024-01-02 03:40] LABS: Protein, Total 5.9 g/dL (6.1-8.1)
[2024-01-02 07:51] LABS: Glucose Point of Care 137 mg/dl (65-105)
[2024-01-02 08:28] LABS: Basophils Percent Auto 0.5 % (0.2-1.2); Eosinophils Absolute Auto 0.2 K/mm3 (0-0.3); Eosinophils Percent Auto 3.7 % (0-4.4); Hematocrit 24.7 % (42.0-52.0); Immature Granulocyte Absolute 0.11 K/mm3 (0.00-0.031); Immature Granulocyte Percent A 1.8 % (0-0.5); Lymphocytes Absolute Auto 0.72 K/mm3 (0.9-3.2); Lymphocytes Percent Auto 11.6 % (18.3-44.2); Mean Corpuscular HGB Conc 32.4 g/dl (32-36); Mean Corpuscular Hemoglobin 29.2 pg (26-34); Mean Corpuscular Volume 90.1 fl (80-100); Mean Platelet Volume 10.7 fl (7.4-10.4); Monocytes Absolute Auto 0.8 K/mm3 (0.1-0.6); Monocytes Percent Auto 13.2 % (2.6-8.5); Neutrophils Absolute Auto 4.3 K/mm3 (1.3-6.7); Neutrophils Percent Auto 69.2 % (45.5-73.1); Platelet Count Result 166 k/mm3 (150-375); Red Blood Count 2.74 M/mm3 (4.6-6.20); White Blood Count 6.2 K/mm3 (4.5-10.0)
[2024-01-02 08:43] LABS: Alanine Aminotransferase 12 U/L (6-50); Albumin Level 3.1 g/dL (3.5-5.1); Alkaline Phosphatase 111 U/L (38-126); Anion Gap 10 mmol/L (4-12); Aspartate Amino Transferase 17 U/L (17-59); Blood Urea Nitrogen 41 mg/dL (9-20); Calcium 5.8 mg/dL (8.4-10.2); Carbon Dioxide 25 mmol/L (22-30); Chloride 97 mmol/L (98-107); Estimated CRCL calculation 19 ml/min; Estimated Glomerular Filt Rate 10; Glucose 123 mg/dL (65-110); Sodium 132 mmol/L (137-145)
[2024-01-02] MEDS: CALCIUM ACETATE 667 MG TABLET 2001 MG PO ×3 (09:21→18:31)
[2024-01-02] MEDS: SODIUM BICARBONATE TAB 650 MG TABLET PO (09:21)
--- NOTE | 2024-01-02 10:03 | PC.NURSE ---
This RN unable to reach Lira by phone. Awaiting call back to report Calcium level.
--- NOTE | 2024-01-02 10:09 | PC.NURSE ---
Verbally notified Dr Lira of Calcium level. Also received order to non-admin plavix, aspirin, and heparin today. Order read back and verified.
--- NOTE | 2024-01-02 10:43 | P.PNNP_ITS ---
Progress Note: A&P Assessment and Plan (1) SHABNAM (acute kidney injury): Code(s): N17.9 - Acute kidney failure, unspecified Status: Acute Assessment and Plan: * etiology not clear * however, complicated by hyperkaleia, acidosis, and possible uremia * proceed with dialysis on 11/29 and 11/30 * urine studies not done -- will reorder * given rapid decline in renal function, checking serologies * follow trend of repeat labs and UOP (2) Chronic kidney disease, stage IV (severe): Code(s): N18.4 - Chronic kidney disease, stage 4 (severe) Status: Chronic Assessment and Plan: * last creatinine was ~ 3.0 - 3.2mg/dl in May 2023 * not clear what true baseline creatinine really is * try to obtain records from PCP * suspect an element of CKD from HTN, DM, and vascular disease (3) Acute hyperkalemia: Code(s): E87.5 - Hyperkalemia Status: Acute Assessment and Plan: * resolved * as noted on admission * resistant to medical therapy * dialysis today to treat * follow repeat K+ levels (4) Uremic encephalopathy: Code(s): G93.49 - Other encephalopathy; N19 - Unspecified kidney failure Status: Acute Assessment and Plan: * clinical improvement * suspected based on slow response and admission symptoms * dialysis ongoing * follow mentation (5) Acidosis: Code(s): E87.20 - Acidosis, unspecified Status: Acute Assessment and Plan: * better * as noted by admission labs * presumably due to #1 * follow trend (6) Anemia: Qualifiers: Anemia type: unspecified type Qualified Code(s): D64.9 - Anemia, unspecified Code(s): D64.9 - Anemia, unspecified Status: Acute Assessment and Plan: * presumably worsened by SHABNAM and CKD * PRBC transfusion per protocol * follow trend of H/H * GI following as well * IVAN with dialysis (7) HTN (hypertension): Qualifiers: Hypertension type: primary hypertension Qualified Code(s): I10 - Essential (primary) hypertension Code(s): I10 - Essential (primary) hypertension Status: Chronic Assessment and Plan: * reasonable control at this time * follow trend of hemodynamics * diuretics and ARB on hold (8) Diabetes: Qualifiers: Diabetes mellitus type: type 2 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 Subjective Date/time seen: 01/02/24 10:43 Interval history: Follow-up for acute kidney injury/acute renal failure on chronic kidney disease. Tolerated dialysis treatment yesterday along with PRBC transfusion without any issues or problems; seen by GI given drop in H/H and noted plans for EGD and colonoscopy later today; no apparent distress noted. Exam Narrative: General: WD/WN male in NAD Heart: normal S1 and S2; no rub Lungs: clear to auscultation Abdomen: soft, nontender, nondistended, positive bowel sounds Extremities: no cyanosis or clubbing; no edema; s/p right BKA Skin: warm and intact Objective Data Vital Signs Vital Signs: Vital Signs Temp Pulse Resp BP Pulse Ox O2 Del Method 01/02/24 10:30 98.1 F 80 18 153/67 H 95 01/02/24 09:10 87 01/02/24 08:00 75 01/02/24 08:00 Room Air 01/02/24 08:00 98.6 F 75 18 137/63 98 01/02/24 04:00 74 01/02/24 04:00 Room Air 01/02/24 04:00 98.6 F 74 16 144/80 H 100 01/02/24 00:00 80 01/01/24 23:42 98.6 F 77 16 142/74 H 100 01/01/24 23:35 Room Air 01/01/24 20:00 78 01/01/24 19:58 Room Air 01/01/24 19:37 99.2 F 81 18 155/81 H 99 Intake/Output Intake/Output: Intake & Output 12/30/23 12/31/23 01/01/24 01/02/24 23:59 23:59 23:59 23:59 Intake Total 500 2295 1980 2550 Output Total 0 1000 650 Balance 500 2295 980 1900 Meds/Results Medications: Active Medications Generic Name Dose Route Start Last Admin Trade Name Freq PRN Reason Stop Dose Admin Aspirin 81 mg 12/31/23 09:00 01/02/24 10:11 Aspirin 81 Mg Enteric Tablet PO Not Given QAM [facility] Calcium Acetate 2,001 mg 01/01/24 13:00 01/02/24 18:31 Calcium Acetate 667 Mg Tablet PO 2,001 mg TID [facility]IS[facility] Administration Calcium Carbonate 1,000 mg 01/02/24 21:00 Calcium Carbonate (Oscal) 500 Mg Tablet PO 1000,1500,2100 [facility] Clopidogrel Bisulfate 75 mg 12/31/23 09:00 01/02/24 10:11 Clopidogrel Bisulfate 75 Mg Tablet PO Not Given DAILY [facility] Dextrose 12.5 gm 12/31/23 07:36 Dextrose 50% 25 Gm/50 Ml Syringe IV PUSH PRN PRN Hypoglycemia Protocol Ergocalciferol 50,000 units 01/03/24 09:00 Ergocalciferol 50,000 Units Capsule PO Sa@0900 [facility] Gabapentin 600 mg 12/31/23 21:00 01/01/24 21:01 Gabapentin 300 Mg Capsule PO 600 mg HS [facility]ISSET Administration Glucagon 1 mg 12/31/23 07:36 Glucagon For Inj 1 Mg Vial IM PRN PRN Hypoglycemia Protocol Glucose 15 gm 12/31/23 07:36 Glucose Oral Gel 15 Gm Of Glucse In 37.5 Gm Tube PO PRN PRN Hypoglycemia Protocol Heparin Sodium (Porcine) 5,000 units 12/31/23 09:00 01/02/24 10:11 Heparin Sodium 5,000 Units/Ml Vial SUB-Q Not Given Q12HR [facility] Hydromorphone HCl 0.5 mg 12/31/23 12:47 12/31/23 13:17 Hydromorphone Hcl Inj (*Crx) 1 Mg/Ml Syr IV PUSH 0.5 mg Q4HR PRN Administration Pain Rated 7-10 Dextrose 1,000 mls @ 100 mls/hr 12/31/23 07:36 Dextrose 5% 1,000 Ml IVPB PRN PRN Hypoglycemia Protocol Albumin Human 50 mls @ 999 mls/hr 12/31/23 10:08 Albutein IVPB 01/30/24 10:07 Q10M PRN HYPOTENSION Insulin Aspart 2 - 5 units 12/31/23 12:00 01/02/24 17:04 Insulin Aspart (*Bkc) 100 Units/Ml SUB-Q Not Given Q6HR [facility] Protocol Ondansetron HCl 4 mg 12/30/23 21:52 01/01/24 14:09 Ondansetron Inj 4 Mg/2 Ml Vial IV PUSH 4 mg Q4H PRN Administration Nausea Radiology Results: ITS Impressions Head CT 12/30/23 18:14 Impression: No acute intracranial hemorrhage or suspicious mass effect. Chest X-Ray 01/02/24 17:12 IMPRESSION: 1. Central line tip in the superior vena cava. 2. Mild atelectasis in right mid lung zone. Labs Labs: Laboratory Tests 01/02/24 07:59 01/02/24 07:59 Calcium 5.8 L* Total Bilirubin 1.0 AST 17 ALT 12 Alkaline Phosphatase 111 Total Protein 6.0 L Albumin 3.1 L
[2024-01-02 11:52] LABS: Glucose Point of Care 129 mg/dl (65-105)
[2024-01-02] MEDS: SODIUM CHLORIDE 0.9% IV 500 ML 10 ML IV CONT (12:23)
[2024-01-02 12:30] LABS: Glucose Point of Care 113 mg/dl (65-105)
--- NOTE | 2024-01-02 12:47 | WPDANESEPPF ---
Anes - Initial Pre Proc Eval Procedure: Operation Date: 01/02/24 14:00 Proposed Procedures p Esophagogastroduodenoscopy & Colonoscopy - Akbar Lincoln MD Date/Time: 01/02/24 12:47 Surgeon: Jody Mckeon DO Pre Op Diagnosis: Chronic kidney disease, hyperkalema, uremic enceph Patient Data Age: 43 Gender: M Height: 1.8 m Weight: 126.6 kg Last Vital Signs Temp 36.1 C L 01/02/24 12:18 Pulse 76 01/02/24 12:18 Resp 20 01/02/24 12:18 BP 145/75 H 01/02/24 12:18 Pulse Ox 96 01/02/24 12:18 O2 Del Method Room Air 01/02/24 12:18 Allergies Allergy/AdvReac Type Severity Reaction Status Date / Time insulin detemir Allergy Unknown Other Verified 01/02/24 12:16 [From Levemir U-100 Insulin] latex Allergy Unknown Anaphylaxis Verified 01/02/24 12:16 metformin AdvReac Unknown Gastrointestinal Verified 01/02/24 12:16 Upset hydrochlorothiazide AdvReac Dizziness Verified 01/02/24 12:16 Home Medications Medication Instructions Recorded Confirmed Type linagliptin 5 mg tablet (Tradjenta) 5 mg PO HS 10/25/19 12/30/23 History atorvastatin 10 mg tablet 10 mg PO HS 04/07/22 12/30/23 History gabapentin 300 mg capsule 600 mg PO HS 04/07/22 12/30/23 History losartan 100 mg tablet 100 mg PO HS 01/16/23 12/30/23 History aspirin 81 mg tablet,delayed 81 mg PO QAM #30 tabs 03/03/23 12/30/23 Rx release clopidogrel 75 mg tablet 75 mg PO DAILY 12/30/23 12/30/23 History ergocalciferol (vitamin D2) 1,250 1,250 mcg PO DAILY 12/30/23 12/30/23 History mcg (50,000 unit) capsule hydrochlorothiazide 25 mg tablet 25 mg PO DAILY 12/30/23 12/30/23 History semaglutide 7 mg tablet (Rybelsus) 7 mg PO DAILY 12/30/23 12/30/23 History Laboratory Tests 12/31/23 01/01/24 01/01/24 04:29 13:15 15:33 WBC RBC Hgb Hct MCV MCH MCHC RDW Plt Count MPV Immature Gran % (Auto) Neut % (Auto) Lymph % (Auto) [place] % (Auto) Eos % (Auto) Baso % (Auto) Lymph # (Auto) [place] # (Auto) Eos # (Auto) Baso # (Auto) Abs Immat Gran (auto) Absolute Neuts (auto) Absolute Nucleated RBC Nucleated RBC % Sodium Potassium Chloride Carbon Dioxide Anion Gap BUN Creatinine Estim Creat Clear Calc Estimated GFR Glucose POC Capillary Glucose 161 H mg/dl 150 H mg/dl (65-105) (65-105) Calcium Total Bilirubin AST ALT Alkaline Phosphatase Total Protein 5.9 L g/dL (6.1-8.1) Albumin 01/01/24 01/02/24 01/02/24 19:36 07:25 07:59 WBC 6.2 K/mm3 (4.5-10.0) RBC 2.74 L M/mm3 (4.6-6.20) Hgb 8.0 L g/dL (14.0-18.0) Hct 24.7 L % (42.0-52.0) MCV 90.1 fl (80-100) MCH 29.2 pg (26-34) MCHC 32.4 g/dl (32-36) RDW 15.0 H % (11.5-14.5) Plt Count 166 k/mm3 (150-375) MPV 10.7 H fl (7.4-10.4) Immature Gran % (Auto) 1.8 H % (0-0.5) Neut % (Auto) 69.2 % (45.5-73.1) Lymph % (Auto) 11.6 L % (18.3-44.2) [place] % (Auto) 13.2 H % (2.6-8.5) Eos % (Auto) 3.7 % (0-4.4) Baso % (Auto) 0.5 % (0.2-1.2) Lymph # (Auto) 0.72 L K/mm3 (0.9-3.2) [place] # (Auto) 0.8 H K/mm3 (0.1-0.6) Eos # (Auto) 0.2 K/mm3 (0-0.3) Baso # (Auto) 0.0 K/mm3 (0.0-0.1) Abs Immat Gran (auto) 0.11 H K/mm3 (0.00-0.031) Absolute Neuts (auto) 4.3 K/mm3 (1.3-6.7) Absolute Nucleated RBC 0.000 K/mm3 (0.0-0.012) Nucleated RBC % 0.0 % (0.0-0.2) Sodium 132 L mmol/L (137-145) Potassium 3.0 L mmol/L (3.4-5.0) Chloride 97 L mmol/L (98-107) Carbon Dioxide 25 mmol/L (22-30) Anion Gap 10 mmol/L (4-12) BUN 41 H D mg/dL (9-20) Creatinine 6.30 H mg/dL (0.7-1.3) Estim Creat Clear Calc 19 ml/min Estimated GFR 10 L (59 - ) Glucose 123 H mg/dL (65-110) POC Capillary Glucose 175 H mg/dl 137 H mg/dl (65-105) (65-105) Calcium 5.8 L* mg/dL (8.4-10.2) Total Bilirubin 1.0 mg/dL (0.2-1.3) AST 17 U/L (17-59) ALT 12 U/L (6-50) Alkaline Phosphatase 111 U/L (38-126) Total Protein 6.0 L g/dL (6.3-8.2) Albumin 3.1 L g/dL (3.5-5.1) 01/02/24 01/02/24 11:04 12:21 WBC RBC Hgb Hct MCV MCH MCHC RDW Plt Count MPV Immature Gran % (Auto) Neut % (Auto) Lymph % (Auto) [place] % (Auto) Eos % (Auto) Baso % (Auto) Lymph # (Auto) [place] # (Auto) Eos # (Auto) Baso # (Auto) Abs Immat Gran (auto) Absolute Neuts (auto) Absolute Nucleated RBC Nucleated RBC % Sodium Potassium Chloride Carbon Dioxide Anion Gap BUN Creatinine Estim Creat Clear Calc Estimated GFR Glucose POC Capillary Glucose 129 H mg/dl 113 H mg/dl (65-105) (65-105) Calcium Total Bilirubin AST ALT Alkaline Phosphatase Total Protein Albumin Patient hx anesthesia problems: none Family hx anesthesia problems: none Results Review: All pre-operative results and documents have been reviewed as part of the pre-operative evaluation. [facility] Past Medical History Medical History Acute on chronic anemia Arthritis Asthma Hobbs muscular dystrophy Chronic kidney disease Chronic pain Club foot of both lower extremities Diabetes Food allergy History of adverse reaction to anesthesia HTN (hypertension) Obesity (BMI 30-39.9) Peripheral vascular disease Surgical History Surgical History Hx of amputation below knee Right below knee amputation 05/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 He has his son who is 20 years old. He is currently working for [employer]. He did smoke a few cigarettes a day for approximately 5 years but quit smoking many years ago. He does not use alcohol or illicit substances. Code status: Full code Surrogate decision maker: Smoking packs per day: 0.1 Smoking cigarettes per day: 2.0 Years smoked: 4 Smoking pack-years: 0.40 Smoking status: Former smoker Second hand tobacco smoke exposure: Yes Alcohol intake: former Alcohol use details: 1/YEAR Substance use: never Substance use type: does not use Do You Feel Safe in your Home?: Yes Lack of Transportation: No Lack of Food: Never True Current Housing: I Have Housing Concerned About Future Housing: No Difficulty Paying Gas/Electric Bills: No Difficulty Paying for Meds: No Currently Unemployed: No Education: Associate Degree Difficulty w/ Childcare or Family Care: No Living arrangements: with family Gender identity (if verbalized by the patient): Male Spiritual care concerns: No Anes - Eval Final PreProcedure Day of Procedure 01/02/24 12:47 Patient weight: obese Heart: regular rate and rhythm Lungs: clear to auscultation Airway: Mallampati scale class II Neurological: alert and oriented Last oral intake: >/= 8 hours ASA classification: IV Emergent: no Anesthetic plan: proceed Anesthesia type and monitoring: general GIVS and standard monitoring Results Review: All pre-operative results and documents have been reviewed as part of the pre-operative evaluation. Informed Consent: The patient's anesthetic plan and its attendant risks and benefits were discussed with the patient/family/POA. Questions were solicited and answers provided to the satisfaction of the patient/family/POA.
--- NOTE | 2024-01-02 12:50 | P.PNGI_ITS ---
Progress Note: A&P Assessment and Plan (1) Acute on chronic anemia: Code(s): D64.9 - Anemia, unspecified Status: Acute Assessment and Plan: The patient is deemed a good candidate for the procedures. Consent signed. Will proceed. Subjective Date/time seen: 01/02/24 12:50 Interval history: Jose Roberto Maria is a 43 year old male with history of chronic kidney disease stage 4, peripheral artery disease s/p right BKA, diabetic gastroparesis, diabetes mellitus, essential hypertension and Hobbs's muscular dystrophy admitted to hospital after generalized weakness and lethargy. He also has chronic anemia and this admission hgb ~8 but repeat down to 6.2. He was just started on dialysis after got IV access by surgery because uremia and hyperkalemia. He is feeling better. He noted darker stools for last 2 weeks. He says that about 2- years ago had both EGD and colonoscopy when he was diagnosed with gastroparesis. He is now down for EGD and colonoscopy. Review of Systems Review of Systems: All systems reviewed & are unremarkable except as noted in HPI and below Exam Narrative: General: WD/WN male in NAD Heart: normal S1 and S2; no rub Lungs: clear to auscultation Abdomen: soft, nontender, nondistended, positive bowel sounds Extremities: no cyanosis or clubbing; no edema; s/p right BKA Skin: warm and dry Objective Data Vital Signs Vital Signs: Vital Signs - 24 hr 01/01/24 16:00 01/01/24 19:37 01/01/24 14:00 Temperature 101.0 F H 99.2 F Pulse Rate 88 81 72 Respiratory Rate 16 18 Blood Pressure 148/64 H 155/81 H Pulse Oximetry 96 99 Oxygen Delivery 01/01/24 16:00 01/01/24 16:00 01/01/24 18:00 Temperature Pulse Rate 85 80 Respiratory Rate Blood Pressure Pulse Oximetry Oxygen Delivery Room Air 01/01/24 19:58 01/01/24 20:00 01/01/24 23:35 Temperature Pulse Rate 78 Respiratory Rate Blood Pressure Pulse Oximetry Oxygen Delivery Room Air Room Air 01/01/24 23:42 01/02/24 00:00 01/02/24 04:00 Temperature 98.6 F 98.6 F Pulse Rate 77 80 74 Respiratory Rate 16 16 Blood Pressure 142/74 H 144/80 H Pulse Oximetry 100 100 Oxygen Delivery 01/02/24 04:00 01/02/24 04:00 01/02/24 08:00 Temperature 98.6 F Pulse Rate 74 75 Respiratory Rate 18 Blood Pressure 137/63 Pulse Oximetry 98 Oxygen Delivery Room Air 01/02/24 08:00 01/02/24 08:00 01/02/24 10:00 Temperature Pulse Rate 75 87 Respiratory Rate Blood Pressure Pulse Oximetry Oxygen Delivery Room Air 01/02/24 12:00 01/02/24 12:18 Temperature 98.1 F 97 F L Pulse Rate 80 76 Respiratory Rate 18 20 Blood Pressure 153/67 H 145/75 H Pulse Oximetry 95 96 Oxygen Delivery Room Air Intake/Output Intake/Output: Intake & Output 12/30/23 12/31/23 01/01/24 01/02/24 23:59 23:59 23:59 23:59 Intake Total 500 2295 1980 2500 Output Total 0 1000 Balance 500 2295 980 2500 Meds/Results Medications: Active Medications Generic Name Dose Route Start Last Admin Trade Name Freq PRN Reason Stop Dose Admin Aspirin 81 mg 12/31/23 09:00 01/02/24 10:11 Aspirin 81 Mg Enteric Tablet PO Not Given QAM [facility] Calcium Acetate 2,001 mg 01/01/24 13:00 01/02/24 09:21 Calcium Acetate 667 Mg Tablet PO 2,001 mg TID LISSET Administration Clopidogrel Bisulfate 75 mg 12/31/23 09:00 01/02/24 10:11 Clopidogrel Bisulfate 75 Mg Tablet PO Not Given DAILY [facility] Dextrose 12.5 gm 12/31/23 07:36 Dextrose 50% 25 Gm/50 Ml Syringe IV PUSH PRN PRN Hypoglycemia Protocol Ergocalciferol 50,000 units 01/03/24 09:00 Ergocalciferol 50,000 Units Capsule PO Sa@0900 [facility] Gabapentin 600 mg 12/31/23 21:00 01/01/24 21:01 Gabapentin 300 Mg Capsule PO 600 mg HS [facility]IS[facility] Administration Glucagon 1 mg 12/31/23 07:36 Glucagon For Inj 1 Mg Vial IM PRN PRN Hypoglycemia Protocol Glucose 15 gm 12/31/23 07:36 Glucose Oral Gel 15 Gm Of Glucse In 37.5 Gm Tube PO PRN PRN Hypoglycemia Protocol Heparin Sodium (Porcine) 5,000 units 12/31/23 09:00 01/02/24 10:11 Heparin Sodium 5,000 Units/Ml Vial SUB-Q Not Given Q12HR [facility] Hydromorphone HCl 0.5 mg 12/31/23 12:47 12/31/23 13:17 Hydromorphone Hcl Inj (*Crx) 1 Mg/Ml Syr IV PUSH 0.5 mg Q4HR PRN Administration Pain Rated 7-10 Dextrose 1,000 mls @ 100 mls/hr 12/31/23 07:36 Dextrose 5% 1,000 Ml IVPB PRN PRN Hypoglycemia Protocol Albumin Human 50 mls @ 999 mls/hr 12/31/23 10:08 Albutein IVPB 01/30/24 10:07 Q10M PRN HYPOTENSION Sodium Chloride 500 mls @ 10 mls/hr 01/02/24 12:20 01/02/24 12:23 Normal Saline Iv IV CONT 10 mls/hr .Q24H [facility] Administration Insulin Aspart 2 - 5 units 12/31/23 12:00 01/02/24 06:00 Insulin Aspart (*Bkc) 100 Units/Ml SUB-Q Not Given Q6HR [facility] Protocol Ondansetron HCl 4 mg 12/30/23 21:52 01/01/24 14:09 Ondansetron Inj 4 Mg/2 Ml Vial IV PUSH 4 mg Q4H PRN Administration Nausea Sodium Bicarbonate 650 mg 12/31/23 09:00 01/02/24 09:21 Sodium Bicarbonate Tab 650 Mg Tablet PO 650 mg BID LISSET Administration Radiology Results: ITS Impressions Head CT 12/30/23 18:14 Impression: No acute intracranial hemorrhage or suspicious mass effect. Chest X-Ray 12/31/23 10:09 IMPRESSION: 1. Central line tip at superior cavoatrial junction. Labs Labs: Laboratory Results - last 24 hr 12/31/23 01/01/24 01/01/24 04:29 13:15 15:33 WBC RBC Hgb Hct MCV MCH MCHC RDW Plt Count MPV Immature Gran % (Auto) Neut % (Auto) Lymph % (Auto) [place] % (Auto) Eos % (Auto) Baso % (Auto) Lymph # (Auto) [place] # (Auto) Eos # (Auto) Baso # (Auto) Abs Immat Gran (auto) Absolute Neuts (auto) Absolute Nucleated RBC Nucleated RBC % Sodium Potassium Chloride Carbon Dioxide Anion Gap BUN Creatinine Estim Creat Clear Calc Estimated GFR Glucose POC Capillary Glucose 161 H 150 H Calcium Total Bilirubin AST ALT Alkaline Phosphatase Total Protein 5.9 L Albumin 01/01/24 01/02/24 01/02/24 19:36 07:25 07:59 WBC 6.2 RBC 2.74 L Hgb 8.0 L Hct 24.7 L MCV 90.1 MCH 29.2 MCHC 32.4 RDW 15.0 H Plt Count 166 MPV 10.7 H Immature Gran % (Auto) 1.8 H Neut % (Auto) 69.2 Lymph % (Auto) 11.6 L [place] % (Auto) 13.2 H Eos % (Auto) 3.7 Baso % (Auto) 0.5 Lymph # (Auto) 0.72 L [place] # (Auto) 0.8 H Eos # (Auto) 0.2 Baso # (Auto) 0.0 Abs Immat Gran (auto) 0.11 H Absolute Neuts (auto) 4.3 Absolute Nucleated RBC 0.000 Nucleated RBC % 0.0 Sodium 132 L Potassium 3.0 L Chloride 97 L Carbon Dioxide 25 Anion Gap 10 BUN 41 H D Creatinine 6.30 H Estim Creat Clear Calc 19 Estimated GFR 10 L Glucose 123 H POC Capillary Glucose 175 H 137 H Calcium 5.8 L* Total Bilirubin 1.0 AST 17 ALT 12 Alkaline Phosphatase 111 Total Protein 6.0 L Albumin 3.1 L 01/02/24 01/02/24 11:04 12:21 WBC RBC Hgb Hct MCV MCH MCHC RDW Plt Count MPV Immature Gran % (Auto) Neut % (Auto) Lymph % (Auto) [place] % (Auto) Eos % (Auto) Baso % (Auto) Lymph # (Auto) [place] # (Auto) Eos # (Auto) Baso # (Auto) Abs Immat Gran (auto) Absolute Neuts (auto) Absolute Nucleated RBC Nucleated RBC % Sodium Potassium Chloride Carbon Dioxide Anion Gap BUN Creatinine Estim Creat Clear Calc Estimated GFR Glucose POC Capillary Glucose 129 H 113 H Calcium Total Bilirubin AST ALT Alkaline Phosphatase Total Protein Albumin
--- NOTE | 2024-01-02 13:06 | SUR.OPER ---
EGD end time: 1300, Colonoscopy start time: 1306
[2024-01-02 13:34] LABS: Complement Total CH50 >60 U/mL (31-60)
--- NOTE | 2024-01-02 13:39 | PM.IMPN ---
Progress Note: A&P Assessment and Plan (1) Acute on chronic renal failure: Qualifiers: Acute renal failure type: unspecified Chronic kidney disease stage: stage 3 (moderate) Chronic kidney disease stage 3 subtype: unspecified whether 3a or 3b Qualified Code(s): N17.9 - Acute kidney failure, unspecified; N18.30 - Chronic kidney disease, stage 3 unspecified Code(s): N17.9 - Acute kidney failure, unspecified; N18.9 - Chronic kidney disease, unspecified Status: Acute (2) Acute hyperkalemia: Code(s): E87.5 - Hyperkalemia Status: Acute (3) Uremic encephalopathy: Code(s): G93.49 - Other encephalopathy; N19 - Unspecified kidney failure Status: Acute (4) Valtrex overdose: Qualifiers: Encounter type: initial encounter Injury intent: accidental or unintentional Qualified Code(s): T37.5X1A - Poisoning by antiviral drugs, accidental (unintentional), initial encounter Code(s): T37.5X1A - Poisoning by antiviral drugs, accidental (unintentional), initial encounter Status: Acute (5) Vision changes: Code(s): H53.9 - Unspecified visual disturbance Status: Acute (6) Anemia: Qualifiers: Anemia type: unspecified type Qualified Code(s): D64.9 - Anemia, unspecified Code(s): D64.9 - Anemia, unspecified Status: Acute (7) Hypothermia: Qualifiers: Encounter type: initial encounter Qualified Code(s): T68.XXXA - Hypothermia, initial encounter Code(s): T68.XXXA - Hypothermia, initial encounter Status: Acute Plan # SHABNAM on CKD, severe acute hyperkalemia, severe metabolic acidosis, hypocalcemia Patient has CKD, creatinine is trending up slowly till May 24, 2023 creatinine 3.2 May 24, 2023 Upon arrival in the ED, creatinine bumped up to 16 wishes trending up since admission, K 7.3 Sodium bicarbonate is less than 5 ABG showed decompensated metabolic acidosis, pH 7.005 Patient received causing gluconate IV push, patient is on sodium bicarbonate IV drip 150 mg and 100 mL/hour Repeated calcium level 6.2 will provide ca gluconate 2 g IV push dialysis catheter is placed and patient started on emergent dialysis Follow-up BMP after dialysis and daily, Consult general counsel, appreciate general counsel's input # severe hypocalcemia CT Ca4.8, increase calcium acetate to 2001 mg t.i.d. p.o., calcium gluconate 2 g IV push, K3.3 # Acute metabolic encephalopathy Likely secondary to uremia, electrolyte disorders This is improved # Severe anemia Hemoglobin 6.2 12/31 Below baseline Patient states he had black stools in past 1 week Follow-up stool guaiac, iron panel, ferritin level wnl Most likely resulting from acute renal failure but need to r/o GIB Patient received 2 pack RBC 12/31 Consulted GI and plan for EGD and colonoscopy today # SIRS The patient was hypothermic but I suspect this is more due to environmental exposures the patient's room is quite cold and he has removing his clothes and blankets due to general discomfort and sensory input. obtain blood cultures to rule out underlying infection given mild leukocytosis. Patient was placed under Ayush Hugger for few hours and hypothermia has resolved. # ESSENTIAL HYPERTENSION Hold losartan and hydrochlorothiazide because acute renal failure Patient is on hemodialysis # Diabetes Start insulin sliding scale a.c. and q.h.s. # DVT prophylaxis hold heparin Subjective Date/time seen: 01/02/24 13:39 Interval history: Status is going for colonoscopy today. No other complaints. Denies any abdominal pain. No shortness of breath or chest pain. Review of Systems Review of Systems: All systems reviewed & are unremarkable except as noted in HPI and below Exam Narrative: GENERAL: Pleasant, in no acute distress. Well-nourished. - EYES: EOMI. Anicteric. Pale - HENT: Moist mucous membranes. - LUNGS: Clear to auscultation bilaterally, no wheezing, rhonchi, or rales. - CARDIOVASCULAR: Regular rate and rhythm. No murmur. No JVD. - ABDOMEN: Soft, non-tender and non-distended. No palpable masses. - EXTREMITIES: No edema. Right below-knee amputation. Non-tender. - NEUROLOGIC: No focal neurological deficits. CN II-XII grossly intact. - PSYCHIATRIC: Awake, Alert and oriented x 3. Appropriate mood and affect. - SKIN: No rashes or lesions. Warm. - LYMPH: No cervical lymphadenopathy. Objective Data Vital Signs Vital Signs: Vital Signs - 24 hr 01/01/24 16:00 01/01/24 19:37 01/01/24 14:00 Temperature 101.0 F H 99.2 F Pulse Rate 88 81 72 Respiratory Rate 16 18 Blood Pressure 148/64 H 155/81 H Pulse Oximetry 96 99 Oxygen Delivery 01/01/24 16:00 01/01/24 16:00 01/01/24 18:00 Temperature Pulse Rate 85 80 Respiratory Rate Blood Pressure Pulse Oximetry Oxygen Delivery Room Air 01/01/24 19:58 01/01/24 20:00 01/01/24 23:35 Temperature Pulse Rate 78 Respiratory Rate Blood Pressure Pulse Oximetry Oxygen Delivery Room Air Room Air 01/01/24 23:42 01/02/24 00:00 01/02/24 04:00 Temperature 98.6 F 98.6 F Pulse Rate 77 80 74 Respiratory Rate 16 16 Blood Pressure 142/74 H 144/80 H Pulse Oximetry 100 100 Oxygen Delivery 01/02/24 04:00 01/02/24 04:00 01/02/24 08:00 Temperature 98.6 F Pulse Rate 74 75 Respiratory Rate 18 Blood Pressure 137/63 Pulse Oximetry 98 Oxygen Delivery Room Air 01/02/24 08:00 01/02/24 08:00 01/02/24 10:00 Temperature Pulse Rate 75 87 Respiratory Rate Blood Pressure Pulse Oximetry Oxygen Delivery Room Air 01/02/24 12:00 01/02/24 12:18 Temperature 98.1 F 97 F L Pulse Rate 80 76 Respiratory Rate 18 20 Blood Pressure 153/67 H 145/75 H Pulse Oximetry 95 96 Oxygen Delivery Room Air Intake/Output Intake/Output: Intake & Output 12/30/23 12/31/23 01/01/24 01/02/24 23:59 23:59 23:59 23:59 Intake Total 500 2295 1980 2500 Output Total 0 1000 Balance 500 2295 980 2500 Meds/Results Medications: Active Medications Generic Name Dose Route Start Last Admin Trade Name Freq PRN Reason Stop Dose Admin Aspirin 81 mg 12/31/23 09:00 01/02/24 10:11 Aspirin 81 Mg Enteric Tablet PO Not Given QAM ON LICENSE OF [facility] Calcium Acetate 2,001 mg 01/01/24 13:00 01/02/24 09:21 Calcium Acetate 667 Mg Tablet PO 2,001 mg TID ON LICENSE OF [facility] Administration Clopidogrel Bisulfate 75 mg 12/31/23 09:00 01/02/24 10:11 Clopidogrel Bisulfate 75 Mg Tablet PO Not Given DAILY ON LICENSE OF [facility] Dextrose 12.5 gm 12/31/23 07:36 Dextrose 50% 25 Gm/50 Ml Syringe IV PUSH PRN PRN Hypoglycemia Protocol Ergocalciferol 50,000 units 01/03/24 09:00 Ergocalciferol 50,000 Units Capsule PO Sa@0900 LISSET Gabapentin 600 mg 12/31/23 21:00 01/01/24 21:01 Gabapentin 300 Mg Capsule PO 600 mg HS LISSET Administration Glucagon 1 mg 12/31/23 07:36 Glucagon For Inj 1 Mg Vial IM PRN PRN Hypoglycemia Protocol Glucose 15 gm 12/31/23 07:36 Glucose Oral Gel 15 Gm Of Glucse In 37.5 Gm Tube PO PRN PRN Hypoglycemia Protocol Heparin Sodium (Porcine) 5,000 units 12/31/23 09:00 01/02/24 10:11 Heparin Sodium 5,000 Units/Ml Vial SUB-Q Not Given Q12HR LISSET Hydromorphone HCl 0.5 mg 12/31/23 12:47 12/31/23 13:17 Hydromorphone Hcl Inj (*Crx) 1 Mg/Ml Syr IV PUSH 0.5 mg Q4HR PRN Administration Pain Rated 7-10 Dextrose 1,000 mls @ 100 mls/hr 12/31/23 07:36 Dextrose 5% 1,000 Ml IVPB PRN PRN Hypoglycemia Protocol Albumin Human 50 mls @ 999 mls/hr 12/31/23 10:08 Albutein IVPB 01/30/24 10:07 Q10M PRN HYPOTENSION Sodium Chloride 500 mls @ 10 mls/hr 01/02/24 12:20 01/02/24 13:28 Normal Saline Iv IV CONT 150 mls/hr .Q24H LISSET Infusion Insulin Aspart 2 - 5 units 12/31/23 12:00 01/02/24 06:00 Insulin Aspart (*Bkc) 100 Units/Ml SUB-Q Not Given Q6HR ON LICENSE OF [facility] Protocol Ondansetron HCl 4 mg 12/30/23 21:52 01/01/24 14:09 Ondansetron Inj 4 Mg/2 Ml Vial IV PUSH 4 mg Q4H PRN Administration Nausea Sodium Bicarbonate 650 mg 12/31/23 09:00 01/02/24 09:21 Sodium Bicarbonate Tab 650 Mg Tablet PO 650 mg BID LISSET Administration Radiology Results: ITS Impressions Head CT 12/30/23 18:14 Impression: No acute intracranial hemorrhage or suspicious mass effect. Chest X-Ray 12/31/23 10:09 IMPRESSION: 1. Central line tip at superior cavoatrial junction. Labs Labs: Laboratory Results - last 24 hr 12/31/23 01/01/24 01/01/24 04:29 15:33 19:36 WBC RBC Hgb Hct MCV MCH MCHC RDW Plt Count MPV Immature Gran % (Auto) Neut % (Auto) Lymph % (Auto) [place] % (Auto) Eos % (Auto) Baso % (Auto) Lymph # (Auto) [place] # (Auto) Eos # (Auto) Baso # (Auto) Abs Immat Gran (auto) Absolute Neuts (auto) Absolute Nucleated RBC Nucleated RBC % Sodium Potassium Chloride Carbon Dioxide Anion Gap BUN Creatinine Estim Creat Clear Calc Estimated GFR Glucose POC Capillary Glucose 150 H 175 H Calcium Total Bilirubin AST ALT Alkaline Phosphatase Total Protein 5.9 L Albumin Tot Complement (CH50) >60 H 01/02/24 01/02/24 01/02/24 07:25 07:59 11:04 WBC 6.2 RBC 2.74 L Hgb 8.0 L Hct 24.7 L MCV 90.1 MCH 29.2 MCHC 32.4 RDW 15.0 H Plt Count 166 MPV 10.7 H Immature Gran % (Auto) 1.8 H Neut % (Auto) 69.2 Lymph % (Auto) 11.6 L [place] % (Auto) 13.2 H Eos % (Auto) 3.7 Baso % (Auto) 0.5 Lymph # (Auto) 0.72 L [place] # (Auto) 0.8 H Eos # (Auto) 0.2 Baso # (Auto) 0.0 Abs Immat Gran (auto) 0.11 H Absolute Neuts (auto) 4.3 Absolute Nucleated RBC 0.000 Nucleated RBC % 0.0 Sodium 132 L Potassium 3.0 L Chloride 97 L Carbon Dioxide 25 Anion Gap 10 BUN 41 H D Creatinine 6.30 H Estim Creat Clear Calc 19 Estimated GFR 10 L Glucose 123 H POC Capillary Glucose 137 H 129 H Calcium 5.8 L* Total Bilirubin 1.0 AST 17 ALT 12 Alkaline Phosphatase 111 Total Protein 6.0 L Albumin 3.1 L Tot Complement (CH50) 01/02/24 12:21 WBC RBC Hgb Hct MCV MCH MCHC RDW Plt Count MPV Immature Gran % (Auto) Neut % (Auto) Lymph % (Auto) [place] % (Auto) Eos % (Auto) Baso % (Auto) Lymph # (Auto) [place] # (Auto) Eos # (Auto) Baso # (Auto) Abs Immat Gran (auto) Absolute Neuts (auto) Absolute Nucleated RBC Nucleated RBC % Sodium Potassium Chloride Carbon Dioxide Anion Gap BUN Creatinine Estim Creat Clear Calc Estimated GFR Glucose POC Capillary Glucose 113 H Calcium Total Bilirubin AST ALT Alkaline Phosphatase Total Protein Albumin Tot Complement (CH50)
[2024-01-02 13:51] LABS: Glucose Point of Care 111 mg/dl (65-105)
[2024-01-02 16:18] LABS: Glucose Point of Care 104 mg/dl (65-105)
[2024-01-02 17:36] LABS: Creatine Kinase 300 U/L (55-170)
[2024-01-02 19:05] LABS: Eosinophil Urine None Seen % (None Seen); Urine Eos QC 2nd Tech Confirmed
[2024-01-02 19:16] LABS: Add Urine Microscopic? YES; Appearance Urine Clear (Clear); Bacteria Urine None Seen /hpf; Bilirubin Urine Negative (Negative); Blood Urine 1+ (Negative); Color Urine Yellow (Yellow); Glucose Urine UA Negative (Negative); Ketones Urine Negative (Negative); Leukocyte Esterase Ur Negative LEU/UL (Negative); Nitrate Urine Negative (Negative); Non Pathogenic Casts 0-2; Protein Urine 2+ mg/dL (Negative); RBC Urine 0-2 /hpf (0-2); Specific Grav Ur 1.007 (1.001-1.035); Squamous Epithelial Cell Urine None Seen /hpf (Few); Urobilinogen Urine 0.2 mg/dL (<2.0); WBC Urine 0-5 /hpf (0-3); pH Urine 5.5 (5.0-9.0)
[2024-01-02 19:56] LABS: Glucose Point of Care 129 mg/dl (65-105)
[2024-01-02] MEDS: GABAPENTIN 300 MG CAPSULE 600 MG PO (21:59)
[2024-01-02] MEDS: HEPARIN SODIUM 5,000 UNITS/ML VIAL 5000 UNITS SUB-Q (21:59)
[2024-01-02] MEDS: CALCIUM CARBONATE (OSCAL) 500 MG TABLET 1000 MG PO (22:04)
[2024-01-02 22:18] LABS: Creatinine Urine 54.9 mg/dL; Creatinine Urine 58.3 mg/dL; Total Protein Urine Random 72 mg/dL; Ur Ttl Prot Creatinine Ratio 1.31 mg/mg (0-0.20)
[2024-01-02 22:41] LABS: Potassium Urine Random 9.7 meq/L; Sodium Urine Random 53 meq/L
--- NOTE | 2024-01-02 23:22 | PC.NURSE ---
This patient, Jose Roberto Maria, was transferred to [facility] on 01/02/24 at 2320. Personal belongings sent with patient. Report given to Karly. Appropriate documentation sent with patient.
[2024-01-02 23:30] LABS: Glucose Point of Care 146 mg/dl (65-105)
--- NOTE | 2024-01-02 23:30 | PC.NURSE ---
This patient, Jose Roberto Maria, was received from IMU on 01/02/24 at 2315. Patient/family oriented to unit policies and routines
[2024-01-03] VITALS (25 sets, daily range): BP systolic 143–183; BP diastolic 66–97; PULSE 77–94; RESP 14–18; TEMP 36.6–37.9; O2SAT 96–98
[2024-01-03 07:08] LABS: Basophils Percent Auto 0.4 % (0.2-1.2); Eosinophils Absolute Auto 0.2 K/mm3 (0-0.3); Eosinophils Percent Auto 2.5 % (0-4.4); Hemoglobin 8.3 g/dL (14.0-18.0); Immature Granulocyte Absolute 0.08 K/mm3 (0.00-0.031); Lymphocytes Percent Auto 6.2 % (18.3-44.2); Mean Corpuscular HGB Conc 33.2 g/dl (32-36); Mean Corpuscular Hemoglobin 30.2 pg (26-34); Mean Corpuscular Volume 90.9 fl (80-100); Mean Platelet Volume 10.3 fl (7.4-10.4); Monocytes Absolute Auto 0.8 K/mm3 (0.1-0.6); Monocytes Percent Auto 9.9 % (2.6-8.5); Neutrophils Absolute Auto 6.5 K/mm3 (1.3-6.7); Platelet Count Result 165 k/mm3 (150-375); Red Blood Count 2.75 M/mm3 (4.6-6.20); Red Cell Distribution Width 14.5 % (11.5-14.5); White Blood Count 8.1 K/mm3 (4.5-10.0)
[2024-01-03 07:21] LABS: Alanine Aminotransferase 12 U/L (6-50); Alkaline Phosphatase 115 U/L (38-126); Anion Gap 11 mmol/L (4-12); Aspartate Amino Transferase 15 U/L (17-59); Bilirubin,Total 1.4 mg/dL (0.2-1.3); Blood Urea Nitrogen 42 mg/dL (9-20); Calcium 5.9 mg/dL (8.4-10.2); Carbon Dioxide 25 mmol/L (22-30); Chloride 96 mmol/L (98-107); Estimated CRCL calculation 17 ml/min; Estimated Glomerular Filt Rate 8; Glucose 108 mg/dL (65-110); Magnesium 1.9 mg/dL (1.6-2.3); Potassium 3.1 mmol/L (3.4-5.0); Sodium 132 mmol/L (137-145)
[2024-01-03 08:01] LABS: Glucose Point of Care 125 mg/dl (65-105)
[2024-01-03 10:34] LABS: Erythrocyte Sedimentation Rate 111 mm/hr (0-20)
[2024-01-03] MEDS: EPOETIN ALFA-EPBX 10,000 UNITS/ML VIAL 10000 UNITS IV PUSH (10:45)
[2024-01-03] MEDS: HEPARIN SODIUM 1,000 UNITS/ML VIAL 2000 UNITS (12:16)
--- NOTE | 2024-01-03 12:26 | P.PNNP_ITS ---
Progress Note: A&P Assessment and Plan (1) SHABNAM (acute kidney injury): Code(s): N17.9 - Acute kidney failure, unspecified Status: Acute Assessment and Plan: * etiology not clear * however, complicated by hyperkaleia, acidosis, and possible uremia * started dialysis on the and is getting a dialysis today. * urine studies show non pre renal findings so far * C3 is low. sedimentation rate rate is 111 * other serology and immunofixation are pending * finish dialysis today. Check labs tomorrow and Friday to decide on future treatments. (2) Chronic kidney disease, stage IV (severe): Code(s): N18.4 - Chronic kidney disease, stage 4 (severe) Status: Chronic Assessment and Plan: * last creatinine was ~ 3.0 - 3.2mg/dl in May 2023 * not clear what true baseline creatinine really is * try to obtain records from PCP * suspect an element of CKD from HTN, DM, and vascular disease (3) Acute hyperkalemia: Code(s): E87.5 - Hyperkalemia Status: Acute Assessment and Plan: * resolved * as noted on admission * resistant to medical therapy * dialysis today to treat * Potassium was low today. He was treated with a 4 K bath the 1st few hours of dialysis. Will check another potassium to will (4) Uremic encephalopathy: Code(s): G93.49 - Other encephalopathy; N19 - Unspecified kidney failure Status: Acute Assessment and Plan: * clinical improvement * suspected based on slow response and admission symptoms * dialysis ongoing * follow mentation (5) Acidosis: Code(s): E87.20 - Acidosis, unspecified Status: Acute Assessment and Plan: * better * as noted by admission labs * presumably due to #1 * follow trend (6) Anemia: Qualifiers: Anemia type: unspecified type Qualified Code(s): D64.9 - Anemia, unspecified Code(s): D64.9 - Anemia, unspecified Status: Acute Assessment and Plan: * resolve (7) HTN (hypertension): Qualifiers: Hypertension type: primary hypertension Qualified Code(s): I10 - Essential (primary) hypertension Code(s): I10 - Essential (primary) hypertension Status: Chronic Assessment and Plan: * systolic down to the 140s (8) Diabetes: Qualifiers: Diabetes mellitus type: type 2 Diabetes mellitus mcc insulin use: with superintendent drivers use Diabetes mellitus complication status: with kidney complications Diabetes mellitus complication detail: with chronic kidney disease Chronic kidney disease stage: unspecified stage Qualified Code(s): E11.22 - Type 2 diabetes mellitus with diabetic chronic kidney disease; Z79.4 - intermediate (current) use of insulin Code(s): E11.9 - Type 2 diabetes mellitus without complications Status: Chronic Assessment and Plan: * follow accu-cheks * glycemic control per hospitalists Subjective Date/time seen: 01/03/24 12:26 Interval history: patient is on dialysis and tolerating it well. Blood pressure in the started in the 170s and more recently in the 140s. We are removing some fluid Exam Narrative: General: WD/WN male in NAD Heart: normal S1 and S2; no rub Lungs: clear to auscultation Abdomen: soft, nontender, nondistended, positive bowel sounds Extremities: no cyanosis or clubbing; no edema; s/p right BKA Skin: warm and intact Objective Data Vital Signs Vital Signs: Vital Signs - 24 hr 01/02/24 13:32 01/02/24 13:42 01/02/24 13:52 Temperature Pulse Rate 72 78 78 Respiratory Rate 20 21 H 19 Blood Pressure 99/53 L 113/64 122/71 Pulse Oximetry 98 97 95 Oxygen Delivery Room Air Room Air Room Air 01/02/24 14:26 01/02/24 14:00 01/02/24 16:00 Temperature 97.4 F L Pulse Rate 77 66 Respiratory Rate 20 Blood Pressure 138/66 Pulse Oximetry 96 Oxygen Delivery Room Air 01/02/24 19:59 01/02/24 22:00 01/02/24 23:24 Temperature 98.6 F 98.5 F Pulse Rate 84 79 Respiratory Rate 20 16 Blood Pressure 160/82 H 160/89 H Pulse Oximetry 97 97 Oxygen Delivery Room Air 01/03/24 05:30 01/03/24 08:15 01/03/24 08:23 Temperature 99.1 F 100.2 F H Pulse Rate 82 83 81 Respiratory Rate 18 18 Blood Pressure 143/66 H 165/84 H 158/92 H Pulse Oximetry 96 98 Oxygen Delivery 01/03/24 09:00 01/03/24 09:15 01/03/24 08:30 Temperature Pulse Rate 87 91 89 Respiratory Rate Blood Pressure 182/90 H 159/89 H 146/83 H Pulse Oximetry Oxygen Delivery 01/03/24 08:45 01/03/24 09:30 01/03/24 09:45 Temperature Pulse Rate 85 89 89 Respiratory Rate Blood Pressure 173/95 H 172/87 H 175/97 H Pulse Oximetry Oxygen Delivery 01/03/24 10:00 01/03/24 10:15 01/03/24 10:30 Temperature Pulse Rate 86 89 88 Respiratory Rate Blood Pressure 176/92 H 174/91 H 173/92 H Pulse Oximetry Oxygen Delivery 01/03/24 10:45 01/03/24 11:00 01/03/24 11:15 Temperature Pulse Rate 87 88 87 Respiratory Rate Blood Pressure 176/93 H 182/96 H 183/95 H Pulse Oximetry Oxygen Delivery 01/03/24 11:45 01/03/24 12:10 01/03/24 11:30 Temperature 100.2 F H Pulse Rate 90 94 92 Respiratory Rate 18 Blood Pressure 175/93 H 149/91 H 171/94 H Pulse Oximetry 96 Oxygen Delivery 01/03/24 12:00 01/03/24 12:02 Temperature Pulse Rate 90 90 Respiratory Rate Blood Pressure 173/89 H 182/90 H Pulse Oximetry Oxygen Delivery Intake/Output Intake/Output: Intake & Output 12/31/23 01/01/24 01/02/24 01/03/24 23:59 23:59 23:59 23:59 Intake Total 2295 1980 3090 1387 Output Total 0 1000 1300 700 Balance 2295 980 1790 687 Meds/Results Medications: Active Medications Generic Name Dose Route Start Last Admin Trade Name Clotilde PRN Reason Stop Dose Admin Aspirin 81 mg 12/31/23 09:00 01/02/24 10:11 Aspirin 81 Mg Enteric Tablet PO Not Given QAM [facility] Calcium Acetate 2,001 mg 01/01/24 13:00 01/03/24 11:09 Calcium Acetate 667 Mg Tablet PO Not Given TID [facility] Calcium Carbonate 1,000 mg 01/02/24 21:00 01/03/24 11:09 Calcium Carbonate (Oscal) 500 Mg Tablet PO Not Given 1000,1500,2100 [facility] Clopidogrel Bisulfate 75 mg 12/31/23 09:00 01/02/24 10:11 Clopidogrel Bisulfate 75 Mg Tablet PO Not Given DAILY [facility] Dextrose 12.5 gm 12/31/23 07:36 Dextrose 50% 25 Gm/50 Ml Syringe IV PUSH PRN PRN Hypoglycemia Protocol Epoetin Pawel-epbx 10,000 units 01/03/24 19:09 01/03/24 10:45 Epoetin Pawel-Epbx 10,000 Units/Ml Vial IV PUSH 01/03/24 19:10 10,000 units ONCE ONE Administration Ergocalciferol 50,000 units 01/03/24 09:00 Ergocalciferol 50,000 Units Capsule PO Sa@0900 LISSET Gabapentin 600 mg 12/31/23 21:00 01/02/24 21:59 Gabapentin 300 Mg Capsule PO 600 mg HS LISSET Administration Glucagon 1 mg 12/31/23 07:36 Glucagon For Inj 1 Mg Vial IM PRN PRN Hypoglycemia Protocol Glucose 15 gm 12/31/23 07:36 Glucose Oral Gel 15 Gm Of Glucse In 37.5 Gm Tube PO PRN PRN Hypoglycemia Protocol Heparin Sodium (Porcine) 5,000 units 12/31/23 09:00 01/02/24 21:59 Heparin Sodium 5,000 Units/Ml Vial SUB-Q 5,000 units Q12HR LISSET Administration Hydromorphone HCl 0.5 mg 12/31/23 12:47 12/31/23 13:17 Hydromorphone Hcl Inj (*Crx) 1 Mg/Ml Syr IV PUSH 0.5 mg Q4HR PRN Administration Pain Rated 7-10 Dextrose 1,000 mls @ 100 mls/hr 12/31/23 07:36 Dextrose 5% 1,000 Ml IVPB PRN PRN Hypoglycemia Protocol Albumin Human 50 mls @ 999 mls/hr 12/31/23 10:08 Albutein IVPB 01/30/24 10:07 Q10M PRN HYPOTENSION Insulin Aspart 2 - 5 units 12/31/23 12:00 01/03/24 07:32 Insulin Aspart (*Bkc) 100 Units/Ml SUB-Q Not Given Q6HR [facility] Protocol Ondansetron HCl 4 mg 12/30/23 21:52 01/01/24 14:09 Ondansetron Inj 4 Mg/2 Ml Vial IV PUSH 4 mg Q4H PRN Administration Nausea Radiology Results: ITS Impressions Head CT 12/30/23 18:14 Impression: No acute intracranial hemorrhage or suspicious mass effect. Chest X-Ray 01/02/24 17:12 IMPRESSION: 1. Central line tip in the superior vena cava. 2. Mild atelectasis in right mid lung zone. Labs Labs: Laboratory Results - last 24 hr 12/31/23 01/02/24 01/02/24 04:29 12:21 13:49 WBC RBC Hgb Hct MCV MCH MCHC RDW Plt Count MPV Immature Gran % (Auto) Neut % (Auto) Lymph % (Auto) [place] % (Auto) Eos % (Auto) Baso % (Auto) Lymph # (Auto) [place] # (Auto) Eos # (Auto) Baso # (Auto) Abs Immat Gran (auto) Absolute Neuts (auto) Absolute Nucleated RBC Nucleated RBC % ESR Sodium Potassium Chloride Carbon Dioxide Anion Gap BUN Creatinine Estim Creat Clear Calc Estimated GFR Glucose POC Capillary Glucose 113 H 111 H Calcium Magnesium Total Bilirubin AST ALT Alkaline Phosphatase Total Creatine Kinase Total Protein Albumin Urine Color Urine Appearance Urine pH Ur Specific [place] Urine Protein Urine Glucose (UA) Urine Ketones Ur Blood (Man) Urine Nitrate Urine Bilirubin Urine Urobilinogen Leukocyte Esterase Rfl Urine RBC Urine WBC Ur Squamous Epith Cells Urine Bacteria Urine Casts Urine Eosinophils U Random Total Protein Ur Random Sodium Ur Random Potassium Urine Creatinine Protein/Creat Ratio 2 Tot Complement (CH50) >60 H 01/02/24 01/02/24 01/02/24 16:13 17:18 18:22 WBC RBC Hgb Hct MCV MCH MCHC RDW Plt Count MPV Immature Gran % (Auto) Neut % (Auto) Lymph % (Auto) [place] % (Auto) Eos % (Auto) Baso % (Auto) Lymph # (Auto) [place] # (Auto) Eos # (Auto) Baso # (Auto) Abs Immat Gran (auto) Absolute Neuts (auto) Absolute Nucleated RBC Nucleated RBC % ESR Sodium Potassium Chloride Carbon Dioxide Anion Gap BUN Creatinine Estim Creat Clear Calc Estimated GFR Glucose POC Capillary Glucose 104 Calcium Magnesium Total Bilirubin AST ALT Alkaline Phosphatase Total Creatine Kinase 300 H Total Protein Albumin Urine Color Yellow Urine Appearance Clear Urine pH 5.5 Ur Specific [place] 1.007 Urine Protein 2+ H Urine Glucose (UA) Negative Urine Ketones Negative Ur Blood (Man) 1+ H Urine Nitrate Negative Urine Bilirubin Negative Urine Urobilinogen 0.2 Leukocyte Esterase Rfl Negative Urine RBC 0-2 Urine WBC 0-5 Ur Squamous Epith Cells None seen Urine Bacteria None seen Urine Casts 0-2 Urine Eosinophils None seen U Random Total Protein 72 Ur Random Sodium 53 Ur Random Potassium 9.7 Urine Creatinine 58.3 Protein/Creat Ratio 2 Tot Complement (CH50) 01/02/24 01/02/24 01/02/24 18:22 19:44 23:26 WBC RBC Hgb Hct MCV MCH MCHC RDW Plt Count MPV Immature Gran % (Auto) Neut % (Auto) Lymph % (Auto) [place] % (Auto) Eos % (Auto) Baso % (Auto) Lymph # (Auto) [place] # (Auto) Eos # (Auto) Baso # (Auto) Abs Immat Gran (auto) Absolute Neuts (auto) Absolute Nucleated RBC Nucleated RBC % ESR Sodium Potassium Chloride Carbon Dioxide Anion Gap BUN Creatinine Estim Creat Clear Calc Estimated GFR Glucose POC Capillary Glucose 129 H 146 H Calcium Magnesium Total Bilirubin AST ALT Alkaline Phosphatase Total Creatine Kinase Total Protein Albumin Urine Color Urine Appearance Urine pH Ur Specific [place] Urine Protein Urine Glucose (UA) Urine Ketones Ur Blood (Man) Urine Nitrate Urine Bilirubin Urine Urobilinogen Leukocyte Esterase Rfl Urine RBC Urine WBC Ur Squamous Epith Cells Urine Bacteria Urine Casts Urine Eosinophils U Random Total Protein Ur Random Sodium Ur Random Potassium Urine Creatinine 54.9 Protein/Creat Ratio 2 1.31 H Tot Complement (CH50) 01/03/24 01/03/24 01/03/24 06:57 06:58 07:58 WBC 8.1 RBC 2.75 L Hgb 8.3 L Hct 25.0 L MCV 90.9 MCH 30.2 MCHC 33.2 RDW 14.5 Plt Count 165 MPV 10.3 Immature Gran % (Auto) 1.0 H Neut % (Auto) 80.0 H Lymph % (Auto) 6.2 L [place] % (Auto) 9.9 H Eos % (Auto) 2.5 Baso % (Auto) 0.4 Lymph # (Auto) 0.50 L [place] # (Auto) 0.8 H Eos # (Auto) 0.2 Baso # (Auto) 0.0 Abs Immat Gran (auto) 0.08 H Absolute Neuts (auto) 6.5 Absolute Nucleated RBC 0.000 Nucleated RBC % 0.0 ESR 111 H Sodium 132 L Potassium 3.1 L Chloride 96 L Carbon Dioxide 25 Anion Gap 11 BUN 42 H Creatinine 7.40 H Estim Creat Clear Calc 17 Estimated GFR 8 L Glucose 108 POC Capillary Glucose 125 H Calcium 5.9 L* Magnesium 1.9 Total Bilirubin 1.4 H AST 15 L ALT 12 Alkaline Phosphatase 115 Total Creatine Kinase Total Protein 6.0 L Albumin 3.0 L Urine Color Urine Appearance Urine pH Ur Specific [place] Urine Protein Urine Glucose (UA) Urine Ketones Ur Blood (Man) Urine Nitrate Urine Bilirubin Urine Urobilinogen Leukocyte Esterase Rfl Urine RBC Urine WBC Ur Squamous Epith Cells Urine Bacteria Urine Casts Urine Eosinophils U Random Total Protein Ur Random Sodium Ur Random Potassium Urine Creatinine Protein/Creat Ratio 2 Tot Complement (CH50)
[2024-01-03] MEDS: CLOPIDOGREL BISULFATE 75 MG TABLET PO (12:59)
[2024-01-03] MEDS: ASPIRIN 81 MG ENTERIC TABLET PO (13:03)
[2024-01-03] MEDS: HEPARIN SODIUM 5,000 UNITS/ML VIAL 5000 UNITS SUB-Q ×2 (13:04→20:52)
[2024-01-03] MEDS: CALCIUM ACETATE 667 MG TABLET 2001 MG PO ×2 (13:05→17:25)
[2024-01-03] MEDS: ACETAMINOPHEN 325 MG TABLET 650 MG PO (13:13)
[2024-01-03] MEDS: ERGOCALCIFEROL 50,000 UNITS CAPSULE 50000 UNITS PO (13:13)
--- NOTE | 2024-01-03 13:19 | P.PNIM_ITS ---
Progress Note: A&P Assessment and Plan (1) Acute on chronic renal failure: Qualifiers: Acute renal failure type: unspecified Chronic kidney disease stage: stage 3 (moderate) Chronic kidney disease stage 3 subtype: unspecified whether 3a or 3b Qualified Code(s): N17.9 - Acute kidney failure, unspecified; N18.30 - Chronic kidney disease, stage 3 unspecified Code(s): N17.9 - Acute kidney failure, unspecified; N18.9 - Chronic kidney disease, unspecified Status: Acute (2) Acute hyperkalemia: Code(s): E87.5 - Hyperkalemia Status: Acute (3) Uremic encephalopathy: Code(s): G93.49 - Other encephalopathy; N19 - Unspecified kidney failure Status: Acute (4) Valtrex overdose: Qualifiers: Encounter type: initial encounter Injury intent: accidental or unintentional Qualified Code(s): T37.5X1A - Poisoning by antiviral drugs, accidental (unintentional), initial encounter Code(s): T37.5X1A - Poisoning by antiviral drugs, accidental (unintentional), initial encounter Status: Acute (5) Vision changes: Code(s): H53.9 - Unspecified visual disturbance Status: Acute (6) Anemia: Qualifiers: Anemia type: unspecified type Qualified Code(s): D64.9 - Anemia, unspecified Code(s): D64.9 - Anemia, unspecified Status: Acute (7) Hypothermia: Qualifiers: Encounter type: initial encounter Qualified Code(s): T68.XXXA - Hypot hermia, initial encounter Code(s): T68.XXXA - Hypothermia, initial encounter Status: Acute Plan # SHABNAM on CKD, severe acute hyperkalemia, severe metabolic acidosis, hypocalcemia Patient has CKD, creatinine is trending up slowly till May 24, 2023 creatinine 3.2 May 24, 2023 Upon arrival in the ED, creatinine bumped up to 16 wishes trending up since admission, K 7.3 Sodium bicarbonate is less than 5 ABG showed decompensated metabolic acidosis, pH 7.005 Patient received causing gluconate IV push, patient is on sodium bicarbonate IV drip 150 mg and 100 mL/hour Repeated calcium level 6.2 will provide ca gluconate 2 g IV push dialysis catheter is placed and patient started on emergent dialysis Follow-up BMP after dialysis and daily, Consult business support liaison, appreciate business support liaison's input # severe hypocalcemia CT Ca4.8, increase calcium acetate to 2001 mg t.i.d. p.o., calcium gluconate 2 g IV push, K3.3 # Acute metabolic encephalopathy Likely secondary to uremia, electrolyte disorders This is improved # Severe anemia Hemoglobin 6.2 12/31 Below baseline Patient states he had black stools in past 1 week Follow-up stool guaiac, iron panel, ferritin level wnl Most likely resulting from acute renal failure but need to r/o GIB Patient received 2 pack RBC 12/31 Status post EGD: Gastritis Colonoscopy: Normal # SIRS The patient was hypothermic but I suspect this is more due to environmental exposures the patient's room is quite cold and he has removing his clothes and blankets due to general discomfort and sensory input. obtain blood cultures to rule out underlying infection given mild leukocytosis. Patient was placed under Ayush Hugger for few hours and hypothermia has resolved. Intermittent fever persist. Blood culture negative to date from 12/31/2023 # ESSENTIAL HYPERTENSION Hold losartan and hydrochlorothiazide because acute renal failure Patient is on hemodialysis # Diabetes Start insulin sliding scale a.c. and q.h.s. # DVT prophylaxis hold heparin Subjective Date/time seen: 01/03/24 13:19 Interval history: No overnight events. Getting dialysis done. Denies any new complaints. Review of Systems Review of Systems: All systems reviewed & are unremarkable except as noted in HPI and below Exam Narrative: GENERAL: Pleasant, in no acute distress. Well-nourished. - EYES: EOMI. Anicteric. Pale - HENT: Moist mucous membranes. - LUNGS: Clear to auscultation bilateral ly, no wheezing, rhonchi, or rales. - CARDIOVASCULAR: Regular rate and rhyth m. No murmur. No JVD. - ABDOMEN: Soft, non-tender and non-dist ended. No palpable masses. - EXTREMITIES: No edema. Right below-kn ee amputation. Non-tender. - NEUROLOGIC: No focal neurological defi cits. CN II-XII grossly intact. - PSYCHIATRIC: Awake, Alert and oriented x 3. Appropriate mood and affect. - SKIN: No rashes or lesions. Warm. - LYMPH: No cervical lymphadenopathy. Objective Data Vital Signs Vital Signs: Vital Signs - 24 hr 01/02/24 13:32 01/02/24 13:42 01/02/24 13:52 Temperature Pulse Rate 72 78 78 Respiratory Rate 20 21 H 19 Blood Pressure 99/53 L 113/64 122/71 Pulse Oximetry 98 97 95 Oxygen Delivery Room Air Room Air Room Air 01/02/24 14:26 01/02/24 14:00 01/02/24 16:00 Temperature 97.4 F L Pulse Rate 77 66 Respiratory Rate 20 Blood Pressure 138/66 Pulse Oximetry 96 Oxygen Delivery Room Air 01/02/24 19:59 01/02/24 22:00 01/02/24 23:24 Temperature 98.6 F 98.5 F Pulse Rate 84 79 Respiratory Rate 20 16 Blood Pressure 160/82 H 160/89 H Pulse Oximetry 97 97 Oxygen Delivery Room Air 01/03/24 05:30 01/03/24 08:15 01/03/24 08:23 Temperature 99.1 F 100.2 F H Pulse Rate 82 83 81 Respiratory Rate 18 18 Blood Pressure 143/66 H 165/84 H 158/92 H Pulse Oximetry 96 98 Oxygen Delivery 01/03/24 09:00 01/03/24 09:15 01/03/24 08:30 Temperature Pulse Rate 87 91 89 Respiratory Rate Blood Pressure 182/90 H 159/89 H 146/83 H Pulse Oximetry Oxygen Delivery 01/03/24 08:45 01/03/24 09:30 01/03/24 09:45 Temperature Pulse Rate 85 89 89 Respiratory Rate Blood Pressure 173/95 H 172/87 H 175/97 H Pulse Oximetry Oxygen Delivery 01/03/24 10:00 01/03/24 10:15 01/03/24 10:30 Temperature Pulse Rate 86 89 88 Respiratory Rate Blood Pressure 176/92 H 174/91 H 173/92 H Pulse Oximetry Oxygen Delivery 01/03/24 10:45 01/03/24 11:00 01/03/24 11:15 Temperature Pulse Rate 87 88 87 Respiratory Rate Blood Pressure 176/93 H 182/96 H 183/95 H Pulse Oximetry Oxygen Delivery 01/03/24 11:45 01/03/24 12:10 01/03/24 11:30 Temperature 100.2 F H Pulse Rate 90 94 92 Respiratory Rate 18 Blood Pressure 175/93 H 149/91 H 171/94 H Pulse Oximetry 96 Oxygen Delivery 01/03/24 12:00 01/03/24 12:02 01/03/24 13:13 Temperature 100.2 F H Pulse Rate 90 90 Respiratory Rate Blood Pressure 173/89 H 182/90 H Pulse Oximetry Oxygen Delivery Intake/Output Intake/Output: Intake & Output 12/31/23 01/01/24 01/02/24 01/03/24 23:59 23:59 23:59 23:59 Intake Total 2295 1980 3090 1387 Output Total 0 1000 1300 700 Balance 2295 980 1790 687 Meds/Results Medications: Active Medications Generic Name Dose Route Start Last Admin Trade Name Freq PRN Reason Stop Dose Admin Acetaminophen 650 mg 01/03/24 12:56 01/03/24 13:13 Acetaminophen 325 Mg Tablet PO 650 mg Q6H PRN Administration Mild Pain (1-3) or Fever Aspirin 81 mg 12/31/23 09:00 01/03/24 13:03 Aspirin 81 Mg Enteric Tablet PO 81 mg QAM LISSET Administration Calcium Acetate 2,001 mg 01/01/24 13:00 01/03/24 13:05 Calcium Acetate 667 Mg Tablet PO 2,001 mg TID LISSET Administration Calcium Carbonate 1,000 mg 01/02/24 21:00 01/03/24 11:09 Calcium Carbonate (Oscal) 500 Mg Tablet PO Not Given 1000,1500,2100 [facility] Clopidogrel Bisulfate 75 mg 12/31/23 09:00 01/03/24 12:59 Clopidogrel Bisulfate 75 Mg Tablet PO 75 mg DAILY LISSET Administration Dextrose 12.5 gm 12/31/23 07:36 Dextrose 50% 25 Gm/50 Ml Syringe IV PUSH PRN PRN Hypoglycemia Protocol Epoetin Pawel-epbx 10,000 units 01/03/24 19:09 01/03/24 10:45 Epoetin Pawel-Epbx 10,000 Units/Ml Vial IV PUSH 01/03/24 19:10 10,000 units ONCE ONE Administration Ergocalciferol 50,000 units 01/03/24 09:00 01/03/24 13:13 Ergocalciferol 50,000 Units Capsule PO 50,000 units Sa@0900 LISSET Administration Gabapentin 600 mg 12/31/23 21:00 01/02/24 21:59 Gabapentin 300 Mg Capsule PO 600 mg HS LISSET Administration Glucagon 1 mg 12/31/23 07:36 Glucagon For Inj 1 Mg Vial IM PRN PRN Hypoglycemia Protocol Glucose 15 gm 12/31/23 07:36 Glucose Oral Gel 15 Gm Of Glucse In 37.5 Gm Tube PO PRN PRN Hypoglycemia Protocol Heparin Sodium (Porcine) 5,000 units 12/31/23 09:00 01/03/24 13:04 Heparin Sodium 5,000 Units/Ml Vial SUB-Q 5,000 units Q12HR LISSET Administration Hydromorphone HCl 0.5 mg 12/31/23 12:47 12/31/23 13:17 Hydromorphone Hcl Inj (*Crx) 1 Mg/Ml Syr IV PUSH 0.5 mg Q4HR PRN Administration Pain Rated 7-10 Dextrose 1,000 mls @ 100 mls/hr 12/31/23 07:36 Dextrose 5% 1,000 Ml IVPB PRN PRN Hypoglycemia Protocol Albumin Human 50 mls @ 999 mls/hr 12/31/23 10:08 Albutein IVPB 01/30/24 10:07 Q10M PRN HYPOTENSION Insulin Aspart 2 - 5 units 12/31/23 12:00 01/03/24 13:18 Insulin Aspart (*Bkc) 100 Units/Ml SUB-Q Not Given Q6HR LISSET Protocol Ondansetron HCl 4 mg 12/30/23 21:52 01/01/24 14:09 Ondansetron Inj 4 Mg/2 Ml Vial IV PUSH 4 mg Q4H PRN Administration Nausea Radiology Results: ITS Impressions Head CT 12/30/23 18:14 Impression: No acute intracranial hemorrhage or suspicious mass effect. Chest X-Ray 01/02/24 17:12 IMPRESSION: 1. Central line tip in the superior vena cava. 2. Mild atelectasis in right mid lung zone. Labs Labs: Laboratory Results - last 24 hr 12/31/23 01/02/24 01/02/24 04:29 13:49 16:13 WBC RBC Hgb Hct MCV MCH MCHC RDW Plt Count MPV Immature Gran % (Auto) Neut % (Auto) Lymph % (Auto) Major % (Auto) Eos % (Auto) Baso % (Auto) Lymph # (Auto) Major # (Auto) Eos # (Auto) Baso # (Auto) Abs Immat Gran (auto) Absolute Neuts (auto) Absolute Nucleated RBC Nucleated RBC % ESR Sodium Potassium Chloride Carbon Dioxide Anion Gap BUN Creatinine Estim Creat Clear Calc Estimated GFR Glucose POC Capillary Glucose 111 H 104 Calcium Magnesium Total Bilirubin AST ALT Alkaline Phosphatase Total Creatine Kinase Total Protein Albumin Urine Color Urine Appearance Urine pH Ur Specific [place] Urine Protein Urine Glucose (UA) Urine Ketones Ur Blood (Man) Urine Nitrate Urine Bilirubin Urine Urobilinogen Leukocyte Esterase Rfl Urine RBC Urine WBC Ur Squamous Epith Cells Urine Bacteria Urine Casts Urine Eosinophils U Random Total Protein Ur Random Sodium Ur Random Potassium Urine Creatinine Protein/Creat Ratio 2 Tot Complement (CH50) >60 H 01/02/24 01/02/24 01/02/24 17:18 18:22 18:22 WBC RBC Hgb Hct MCV MCH MCHC RDW Plt Count MPV Immature Gran % (Auto) Neut % (Auto) Lymph % (Auto) Major % (Auto) Eos % (Auto) Baso % (Auto) Lymph # (Auto) Major # (Auto) Eos # (Auto) Baso # (Auto) Abs Immat Gran (auto) Absolute Neuts (auto) Absolute Nucleated RBC Nucleated RBC % ESR Sodium Potassium Chloride Carbon Dioxide Anion Gap BUN Creatinine Estim Creat Clear Calc Estimated GFR Glucose POC Capillary Glucose Calcium Magnesium Total Bilirubin AST ALT Alkaline Phosphatase Total Creatine Kinase 300 H Total Protein Albumin Urine Color Yellow Urine Appearance Clear Urine pH 5.5 Ur Specific [place] 1.007 Urine Protein 2+ H Urine Glucose (UA) Negative Urine Ketones Negative Ur Blood (Man) 1+ H Urine Nitrate Negative Urine Bilirubin Negative Urine Urobilinogen 0.2 Leukocyte Esterase Rfl Negative Urine RBC 0-2 Urine WBC 0-5 Ur Squamous Epith Cells None seen Urine Bacteria None seen Urine Casts 0-2 Urine Eosinophils None seen U Random Total Protein 72 Ur Random Sodium 53 Ur Random Potassium 9.7 Urine Creatinine 58.3 54.9 Protein/Creat Ratio 2 1.31 H Tot Complement (CH50) 01/02/24 01/02/24 01/03/24 19:44 23:26 06:57 WBC RBC Hgb Hct MCV MCH MCHC RDW Plt Count MPV Immature Gran % (Auto) Neut % (Auto) Lymph % (Auto) Major % (Auto) Eos % (Auto) Baso % (Auto) Lymph # (Auto) Major # (Auto) Eos # (Auto) Baso # (Auto) Abs Immat Gran (auto) Absolute Neuts (auto) Absolute Nucleated RBC Nucleated RBC % ESR Sodium 132 L Potassium 3.1 L Chloride 96 L Carbon Dioxide 25 Anion Gap 11 BUN 42 H Creatinine 7.40 H Estim Creat Clear Calc 17 Estimated GFR 8 L Glucose 108 POC Capillary Glucose 129 H 146 H Calcium 5.9 L* Magnesium 1.9 Total Bilirubin 1.4 H AST 15 L ALT 12 Alkaline Phosphatase 115 Total Creatine Kinase Total Protein 6.0 L Albumin 3.0 L Urine Color Urine Appearance Urine pH Ur Specific [place] Urine Protein Urine Glucose (UA) Urine Ketones Ur Blood (Man) Urine Nitrate Urine Bilirubin Urine Urobilinogen Leukocyte Esterase Rfl Urine RBC Urine WBC Ur Squamous Epith Cells Urine Bacteria Urine Casts Urine Eosinophils U Random Total Protein Ur Random Sodium Ur Random Potassium Urine Creatinine Protein/Creat Ratio 2 Tot Complement (CH50) 01/03/24 01/03/24 06:58 07:58 WBC 8.1 RBC 2.75 L Hgb 8.3 L Hct 25.0 L MCV 90.9 MCH 30.2 MCHC 33.2 RDW 14.5 Plt Count 165 MPV 10.3 Immature Gran % (Auto) 1.0 H Neut % (Auto) 80.0 H Lymph % (Auto) 6.2 L Major % (Auto) 9.9 H Eos % (Auto) 2.5 Baso % (Auto) 0.4 Lymph # (Auto) 0.50 L Major # (Auto) 0.8 H Eos # (Auto) 0.2 Baso # (Auto) 0.0 Abs Immat Gran (auto) 0.08 H Absolute Neuts (auto) 6.5 Absolute Nucleated RBC 0.000 Nucleated RBC % 0.0 ESR 111 H Sodium Potassium Chloride Carbon Dioxide Anion Gap BUN Creatinine Estim Creat Clear Calc Estimated GFR Glucose POC Capillary Glucose 125 H Calcium Magnesium Total Bilirubin AST ALT Alkaline Phosphatase Total Creatine Kinase Total Protein Albumin Urine Color Urine Appearance Urine pH Ur Specific [place] Urine Protein Urine Glucose (UA) Urine Ketones Ur Blood (Man) Urine Nitrate Urine Bilirubin Urine Urobilinogen Leukocyte Esterase Rfl Urine RBC Urine WBC Ur Squamous Epith Cells Urine Bacteria Urine Casts Urine Eosinophils U Random Total Protein Ur Random Sodium Ur Random Potassium Urine Creatinine Protein/Creat Ratio 2 Tot Complement (CH50)
[2024-01-03 13:21] LABS: Glucose Point of Care 156 mg/dl (65-105)
[2024-01-03] MEDS: CALCIUM CARBONATE (OSCAL) 500 MG TABLET 1000 MG PO ×2 (15:35→20:52)
[2024-01-03 16:44] LABS: Glucose Point of Care 163 mg/dl (65-105)
[2024-01-03] MEDS: GABAPENTIN 300 MG CAPSULE 600 MG PO (20:53)
--- NOTE | 2024-01-03 20:54 | PC.NURSE ---
pt refusing iv access at this time, stating he has a dialysis catheter and isn't getting any iv medicines. pt states he will be agreeable to get an iv if iv medication is needed
[2024-01-03 21:01] LABS: Glucose Point of Care 149 mg/dl (65-105)
[2024-01-04 06:00] VITALS: BP 144/69; PULSE 76; RESP 15; TEMP 36.9; O2SAT 94
[2024-01-04 06:51] LABS: Basophils Percent Auto 0.5 % (0.2-1.2); Eosinophils Absolute Auto 0.3 K/mm3 (0-0.3); Eosinophils Percent Auto 5.1 % (0-4.4); Hemoglobin 7.9 g/dL (14.0-18.0); Immature Granulocyte Absolute 0.07 K/mm3 (0.00-0.031); Immature Granulocyte Percent A 1.1 % (0-0.5); Lymphocytes Absolute Auto 0.59 K/mm3 (0.9-3.2); Lymphocytes Percent Auto 9.2 % (18.3-44.2); Mean Corpuscular HGB Conc 31.6 g/dl (32-36); Mean Corpuscular Hemoglobin 29.2 pg (26-34); Mean Corpuscular Volume 92.3 fl (80-100); Mean Platelet Volume 10.3 fl (7.4-10.4); Monocytes Absolute Auto 0.8 K/mm3 (0.1-0.6); Monocytes Percent Auto 11.8 % (2.6-8.5); Neutrophils Absolute Auto 4.7 K/mm3 (1.3-6.7); Neutrophils Percent Auto 72.3 % (45.5-73.1); Platelet Count Result 163 k/mm3 (150-375); Red Blood Count 2.71 M/mm3 (4.6-6.20); Red Cell Distribution Width 14.2 % (11.5-14.5); White Blood Count 6.4 K/mm3 (4.5-10.0)
[2024-01-04 07:09] LABS: Alanine Aminotransferase 10 U/L (6-50); Albumin Level 2.9 g/dL (3.5-5.1); Alkaline Phosphatase 92 U/L (38-126); Anion Gap 7 mmol/L (4-12); Aspartate Amino Transferase 13 U/L (17-59); Blood Urea Nitrogen 26 mg/dL (9-20); Calcium 6.9 mg/dL (8.4-10.2); Carbon Dioxide 32 mmol/L (22-30); Chloride 94 mmol/L (98-107); Estimated CRCL calculation 25 ml/min; Estimated Glomerular Filt Rate 13; Glucose 133 mg/dL (65-110); Potassium 3.3 mmol/L (3.4-5.0); Sodium 133 mmol/L (137-145)
[2024-01-04 07:59] LABS: Glucose Point of Care 226 mg/dl (65-105)
[2024-01-04] MEDS: HEPARIN SODIUM 5,000 UNITS/ML VIAL 5000 UNITS SUB-Q ×2 (08:17→21:57)
[2024-01-04] MEDS: ASPIRIN 81 MG ENTERIC TABLET PO (08:17)
[2024-01-04] MEDS: CLOPIDOGREL BISULFATE 75 MG TABLET PO (08:17)
[2024-01-04] MEDS: INSULIN ASPART (*BKC) 100 UNITS/ML SUB-Q (08:17)
[2024-01-04] MEDS: CALCIUM ACETATE 667 MG TABLET 2001 MG PO ×3 (08:17→17:20)
--- NOTE | 2024-01-04 09:54 | PM.PNNEP ---
Progress Note: A&P Assessment and Plan (1) SHABNAM (acute kidney injury): Code(s): N17.9 - Acute kidney failure, unspecified Status: Acute Assessment and Plan: etiology not clear however, complicated by hyperkaleia, acidosis, and possible uremia started dialysis on the and is getting a dialysis today. urine studies show non pre renal findings so far C3 is low. sedimentation rate rate is 111 other serology and immunofixation are pending creatinine is 5 today which is better than it was yesterday of course because he had dialysis. Will check it again tomorrow. If it is rising then he may need another treatment tomorrow or Friday. He would also need a PermCath so he could get discharged. He did have hepatitis studies but not the hepatitis B core antibody total so I ordered that today. If the numbers are improving, of course, then he may not need more dialysis. The other issue was a do not really know why his kidneys did this. His creatinine has gradually worsened during this year from normal in February to high 1s in March to 3 in April and then to 16. His urine has blood and protein. I will leave it up to as to whether he needs a biopsy. (2) Chronic kidney disease, stage IV (severe): Code(s): N18.4 - Chronic kidney disease, stage 4 (severe) Status: Chronic Assessment and Plan: last creatinine was ~ 3.0 - 3.2mg/dl in May 2023 not clear what true baseline creatinine really is try to obtain records from PCP suspect an element of CKD from HTN, DM, and vascular disease (3) Acute hyperkalemia: Code(s): E87.5 - Hyperkalemia Status: Acute Assessment and Plan: resolved as noted on admission resistant to medical therapy dialysis today to treat Potassium was low today again. Will treat with potassium 20 mEq p.o. x1 (4) Uremic encephalopathy: Code(s): G93.49 - Other encephalopathy; N19 - Unspecified kidney failure Status: Acute Assessment and Plan: this looks resolved (5) Acidosis: Code(s): E87.20 - Acidosis, unspecified Status: Acute Assessment and Plan: resolved (6) Anemia: Qualifiers: Anemia type: unspecified type Qualified Code(s): D64.9 - Anemia, unspecified Code(s): D64.9 - Anemia, unspecified Status: Acute Assessment and Plan: resolved (7) HTN (hypertension): Qualifiers: Hypertension type: primary hypertension Qualified Code(s): I10 - Essential (primary) hypertension Code(s): I10 - Essential (primary) hypertension Status: Chronic Assessment and Plan: systolic down to the 140s since dialysis yesterday. 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 He feels okay. He is getting tired of lying around. Exam Narrative: General: WD/WN male in NAD Heart: normal S1 and S2; no rub or gallop Lungs: clear to auscultation Abdomen: soft, nontender, nondistended, positive bowel sounds Extremities: no cyanosis or clubbing; no edema; s/p right BKA Skin: No rash Objective Data Vital Signs Vital Signs: Vital Signs - 24 hr 01/03/24 10:00 01/03/24 10:15 01/03/24 10:30 Temperature Pulse Rate 86 89 88 Respiratory Rate Blood Pressure 176/92 H 174/91 H 173/92 H Pulse Oximetry Oxygen Delivery 01/03/24 10:45 01/03/24 11:00 01/03/24 11:15 Temperature Pulse Rate 87 88 87 Respiratory Rate Blood Pressure 176/93 H 182/96 H 183/95 H Pulse Oximetry Oxygen Delivery 01/03/24 11:45 01/03/24 12:10 01/03/24 11:30 Temperature 100.2 F H Pulse Rate 90 94 92 Respiratory Rate 18 Blood Pressure 175/93 H 149/91 H 171/94 H Pulse Oximetry 96 Oxygen Delivery 01/03/24 12:00 01/03/24 12:02 01/03/24 13:13 Temperature 100.2 F H Pulse Rate 90 90 Respiratory Rate Blood Pressure 173/89 H 182/90 H Pulse Oximetry Oxygen Delivery 01/03/24 14:03 01/03/24 14:00 01/03/24 14:13 Temperature 99.6 F 98.8 F Pulse Rate 94 84 Respiratory Rate 18 16 Blood Pressure 146/78 H Pulse Oximetry 96 97 Oxygen Delivery Room Air 01/03/24 21:36 01/03/24 20:00 01/04/24 06:00 Temperature 97.8 F 98.4 F Pulse Rate 77 76 Respiratory Rate 14 15 Blood Pressure 150/75 H 144/69 H Pulse Oximetry 97 94 Oxygen Delivery Room Air Intake/Output Intake/Output: Intake & Output 01/01/24 01/02/24 01/03/24 01/04/24 23:59 23:59 23:59 23:59 Intake Total 1980 3090 3807 150 Output Total 1000 1300 700 750 Balance 980 1790 3107 -600 Meds/Results Medications: Active Medications Generic Name Dose Route Start Last Admin Trade Name Freq PRN Reason Stop Dose Admin Acetaminophen 650 mg 01/03/24 12:56 01/03/24 13:13 Acetaminophen 325 Mg Tablet PO 650 mg Q6H PRN Administration Mild Pain (1-3) or Fever Aspirin 81 mg 12/31/23 09:00 01/04/24 08:17 Aspirin 81 Mg Enteric Tablet PO 81 mg QAM LISSET Administration Calcium Acetate 2,001 mg 01/01/24 13:00 01/04/24 08:17 Calcium Acetate 667 Mg Tablet PO 2,001 mg TID LISSET Administration Calcium Carbonate 1,000 mg 01/02/24 21:00 01/03/24 20:52 Calcium Carbonate (Oscal) 500 Mg Tablet PO 1,000 mg 1000,1500,2100 LISSET Administration Clopidogrel Bisulfate 75 mg 12/31/23 09:00 01/04/24 08:17 Clopidogrel Bisulfate 75 Mg Tablet PO 75 mg DAILY LISSET Administration Dextrose 12.5 gm 12/31/23 07:36 Dextrose 50% 25 Gm/50 Ml Syringe IV PUSH PRN PRN Hypoglycemia Protocol Ergocalciferol 50,000 units 01/03/24 09:00 01/03/24 13:13 Ergocalciferol 50,000 Units Capsule PO 50,000 units Sa@0900 [facility] Administration Gabapentin 600 mg 12/31/23 21:00 01/03/24 20:53 Gabapentin 300 Mg Capsule PO 600 mg HS LISSET Administration Glucagon 1 mg 12/31/23 07:36 Glucagon For Inj 1 Mg Vial IM PRN PRN Hypoglycemia Protocol Glucose 15 gm 12/31/23 07:36 Glucose Oral Gel 15 Gm Of Glucse In 37.5 Gm Tube PO PRN PRN Hypoglycemia Protocol Heparin Sodium (Porcine) 5,000 units 12/31/23 09:00 01/04/24 08:17 Heparin Sodium 5,000 Units/Ml Vial SUB-Q 5,000 units Q12HR LISSET Administration Hydromorphone HCl 0.5 mg 12/31/23 12:47 12/31/23 13:17 Hydromorphone Hcl Inj (*Crx) 1 Mg/Ml Syr IV PUSH 0.5 mg Q4HR PRN Administration Pain Rated 7-10 Dextrose 1,000 mls @ 100 mls/hr 12/31/23 07:36 Dextrose 5% 1,000 Ml IVPB PRN PRN Hypoglycemia Protocol Albumin Human 50 mls @ 999 mls/hr 12/31/23 10:08 Albutein IVPB 01/30/24 10:07 Q10M PRN HYPOTENSION Insulin Aspart 2 - 5 units 12/31/23 12:00 01/04/24 08:17 Insulin Aspart (*Bkc) 100 Units/Ml SUB-Q 2 units Q6HR LISSET Administration Protocol Ondansetron HCl 4 mg 12/30/23 21:52 01/01/24 14:09 Ondansetron Inj 4 Mg/2 Ml Vial IV PUSH 4 mg Q4H PRN Administration Nausea Radiology Results: ITS Impressions Head CT 12/30/23 18:14 Impression: No acute intracranial hemorrhage or suspicious mass effect. Chest X-Ray 01/02/24 17:12 IMPRESSION: 1. Central line tip in the superior vena cava. 2. Mild atelectasis in right mid lung zone. Renal Ultrasound 01/03/24 16:17 IMPRESSION: Unremarkable renal sonogram findings. Labs Labs: Laboratory Results - last 24 hr 01/03/24 01/03/24 01/03/24 06:58 13:18 16:41 WBC RBC Hgb Hct MCV MCH MCHC RDW Plt Count MPV Immature Gran % (Auto) Neut % (Auto) Lymph % (Auto) Gillespie % (Auto) Eos % (Auto) Baso % (Auto) Lymph # (Auto) Gillespie # (Auto) Eos # (Auto) Baso # (Auto) Abs Immat Gran (auto) Absolute Neuts (auto) Absolute Nucleated RBC Nucleated RBC % ESR 111 H Sodium Potassium Chloride Carbon Dioxide Anion Gap BUN Creatinine Estim Creat Clear Calc Estimated GFR Glucose POC Capillary Glucose 156 H 163 H Calcium Total Bilirubin AST ALT Alkaline Phosphatase Total Protein Albumin 01/03/24 01/04/24 01/04/24 19:53 06:13 07:56 WBC 6.4 RBC 2.71 L Hgb 7.9 L Hct 25.0 L MCV 92.3 MCH 29.2 MCHC 31.6 L RDW 14.2 Plt Count 163 MPV 10.3 Immature Gran % (Auto) 1.1 H Neut % (Auto) 72.3 Lymph % (Auto) 9.2 L [place]pie % (Auto) 11.8 H Eos % (Auto) 5.1 H Baso % (Auto) 0.5 Lymph # (Auto) 0.59 L [place] # (Auto) 0.8 H Eos # (Auto) 0.3 Baso # (Auto) 0.0 Abs Immat Gran (auto) 0.07 H Absolute Neuts (auto) 4.7 Absolute Nucleated RBC 0.000 Nucleated RBC % 0.0 ESR Sodium 133 L Potassium 3.3 L Chloride 94 L Carbon Dioxide 32 H Anion Gap 7 BUN 26 H D Creatinine 5.00 H Estim Creat Clear Calc 25 Estimated GFR 13 L Glucose 133 H POC Capillary Glucose 149 H 226 H Calcium 6.9 L Total Bilirubin 1.0 AST 13 L ALT 10 Alkaline Phosphatase 92 Total Protein 6.0 L Albumin 2.9 L
[2024-01-04] MEDS: POTASSIUM CHLORIDE 20 MEQ ER TABLET PO (11:41)
[2024-01-04] MEDS: CALCIUM CARBONATE (OSCAL) 500 MG TABLET 1000 MG PO ×3 (11:44→21:57)
[2024-01-04 11:52] LABS: Glucose Point of Care 180 mg/dl (65-105)
--- NOTE | 2024-01-04 12:37 | P.PNIM_ITS ---
Progress Note: A&P Assessment and Plan (1) Acute on chronic renal failure: Qualifiers: Acute renal failure type: unspecified Chronic kidney disease stage: stage 3 (moderate) Chronic kidney disease stage 3 subtype: unspecified whether 3a or 3b Qualified Code(s): N17.9 - Acute kidney failure, unspecified; N18.30 - Chronic kidney disease, stage 3 unspecified Code(s): N17.9 - Acute kidney failure, unspecified; N18.9 - Chronic kidney disease, unspecified Status: Acute (2) Acute hyperkalemia: Code(s): E87.5 - Hyperkalemia Status: Acute (3) Uremic encephalopathy: Code(s): G93.49 - Other encephalopathy; N19 - Unspecified kidney failure Status: Acute (4) Valtrex overdose: Qualifiers: Encounter type: initial encounter Injury intent: accidental or unintentional Qualified Code(s): T37.5X1A - Poisoning by antiviral drugs, accidental (unintentional), initial encounter Code(s): T37.5X1A - Poisoning by antiviral drugs, accidental (unintentional), initial encounter Status: Acute (5) Vision changes: Code(s): H53.9 - Unspecified visual disturbance Status: Acute (6) Anemia: Qualifiers: Anemia type: unspecified type Qualified Code(s): D64.9 - Anemia, unspecified Code(s): D64.9 - Anemia, unspecified Status: Acute (7) Hypothermia: Qualifiers: Encounter type: initial encounter Qualified Code(s): T68.XXXA - Hypot hermia, initial encounter Code(s): T68.XXXA - Hypothermia, initial encounter Status: Acute Plan # SHABNAM on CKD, severe acute hyperkalemia, severe metabolic acidosis, hypocalcemia Patient has CKD, creatinine is trending up slowly till May 24, 2023 creatinine 3.2 May 24, 2023 Upon arrival in the ED, creatinine bumped up to 16 wishes trending up since admission, K 7.3 Sodium bicarbonate is less than 5 ABG showed decompensated metabolic acidosis, pH 7.005 Patient received causing gluconate IV push, patient is on sodium bicarbonate IV drip 150 mg and 100 mL/hour Repeated calcium level 6.2 will provide ca gluconate 2 g IV push dialysis catheter is placed and patient started on emergent dialysis Follow-up BMP after dialysis and daily, Consult wireless internet installer, appreciate wireless internet installer's input Last dialysis 01/03/2024. Reassess in a.m. if further dialysis will be needed. # severe hypocalcemia CT Ca4.8, increase calcium acetate to 2001 mg t.i.d. p.o., calcium gluconate 2 g IV push, K3.3 # Acute metabolic encephalopathy Likely secondary to uremia, electrolyte disorders This is improved # Severe anemia Hemoglobin 6.2 12/31 Below baseline Patient states he had black stools in past 1 week Follow-up stool guaiac, iron panel, ferritin level wnl Most likely resulting from acute renal failure but need to r/o GIB Patient received 2 pack RBC 12/31 Status post EGD: Gastritis Colonoscopy: Normal # SIRS The patient was hypothermic but I suspect this is more due to environmental exposures the patient's room is quite cold and he has removing his clothes and blankets due to general discomfort and sensory input. obtain blood cultures to rule out underlying infection given mild leukocytosis. Patient was placed under Ayush Hugger for few hours and hypothermia has resolved. Intermittent fever persist. Blood culture negative to date from 12/31/2023 # ESSENTIAL HYPERTENSION Hold losartan and hydrochlorothiazide because acute renal failure Patient is on hemodialysis # Diabetes Start insulin sliding scale a.c. and q.h.s. # DVT prophylaxis hold heparin Subjective Date/time seen: 01/04/24 12:37 Interval history: no new complaints. Feels well. No fever chills. Mild temperature noted yesterday afternoon. Review of Systems Review of Systems: All systems reviewed & are unremarkable except as noted in HPI and below Exam Narrative: GENERAL: Pleasant, in no acute distress. Well-nourished. - EYES: EOMI. Anicteric. Pale - HENT: Moist mucous membranes. - LUNGS: Clear to auscultation bilateral ly, no wheezing, rhonchi, or rales. - CARDIOVASCULAR: Regular rate and rhyth m. No murmur. No JVD. - ABDOMEN: Soft, non-tender and non-dist ended. No palpable masses. - EXTREMITIES: No edema. Right below-kn ee amputation. Non-tender. - NEUROLOGIC: No focal neurological defi cits. CN II-XII grossly intact. - PSYCHIATRIC: Awake, Alert and oriented x 3. Appropriate mood and affect. - SKIN: No rashes or lesions. Warm. - LYMPH: No cervical lymphadenopathy. Objective Data Vital Signs Vital Signs: Vital Signs - 24 hr 01/03/24 13:13 01/03/24 14:03 01/03/24 14:00 Temperature 100.2 F H 99.6 F Pulse Rate 94 84 Respiratory Rate 18 16 Blood Pressure 146/78 H Pulse Oximetry 96 97 Oxygen Delivery Room Air 01/03/24 14:13 01/03/24 21:36 01/03/24 20:00 Temperature 98.8 F 97.8 F Pulse Rate 77 Respiratory Rate 14 Blood Pressure 150/75 H Pulse Oximetry 97 Oxygen Delivery Room Air 01/04/24 06:00 Temperature 98.4 F Pulse Rate 76 Respiratory Rate 15 Blood Pressure 144/69 H Pulse Oximetry 94 Oxygen Delivery Intake/Output Intake/Output: Intake & Output 01/01/24 01/02/24 01/03/24 01/04/24 23:59 23:59 23:59 23:59 Intake Total 1980 3090 3807 390 Output Total 1000 1300 700 750 Balance 980 1790 3107 -360 Meds/Results Medications: Active Medications Generic Name Dose Route Start Last Admin Trade Name Freq PRN Reason Stop Dose Admin Acetaminophen 650 mg 01/03/24 12:56 01/03/24 13:13 Acetaminophen 325 Mg Tablet PO 650 mg Q6H PRN Administration Mild Pain (1-3) or Fever Aspirin 81 mg 12/31/23 09:00 01/04/24 08:17 Aspirin 81 Mg Enteric Tablet PO 81 mg QAM LISSET Administration Calcium Acetate 2,001 mg 01/01/24 13:00 01/04/24 08:17 Calcium Acetate 667 Mg Tablet PO 2,001 mg TID LISSET Administration Calcium Carbonate 1,000 mg 01/02/24 21:00 01/04/24 11:44 Calcium Carbonate (Oscal) 500 Mg Tablet PO 1,000 mg 1000,1500,2100 LISSET Administration Clopidogrel Bisulfate 75 mg 12/31/23 09:00 01/04/24 08:17 Clopidogrel Bisulfate 75 Mg Tablet PO 75 mg DAILY LISSET Administration Dextrose 12.5 gm 12/31/23 07:36 Dextrose 50% 25 Gm/50 Ml Syringe IV PUSH PRN PRN Hypoglycemia Protocol Ergocalciferol 50,000 units 01/03/24 09:00 01/03/24 13:13 Ergocalciferol 50,000 Units Capsule PO 50,000 units Sa@0900 LISSET Administration Gabapentin 600 mg 12/31/23 21:00 01/03/24 20:53 Gabapentin 300 Mg Capsule PO 600 mg HS LISSET Administration Glucagon 1 mg 12/31/23 07:36 Glucagon For Inj 1 Mg Vial IM PRN PRN Hypoglycemia Protocol Glucose 15 gm 12/31/23 07:36 Glucose Oral Gel 15 Gm Of Glucse In 37.5 Gm Tube PO PRN PRN Hypoglycemia Protocol Heparin Sodium (Porcine) 5,000 units 12/31/23 09:00 01/04/24 08:17 Heparin Sodium 5,000 Units/Ml Vial SUB-Q 5,000 units Q12HR LISSET Administration Hydromorphone HCl 0.5 mg 12/31/23 12:47 12/31/23 13:17 Hydromorphone Hcl Inj (*Crx) 1 Mg/Ml Syr IV PUSH 0.5 mg Q4HR PRN Administration Pain Rated 7-10 Dextrose 1,000 mls @ 100 mls/hr 12/31/23 07:36 Dextrose 5% 1,000 Ml IVPB PRN PRN Hypoglycemia Protocol Albumin Human 50 mls @ 999 mls/hr 12/31/23 10:08 Albutein IVPB 01/30/24 10:07 Q10M PRN HYPOTENSION Insulin Aspart 2 - 5 units 12/31/23 12:00 01/04/24 08:17 Insulin Aspart (*Bkc) 100 Units/Ml SUB-Q 2 units Q6HR LISSET Administration Protocol Ondansetron HCl 4 mg 12/30/23 21:52 01/01/24 14:09 Ondansetron Inj 4 Mg/2 Ml Vial IV PUSH 4 mg Q4H PRN Administration Nausea Radiology Results: ITS Impressions Head CT 12/30/23 18:14 Impression: No acute intracranial hemorrhage or suspicious mass effect. Chest X-Ray 01/02/24 17:12 IMPRESSION: 1. Central line tip in the superior vena cava. 2. Mild atelectasis in right mid lung zone. Renal Ultrasound 01/03/24 16:17 IMPRESSION: Unremarkable renal sonogram findings. Labs Labs: Laboratory Results - last 24 hr 01/03/24 01/03/24 01/03/24 13:18 16:41 19:53 WBC RBC Hgb Hct MCV MCH MCHC RDW Plt Count MPV Immature Gran % (Auto) Neut % (Auto) Lymph % (Auto) [place] % (Auto) Eos % (Auto) Baso % (Auto) Lymph # (Auto) [place] # (Auto) Eos # (Auto) Baso # (Auto) Abs Immat Gran (auto) Absolute Neuts (auto) Absolute Nucleated RBC Nucleated RBC % Sodium Potassium Chloride Carbon Dioxide Anion Gap BUN Creatinine Estim Creat Clear Calc Estimated GFR Glucose POC Capillary Glucose 156 H 163 H 149 H Calcium Total Bilirubin AST ALT Alkaline Phosphatase Total Protein Albumin 01/04/24 01/04/24 01/04/24 06:13 07:56 11:41 WBC 6.4 RBC 2.71 L Hgb 7.9 L Hct 25.0 L MCV 92.3 MCH 29.2 MCHC 31.6 L RDW 14.2 Plt Count 163 MPV 10.3 Immature Gran % (Auto) 1.1 H Neut % (Auto) 72.3 Lymph % (Auto) 9.2 L [place] % (Auto) 11.8 H Eos % (Auto) 5.1 H Baso % (Auto) 0.5 Lymph # (Auto) 0.59 L [place] # (Auto) 0.8 H Eos # (Auto) 0.3 Baso # (Auto) 0.0 Abs Immat Gran (auto) 0.07 H Absolute Neuts (auto) 4.7 Absolute Nucleated RBC 0.000 Nucleated RBC % 0.0 Sodium 133 L Potassium 3.3 L Chloride 94 L Carbon Dioxide 32 H Anion Gap 7 BUN 26 H D Creatinine 5.00 H Estim Creat Clear Calc 25 Estimated GFR 13 L Glucose 133 H POC Capillary Glucose 226 H 180 H Calcium 6.9 L Total Bilirubin 1.0 AST 13 L ALT 10 Alkaline Phosphatase 92 Total Protein 6.0 L Albumin 2.9 L
[2024-01-04 14:00] VITALS: BP 131/64; PULSE 81; RESP 16; TEMP 38.2; O2SAT 97
[2024-01-04 16:54] LABS: Glucose Point of Care 148 mg/dl (65-105)
[2024-01-04 20:19] LABS: Glucose Point of Care 183 mg/dl (65-105)
[2024-01-04 21:57] VITALS: BP 148/78; PULSE 78; RESP 22; TEMP 37.8; O2SAT 98
[2024-01-04] MEDS: GABAPENTIN 300 MG CAPSULE 600 MG PO (21:57)
[2024-01-05 05:46] VITALS: BP 153/79; PULSE 88; RESP 22; TEMP 38; O2SAT 96
[2024-01-05 06:31] LABS: Basophils Percent Auto 0.3 % (0.2-1.2); Eosinophils Absolute Auto 0.3 K/mm3 (0-0.3); Eosinophils Percent Auto 4.7 % (0-4.4); Hematocrit 24.7 % (42.0-52.0); Immature Granulocyte Absolute 0.03 K/mm3 (0.00-0.031); Immature Granulocyte Percent A 0.4 % (0-0.5); Lymphocytes Absolute Auto 0.47 K/mm3 (0.9-3.2); Lymphocytes Percent Auto 6.7 % (18.3-44.2); Mean Corpuscular HGB Conc 32.4 g/dl (32-36); Mean Corpuscular Hemoglobin 29.5 pg (26-34); Mean Corpuscular Volume 91.1 fl (80-100); Mean Platelet Volume 9.7 fl (7.4-10.4); Monocytes Absolute Auto 0.8 K/mm3 (0.1-0.6); Monocytes Percent Auto 11.9 % (2.6-8.5); Neutrophils Absolute Auto 5.3 K/mm3 (1.3-6.7); Platelet Count Result 159 k/mm3 (150-375); Red Blood Count 2.71 M/mm3 (4.6-6.20); Red Cell Distribution Width 13.7 % (11.5-14.5)
[2024-01-05 06:42] LABS: Alanine Aminotransferase 9 U/L (6-50); Albumin Level 2.8 g/dL (3.5-5.1); Alkaline Phosphatase 89 U/L (38-126); Anion Gap 7 mmol/L (4-12); Aspartate Amino Transferase 13 U/L (17-59); Bilirubin,Total 1.3 mg/dL (0.2-1.3); Blood Urea Nitrogen 29 mg/dL (9-20); Calcium 6.8 mg/dL (8.4-10.2); Carbon Dioxide 32 mmol/L (22-30); Chloride 94 mmol/L (98-107); Estimated CRCL calculation 22 ml/min; Estimated Glomerular Filt Rate 11; Glucose 131 mg/dL (65-110); Potassium 3.2 mmol/L (3.4-5.0); Sodium 133 mmol/L (137-145)
[2024-01-05 07:46] LABS: Glucose Point of Care 135 mg/dl (65-105)
[2024-01-05] MEDS: CLOPIDOGREL BISULFATE 75 MG TABLET PO (09:15)
[2024-01-05] MEDS: HEPARIN SODIUM 5,000 UNITS/ML VIAL 5000 UNITS SUB-Q ×2 (09:15→20:26)
[2024-01-05] MEDS: CALCIUM CARBONATE (OSCAL) 500 MG TABLET 1000 MG PO ×3 (09:15→20:26)
[2024-01-05] MEDS: CALCIUM ACETATE 667 MG TABLET 2001 MG PO ×3 (09:15→17:10)
[2024-01-05] MEDS: ASPIRIN 81 MG ENTERIC TABLET PO (09:15)
--- NOTE | 2024-01-05 10:35 | P.PNNP_ITS ---
Progress Note: A&P Assessment and Plan (1) SHABNAM (acute kidney injury): Code(s): N17.9 - Acute kidney failure, unspecified Status: Acute Assessment and Plan: * etiology not clear * however, complicated by hyperkaleia, acidosis, and possible uremia on admission * started dialysis on the 12/30 with treatments on 12/31 and 01/02 * evaluation to date notedL * urine studies show non pre renal findings so far * C3 is low * ESR 111 * CPK mildly elevated (doubt effect on kidneys) * urine eosinophils negative * moderate proteinuria * other serology and immunofixation are pending * given lack of clear answer for his SHABNAM/ARF, I am leaning toward a renal biopsy (if his renal function fails to improve with conservative therapy) * unfortunately, has been on plavix since admisssion.... * will hold for now * follow repeat labs and UOP (2) Chronic kidney disease, stage IV (severe): Code(s): N18.4 - Chronic kidney disease, stage 4 (severe) Status: Chronic Assessment and Plan: * last creatinine was ~ 3.0 - 3.2mg/dl in May 2023 * not clear what true baseline creatinine really is * suspect an element of CKD from HTN, DM, and vascular disease (3) Acute hyperkalemia: Code(s): E87.5 - Hyperkalemia Status: Acute Assessment and Plan: * resolved * as noted on admission * resistant to medical therapy * dialysis corrected this * follow trend of repeat K+ levels (4) Uremic encephalopathy: Code(s): G93.49 - Other encephalopathy; N19 - Unspecified kidney failure Status: Acute Assessment and Plan: * resolved (5) Acidosis: Code(s): E87.20 - Acidosis, unspecified Status: Acute Assessment and Plan: * resolved (6) Anemia: Qualifiers: Anemia type: unspecified type Qualified Code(s): D64.9 - Anemia, unspecified Code(s): D64.9 - Anemia, unspecified Status: Acute Assessment and Plan: * better * s/p EGD and colonoscopy with findings noted * follow trend of H/H (7) HTN (hypertension): Qualifiers: Hypertension type: primary hypertension Qualified Code(s): I10 - Essential (primary) hypertension Code(s): I10 - Essential (primary) hypertension Status: Chronic Assessment and Plan: * reasonable control * follow trend of hemodyanmics (8) Diabetes: Qualifiers: Chronic kidney disease stage: unspecified stage Diabetes mellitus complication detail: with chronic kidney disease Diabetes mellitus complication status: with kidney complications Diabetes mellitus terminal block assembler insulin use: with jail use Diabetes mellitus type: type 2 Qualified Code(s): E11.22 - Type 2 diabetes mellitus with diabetic chronic kidney disease; Z79.4 - bed bug exterminator (current) use of insulin Code(s): E11.9 - Type 2 diabetes mellitus without complications Status: Chronic Assessment and Plan: * follow accu-cheks * glycemic control per hospitalists Will continue to follow. Subjective Date/time seen: 01/05/24 10:35 Interval history: Follow-up for acute kidney injury/acute renal failure on chronic kidney disease. Chart reviewed since last seen -- last dialysis treatment was on Friday and tolerated it reasonably well; still appears to be making some urine (although ascertain how much since not all fully documented/detailed); no apparent distress noted at the time of my visit. Exam Narrative: General: WD/WN male in NAD Heart: normal S1 and S2; no rub Lungs: clear to auscultation Abdomen: soft, nontender, nondistended, positive bowel sounds Extremities: no cyanosis or clubbing; no edema; s/p right BKA Skin: no nodules Objective Data Vital Signs Vital Signs: Vital Signs Temp Pulse Resp BP Pulse Ox O2 Del Method 01/05/24 08:00 Room Air 01/05/24 05:46 100.4 F H 88 22 H 153/79 H 96 01/04/24 20:00 Room Air 01/04/24 21:57 100.0 F H 78 22 H 148/78 H 98 01/04/24 14:00 100.7 F H 81 16 131/64 97 Intake/Output Intake/Output: Intake & Output 01/02/24 01/03/24 01/04/24 01/05/24 23:59 23:59 23:59 23:59 Intake Total 3090 3807 1730 2127 Output Total 1300 700 750 Balance 1790 3107 980 2127 Meds/Results Medications: Active Medications Generic Name Dose Route Start Last Admin Trade Name Freq PRN Reason Stop Dose Admin Acetaminophen 650 mg 01/03/24 12:56 01/03/24 13:13 Acetaminophen 325 Mg Tablet PO 650 mg Q6H PRN Administration Mild Pain (1-3) or Fever Aspirin 81 mg 12/31/23 09:00 01/05/24 09:15 Aspirin 81 Mg Enteric Tablet PO 81 mg QAM LISSET Administration Calcium Acetate 2,001 mg 01/01/24 13:00 01/05/24 12:00 Calcium Acetate 667 Mg Tablet PO 2,001 mg TID LISSET Administration Calcium Carbonate 1,000 mg 01/02/24 21:00 01/05/24 09:15 Calcium Carbonate (Oscal) 500 Mg Tablet PO 1,000 mg 1000,1500,2100 LISSET Administration Clopidogrel Bisulfate 75 mg 12/31/23 09:00 01/05/24 09:15 Clopidogrel Bisulfate 75 Mg Tablet PO 75 mg DAILY LISSET Administration Dextrose 12.5 gm 12/31/23 07:36 Dextrose 50% 25 Gm/50 Ml Syringe IV PUSH PRN PRN Hypoglycemia Protocol Ergocalciferol 50,000 units 01/03/24 09:00 01/03/24 13:13 Ergocalciferol 50,000 Units Capsule PO 50,000 units Sa@0900 LISSET Administration Gabapentin 600 mg 12/31/23 21:00 01/04/24 21:57 Gabapentin 300 Mg Capsule PO 600 mg HS LISSET Administration Glucagon 1 mg 12/31/23 07:36 Glucagon For Inj 1 Mg Vial IM PRN PRN Hypoglycemia Protocol Glucose 15 gm 12/31/23 07:36 Glucose Oral Gel 15 Gm Of Glucse In 37.5 Gm Tube PO PRN PRN Hypoglycemia Protocol Heparin Sodium (Porcine) 5,000 units 12/31/23 09:00 01/05/24 09:15 Heparin Sodium 5,000 Units/Ml Vial SUB-Q 5,000 units Q12HR LISSET Administration Hydromorphone HCl 0.5 mg 12/31/23 12:47 12/31/23 13:17 Hydromorphone Hcl Inj (*Crx) 1 Mg/Ml Syr IV PUSH 0.5 mg Q4HR PRN Administration Pain Rated 7-10 Dextrose 1,000 mls @ 100 mls/hr 12/31/23 07:36 Dextrose 5% 1,000 Ml IVPB PRN PRN Hypoglycemia Protocol Albumin Human 50 mls @ 999 mls/hr 12/31/23 10:08 Albutein IVPB 01/30/24 10:07 Q10M PRN HYPOTENSION Insulin Aspart 2 - 5 units 12/31/23 12:00 01/05/24 12:00 Insulin Aspart (*Bkc) 100 Units/Ml SUB-Q 2 units Q6HR LISSET Administration Protocol Ondansetron HCl 4 mg 12/30/23 21:52 01/01/24 14:09 Ondansetron Inj 4 Mg/2 Ml Vial IV PUSH 4 mg Q4H PRN Administration Nausea Radiology Results: ITS Impressions Head CT 12/30/23 18:14 Impression: No acute intracranial hemorrhage or suspicious mass effect. Chest X-Ray 01/02/24 17:12 IMPRESSION: 1. Central line tip in the superior vena cava. 2. Mild atelectasis in right mid lung zone. Renal Ultrasound 01/03/24 16:17 IMPRESSION: Unremarkable renal sonogram findings. Labs Labs: Laboratory Tests 01/05/24 06:24 01/05/24 06:24 Calcium 6.8 L Total Bilirubin 1.3 AST 13 L ALT 9 Alkaline Phosphatase 89 Total Protein 6.0 L Albumin 2.8 L
[2024-01-05 11:41] LABS: Glucose Point of Care 201 mg/dl (65-105)
[2024-01-05] MEDS: INSULIN ASPART (*BKC) 100 UNITS/ML SUB-Q (12:00)
[2024-01-05 14:00] VITALS: BP 168/86; PULSE 95; RESP 17; TEMP 38.7; O2SAT 95
--- NOTE | 2024-01-05 15:02 | PM.IMPN ---
Progress Note: A&P Assessment and Plan (1) Acute on chronic renal failure: Qualifiers: Acute renal failure type: unspecified Chronic kidney disease stage: stage 3 (moderate) Chronic kidney disease stage 3 subtype: unspecified whether 3a or 3b Qualified Code(s): N17.9 - Acute kidney failure, unspecified; N18.30 - Chronic kidney disease, stage 3 unspecified Code(s): N17.9 - Acute kidney failure, unspecified; N18.9 - Chronic kidney disease, unspecified Status: Acute (2) Acute hyperkalemia: Code(s): E87.5 - Hyperkalemia Status: Acute (3) Uremic encephalopathy: Code(s): G93.49 - Other encephalopathy; N19 - Unspecified kidney failure Status: Acute (4) Valtrex overdose: Qualifiers: Encounter type: initial encounter Injury intent: accidental or unintentional Qualified Code(s): T37.5X1A - Poisoning by antiviral drugs, accidental (unintentional), initial encounter Code(s): T37.5X1A - Poisoning by antiviral drugs, accidental (unintentional), initial encounter Status: Acute (5) Vision changes: Code(s): H53.9 - Unspecified visual disturbance Status: Acute (6) Anemia: Qualifiers: Anemia type: unspecified type Qualified Code(s): D64.9 - Anemia, unspecified Code(s): D64.9 - Anemia, unspecified Status: Acute (7) Hypothermia: Qualifiers: Encounter type: initial encounter Qualified Code(s): T68.XXXA - Hypothermia, initial encounter Code(s): T68.XXXA - Hypothermia, initial encounter Status: Acute Plan # SHABNAM on CKD, severe acute hyperkalemia, severe metabolic acidosis, hypocalcemia Patient has CKD, creatinine is trending up slowly till May 24, 2023 creatinine 3.2 May 24, 2023 Upon arrival in the ED, creatinine bumped up to 16 wishes trending up since admission, K 7.3 Sodium bicarbonate is less than 5 ABG showed decompensated metabolic acidosis, pH 7.005 Patient received causing gluconate IV push, patient is on sodium bicarbonate IV drip 150 mg and 100 mL/hour Repeated calcium level 6.2 will provide ca gluconate 2 g IV push dialysis catheter is placed and patient started on emergent dialysis Follow-up BMP after dialysis and daily, Consult airline security representative, appreciate airline security representative's input Last dialysis 01/03/2024. Reassess in a.m. if further dialysis will be needed. # severe hypocalcemia CT Ca4.8, increase calcium acetate to 2001 mg t.i.d. p.o., calcium gluconate 2 g IV push, K3.3 # Acute metabolic encephalopathy Likely secondary to uremia, electrolyte disorders This is improved # Severe anemia Hemoglobin 6.2 12/31 Below baseline Patient states he had black stools in past 1 week Follow-up stool guaiac, iron panel, ferritin level wnl Most likely resulting from acute renal failure but need to r/o GIB Patient received 2 pack RBC 12/31 Status post EGD: Gastritis Colonoscopy: Normal # SIRS The patient was hypothermic but I suspect this is more due to environmental exposures the patient's room is quite cold and he has removing his clothes and blankets due to general discomfort and sensory input. obtain blood cultures to rule out underlying infection given mild leukocytosis. Patient was placed under Ayush Hugger for few hours and hypothermia has resolved. Intermittent fever persist. Blood culture negative to date from 12/31/2023 repeat blood cutlure. no cough. will check urinarlysis has multiple skin furuncles. will order cephalexin and doxycycline # ESSENTIAL HYPERTENSION Hold losartan and hydrochlorothiazide because acute renal failure Patient is on hemodialysis # Diabetes Start insulin sliding scale a.c. and q.h.s. # DVT prophylaxis on heparin Subjective Date/time seen: 01/05/24 15:02 Interval history: no overnight events, intermittent fever persist Review of Systems Review of Systems: All systems reviewed & are unremarkable except as noted in HPI and below Exam Narrative: GENERAL: Pleasant, in no acute distress. Well-nourished. - EYES: EOMI. Anicteric. Pale - HENT: Moist mucous membranes. - LUNGS: Clear to auscultation bilaterally, no wheezing, rhonchi, or rales. - CARDIOVASCULAR: Regular rate and rhythm. No murmur. No JVD. - ABDOMEN: Soft, non-tender and non-distended. No palpable masses. - EXTREMITIES: No edema. Right below-knee amputation. Non-tender. - NEUROLOGIC: No focal neurological deficits. CN II-XII grossly intact. - PSYCHIATRIC: Awake, Alert and oriented x 3. Appropriate mood and affect. - SKIN: No rashes or lesions. Warm. - LYMPH: No cervical lymphadenopathy. Objective Data Vital Signs Vital Signs: Vital Signs - 24 hr 01/04/24 21:57 01/04/24 20:00 01/05/24 05:46 Temperature 100.0 F H 100.4 F H Pulse Rate 78 88 Respiratory Rate 22 H 22 H Blood Pressure 148/78 H 153/79 H Pulse Oximetry 98 96 Oxygen Delivery Room Air 01/05/24 08:00 01/05/24 14:00 Temperature 101.7 F H Pulse Rate 95 Respiratory Rate 17 Blood Pressure 168/86 H Pulse Oximetry 95 Oxygen Delivery Room Air Intake/Output Intake/Output: Intake & Output 01/02/24 01/03/24 01/04/24 01/05/24 23:59 23:59 23:59 23:59 Intake Total 3090 3807 1730 2127 Output Total 1300 700 750 Balance 1790 3107 980 2127 Meds/Results Medications: Active Medications Generic Name Dose Route Start Last Admin Trade Name Freq PRN Reason Stop Dose Admin Acetaminophen 650 mg 01/03/24 12:56 01/03/24 13:13 Acetaminophen 325 Mg Tablet PO 650 mg Q6H PRN Administration Mild Pain (1-3) or Fever Aspirin 81 mg 12/31/23 09:00 01/05/24 09:15 Aspirin 81 Mg Enteric Tablet PO 81 mg QAM LISSET Administration Calcium Acetate 2,001 mg 01/01/24 13:00 01/05/24 12:00 Calcium Acetate 667 Mg Tablet PO 2,001 mg TID LISSET Administration Calcium Carbonate 1,000 mg 01/02/24 21:00 01/05/24 09:15 Calcium Carbonate (Oscal) 500 Mg Tablet PO 1,000 mg 1000,1500,2100 LISSET Administration Clopidogrel Bisulfate 75 mg 12/31/23 09:00 01/05/24 09:15 Clopidogrel Bisulfate 75 Mg Tablet PO 75 mg DAILY LISSET Administration Dextrose 12.5 gm 12/31/23 07:36 Dextrose 50% 25 Gm/50 Ml Syringe IV PUSH PRN PRN Hypoglycemia Protocol Ergocalciferol 50,000 units 01/03/24 09:00 01/03/24 13:13 Ergocalciferol 50,000 Units Capsule PO 50,000 units Sa@0900 LISSET Administration Gabapentin 600 mg 12/31/23 21:00 01/04/24 21:57 Gabapentin 300 Mg Capsule PO 600 mg HS LISSET Administration Glucagon 1 mg 12/31/23 07:36 Glucagon For Inj 1 Mg Vial IM PRN PRN Hypoglycemia Protocol Glucose 15 gm 12/31/23 07:36 Glucose Oral Gel 15 Gm Of Glucse In 37.5 Gm Tube PO PRN PRN Hypoglycemia Protocol Heparin Sodium (Porcine) 5,000 units 12/31/23 09:00 01/05/24 09:15 Heparin Sodium 5,000 Units/Ml Vial SUB-Q 5,000 units Q12HR LISSET Administration Hydromorphone HCl 0.5 mg 12/31/23 12:47 12/31/23 13:17 Hydromorphone Hcl Inj (*Crx) 1 Mg/Ml Syr IV PUSH 0.5 mg Q4HR PRN Administration Pain Rated 7-10 Dextrose 1,000 mls @ 100 mls/hr 12/31/23 07:36 Dextrose 5% 1,000 Ml IVPB PRN PRN Hypoglycemia Protocol Albumin Human 50 mls @ 999 mls/hr 12/31/23 10:08 Albutein IVPB 01/30/24 10:07 Q10M PRN HYPOTENSION Insulin Aspart 2 - 5 units 12/31/23 12:00 01/05/24 12:00 Insulin Aspart (*Bkc) 100 Units/Ml SUB-Q 2 units Q6HR LISSET Administration Protocol Ondansetron HCl 4 mg 12/30/23 21:52 01/01/24 14:09 Ondansetron Inj 4 Mg/2 Ml Vial IV PUSH 4 mg Q4H PRN Administration Nausea Radiology Results: ITS Impressions Head CT 12/30/23 18:14 Impression: No acute intracranial hemorrhage or suspicious mass effect. Chest X-Ray 01/02/24 17:12 IMPRESSION: 1. Central line tip in the superior vena cava. 2. Mild atelectasis in right mid lung zone. Renal Ultrasound 01/03/24 16:17 IMPRESSION: Unremarkable renal sonogram findings. Labs Labs: Laboratory Results - last 24 hr 01/04/24 01/04/24 01/05/24 16:52 20:16 06:24 WBC 7.0 RBC 2.71 L Hgb 8.0 L Hct 24.7 L MCV 91.1 MCH 29.5 MCHC 32.4 RDW 13.7 Plt Count 159 MPV 9.7 Immature Gran % (Auto) 0.4 Neut % (Auto) 76.0 H Lymph % (Auto) 6.7 L [place] % (Auto) 11.9 H Eos % (Auto) 4.7 H Baso % (Auto) 0.3 Lymph # (Auto) 0.47 L [place] # (Auto) 0.8 H Eos # (Auto) 0.3 Baso # (Auto) 0.0 Abs Immat Gran (auto) 0.03 Absolute Neuts (auto) 5.3 Absolute Nucleated RBC 0.000 Nucleated RBC % 0.0 Sodium 133 L Potassium 3.2 L Chloride 94 L Carbon Dioxide 32 H Anion Gap 7 BUN 29 H Creatinine 5.80 H Estim Creat Clear Calc 22 Estimated GFR 11 L Glucose 131 H POC Capillary Glucose 148 H 183 H Calcium 6.8 L Total Bilirubin 1.3 AST 13 L ALT 9 Alkaline Phosphatase 89 Total Protein 6.0 L Albumin 2.8 L 01/05/24 01/05/24 07:43 11:37 WBC RBC Hgb Hct MCV MCH MCHC RDW Plt Count MPV Immature Gran % (Auto) Neut % (Auto) Lymph % (Auto) [place] % (Auto) Eos % (Auto) Baso % (Auto) Lymph # (Auto) [place] # (Auto) Eos # (Auto) Baso # (Auto) Abs Immat Gran (auto) Absolute Neuts (auto) Absolute Nucleated RBC Nucleated RBC % Sodium Potassium Chloride Carbon Dioxide Anion Gap BUN Creatinine Estim Creat Clear Calc Estimated GFR Glucose POC Capillary Glucose 135 H 201 H Calcium Total Bilirubin AST ALT Alkaline Phosphatase Total Protein Albumin
[2024-01-05 15:47] VITALS: TEMP 38.7
[2024-01-05] MEDS: ACETAMINOPHEN 325 MG TABLET 650 MG PO (15:47)
[2024-01-05] MEDS: POTASSIUM CHLORIDE 20 MEQ ER TABLET PO (15:47)
[2024-01-05 16:25] LABS: Glucose Point of Care 145 mg/dl (65-105)
[2024-01-05 17:04] LABS: Anti Streptolysin O Screen 47 IU/mL (<200)
[2024-01-05] MEDS: CEPHALEXIN 250 MG CAPSULE PO (17:10)
[2024-01-05 20:17] LABS: Glucose Point of Care 199 mg/dl (65-105)
[2024-01-05 20:22] LABS: Add Urine Microscopic? YES; Appearance Urine Clear (Clear); Bacteria Urine None Seen /hpf; Bilirubin Urine Negative (Negative); Blood Urine Non-Hemolyzed Trace (Negative); Color Urine Yellow (Yellow); Glucose Urine UA Trace mg/dL (Negative); Ketones Urine Negative (Negative); Leukocyte Esterase Ur Negative LEU/UL (Negative); Nitrate Urine Negative (Negative); Non Pathogenic Casts 0-2; Protein Urine 2+ mg/dL (Negative); RBC Urine 0-2 /hpf (0-2); Specific Grav Ur 1.007 (1.001-1.035); Squamous Epithelial Cell Urine None Seen /hpf (Few); Urobilinogen Urine 0.2 mg/dL (<2.0); WBC Urine 0-5 /hpf (0-3); pH Urine 7.5 (5.0-9.0)
[2024-01-05] MEDS: GABAPENTIN 300 MG CAPSULE 600 MG PO (20:25)
[2024-01-05] MEDS: DOXYCYCLINE HYCLATE 100 MG TABLET PO (20:26)
[2024-01-05 20:52] VITALS: BP 163/87; PULSE 84; RESP 16; TEMP 37.2; O2SAT 97
[2024-01-06 04:03] LABS: Hepatitis B Core Ab Total NON-REACTIVE (NON-REACTIVE)
[2024-01-06 05:24] VITALS: BP 140/68; PULSE 92; RESP 18; TEMP 37.4; O2SAT 95
[2024-01-06 05:27] LABS: Basophils Percent Auto 0.2 % (0.2-1.2); Eosinophils Absolute Auto 0.3 K/mm3 (0-0.3); Eosinophils Percent Auto 2.8 % (0-4.4); Hematocrit 25.5 % (42.0-52.0); Hemoglobin 8.2 g/dL (14.0-18.0); Immature Granulocyte Absolute 0.07 K/mm3 (0.00-0.031); Immature Granulocyte Percent A 0.8 % (0-0.5); Lymphocytes Absolute Auto 0.55 K/mm3 (0.9-3.2); Mean Corpuscular HGB Conc 32.2 g/dl (32-36); Mean Corpuscular Hemoglobin 29.6 pg (26-34); Mean Corpuscular Volume 92.1 fl (80-100); Mean Platelet Volume 9.4 fl (7.4-10.4); Monocytes Percent Auto 10.8 % (2.6-8.5); Neutrophils Absolute Auto 7.3 K/mm3 (1.3-6.7); Neutrophils Percent Auto 79.4 % (45.5-73.1); Platelet Count Result 161 k/mm3 (150-375); Red Blood Count 2.77 M/mm3 (4.6-6.20); Red Cell Distribution Width 13.5 % (11.5-14.5); White Blood Count 9.2 K/mm3 (4.5-10.0)
[2024-01-06 05:41] LABS: Alanine Aminotransferase 10 U/L (6-50); Albumin Level 2.7 g/dL (3.5-5.1); Alkaline Phosphatase 89 U/L (38-126); Anion Gap 7 mmol/L (4-12); Aspartate Amino Transferase 18 U/L (17-59); Bilirubin,Total 1.3 mg/dL (0.2-1.3); Blood Urea Nitrogen 32 mg/dL (9-20); Calcium 7.1 mg/dL (8.4-10.2); Carbon Dioxide 31 mmol/L (22-30); Chloride 94 mmol/L (98-107); Estimated CRCL calculation 19 ml/min; Estimated Glomerular Filt Rate 10; Glucose 136 mg/dL (65-110); Magnesium 1.6 mg/dL (1.6-2.3); Potassium 3.6 mmol/L (3.4-5.0); Sodium 132 mmol/L (137-145)
[2024-01-06] MEDS: CEPHALEXIN 250 MG CAPSULE PO ×2 (05:49→17:16)
[2024-01-06 07:43] LABS: Glucose Point of Care 160 mg/dl (65-105)
[2024-01-06] MEDS: ASPIRIN 81 MG ENTERIC TABLET PO (08:36)
[2024-01-06] MEDS: CALCIUM ACETATE 667 MG TABLET 2001 MG PO ×3 (08:37→16:40)
[2024-01-06] MEDS: DOXYCYCLINE HYCLATE 100 MG TABLET PO ×2 (08:37→20:43)
[2024-01-06] MEDS: CALCIUM CARBONATE (OSCAL) 500 MG TABLET 1000 MG PO ×3 (09:20→20:43)
--- NOTE | 2024-01-06 10:08 | P.PNNP_ITS ---
Progress Note: A&P Assessment and Plan (1) SHABNAM (acute kidney injury): Code(s): N17.9 - Acute kidney failure, unspecified Status: Acute Assessment and Plan: * etiology not clear * however, complicated by hyperkaleia, acidosis, and possible uremia on admission * started dialysis on the 12/30 with treatments on 12/31 and 01/02 * evaluation to date noted: * urine studies show non pre renal findings so far * C3 is low * ESR 111 * CPK mildly elevated (doubt effect on kidneys) * urine eosinophils negative * moderate proteinuria * other serology and immunofixation are pending * given lack of clear answer for his SHABNAM/ARF, I am leaning toward a renal biopsy (if his renal function fails to improve with conservative therapy) * unfortunately, has been on plavix since admission....which make doing a renal biopsy HIGH RISK * will hold plavix for now * follow repeat labs and UOP (2) Chronic kidney disease, stage IV (severe): Code(s): N18.4 - Chronic kidney disease, stage 4 (severe) Status: Chronic Assessment and Plan: * last creatinine was ~ 3.0 - 3.2mg/dl in May 2023 * not clear what true baseline creatinine really is * suspect an element of CKD from HTN, DM, and vascular disease (3) Acute hyperkalemia: Code(s): E87.5 - Hyperkalemia Status: Acute Assessment and Plan: * resolved * as noted on admission * resistant to medical therapy * dialysis corrected this * follow trend of repeat K+ levels (4) Uremic encephalopathy: Code(s): G93.49 - Other encephalopathy; N19 - Unspecified kidney failure Status: Acute Assessment and Plan: * resolved (5) Acidosis: Code(s): E87.20 - Acidosis, unspecified Status: Acute Assessment and Plan: * resolved (6) Anemia: Qualifiers: Anemia type: unspecified type Qualified Code(s): D64.9 - Anemia, unspecified Code(s): D64.9 - Anemia, unspecified Status: Acute Assessment and Plan: * better * s/p EGD and colonoscopy with findings noted * follow trend of H/H (7) HTN (hypertension): Qualifiers: Hypertension type: primary hypertension Qualified Code(s): I10 - Essential (primary) hypertension Code(s): I10 - Essential (primary) hypertension Status: Chronic Assessment and Plan: * reasonable control * follow trend of hemodyanmics (8) Diabetes: Qualifiers: Chronic kidney disease stage: unspecified stage Diabetes mellitus complication detail: with chronic kidney disease Diabetes mellitus complication status: with kidney complications Diabetes mellitus longterm insulin use: with longterm use Diabetes mellitus type: type 2 Qualified Code(s): E11.22 - Type 2 diabetes mellitus with diabetic chronic kidney disease; Z79.4 - skilled nursing (current) use of insulin Code(s): E11.9 - Type 2 diabetes mellitus without complications Status: Chronic Assessment and Plan: * follow accu-cheks * glycemic control per hospitalists Will continue to follow. Subjective Date/time seen: 01/06/24 10:08 Interval history: Follow-up for acute kidney injury/acute renal failure on chronic kidney disease. No new issues or problems voiced at this time; despite worsening renal function/creatinine since last dialysis on Friday, continues to make good urine output with relative stability in electrolytes; no acute issues/events overnight or earlier this morning; stable hemodynamics noted but noted to be febrile in the last 24 hours. Exam Narrative: General: WD/WN male in NAD Heart: normal S1 and S2; no rub Lungs: clear to auscultation Abdomen: soft, nontender, nondistended, positive bowel sounds Extremities: no cyanosis or clubbing; no edema; s/p right BKA Skin: warm and dry Objective Data Vital Signs Vital Signs: Vital Signs Temp Pulse Resp BP Pulse Ox O2 Del Method 01/06/24 05:24 99.3 F 92 18 140/68 95 01/05/24 20:52 98.9 F 84 16 163/87 H 97 01/05/24 20:00 Room Air 01/05/24 15:47 101.7 F H 01/05/24 14:00 101.7 F H 95 17 168/86 H 95 Intake/Output Intake/Output: Intake & Output 01/03/24 01/04/24 01/05/24 01/06/24 23:59 23:59 23:59 23:59 Intake Total 3807 1730 3364 1740 Output Total 484 889 5223 Balance 3107 980 3364 540 Meds/Results Medications: Active Medications Generic Name Dose Route Start Last Admin Trade Name Freq PRN Reason Stop Dose Admin Acetaminophen 650 mg 01/03/24 12:56 01/05/24 15:47 Acetaminophen 325 Mg Tablet PO 650 mg Q6H PRN Administration Mild Pain (1-3) or Fever Aspirin 81 mg 12/31/23 09:00 01/06/24 08:36 Aspirin 81 Mg Enteric Tablet PO 81 mg QAM LISSET Administration Calcium Acetate 2,001 mg 01/01/24 13:00 01/06/24 08:37 Calcium Acetate 667 Mg Tablet PO 2,001 mg TID LISSET Administration Calcium Carbonate 1,000 mg 01/02/24 21:00 01/06/24 09:20 Calcium Carbonate (Oscal) 500 Mg Tablet PO 1,000 mg 1000,1500,2100 LISSET Administration Cephalexin HCl 250 mg 01/05/24 18:00 01/06/24 05:49 Cephalexin 250 Mg Capsule PO 250 mg Q12H LISSET Administration Clopidogrel Bisulfate 75 mg 12/31/23 09:00 01/05/24 09:15 Clopidogrel Bisulfate 75 Mg Tablet PO 75 mg DAILY LISSET Administration Dextrose 12.5 gm 12/31/23 07:36 Dextrose 50% 25 Gm/50 Ml Syringe IV PUSH PRN PRN Hypoglycemia Protocol Doxycycline Hyclate 100 mg 01/05/24 21:00 01/06/24 08:37 Doxycycline Hyclate 100 Mg Tablet PO 01/12/24 20:59 100 mg Q12HR LISSET Administration Ergocalciferol 50,000 units 01/03/24 09:00 01/03/24 13:13 Ergocalciferol 50,000 Units Capsule PO 50,000 units Sa@0900 LISSET Administration Gabapentin 600 mg 12/31/23 21:00 01/05/24 20:25 Gabapentin 300 Mg Capsule PO 600 mg HS [facility] Administration Glucagon 1 mg 12/31/23 07:36 Glucagon For Inj 1 Mg Vial IM PRN PRN Hypoglycemia Protocol Glucose 15 gm 12/31/23 07:36 Glucose Oral Gel 15 Gm Of Glucse In 37.5 Gm Tube PO PRN PRN Hypoglycemia Protocol Heparin Sodium (Porcine) 5,000 units 12/31/23 09:00 01/06/24 08:35 Heparin Sodium 5,000 Units/Ml Vial SUB-Q Not Given Q12HR LISSET Hydromorphone HCl 0.5 mg 12/31/23 12:47 12/31/23 13:17 Hydromorphone Hcl Inj (*Crx) 1 Mg/Ml Syr IV PUSH 0.5 mg Q4HR PRN Administration Pain Rated 7-10 Dextrose 1,000 mls @ 100 mls/hr 12/31/23 07:36 Dextrose 5% 1,000 Ml IVPB PRN PRN Hypoglycemia Protocol Albumin Human 50 mls @ 999 mls/hr 12/31/23 10:08 Albutein IVPB 01/30/24 10:07 Q10M PRN HYPOTENSION Insulin Aspart 2 - 5 units 01/06/24 08:00 01/06/24 11:29 Insulin Aspart (*Bkc) 100 Units/Ml SUB-Q Not Given TIDWM LISSET Protocol Ondansetron HCl 4 mg 12/30/23 21:52 01/01/24 14:09 Ondansetron Inj 4 Mg/2 Ml Vial IV PUSH 4 mg Q4H PRN Administration Nausea Radiology Results: ITS Impressions Head CT 12/30/23 18:14 Impression: No acute intracranial hemorrhage or suspicious mass effect. Chest X-Ray 01/02/24 17:12 IMPRESSION: 1. Central line tip in the superior vena cava. 2. Mild atelectasis in right mid lung zone. Renal Ultrasound 01/03/24 16:17 IMPRESSION: Unremarkable renal sonogram findings. Labs Labs: Laboratory Tests 01/06/24 05:19 01/06/24 05:19 Calcium 7.1 L Magnesium 1.6 Total Bilirubin 1.3 AST 18 ALT 10 Alkaline Phosphatase 89 Total Protein 6.0 L Albumin 2.7 L Microbiology 12/31/23 08:18 Blood Blood Culture - Final 12/31/23 08:27 Blood Blood Culture - Final
[2024-01-06 11:34] LABS: Glucose Point of Care 166 mg/dl (65-105)
[2024-01-06 12:20] LABS: Chloride Rand Ur 54 mmol/L (32-290); Chloride/Creatinine Rand Ur 98 (23-275); Creatinine, Random Urine 55 mg/dL (20-320); Total Prot/Creat ratio mg/mg 1.473 (0.025-0.148); Total Protein/Creatinine Ratio 1473 mg/g creat (25-148)
--- NOTE | 2024-01-06 12:24 | PCNWS ---
Weekly nutritional screen. Patient is tolerating current Renal diabetic diet with adequate intake. No weight loss reported. Pt states his appetite is good. No nutritional recommendations at this time.
[2024-01-06 14:00] VITALS: BP 157/88; PULSE 99; RESP 16; TEMP 38.2; O2SAT 95
--- NOTE | 2024-01-06 14:43 | PM.IMPN ---
Progress Note: A&P Assessment and Plan (1) Acute on chronic renal failure: Qualifiers: Acute renal failure type: unspecified Chronic kidney disease stage: stage 3 (moderate) Chronic kidney disease stage 3 subtype: unspecified whether 3a or 3b Qualified Code(s): N17.9 - Acute kidney failure, unspecified; N18.30 - Chronic kidney disease, stage 3 unspecified Code(s): N17.9 - Acute kidney failure, unspecified; N18.9 - Chronic kidney disease, unspecified Status: Acute (2) Acute hyperkalemia: Code(s): E87.5 - Hyperkalemia Status: Acute (3) Uremic encephalopathy: Code(s): G93.49 - Other encephalopathy; N19 - Unspecified kidney failure Status: Acute (4) Valtrex overdose: Qualifiers: Encounter type: initial encounter Injury intent: accidental or unintentional Qualified Code(s): T37.5X1A - Poisoning by antiviral drugs, accidental (unintentional), initial encounter Code(s): T37.5X1A - Poisoning by antiviral drugs, accidental (unintentional), initial encounter Status: Acute (5) Vision changes: Code(s): H53.9 - Unspecified visual disturbance Status: Acute (6) Anemia: Qualifiers: Anemia type: unspecified type Qualified Code(s): D64.9 - Anemia, unspecified Code(s): D64.9 - Anemia, unspecified Status: Acute (7) Hypothermia: Qualifiers: Encounter type: initial encounter Qualified Code(s): T68.XXXA - Hypothermia, initial encounter Code(s): T68.XXXA - Hypothermia, initial encounter Status: Acute Plan # SHABNAM on CKD, severe acute hyperkalemia, severe metabolic acidosis, hypocalcemia Patient has CKD, creatinine is trending up slowly till May 24, 2023 creatinine 3.2 May 24, 2023 Upon arrival in the ED, creatinine bumped up to 16 wishes trending up since admission, K 7.3 Sodium bicarbonate is less than 5 ABG showed decompensated metabolic acidosis, pH 7.005 Patient received causing gluconate IV push, patient is on sodium bicarbonate IV drip 150 mg and 100 mL/hour Repeated calcium level 6.2 will provide ca gluconate 2 g IV push dialysis catheter is placed and patient started on emergent dialysis Follow-up BMP after dialysis and daily, Consult automatic door mechanic, appreciate automatic door mechanic's input Last dialysis 01/03/2024. Reassess daily if further dialysis will be needed. # severe hypocalcemia CT Ca4.8, increase calcium acetate to 2001 mg t.i.d. p.o., calcium gluconate 2 g IV push, K3.3 # Acute metabolic encephalopathy Likely secondary to uremia, electrolyte disorders This is improved # Severe anemia Hemoglobin 6.2 12/31 Below baseline Patient states he had black stools in past 1 week Follow-up stool guaiac, iron panel, ferritin level wnl Most likely resulting from acute renal failure but need to r/o GIB Patient received 2 pack RBC 12/31 Status post EGD: Gastritis Colonoscopy: Normal # SIRS The patient was hypothermic but I suspect this is more due to environmental exposures the patient's room is quite cold and he has removing his clothes and blankets due to general discomfort and sensory input. obtain blood cultures to rule out underlying infection given mild leukocytosis. Patient was placed under Ayush Hugger for few hours and hypothermia has resolved. Intermittent fever persist. Blood culture negative to date from 12/31/2023 repeat blood cutlure. no cough. Urinalysis negative for infection has multiple skin furuncles. Started on cephalexin and doxycycline # ESSENTIAL HYPERTENSION Hold losartan and hydrochlorothiazide because acute renal failure Patient is on hemodialysis # Diabetes Start insulin sliding scale a.c. and q.h.s. # DVT prophylaxis on heparin Subjective Date/time seen: 01/06/24 14:43 Interval history: No overnight events. Intermittent fever persist. Denies any cough or shortness of breath. Good amount of urine. Labs reviewed. Review of Systems Review of Systems: All systems reviewed & are unremarkable except as noted in HPI and below Exam Narrative: GENERAL: Pleasant, in no acute distress. Well-nourished. - EYES: EOMI. Anicteric. Pale - HENT: Moist mucous membranes. - LUNGS: Clear to auscultation bilaterally, no wheezing, rhonchi, or rales. - CARDIOVASCULAR: Regular rate and rhythm. No murmur. No JVD. - ABDOMEN: Soft, non-tender and non-distended. No palpable masses. - EXTREMITIES: No edema. Right below-knee amputation. Non-tender. - NEUROLOGIC: No focal neurological deficits. CN II-XII grossly intact. - PSYCHIATRIC: Awake, Alert and oriented x 3. Appropriate mood and affect. - SKIN: No rashes or lesions. Warm. - LYMPH: No cervical lymphadenopathy. Objective Data Vital Signs Vital Signs: Vital Signs - 24 hr 01/05/24 15:47 01/05/24 20:00 01/05/24 20:52 Temperature 101.7 F H 98.9 F Pulse Rate 84 Respiratory Rate 16 Blood Pressure 163/87 H Pulse Oximetry 97 Oxygen Delivery Room Air 01/06/24 05:24 01/06/24 14:00 Temperature 99.3 F 100.7 F H Pulse Rate 92 99 Respiratory Rate 18 16 Blood Pressure 140/68 157/88 H Pulse Oximetry 95 95 Oxygen Delivery Intake/Output Intake/Output: Intake & Output 01/03/24 01/04/24 01/05/24 01/06/24 23:59 23:59 23:59 23:59 Intake Total 3807 1730 3364 1977 Output Total 680 416 0701 Balance 3107 980 3364 177 Meds/Results Medications: Active Medications Generic Name Dose Route Start Last Admin Trade Name Freq PRN Reason Stop Dose Admin Acetaminophen 650 mg 01/03/24 12:56 01/05/24 15:47 Acetaminophen 325 Mg Tablet PO 650 mg Q6H PRN Administration Mild Pain (1-3) or Fever Aspirin 81 mg 12/31/23 09:00 01/06/24 08:36 Aspirin 81 Mg Enteric Tablet PO 81 mg QAM LISSET Administration Calcium Acetate 2,001 mg 01/01/24 13:00 01/06/24 12:09 Calcium Acetate 667 Mg Tablet PO 2,001 mg TID LISSET Administration Calcium Carbonate 1,000 mg 01/02/24 21:00 01/06/24 14:12 Calcium Carbonate (Oscal) 500 Mg Tablet PO 1,000 mg 1000,1500,2100 LISSET Administration Cephalexin HCl 250 mg 01/05/24 18:00 01/06/24 05:49 Cephalexin 250 Mg Capsule PO 250 mg Q12H LISSET Administration Clopidogrel Bisulfate 75 mg 12/31/23 09:00 01/05/24 09:15 Clopidogrel Bisulfate 75 Mg Tablet PO 75 mg DAILY LISSET Administration Dextrose 12.5 gm 12/31/23 07:36 Dextrose 50% 25 Gm/50 Ml Syringe IV PUSH PRN PRN Hypoglycemia Protocol Doxycycline Hyclate 100 mg 01/05/24 21:00 01/06/24 08:37 Doxycycline Hyclate 100 Mg Tablet PO 01/12/24 20:59 100 mg Q12HR LISSET Administration Ergocalciferol 50,000 units 01/03/24 09:00 01/03/24 13:13 Ergocalciferol 50,000 Units Capsule PO 50,000 units Sa@0900 LISSET Administration Gabapentin 600 mg 12/31/23 21:00 01/05/24 20:25 Gabapentin 300 Mg Capsule PO 600 mg HS LISSET Administration Glucagon 1 mg 12/31/23 07:36 Glucagon For Inj 1 Mg Vial IM PRN PRN Hypoglycemia Protocol Glucose 15 gm 12/31/23 07:36 Glucose Oral Gel 15 Gm Of Glucse In 37.5 Gm Tube PO PRN PRN Hypoglycemia Protocol Heparin Sodium (Porcine) 5,000 units 12/31/23 09:00 01/06/24 08:35 Heparin Sodium 5,000 Units/Ml Vial SUB-Q Not Given Q12HR [facility] Hydromorphone HCl 0.5 mg 12/31/23 12:47 12/31/23 13:17 Hydromorphone Hcl Inj (*Crx) 1 Mg/Ml Syr IV PUSH 0.5 mg Q4HR PRN Administration Pain Rated 7-10 Dextrose 1,000 mls @ 100 mls/hr 12/31/23 07:36 Dextrose 5% 1,000 Ml IVPB PRN PRN Hypoglycemia Protocol Albumin Human 50 mls @ 999 mls/hr 12/31/23 10:08 Albutein IVPB 01/30/24 10:07 Q10M PRN HYPOTENSION Insulin Aspart 2 - 5 units 01/06/24 08:00 01/06/24 11:29 Insulin Aspart (*Bkc) 100 Units/Ml SUB-Q Not Given TIDWM [facility] Protocol Ondansetron HCl 4 mg 12/30/23 21:52 01/01/24 14:09 Ondansetron Inj 4 Mg/2 Ml Vial IV PUSH 4 mg Q4H PRN Administration Nausea Radiology Results: ITS Impressions Head CT 12/30/23 18:14 Impression: No acute intracranial hemorrhage or suspicious mass effect. Chest X-Ray 01/02/24 17:12 IMPRESSION: 1. Central line tip in the superior vena cava. 2. Mild atelectasis in right mid lung zone. Renal Ultrasound 11/16/24 16:17 IMPRESSION: Unremarkable renal sonogram findings. Labs Labs: Laboratory Results - last 24 hr 01/02/24 01/03/24 01/03/24 18:22 06:58 07:01 WBC RBC Hgb Hct MCV MCH MCHC RDW Plt Count MPV Immature Gran % (Auto) Neut % (Auto) Lymph % (Auto) [place] % (Auto) Eos % (Auto) Baso % (Auto) Lymph # (Auto) [place] # (Auto) Eos # (Auto) Baso # (Auto) Abs Immat Gran (auto) Absolute Neuts (auto) Absolute Nucleated RBC Nucleated RBC % Sodium Potassium Chloride Carbon Dioxide Anion Gap BUN Creatinine Estim Creat Clear Calc Estimated GFR Glucose POC Capillary Glucose Calcium Magnesium Total Bilirubin AST ALT Alkaline Phosphatase Total Protein Albumin Urine Color Urine Appearance Urine pH Ur Specific Neptune Urine Protein Urine Glucose (UA) Urine Ketones Ur Blood (Man) Urine Nitrate Urine Bilirubin Urine Urobilinogen Leukocyte Esterase Rfl Urine RBC Urine WBC Ur Squamous Epith Cells Urine Bacteria Urine Casts Ur Random Creatinine 55 U Random Total Protein 81 H Ur Random Chloride 54 U Random Chloride/Creat 98 Protein/Creatinin Ratio 1473 H Anti-DNA Antibody 2 Hep B Core Total Ab Anti-Streptolysin Scrn 47 01/04/24 01/05/24 01/05/24 06:11 16:22 19:34 WBC RBC Hgb Hct MCV MCH MCHC RDW Plt Count MPV Immature Gran % (Auto) Neut % (Auto) Lymph % (Auto) [place] % (Auto) Eos % (Auto) Baso % (Auto) Lymph # (Auto) [place] # (Auto) Eos # (Auto) Baso # (Auto) Abs Immat Gran (auto) Absolute Neuts (auto) Absolute Nucleated RBC Nucleated RBC % Sodium Potassium Chloride Carbon Dioxide Anion Gap BUN Creatinine Estim Creat Clear Calc Estimated GFR Glucose POC Capillary Glucose 145 H 199 H Calcium Magnesium Total Bilirubin AST ALT Alkaline Phosphatase Total Protein Albumin Urine Color Urine Appearance Urine pH Ur Specific Neptune Urine Protein Urine Glucose (UA) Urine Ketones Ur Blood (Man) Urine Nitrate Urine Bilirubin Urine Urobilinogen Leukocyte Esterase Rfl Urine RBC Urine WBC Ur Squamous Epith Cells Urine Bacteria Urine Casts Ur Random Creatinine U Random Total Protein Ur Random Chloride U Random Chloride/Creat Protein/Creatinin Ratio Anti-DNA Antibody Hep B Core Total Ab Non-reactive Anti-Streptolysin Scrn 01/05/24 01/06/24 01/06/24 19:43 05:19 07:33 WBC 9.2 RBC 2.77 L Hgb 8.2 L Hct 25.5 L MCV 92.1 MCH 29.6 MCHC 32.2 RDW 13.5 Plt Count 161 MPV 9.4 Immature Gran % (Auto) 0.8 H Neut % (Auto) 79.4 H Lymph % (Auto) 6.0 L [place] % (Auto) 10.8 H Eos % (Auto) 2.8 Baso % (Auto) 0.2 Lymph # (Auto) 0.55 L [place] # (Auto) 1.0 H Eos # (Auto) 0.3 Baso # (Auto) 0.0 Abs Immat Gran (auto) 0.07 H Absolute Neuts (auto) 7.3 H Absolute Nucleated RBC 0.000 Nucleated RBC % 0.0 Sodium 132 L Potassium 3.6 Chloride 94 L Carbon Dioxide 31 H Anion Gap 7 BUN 32 H Creatinine 6.40 H Estim Creat Clear Calc 19 Estimated GFR 10 L Glucose 136 H POC Capillary Glucose 160 H Calcium 7.1 L Magnesium 1.6 Total Bilirubin 1.3 AST 18 ALT 10 Alkaline Phosphatase 89 Total Protein 6.0 L Albumin 2.7 L Urine Color Yellow Urine Appearance Clear Urine pH 7.5 Ur Specific Neptune 1.007 Urine Protein 2+ H Urine Glucose (UA) Trace H Urine Ketones Negative Ur Blood (Man) Non-hemolyzed trace Urine Nitrate Negative Urine Bilirubin Negative Urine Urobilinogen 0.2 Leukocyte Esterase Rfl Negative Urine RBC 0-2 Urine WBC 0-5 Ur Squamous Epith Cells None seen Urine Bacteria None seen Urine Casts 0-2 Ur Random Creatinine U Random Total Protein Ur Random Chloride U Random Chloride/Creat Protein/Creatinin Ratio Anti-DNA Antibody Hep B Core Total Ab Anti-Streptolysin Scrn 01/06/24 11:28 WBC RBC Hgb Hct MCV MCH MCHC RDW Plt Count MPV Immature Gran % (Auto) Neut % (Auto) Lymph % (Auto) [place] % (Auto) Eos % (Auto) Baso % (Auto) Lymph # (Auto) [place] # (Auto) Eos # (Auto) Baso # (Auto) Abs Immat Gran (auto) Absolute Neuts (auto) Absolute Nucleated RBC Nucleated RBC % Sodium Potassium Chloride Carbon Dioxide Anion Gap BUN Creatinine Estim Creat Clear Calc Estimated GFR Glucose POC Capillary Glucose 166 H Calcium Magnesium Total Bilirubin AST ALT Alkaline Phosphatase Total Protein Albumin Urine Color Urine Appearance Urine pH Ur Specific Neptune Urine Protein Urine Glucose (UA) Urine Ketones Ur Blood (Man) Urine Nitrate Urine Bilirubin Urine Urobilinogen Leukocyte Esterase Rfl Urine RBC Urine WBC Ur Squamous Epith Cells Urine Bacteria Urine Casts Ur Random Creatinine U Random Total Protein Ur Random Chloride U Random Chloride/Creat Protein/Creatinin Ratio Anti-DNA Antibody Hep B Core Total Ab Anti-Streptolysin Scrn
[2024-01-06 15:47] VITALS: TEMP 38.2
[2024-01-06] MEDS: ACETAMINOPHEN 325 MG TABLET 650 MG PO (15:47)
[2024-01-06 16:24] LABS: Glucose Point of Care 150 mg/dl (65-105)
[2024-01-06 16:47] VITALS: TEMP 37.4
[2024-01-06 20:22] LABS: Glucose Point of Care 188 mg/dl (65-105)
[2024-01-06] MEDS: GABAPENTIN 300 MG CAPSULE 600 MG PO (20:43)
[2024-01-06] MEDS: HEPARIN SODIUM 5,000 UNITS/ML VIAL 5000 UNITS SUB-Q (20:43)
[2024-01-06 20:45] VITALS: BP 155/89; PULSE 87; RESP 20; TEMP 37.4; O2SAT 96
[2024-01-07 05:18] VITALS: BP 152/85; PULSE 93; RESP 20; TEMP 37.7; O2SAT 94
[2024-01-07] MEDS: CEPHALEXIN 250 MG CAPSULE PO ×2 (05:30→18:20)
[2024-01-07] MEDS: ACETAMINOPHEN 325 MG TABLET 650 MG PO (05:30)
[2024-01-07 05:35] LABS: Basophils Percent Auto 0.2 % (0.2-1.2); Eosinophils Absolute Auto 0.3 K/mm3 (0-0.3); Eosinophils Percent Auto 2.9 % (0-4.4); Hematocrit 25.8 % (42.0-52.0); Hemoglobin 8.1 g/dL (14.0-18.0); Immature Granulocyte Percent A 0.9 % (0-0.5); Lymphocytes Absolute Auto 0.64 K/mm3 (0.9-3.2); Lymphocytes Percent Auto 5.6 % (18.3-44.2); Mean Corpuscular HGB Conc 31.4 g/dl (32-36); Mean Corpuscular Hemoglobin 28.6 pg (26-34); Mean Corpuscular Volume 91.2 fl (80-100); Mean Platelet Volume 9.4 fl (7.4-10.4); Monocytes Absolute Auto 1.1 K/mm3 (0.1-0.6); Monocytes Percent Auto 9.6 % (2.6-8.5); Neutrophils Absolute Auto 9.2 K/mm3 (1.3-6.7); Neutrophils Percent Auto 80.8 % (45.5-73.1); Platelet Count Result 152 k/mm3 (150-375); Red Blood Count 2.83 M/mm3 (4.6-6.20); Red Cell Distribution Width 13.4 % (11.5-14.5); White Blood Count 11.4 K/mm3 (4.5-10.0)
[2024-01-07 05:50] LABS: Alanine Aminotransferase 10 U/L (6-50); Albumin Level 2.7 g/dL (3.5-5.1); Alkaline Phosphatase 86 U/L (38-126); Anion Gap 9 mmol/L (4-12); Aspartate Amino Transferase 24 U/L (17-59); Bilirubin,Total 1.1 mg/dL (0.2-1.3); Blood Urea Nitrogen 39 mg/dL (9-20); Calcium 7.1 mg/dL (8.4-10.2); Carbon Dioxide 30 mmol/L (22-30); Chloride 93 mmol/L (98-107); Estimated CRCL calculation 18 ml/min; Estimated Glomerular Filt Rate 9; Glucose 124 mg/dL (65-110); Magnesium 1.5 mg/dL (1.6-2.3); Potassium 3.7 mmol/L (3.4-5.0); Sodium 132 mmol/L (137-145)
[2024-01-07 06:43] VITALS: TEMP 37.4
[2024-01-07] MEDS: CALCIUM ACETATE 667 MG TABLET 2001 MG PO ×3 (07:55→17:07)
[2024-01-07] MEDS: DOXYCYCLINE HYCLATE 100 MG TABLET PO ×2 (07:55→20:36)
[2024-01-07] MEDS: ASPIRIN 81 MG ENTERIC TABLET PO (07:55)
[2024-01-07] MEDS: HEPARIN SODIUM 5,000 UNITS/ML VIAL 5000 UNITS SUB-Q ×2 (07:55→20:36)
[2024-01-07] MEDS: CALCIUM CARBONATE (OSCAL) 500 MG TABLET 1000 MG PO ×3 (07:55→20:36)
[2024-01-07 07:58] LABS: Glucose Point of Care 161 mg/dl (65-105)
[2024-01-07 11:17] LABS: Glucose Point of Care 175 mg/dl (65-105)
[2024-01-07 12:58] LABS: Albumin 3.2 g/dL (3.8-4.8); Alpha 1 Globulin 0.4 g/dL (0.2-0.3); Alpha 2 Globulin 0.8 g/dL (0.5-0.9); Beta 1 Globulin 0.3 g/dL (0.4-0.6)
--- NOTE | 2024-01-07 13:48 | P.PNNP_ITS ---
Progress Note: A&P Assessment and Plan (1) SHABNAM (acute kidney injury): Code(s): N17.9 - Acute kidney failure, unspecified Status: Acute Assessment and Plan: * etiology not clear * however, complicated by hyperkaleia, acidosis, and possible uremia on admission * started dialysis on the 12/30 with treatments on 12/31 and 01/02 * evaluation to date noted: * urine studies show non pre renal findings so far * C3 is low * ESR 111 * CPK mildly elevated (doubt effect on kidneys) * urine eosinophils negative * moderate proteinuria * other serology and immunofixation are pending * given lack of clear answer for his SHABNAM/ARF, I am leaning toward a renal biopsy (if his renal function fails to improve with conservative therapy) * unfortunately, has been on plavix since admission....which make doing a renal biopsy HIGH RISK * will hold plavix for now in case a biopsy is needed * follow repeat labs and UOP (2) Chronic kidney disease, stage IV (severe): Code(s): N18.4 - Chronic kidney disease, stage 4 (severe) Status: Chronic Assessment and Plan: * last creatinine was ~ 3.0 - 3.2mg/dl in May 2023 * not clear what true baseline creatinine really is * suspect an element of CKD from HTN, DM, and vascular disease (3) Acute hyperkalemia: Code(s): E87.5 - Hyperkalemia Status: Acute Assessment and Plan: * resolved * as noted on admission * resistant to medical therapy * dialysis corrected this * follow trend of repeat K+ levels (4) Uremic encephalopathy: Code(s): G93.49 - Other encephalopathy; N19 - Unspecified kidney failure Status: Acute Assessment and Plan: * resolved (5) Acidosis: Code(s): E87.20 - Acidosis, unspecified Status: Acute Assessment and Plan: * resolved (6) Anemia: Qualifiers: Anemia type: unspecified type Qualified Code(s): D64.9 - Anemia, unspecified Code(s): D64.9 - Anemia, unspecified Status: Acute Assessment and Plan: * better * s/p EGD and colonoscopy with findings noted * follow trend of H/H (7) HTN (hypertension): Qualifiers: Hypertension type: primary hypertension Qualified Code(s): I10 - Essential (primary) hypertension Code(s): I10 - Essential (primary) hypertension Status: Chronic Assessment and Plan: * reasonable control * follow trend of hemodyanmics (8) Diabetes: Qualifiers: Diabetes mellitus type: type 2 Diabetes mellitus 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 Subjective Date/time seen: 01/07/24 13:48 Interval history: Follow-up for acute kidney injury/acute renal failure on chronic kidney disease. Renal function/creatinine continues to slowly deteriorate since last dialysis treatment in spite of the fact he has no critical electrolytes in association with fairly good urine output; no apparent distress noted otherwise; no issues/events overnight or earlier this morning. Exam Narrative: General: WD/WN male in NAD Heart: normal S1 and S2; no rub Lungs: clear to auscultation Abdomen: soft, nontender, nondistended, positive bowel sounds Extremities: no cyanosis or clubbing; no edema; s/p right BKA Skin: warm and intact Objective Data Vital Signs Vital Signs: Vital Signs Temp Pulse Resp BP Pulse Ox O2 Del Method 01/07/24 13:00 99.5 F 95 18 179/89 H 95 01/07/24 08:00 Room Air 01/07/24 06:43 99.4 F 01/07/24 05:18 99.9 F H 93 20 152/85 H 94 Intake/Output Intake/Output: Intake & Output 01/04/24 01/05/24 01/06/24 01/07/24 23:59 23:59 23:59 23:59 Intake Total 1730 3364 2214 1070 Output Total 750 1800 700 Balance 980 3364 414 370 Meds/Results Medications: Active Medications Generic Name Dose Route Start Last Admin Trade Name Freq PRN Reason Stop Dose Admin Acetaminophen 650 mg 01/03/24 12:56 01/07/24 05:30 Acetaminophen 325 Mg Tablet PO 650 mg Q6H PRN Administration Mild Pain (1-3) or Fever Aspirin 81 mg 12/31/23 09:00 01/07/24 07:55 Aspirin 81 Mg Enteric Tablet PO 81 mg QAM LISSET Administration Calcium Acetate 2,001 mg 01/01/24 13:00 01/07/24 17:07 Calcium Acetate 667 Mg Tablet PO 2,001 mg TID LISSET Administration Calcium Carbonate 1,000 mg 01/02/24 21:00 01/07/24 20:36 Calcium Carbonate (Oscal) 500 Mg Tablet PO 1,000 mg 1000,1500,2100 LISSET Administration Cephalexin HCl 250 mg 01/05/24 18:00 01/07/24 18:20 Cephalexin 250 Mg Capsule PO 250 mg Q12H LISSET Administration Clopidogrel Bisulfate 75 mg 12/31/23 09:00 01/05/24 09:15 Clopidogrel Bisulfate 75 Mg Tablet PO 75 mg DAILY LISSET Administration Dextrose 12.5 gm 12/31/23 07:36 Dextrose 50% 25 Gm/50 Ml Syringe IV PUSH PRN PRN Hypoglycemia Protocol Doxycycline Hyclate 100 mg 01/05/24 21:00 01/07/24 20:36 Doxycycline Hyclate 100 Mg Tablet PO 01/12/24 20:59 100 mg Q12HR LISSET Administration Ergocalciferol 50,000 units 01/03/24 09:00 01/03/24 13:13 Ergocalciferol 50,000 Units Capsule PO 50,000 units Sa@0900 LISSET Administration Gabapentin 600 mg 12/31/23 21:00 01/07/24 20:36 Gabapentin 300 Mg Capsule PO 600 mg HS LISSET Administration Glucagon 1 mg 12/31/23 07:36 Glucagon For Inj 1 Mg Vial IM PRN PRN Hypoglycemia Protocol Glucose 15 gm 12/31/23 07:36 Glucose Oral Gel 15 Gm Of Glucse In 37.5 Gm Tube PO PRN PRN Hypoglycemia Protocol Heparin Sodium (Porcine) 5,000 units 12/31/23 09:00 01/07/24 20:36 Heparin Sodium 5,000 Units/Ml Vial SUB-Q 5,000 units Q12HR LISSET Administration Hydromorphone HCl 0.5 mg 12/31/23 12:47 12/31/23 13:17 Hydromorphone Hcl Inj (*Crx) 1 Mg/Ml Syr IV PUSH 0.5 mg Q4HR PRN Administration Pain Rated 7-10 Dextrose 1,000 mls @ 100 mls/hr 12/31/23 07:36 Dextrose 5% 1,000 Ml IVPB PRN PRN Hypoglycemia Protocol Albumin Human 50 mls @ 999 mls/hr 12/31/23 10:08 Albutein IVPB 01/30/24 10:07 Q10M PRN HYPOTENSION Insulin Aspart 2 - 5 units 01/06/24 08:00 01/07/24 16:25 Insulin Aspart (*Bkc) 100 Units/Ml SUB-Q Not Given TIDWM [facility] Protocol Ondansetron HCl 4 mg 12/30/23 21:52 01/07/24 20:36 Ondansetron Inj 4 Mg/2 Ml Vial IV PUSH 4 mg Q4H PRN Administration Nausea Radiology Results: ITS Impressions Head CT 12/30/23 18:14 Impression: No acute intracranial hemorrhage or suspicious mass effect. Chest X-Ray 01/02/24 17:12 IMPRESSION: 1. Central line tip in the superior vena cava. 2. Mild atelectasis in right mid lung zone. Renal Ultrasound 01/03/24 16:17 IMPRESSION: Unremarkable renal sonogram findings. Labs Labs: Laboratory Tests 01/07/24 05:28 01/07/24 05:28 Calcium 7.1 L Magnesium 1.5 L Total Bilirubin 1.1 AST 24 ALT 10 Alkaline Phosphatase 86 Total Protein 6.0 L Albumin 2.7 L
[2024-01-07 14:00] VITALS: BP 179/89; PULSE 95; RESP 18; TEMP 37.5; O2SAT 95
[2024-01-07] MEDS: MAGNESIUM SULF 2 GM/WATER 50ML 2 GM/50 ML BAG IVPB (16:10)
[2024-01-07 16:25] LABS: Glucose Point of Care 160 mg/dl (65-105)
--- NOTE | 2024-01-07 18:42 | P.PN_ITS ---
Progress Note: A&P Assessment and Plan (1) Acute on chronic renal failure: Qualifiers: Acute renal failure type: unspecified Chronic kidney disease stage: stage 3 (moderate) Chronic kidney disease stage 3 subtype: unspecified whether 3a or 3b Qualified Code(s): N17.9 - Acute kidney failure, unspecified; N18.30 - Chronic kidney disease, stage 3 unspecified Code(s): N17.9 - Acute kidney failure, unspecified; N18.9 - Chronic kidney disease, unspecified Status: Acute (2) Acute hyperkalemia: Code(s): E87.5 - Hyperkalemia Status: Acute (3) Uremic encephalopathy: Code(s): G93.49 - Other encephalopathy; N19 - Unspecified kidney failure Status: Acute (4) Valtrex overdose: Qualifiers: Encounter type: initial encounter Injury intent: accidental or unintentional Qualified Code(s): T37.5X1A - Poisoning by antiviral drugs, accidental (unintentional), initial encounter Code(s): T37.5X1A - Poisoning by antiviral drugs, accidental (unintentional), initial encounter Status: Acute (5) Vision changes: Code(s): H53.9 - Unspecified visual disturbance Status: Acute (6) Anemia: Qualifiers: Anemia type: unspecified type Qualified Code(s): D64.9 - Anemia, unspecified Code(s): D64.9 - Anemia, unspecified Status: Acute (7) Hypothermia: Qualifiers: Encounter type: initial encounter Qualified Code(s): T68.XXXA - Hypot hermia, initial encounter Code(s): T68.XXXA - Hypothermia, initial encounter Status: Acute Plan SHABNAM on CKD, severe acute hyperkalemia, severe metabolic acidosis, hypocalcemia Patient has CKD, creatinine is trending up slowly till May 24, 2023 creatinine 3.2 May 24, 2023 Upon arrival in the ED, creatinine bumped up to 16 upon arrival patient had an emergent dialysis, today it has trended down to 7 K 7.3 to 3.6 Sodium bicarbonate was less than 5 now it is 30 ABG showed decompensated metabolic acidosis, pH 7.005 Patient received causing gluconate IV push, patient is on sodium bicarbonate IV drip 150 mg and 100 mL/hour Repeated calcium level was 6.2 provided ca gluconate 2 g IV push and now 7.4 dialysis catheter is placed and patient started on emergent dialysis Follow-up BMP after dialysis and daily, patient Scr is slowly rising to 7 today and but potassium remains 3.6 # severe hypocalcemia CT Ca4.8, increase calcium acetate to 2001 mg t.i.d. p.o., calcium gluconate 2 g IV push, K3.3 # Acute metabolic encephalopathy Likely secondary to uremia, electrolyte disorders This is improved # Severe anemia Hemoglobin 6.2 12/31 Below baseline Patient states he had black stools in past 1 week Follow-up stool guaiac, iron panel, ferritin level wnl Most likely resulting from acute renal failure but need to r/o GIB Patient received 2 pack RBC 12/31 Status post EGD: Gastritis Colonoscopy: Normal # SIRS The patient was hypothermic but I suspect this is more due to environmental exposures the patient's room is quite cold and he has removing his clothes and blankets due to general discomfort and sensory input. obtain blood cultures to rule out underlying infection given mild leukocytosis. Patient was placed under Ayush Hugger for few hours and hypothermia has resolved. Intermittent fever persist. Blood culture negative to date from 12/31/2023 repeat blood cutlure. no cough. Urinalysis negative for infection has multiple skin furuncles. Started on cephalexin and doxycycline # ESSENTIAL HYPERTENSION Hold losartan and hydrochlorothiazide because acute renal failure Patient is on hemodialysis # Diabetes Start insulin sliding scale a.c. and q.h.s. # DVT prophylaxis on heparin Subjective Date/time seen: 01/07/24 18:42 Interval history: No overnight events. Intermittent fever persist. Denies any cough or shortness of breath. Good amount of urine. Labs reviewed. SHABNAM on CKD, severe acute hyperkalemia, severe metabolic acidosis, hypocalcemia Patient has CKD, creatinine is trending up slowly till May 24, 2023 creatinine 3.2 May 24, 2023 Upon arrival in the ED, creatinine bumped up to 16 upon arrival patient had an emergent dialysis, today it has trended down to 7 K 7.3 to 3.6 Sodium bicarbonate was less than 5 now it is 30 ABG showed decompensated metabolic acidosis, pH 7.005 Patient received causing gluconate IV push, patient is on sodium bicarbonate IV drip 150 mg and 100 mL/hour Repeated calcium level was 6.2 provided ca gluconate 2 g IV push and now 7.4 dialysis catheter is placed and patient started on emergent dialysis Follow-up BMP after dialysis and daily, patient Scr is slowly rising to 7 today and but potassium remains 3.6 Review of Systems Review of Systems: All systems reviewed & are unremarkable except as noted in HPI and below Exam Narrative: Patient is comfortable, NAD HEENT: eyes are clear and none icteric LUNGS:CTA HEART: RR S1S2 ABD: BS+, Soft and nontender Lower extremities: no edema SKIN: nonjaundiced Neuro: grossly intact. Objective Data Vital Signs Vital Signs: Vital Signs - 24 hr 01/06/24 20:45 01/06/24 20:00 01/07/24 05:18 Temperature 37.4 C 37.7 C H Pulse Rate 87 93 Respiratory Rate 20 20 Blood Pressure 155/89 H 152/85 H Pulse Oximetry 96 94 Oxygen Delivery Room Air 01/07/24 06:43 01/07/24 08:00 01/07/24 14:00 Temperature 37.4 C 37.5 C Pulse Rate 95 Respiratory Rate 18 Blood Pressure 179/89 H Pulse Oximetry 95 Oxygen Delivery Room Air Intake/Output Intake/Output: Intake & Output 01/04/24 01/05/24 01/06/24 01/07/24 23:59 23:59 23:59 23:59 Intake Total 1730 3364 2214 1070 Output Total 750 1800 700 Balance 980 3364 414 370 Meds/Results Medications: Active Medications Generic Name Dose Route Start Last Admin Trade Name Freq PRN Reason Stop Dose Admin Acetaminophen 650 mg 01/03/24 12:56 01/07/24 05:30 Acetaminophen 325 Mg Tablet PO 650 mg Q6H PRN Administration Mild Pain (1-3) or Fever Aspirin 81 mg 12/31/23 09:00 01/07/24 07:55 Aspirin 81 Mg Enteric Tablet PO 81 mg QAM LISSET Administration Calcium Acetate 2,001 mg 01/01/24 13:00 01/07/24 17:07 Calcium Acetate 667 Mg Tablet PO 2,001 mg TID LISSET Administration Calcium Carbonate 1,000 mg 01/02/24 21:00 01/07/24 15:58 Calcium Carbonate (Oscal) 500 Mg Tablet PO 1,000 mg 1000,1500,2100 LISSET Administration Cephalexin HCl 250 mg 01/05/24 18:00 01/07/24 18:20 Cephalexin 250 Mg Capsule PO 250 mg Q12H LISSET Administration Clopidogrel Bisulfate 75 mg 12/31/23 09:00 01/05/24 09:15 Clopidogrel Bisulfate 75 Mg Tablet PO 75 mg DAILY LISSET Administration Dextrose 12.5 gm 12/31/23 07:36 Dextrose 50% 25 Gm/50 Ml Syringe IV PUSH PRN PRN Hypoglycemia Protocol Doxycycline Hyclate 100 mg 01/05/24 21:00 01/07/24 07:55 Doxycycline Hyclate 100 Mg Tablet PO 01/12/24 20:59 100 mg Q12HR LISSET Administration Ergocalciferol 50,000 units 01/03/24 09:00 01/03/24 13:13 Ergocalciferol 50,000 Units Capsule PO 50,000 units Sa@0900 LISSET Administration Gabapentin 600 mg 12/31/23 21:00 01/06/24 20:43 Gabapentin 300 Mg Capsule PO 600 mg HS LISSET Administration Glucagon 1 mg 12/31/23 07:36 Glucagon For Inj 1 Mg Vial IM PRN PRN Hypoglycemia Protocol Glucose 15 gm 12/31/23 07:36 Glucose Oral Gel 15 Gm Of Glucse In 37.5 Gm Tube PO PRN PRN Hypoglycemia Protocol Heparin Sodium (Porcine) 5,000 units 12/31/23 09:00 01/07/24 07:55 Heparin Sodium 5,000 Units/Ml Vial SUB-Q 5,000 units Q12HR LISSET Administration Hydromorphone HCl 0.5 mg 12/31/23 12:47 12/31/23 13:17 Hydromorphone Hcl Inj (*Crx) 1 Mg/Ml Syr IV PUSH 0.5 mg Q4HR PRN Administration Pain Rated 7-10 Dextrose 1,000 mls @ 100 mls/hr 12/31/23 07:36 Dextrose 5% 1,000 Ml IVPB PRN PRN Hypoglycemia Protocol Albumin Human 50 mls @ 999 mls/hr 12/31/23 10:08 Albutein IVPB 01/30/24 10:07 Q10M PRN HYPOTENSION Insulin Aspart 2 - 5 units 01/06/24 08:00 01/07/24 16:25 Insulin Aspart (*Bkc) 100 Units/Ml SUB-Q Not Given TIDWM LISSET Protocol Ondansetron HCl 4 mg 12/30/23 21:52 01/01/24 14:09 Ondansetron Inj 4 Mg/2 Ml Vial IV PUSH 4 mg Q4H PRN Administration Nausea Radiology Results: ITS Impressions Head CT 12/30/23 18:14 Impression: No acute intracranial hemorrhage or suspicious mass effect. Chest X-Ray 01/02/24 17:12 IMPRESSION: 1. Central line tip in the superior vena cava. 2. Mild atelectasis in right mid lung zone. Renal Ultrasound 01/03/24 16:17 IMPRESSION: Unremarkable renal sonogram findings. Labs Labs: Laboratory Results - last 24 hr 12/31/23 01/06/24 01/07/24 04:29 19:19 05:28 WBC 11.4 H RBC 2.83 L Hgb 8.1 L Hct 25.8 L MCV 91.2 MCH 28.6 MCHC 31.4 L RDW 13.4 Plt Count 152 MPV 9.4 Immature Gran % (Auto) 0.9 H Neut % (Auto) 80.8 H Lymph % (Auto) 5.6 L [place] % (Auto) 9.6 H Eos % (Auto) 2.9 Baso % (Auto) 0.2 Lymph # (Auto) 0.64 L [place] # (Auto) 1.1 H Eos # (Auto) 0.3 Baso # (Auto) 0.0 Abs Immat Gran (auto) 0.10 H Absolute Neuts (auto) 9.2 H Absolute Nucleated RBC 0.000 Nucleated RBC % 0.0 Sodium 132 L Potassium 3.7 Chloride 93 L Carbon Dioxide 30 Anion Gap 9 BUN 39 H Creatinine 6.80 H Estim Creat Clear Calc 18 Estimated GFR 9 L Glucose 124 H POC Capillary Glucose 188 H Calcium 7.1 L Magnesium 1.5 L Total Bilirubin 1.1 AST 24 ALT 10 Alkaline Phosphatase 86 Total Protein 6.0 L Albumin 3.2 L 2.7 L Phbfu-6-Kohqfmovi 0.4 H Uuxjb-8-Vdpvoobfp 0.8 Sqnt-8-Gurysrmh 0.3 L Usfz-1-Eqtkadtg 0.3 Gamma Globulins 1.0 PEP Interpretation See note 01/07/24 01/07/24 01/07/24 07:55 11:15 16:23 WBC RBC Hgb Hct MCV MCH MCHC RDW Plt Count MPV Immature Gran % (Auto) Neut % (Auto) Lymph % (Auto) [place] % (Auto) Eos % (Auto) Baso % (Auto) Lymph # (Auto) [place] # (Auto) Eos # (Auto) Baso # (Auto) Abs Immat Gran (auto) Absolute Neuts (auto) Absolute Nucleated RBC Nucleated RBC % Sodium Potassium Chloride Carbon Dioxide Anion Gap BUN Creatinine Estim Creat Clear Calc Estimated GFR Glucose POC Capillary Glucose 161 H 175 H 160 H Calcium Magnesium Total Bilirubin AST ALT Alkaline Phosphatase Total Protein Albumin Lfixu-7-Anwjwvhzt Fmxol-5-Ptcqxwqwo Qdbs-1-Ezohnqps Ceme-0-Pcuilsee Gamma Globulins PEP Interpretation Quality VTE Prophylaxis VTE prophylaxis: pharmacologic ordered (Heparin 5000 units subQ q.12 hours)
[2024-01-07 20:04] LABS: Glucose Point of Care 165 mg/dl (65-105)
[2024-01-07 20:24] VITALS: BP 140/87; PULSE 95; RESP 18; TEMP 37.3; O2SAT 97
[2024-01-07] MEDS: GABAPENTIN 300 MG CAPSULE 600 MG PO (20:36)
[2024-01-07] MEDS: ONDANSETRON INJ 4 MG/2 ML VIAL IV PUSH (20:36)
[2024-01-08] MEDS: CEPHALEXIN 250 MG CAPSULE PO ×2 (05:17→17:26)
[2024-01-08 05:37] VITALS: BP 142/82; PULSE 91; RESP 18; TEMP 37; O2SAT 95
[2024-01-08 07:56] LABS: Glucose Point of Care 192 mg/dl (65-105)
[2024-01-08] MEDS: ASPIRIN 81 MG ENTERIC TABLET PO (08:09)
[2024-01-08] MEDS: HEPARIN SODIUM 5,000 UNITS/ML VIAL 5000 UNITS SUB-Q ×2 (08:09→20:33)
[2024-01-08] MEDS: CALCIUM ACETATE 667 MG TABLET 2001 MG PO ×3 (08:09→17:25)
[2024-01-08] MEDS: DOXYCYCLINE HYCLATE 100 MG TABLET PO ×2 (08:10→20:33)
[2024-01-08] MEDS: CALCIUM CARBONATE (OSCAL) 500 MG TABLET 1000 MG PO ×3 (08:11→20:32)
[2024-01-08 08:35] LABS: Basophils Percent Auto 0.3 % (0.2-1.2); Eosinophils Absolute Auto 0.5 K/mm3 (0-0.3); Eosinophils Percent Auto 4.5 % (0-4.4); Hematocrit 25.6 % (42.0-52.0); Hemoglobin 8.1 g/dL (14.0-18.0); Immature Granulocyte Absolute 0.13 K/mm3 (0.00-0.031); Immature Granulocyte Percent A 1.3 % (0-0.5); Lymphocytes Absolute Auto 0.58 K/mm3 (0.9-3.2); Lymphocytes Percent Auto 5.7 % (18.3-44.2); Mean Corpuscular HGB Conc 31.6 g/dl (32-36); Mean Corpuscular Hemoglobin 28.9 pg (26-34); Mean Corpuscular Volume 91.4 fl (80-100); Mean Platelet Volume 10.2 fl (7.4-10.4); Monocytes Percent Auto 9.9 % (2.6-8.5); Neutrophils Absolute Auto 7.9 K/mm3 (1.3-6.7); Neutrophils Percent Auto 78.3 % (45.5-73.1); Platelet Count Result 180 k/mm3 (150-375); Red Cell Distribution Width 13.7 % (11.5-14.5); White Blood Count 10.1 K/mm3 (4.5-10.0)
[2024-01-08 08:59] LABS: Alanine Aminotransferase 13 U/L (6-50); Albumin Level 2.9 g/dL (3.5-5.1); Alkaline Phosphatase 121 U/L (38-126); Anion Gap 7 mmol/L (4-12); Aspartate Amino Transferase 24 U/L (17-59); Bilirubin,Total 0.9 mg/dL (0.2-1.3); Blood Urea Nitrogen 41 mg/dL (9-20); Calcium 7.4 mg/dL (8.4-10.2); Carbon Dioxide 30 mmol/L (22-30); Chloride 94 mmol/L (98-107); Estimated CRCL calculation 17 ml/min; Estimated Glomerular Filt Rate 9; Glucose 179 mg/dL (65-110); Potassium 3.6 mmol/L (3.4-5.0); Sodium 131 mmol/L (137-145)
[2024-01-08 11:20] LABS: Magnesium 1.8 mg/dL (1.6-2.3)
[2024-01-08 11:57] LABS: Glucose Point of Care 152 mg/dl (65-105)
[2024-01-08 14:00] VITALS: BP 145/76; PULSE 90; RESP 20; TEMP 36.8; O2SAT 97
--- NOTE | 2024-01-08 14:38 | P.PNNP_ITS ---
Progress Note: A&P Assessment and Plan (1) SHABNAM (acute kidney injury): Code(s): N17.9 - Acute kidney failure, unspecified Status: Acute Assessment and Plan: * etiology not clear * however, complicated by hyperkaleia, acidosis, and possible uremia on admission * started dialysis on the 12/30 with treatments on 12/31 and 01/02 * evaluation to date noted: * urine studies show non pre renal findings so far * C3 is low * ESR 111 * CPK mildly elevated (doubt effect on kidneys) * urine eosinophils negative * moderate proteinuria * DOUGLAS/ANCA/dsNDA-Ab negative * given lack of clear answer for his SHABNAM/ARF, I am leaning toward a renal biopsy (if his renal function fails to improve with conservative therapy) * unfortunately, has been on plavix since admission....which make doing a renal biopsy HIGH RISK * will hold plavix for now in case a biopsy is needed * is this just protracted ATN? * follow repeat labs and UOP (2) Chronic kidney disease, stage IV (severe): Code(s): N18.4 - Chronic kidney disease, stage 4 (severe) Status: Chronic Assessment and Plan: * last creatinine was ~ 3.0 - 3.2mg/dl in May 2023 * not clear what true baseline creatinine really is * suspect an element of CKD from HTN, DM, and vascular disease (3) Acute hyperkalemia: Code(s): E87.5 - Hyperkalemia Status: Acute Assessment and Plan: * resolved * as noted on admission * resistant to medical therapy * dialysis corrected this * follow trend of repeat K+ levels (4) Uremic encephalopathy: Code(s): G93.49 - Other encephalopathy; N19 - Unspecified kidney failure Status: Acute Assessment and Plan: * resolved (5) Acidosis: Code(s): E87.20 - Acidosis, unspecified Status: Acute Assessment and Plan: * resolved (6) Anemia: Qualifiers: Anemia type: unspecified type Qualified Code(s): D64.9 - Anemia, unspecified Code(s): D64.9 - Anemia, unspecified Status: Acute Assessment and Plan: * better * s/p EGD and colonoscopy with findings noted * follow trend of H/H (7) HTN (hypertension): Qualifiers: Hypertension type: primary hypertension Qualified Code(s): I10 - Essential (primary) hypertension Code(s): I10 - Essential (primary) hypertension Status: Chronic Assessment and Plan: * reasonable control * follow trend of hemodyanmics (8) Diabetes: Qualifiers: Diabetes mellitus type: type 2 Diabetes mellitus 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 Subjective Date/time seen: 01/08/24 14:38 Interval history: Follow-up for acute kidney injury/acute renal failure on chronic kidney disease. Renal function/creatinine continues worsen but it would appear that the rate rise has been declining as well; continues to make good urine output with relative stability in electrolytes as well; no apparent distress noted at the time of my visit; no events overnight or earlier this morning. Exam Narrative: General: WD/WN male in NAD Heart: normal S1 and S2; no rub Lungs: clear to auscultation Abdomen: soft, nontender, nondistended, positive bowel sounds Extremities: no cyanosis or clubbing; no edema; s/p right BKA Skin: no rash Objective Data Vital Signs Vital Signs: Vital Signs Temp Pulse Resp BP Pulse Ox O2 Del Method 01/08/24 14:00 98.3 F 90 20 145/76 H 97 01/08/24 08:00 Room Air 01/08/24 05:37 98.6 F 91 18 142/82 H 95 01/07/24 20:24 99.1 F 95 18 140/87 97 Intake/Output Intake/Output: Intake & Output 01/05/24 01/06/24 01/07/24 01/08/24 23:59 23:59 23:59 23:59 Intake Total 3364 2214 1070 1390 Output Total 1800 700 1 Balance 3364 388 366 8869 Meds/Results Medications: Active Medications Generic Name Dose Route Start Last Admin Trade Name Freq PRN Reason Stop Dose Admin Acetaminophen 650 mg 01/03/24 12:56 01/07/24 05:30 Acetaminophen 325 Mg Tablet PO 650 mg Q6H PRN Administration Mild Pain (1-3) or Fever Aspirin 81 mg 12/31/23 09:00 01/08/24 08:09 Aspirin 81 Mg Enteric Tablet PO 81 mg QAM LISSET Administration Calcium Acetate 2,001 mg 01/01/24 13:00 01/08/24 17:25 Calcium Acetate 667 Mg Tablet PO 2,001 mg TID LISSET Administration Calcium Carbonate 1,000 mg 01/02/24 21:00 01/08/24 15:26 Calcium Carbonate (Oscal) 500 Mg Tablet PO 1,000 mg 1000,1500,2100 LISSET Administration Cephalexin HCl 250 mg 01/05/24 18:00 01/08/24 17:26 Cephalexin 250 Mg Capsule PO 250 mg Q12H LISSET Administration Clopidogrel Bisulfate 75 mg 12/31/23 09:00 01/05/24 09:15 Clopidogrel Bisulfate 75 Mg Tablet PO 75 mg DAILY LISSET Administration Dextrose 12.5 gm 12/31/23 07:36 Dextrose 50% 25 Gm/50 Ml Syringe IV PUSH PRN PRN Hypoglycemia Protocol Doxycycline Hyclate 100 mg 01/05/24 21:00 01/08/24 08:10 Doxycycline Hyclate 100 Mg Tablet PO 01/12/24 20:59 100 mg Q12HR LISSET Administration Ergocalciferol 50,000 units 01/03/24 09:00 01/03/24 13:13 Ergocalciferol 50,000 Units Capsule PO 50,000 units Sa@0900 LISSET Administration Gabapentin 600 mg 12/31/23 21:00 01/07/24 20:36 Gabapentin 300 Mg Capsule PO 600 mg HS LISSET Administration Glucagon 1 mg 12/31/23 07:36 Glucagon For Inj 1 Mg Vial IM PRN PRN Hypoglycemia Protocol Glucose 15 gm 12/31/23 07:36 Glucose Oral Gel 15 Gm Of Glucse In 37.5 Gm Tube PO PRN PRN Hypoglycemia Protocol Heparin Sodium (Porcine) 5,000 units 12/31/23 09:00 01/08/24 08:09 Heparin Sodium 5,000 Units/Ml Vial SUB-Q 5,000 units Q12HR LISSET Administration Hydromorphone HCl 0.5 mg 12/31/23 12:47 12/31/23 13:17 Hydromorphone Hcl Inj (*Crx) 1 Mg/Ml Syr IV PUSH 0.5 mg Q4HR PRN Administration Pain Rated 7-10 Dextrose 1,000 mls @ 100 mls/hr 12/31/23 07:36 Dextrose 5% 1,000 Ml IVPB PRN PRN Hypoglycemia Protocol Albumin Human 50 mls @ 999 mls/hr 12/31/23 10:08 Albutein IVPB 01/30/24 10:07 Q10M PRN HYPOTENSION Insulin Aspart 2 - 5 units 01/06/24 08:00 01/08/24 17:26 Insulin Aspart (*Bkc) 100 Units/Ml SUB-Q Not Given TIDWM LISSET Protocol Ondansetron HCl 4 mg 12/30/23 21:52 01/07/24 20:36 Ondansetron Inj 4 Mg/2 Ml Vial IV PUSH 4 mg Q4H PRN Administration Nausea Radiology Results: ITS Impressions Head CT 12/30/23 18:14 Impression: No acute intracranial hemorrhage or suspicious mass effect. Chest X-Ray 01/02/24 17:12 IMPRESSION: 1. Central line tip in the superior vena cava. 2. Mild atelectasis in right mid lung zone. Renal Ultrasound 01/03/24 16:17 IMPRESSION: Unremarkable renal sonogram findings. Labs Labs: Laboratory Tests 01/08/24 08:20 01/08/24 08:20 Calcium 7.4 L Magnesium 1.8 Total Bilirubin 0.9 AST 24 ALT 13 Alkaline Phosphatase 121 Total Protein 6.0 L Albumin 2.9 L
[2024-01-08 14:44] LABS: ANCA Screen NEGATIVE (NEGATIVE)
[2024-01-08 16:36] LABS: Glucose Point of Care 128 mg/dl (65-105)
--- NOTE | 2024-01-08 18:10 | P.PN_ITS ---
Progress Note: A&P Assessment and Plan (1) Acute on chronic renal failure: Qualifiers: Acute renal failure type: unspecified Chronic kidney disease stage: stage 3 (moderate) Chronic kidney disease stage 3 subtype: unspecified whether 3a or 3b Qualified Code(s): N17.9 - Acute kidney failure, unspecified; N18.30 - Chronic kidney disease, stage 3 unspecified Code(s): N17.9 - Acute kidney failure, unspecified; N18.9 - Chronic kidney disease, unspecified Status: Acute (2) Acute hyperkalemia: Code(s): E87.5 - Hyperkalemia Status: Acute (3) Uremic encephalopathy: Code(s): G93.49 - Other encephalopathy; N19 - Unspecified kidney failure Status: Acute (4) Valtrex overdose: Qualifiers: Encounter type: initial encounter Injury intent: accidental or unintentional Qualified Code(s): T37.5X1A - Poisoning by antiviral drugs, accidental (unintentional), initial encounter Code(s): T37.5X1A - Poisoning by antiviral drugs, accidental (unintentional), initial encounter Status: Acute (5) Vision changes: Code(s): H53.9 - Unspecified visual disturbance Status: Acute (6) Anemia: Qualifiers: Anemia type: unspecified type Qualified Code(s): D64.9 - Anemia, unspecified Code(s): D64.9 - Anemia, unspecified Status: Acute (7) Hypothermia: Qualifiers: Encounter type: initial encounter Qualified Code(s): T68.XXXA - Hypot hermia, initial encounter Code(s): T68.XXXA - Hypothermia, initial encounter Status: Acute Plan SHABNAM on CKD, severe acute hyperkalemia, severe metabolic acidosis, hypocalcemia Patient has CKD, creatinine is trending up slowly till May 24, 2023 creatinine 3.2 May 24, 2023 Upon arrival in the ED, creatinine bumped up to 16 upon arrival patient had an emergent dialysis, today it has trended down to 7 K 7.3 to 3.6, seen by Dr. Bhandari etiology of SHABNAM on CKD is not clear supect protracted ATN to further evaluate patient may need kidney biopsy however patient is on plavix, will hold incase we need to do biopsy, will continue to monitor as Scr is rising very slow and start to improve, will monitor. Sodium bicarbonate was less than 5 now it is 30 ABG showed decompensated metabolic acidosis, pH 7.005 Patient received causing gluconate IV push, patient is on sodium bicarbonate IV drip 150 mg and 100 mL/hour Repeated calcium level was 6.2 provided ca gluconate 2 g IV push and now 7.4 dialysis catheter is placed and patient started on emergent dialysis Follow-up BMP after dialysis and daily, patient Scr is slowly rising to 7 today and but potassium remains 3.6 # severe hypocalcemia CT Ca4.8, increase calcium acetate to 2001 mg t.i.d. p.o., calcium gluconate 2 g IV push, K3.3 # Acute metabolic encephalopathy Likely secondary to uremia, electrolyte disorders This is improved # Severe anemia Hemoglobin 6.2 12/31 Below baseline Patient states he had black stools in past 1 week Follow-up stool guaiac, iron panel, ferritin level wnl Most likely resulting from acute renal failure but need to r/o GIB Patient received 2 pack RBC 12/31 Status post EGD: Gastritis Colonoscopy: Normal # SIRS The patient was hypothermic but I suspect this is more due to environmental exposures the patient's room is quite cold and he has removing his clothes and blankets due to general discomfort and sensory input. obtain blood cultures to rule out underlying infection given mild leukocytosis. Patient was placed under Ayush Hugger for few hours and hypothermia has resolved. Intermittent fever persist. Blood culture negative to date from 12/31/2023 repeat blood cutlure. no cough. Urinalysis negative for infection has multiple skin furuncles. Started on cephalexin and doxycycline # ESSENTIAL HYPERTENSION Hold losartan and hydrochlorothiazide because acute renal failure Patient is on hemodialysis # Diabetes Start insulin sliding scale a.c. and q.h.s. # DVT prophylaxis on heparin Subjective Date/time seen: 01/08/24 18:10 Interval history: SHABNAM on CKD, severe acute hyperkalemia, severe metabolic acidosis, hypocalcemia Patient has CKD, creatinine is trending up slowly till May 24, 2023 creatinine 3.2 May 24, 2023 Upon arrival in the ED, creatinine bumped up to 16 upon arrival patient had an emergent dialysis, today it has trended down to 7 K 7.3 to 3.6, seen by Dr. Bhandari etiology of SHABNAM on CKD is not clear supect protracted ATN to further evaluate patient may need kidney biopsy however patient is on plavix, will hold incase we need to do biopsy, will continue to monitor as Scr is rising very slow and start to improve, will monitor. Sodium bicarbonate was less than 5 now it is 30 ABG showed decompensated metabolic acidosis, pH 7.005 Patient received causing gluconate IV push, patient is on sodium bicarbonate IV drip 150 mg and 100 mL/hour Repeated calcium level was 6.2 provided ca gluconate 2 g IV push and now 7.4 dialysis catheter is placed and patient started on emergent dialysis Follow-up BMP after dialysis and daily, patient Scr is slowly rising to 7 today and but potassium remains 3.6 Review of Systems Review of Systems: All systems reviewed & are unremarkable except as noted in HPI and below Exam Narrative: Patient is comfortable, NAD HEENT: eyes are clear and none icteric LUNGS:CTA HEART: RR S1S2 ABD: BS+, Soft and nontender Lower extremities: no edema SKIN: nonjaundiced Neuro: grossly intact. Objective Data Vital Signs Vital Signs: Vital Signs - 24 hr 01/07/24 20:24 01/08/24 05:37 01/08/24 08:00 Temperature 37.3 C 37.0 C Pulse Rate 95 91 Respiratory Rate 18 18 Blood Pressure 140/87 142/82 H Pulse Oximetry 97 95 Oxygen Delivery Room Air 01/08/24 14:00 Temperature 36.8 C Pulse Rate 90 Respiratory Rate 20 Blood Pressure 145/76 H Pulse Oximetry 97 Oxygen Delivery Intake/Output Intake/Output: Intake & Output 01/05/24 01/06/24 01/07/24 01/08/24 23:59 23:59 23:59 23:59 Intake Total 3364 2214 1070 1390 Output Total 1800 700 1 Balance 3364 781 536 8582 Meds/Results Medications: Active Medications Generic Name Dose Route Start Last Admin Trade Name Freq PRN Reason Stop Dose Admin Acetaminophen 650 mg 01/03/24 12:56 01/07/24 05:30 Acetaminophen 325 Mg Tablet PO 650 mg Q6H PRN Administration Mild Pain (1-3) or Fever Aspirin 81 mg 12/31/23 09:00 01/08/24 08:09 Aspirin 81 Mg Enteric Tablet PO 81 mg QAM LISSET Administration Calcium Acetate 2,001 mg 01/01/24 13:00 01/08/24 17:25 Calcium Acetate 667 Mg Tablet PO 2,001 mg TID LISSET Administration Calcium Carbonate 1,000 mg 01/02/24 21:00 01/08/24 15:26 Calcium Carbonate (Oscal) 500 Mg Tablet PO 1,000 mg 1000,1500,2100 LISSET Administration Cephalexin HCl 250 mg 01/05/24 18:00 01/08/24 17:26 Cephalexin 250 Mg Capsule PO 250 mg Q12H LISSET Administration Clopidogrel Bisulfate 75 mg 12/31/23 09:00 01/05/24 09:15 Clopidogrel Bisulfate 75 Mg Tablet PO 75 mg DAILY LISSET Administration Dextrose 12.5 gm 12/31/23 07:36 Dextrose 50% 25 Gm/50 Ml Syringe IV PUSH PRN PRN Hypoglycemia Protocol Doxycycline Hyclate 100 mg 01/05/24 21:00 01/08/24 08:10 Doxycycline Hyclate 100 Mg Tablet PO 01/12/24 20:59 100 mg Q12HR LISSET Administration Ergocalciferol 50,000 units 01/03/24 09:00 01/03/24 13:13 Ergocalciferol 50,000 Units Capsule PO 50,000 units Sa@0900 LISSET Administration Gabapentin 600 mg 12/31/23 21:00 01/07/24 20:36 Gabapentin 300 Mg Capsule PO 600 mg HS LISSET Administration Glucagon 1 mg 12/31/23 07:36 Glucagon For Inj 1 Mg Vial IM PRN PRN Hypoglycemia Protocol Glucose 15 gm 12/31/23 07:36 Glucose Oral Gel 15 Gm Of Glucse In 37.5 Gm Tube PO PRN PRN Hypoglycemia Protocol Heparin Sodium (Porcine) 5,000 units 12/31/23 09:00 01/08/24 08:09 Heparin Sodium 5,000 Units/Ml Vial SUB-Q 5,000 units Q12HR LISSET Administration Hydromorphone HCl 0.5 mg 12/31/23 12:47 12/31/23 13:17 Hydromorphone Hcl Inj (*Crx) 1 Mg/Ml Syr IV PUSH 0.5 mg Q4HR PRN Administration Pain Rated 7-10 Dextrose 1,000 mls @ 100 mls/hr 12/31/23 07:36 Dextrose 5% 1,000 Ml IVPB PRN PRN Hypoglycemia Protocol Albumin Human 50 mls @ 999 mls/hr 12/31/23 10:08 Albutein IVPB 01/30/24 10:07 Q10M PRN HYPOTENSION Insulin Aspart 2 - 5 units 01/06/24 08:00 01/08/24 17:26 Insulin Aspart (*Bkc) 100 Units/Ml SUB-Q Not Given TIDWM [facility] Protocol Ondansetron HCl 4 mg 12/30/23 21:52 01/07/24 20:36 Ondansetron Inj 4 Mg/2 Ml Vial IV PUSH 4 mg Q4H PRN Administration Nausea Radiology Results: ITS Impressions Head CT 12/30/23 18:14 Impression: No acute intracranial hemorrhage or suspicious mass effect. Chest X-Ray 01/02/24 17:12 IMPRESSION: 1. Central line tip in the superior vena cava. 2. Mild atelectasis in right mid lung zone. Renal Ultrasound 01/03/24 16:17 IMPRESSION: Unremarkable renal sonogram findings. Labs Labs: Laboratory Results - last 24 hr 01/02/24 01/03/24 01/07/24 18:22 06:58 20:00 WBC RBC Hgb Hct MCV MCH MCHC RDW Plt Count MPV Immature Gran % (Auto) Neut % (Auto) Lymph % (Auto) Latimer % (Auto) Eos % (Auto) Baso % (Auto) Lymph # (Auto) Latimer # (Auto) Eos # (Auto) Baso # (Auto) Abs Immat Gran (auto) Absolute Neuts (auto) Absolute Nucleated RBC Nucleated RBC % Sodium Potassium Chloride Carbon Dioxide Anion Gap BUN Creatinine Estim Creat Clear Calc Estimated GFR Glucose POC Capillary Glucose 165 H Calcium Magnesium Total Bilirubin AST ALT Alkaline Phosphatase Total Protein Albumin Urine Albumin 48 U Psqnr-5-Ihcvdsnb 7 U Zlefi-8-Jpquvsxf 7 U Beta Globulin 21 U Gamma Globulin 17 Urine PEP Interpret See note DOUGLAS Screen Negative ANCA Screen Negative 01/08/24 01/08/24 01/08/24 07:48 08:20 11:54 WBC 10.1 H RBC 2.80 L Hgb 8.1 L Hct 25.6 L MCV 91.4 MCH 28.9 MCHC 31.6 L RDW 13.7 Plt Count 180 MPV 10.2 Immature Gran % (Auto) 1.3 H Neut % (Auto) 78.3 H Lymph % (Auto) 5.7 L Latimer % (Auto) 9.9 H Eos % (Auto) 4.5 H Baso % (Auto) 0.3 Lymph # (Auto) 0.58 L Latimer # (Auto) 1.0 H Eos # (Auto) 0.5 H Baso # (Auto) 0.0 Abs Immat Gran (auto) 0.13 H Absolute Neuts (auto) 7.9 H Absolute Nucleated RBC 0.000 Nucleated RBC % 0.0 Sodium 131 L Potassium 3.6 Chloride 94 L Carbon Dioxide 30 Anion Gap 7 BUN 41 H Creatinine 7.00 H Estim Creat Clear Calc 17 Estimated GFR 9 L Glucose 179 H POC Capillary Glucose 192 H 152 H Calcium 7.4 L Magnesium 1.8 Total Bilirubin 0.9 AST 24 ALT 13 Alkaline Phosphatase 121 Total Protein 6.0 L Albumin 2.9 L Urine Albumin U Tpwdq-4-Pohxqilv U Bwcuh-5-Vczssoyk U Beta Globulin U Gamma Globulin Urine PEP Interpret DOUGLAS Screen ANCA Screen 01/08/24 16:34 WBC RBC Hgb Hct MCV MCH MCHC RDW Plt Count MPV Immature Gran % (Auto) Neut % (Auto) Lymph % (Auto) Latimer % (Auto) Eos % (Auto) Baso % (Auto) Lymph # (Auto) Latimer # (Auto) Eos # (Auto) Baso # (Auto) Abs Immat Gran (auto) Absolute Neuts (auto) Absolute Nucleated RBC Nucleated RBC % Sodium Potassium Chloride Carbon Dioxide Anion Gap BUN Creatinine Estim Creat Clear Calc Estimated GFR Glucose POC Capillary Glucose 128 H Calcium Magnesium Total Bilirubin AST ALT Alkaline Phosphatase Total Protein Albumin Urine Albumin U Kidiw-4-Qpepgonl U Bkabt-6-Vsfygvrr U Beta Globulin U Gamma Globulin Urine PEP Interpret DOUGLAS Screen ANCA Screen Quality VTE Prophylaxis VTE prophylaxis: pharmacologic ordered (Heparin 5000 units subQ q.12 hours)
[2024-01-08 19:50] VITALS: BP 154/87; PULSE 90; RESP 16; TEMP 37.6; O2SAT 98
[2024-01-08] MEDS: GABAPENTIN 300 MG CAPSULE 600 MG PO (20:32)
[2024-01-08 20:33] LABS: Glucose Point of Care 166 mg/dl (65-105)
[2024-01-09] MEDS: CEPHALEXIN 250 MG CAPSULE PO (05:32)
[2024-01-09 05:38] LABS: Hematocrit 24.8 % (42.0-52.0); Hemoglobin 7.9 g/dL (14.0-18.0); Mean Corpuscular HGB Conc 31.9 g/dl (32-36); Mean Corpuscular Hemoglobin 28.9 pg (26-34); Mean Corpuscular Volume 90.8 fl (80-100); Mean Platelet Volume 9.9 fl (7.4-10.4); Platelet Count Result 199 k/mm3 (150-375); Red Blood Count 2.73 M/mm3 (4.6-6.20); Red Cell Distribution Width 13.7 % (11.5-14.5)
[2024-01-09 05:48] LABS: Anion Gap 9 mmol/L (4-12); Blood Urea Nitrogen 41 mg/dL (9-20); Calcium 7.8 mg/dL (8.4-10.2); Carbon Dioxide 29 mmol/L (22-30); Chloride 94 mmol/L (98-107); Estimated CRCL calculation 18 ml/min; Estimated Glomerular Filt Rate 9; Glucose 128 mg/dL (65-110); Magnesium 1.7 mg/dL (1.6-2.3); Phosphorus 3.7 mg/dL (2.5-4.5); Potassium 3.7 mmol/L (3.4-5.0); Sodium 132 mmol/L (137-145)
[2024-01-09 06:16] VITALS: BP 165/85; PULSE 86; RESP 14; TEMP 36.4; O2SAT 99
[2024-01-09 08:31] LABS: Glucose Point of Care 164 mg/dl (65-105)
[2024-01-09] MEDS: CALCIUM ACETATE 667 MG TABLET 2001 MG PO ×2 (08:47→14:37)
[2024-01-09] MEDS: DOXYCYCLINE HYCLATE 100 MG TABLET PO (08:48)
[2024-01-09] MEDS: CALCIUM CARBONATE (OSCAL) 500 MG TABLET 1000 MG PO ×2 (08:48→14:38)
[2024-01-09] MEDS: ASPIRIN 81 MG ENTERIC TABLET PO (08:48)
--- NOTE | 2024-01-09 10:31 | P.PNNP_ITS ---
Progress Note: A&P Assessment and Plan (1) SHABNAM (acute kidney injury): Code(s): N17.9 - Acute kidney failure, unspecified Status: Acute Assessment and Plan: * etiology not clear - suspect ATN * however, complicated by hyperkalemia, acidosis, and possible uremia on admission * started dialysis on the 12/30 with treatments on 12/31 and 01/02; further dialysis on hold * evaluation to date noted: * urine studies show non pre renal findings so far * C3 is low * ESR 111 * CPK mildly elevated (doubt effect on kidneys) * urine eosinophils negative * moderate proteinuria * DOUGLAS/ANCA/dsNDA-Ab negative * given lack of clear answer for his SHABNAM/ARF, I was leaning towards doing a renal biopsy * unfortunately, has been on plavix since admission....which make doing a renal biopsy HIGH RISK * will hold plavix for now in case a biopsy is needed * is this just protracted ATN? * creatinine appears to have peaked/plateaued at 7.0mg/dl * follow repeat labs and UOP (2) Chronic kidney disease, stage IV (severe): Code(s): N18.4 - Chronic kidney disease, stage 4 (severe) Status: Chronic Assessment and Plan: * last creatinine was ~ 3.0 - 3.2mg/dl in May 2023 * not clear what true baseline creatinine really is * suspect an element of CKD from HTN, DM, and vascular disease (3) Acute hyperkalemia: Code(s): E87.5 - Hyperkalemia Status: Acute Assessment and Plan: * resolved * as noted on admission * resistant to medical therapy * dialysis corrected this * follow trend of repeat K+ levels (4) Uremic encephalopathy: Code(s): G93.49 - Other encephalopathy; N19 - Unspecified kidney failure Status: Acute Assessment and Plan: * resolved (5) Acidosis: Code(s): E87.20 - Acidosis, unspecified Status: Acute Assessment and Plan: * resolved (6) Anemia: Qualifiers: Anemia type: unspecified type Qualified Code(s): D64.9 - Anemia, unspecified Code(s): D64.9 - Anemia, unspecified Status: Acute Assessment and Plan: * better * s/p EGD and colonoscopy with findings noted * follow trend of H/H (7) HTN (hypertension): Qualifiers: Hypertension type: primary hypertension Qualified Code(s): I10 - Essential (primary) hypertension Code(s): I10 - Essential (primary) hypertension Status: Chronic Assessment and Plan: * reasonable control * follow trend of hemodyanmics * losartan and HCTZ on hold given #1 * consider low dose amlodipine if continues to rise (8) Diabetes: Qualifiers: Diabetes mellitus type: type 2 Diabetes mellitus senior living insulin use: with senior living use Diabetes mellitus complication status: with kidney complications Diabetes mellitus complication detail: with chronic kidney disease Chronic kidney disease stage: unspecified stage Qualified Code(s): E11.22 - Type 2 diabetes mellitus with diabetic chronic kidney disease; Z79.4 - senior care (current) use of insulin Code(s): E11.9 - Type 2 diabetes mellitus without complications Status: Chronic Assessment and Plan: * follow accu-cheks * glycemic control per hospitalists Not opposed to discharge from renal perspective at this time -- will need repeat labs next week and follow-up with myself in the office in 2 weeks to ensure ongoing improvement in renal function. Will continue to follow. Subjective Date/time seen: 01/09/24 10:31 Interval history: Follow-up for acute kidney injury/acute renal failure on chronic kidney disease. Renal function/creatinine appears to be doing slightly better by labs in the last 24 hours -- continues to make good urine output with relatively stable electrolytes as well; no apparent issues/events overnight or earlier this morning; overall, feels reasonably well. Exam Narrative: General: WD/WN male in NAD Heart: normal S1 and S2; no rub Lungs: clear to auscultation Abdomen: soft, nontender, nondistended, positive bowel sounds Extremities: no cyanosis or clubbing; no edema; s/p right BKA Skin: no nodules Objective Data Vital Signs Vital Signs: Vital Signs Temp Pulse Resp BP Pulse Ox O2 Del Method 01/09/24 08:00 Room Air 01/09/24 06:16 97.5 F L 86 14 165/85 H 99 01/08/24 20:00 Room Air 01/08/24 19:50 99.7 F H 90 16 154/87 H 98 01/08/24 14:00 98.3 F 90 20 145/76 H 97 Intake/Output Intake/Output: Intake & Output 1101/07/24 01/08/24 01/09/24 23:59 23:59 23:59 23:59 Intake Total 2217 1070 1390 1385 Output Total 1800 700 1 Balance 919 618 1292 1385 Meds/Results Medications: Active Medications Generic Name Dose Route Start Last Admin Trade Name Freq PRN Reason Stop Dose Admin Acetaminophen 650 mg 01/03/24 12:56 01/07/24 05:30 Acetaminophen 325 Mg Tablet PO 650 mg Q6H PRN Administration Mild Pain (1-3) or Fever Aspirin 81 mg 12/31/23 09:00 01/09/24 08:48 Aspirin 81 Mg Enteric Tablet PO 81 mg QAM LISSET Administration Calcium Acetate 2,001 mg 01/01/24 13:00 01/09/24 08:47 Calcium Acetate 667 Mg Tablet PO 2,001 mg TID LISSET Administration Calcium Carbonate 1,000 mg 01/02/24 21:00 01/09/24 08:48 Calcium Carbonate (Oscal) 500 Mg Tablet PO 1,000 mg 1000,1500,2100 LISSET Administration Cephalexin HCl 250 mg 01/05/24 18:00 01/09/24 05:32 Cephalexin 250 Mg Capsule PO 250 mg Q12H LISSET Administration Clopidogrel Bisulfate 75 mg 12/31/23 09:00 01/05/24 09:15 Clopidogrel Bisulfate 75 Mg Tablet PO 75 mg DAILY LISSET Administration Dextrose 12.5 gm 12/31/23 07:36 Dextrose 50% 25 Gm/50 Ml Syringe IV PUSH PRN PRN Hypoglycemia Protocol Doxycycline Hyclate 100 mg 01/05/24 21:00 01/09/24 08:48 Doxycycline Hyclate 100 Mg Tablet PO 01/12/24 20:59 100 mg Q12HR LISSET Administration Ergocalciferol 50,000 units 01/03/24 09:00 01/03/24 13:13 Ergocalciferol 50,000 Units Capsule PO 50,000 units Sa@0900 LISSET Administration Gabapentin 600 mg 12/31/23 21:00 01/08/24 20:32 Gabapentin 300 Mg Capsule PO 600 mg HS LISSET Administration Glucagon 1 mg 12/31/23 07:36 Glucagon For Inj 1 Mg Vial IM PRN PRN Hypoglycemia Protocol Glucose 15 gm 12/31/23 07:36 Glucose Oral Gel 15 Gm Of Glucse In 37.5 Gm Tube PO PRN PRN Hypoglycemia Protocol Heparin Sodium (Porcine) 5,000 units 12/31/23 09:00 01/09/24 09:02 Heparin Sodium 5,000 Units/Ml Vial SUB-Q Not Given Q12HR LSISET Hydromorphone HCl 0.5 mg 12/31/23 12:47 12/31/23 13:17 Hydromorphone Hcl Inj (*Crx) 1 Mg/Ml Syr IV PUSH 0.5 mg Q4HR PRN Administration Pain Rated 7-10 Dextrose 1,000 mls @ 100 mls/hr 12/31/23 07:36 Dextrose 5% 1,000 Ml IVPB PRN PRN Hypoglycemia Protocol Albumin Human 50 mls @ 999 mls/hr 12/31/23 10:08 Albutein IVPB 01/30/24 10:07 Q10M PRN HYPOTENSION Insulin Aspart 2 - 5 units 01/06/24 08:00 01/08/24 17:26 Insulin Aspart (*Bkc) 100 Units/Ml SUB-Q Not Given TIDWM LISSET Protocol Ondansetron HCl 4 mg 12/30/23 21:52 01/07/24 20:36 Ondansetron Inj 4 Mg/2 Ml Vial IV PUSH 4 mg Q4H PRN Administration Nausea Radiology Results: ITS Impressions Head CT 12/30/23 18:14 Impression: No acute intracranial hemorrhage or suspicious mass effect. Chest X-Ray 01/02/24 17:12 IMPRESSION: 1. Central line tip in the superior vena cava. 2. Mild atelectasis in right mid lung zone. Renal Ultrasound 01/03/24 16:17 IMPRESSION: Unremarkable renal sonogram findings. Labs Labs: Laboratory Tests 01/09/24 05:30 01/09/24 05:30 Calcium 7.8 L Phosphorus 3.7 Magnesium 1.7 Albumin 3.0 L
[2024-01-09 11:22] LABS: Glucose Point of Care 178 mg/dl (65-105)
--- NOTE | 2024-01-09 13:16 | PM.DS ---
DS: Summary Time Spent with Patient Time attestation: Total time spent providing and/or coordinating discharge services: DS: Data Data Completed and Pending Completed studies during hospitalization: Pending at discharge 01/02/24 13:07 Surgical [PTH] Routine Labs on day of discharge: Labs from last 24 hours 01/09/24 01/09/24 01/09/24 11:19 08:27 05:30 WBC 8.0 RBC 2.73 L Hgb 7.9 L Hct 24.8 L MCV 90.8 MCH 28.9 MCHC 31.9 L RDW 13.7 Plt Count 199 MPV 9.9 Sodium 132 L Potassium 3.7 Chloride 94 L Carbon Dioxide 29 Anion Gap 9 BUN 41 H Creatinine 6.90 H Estim Creat Clear Calc 18 Estimated GFR 9 L Glucose 128 H POC Capillary Glucose 178 H 164 H Calcium 7.8 L Phosphorus 3.7 Magnesium 1.7 Albumin 3.0 L DOUGLAS Screen ANCA Screen 01/08/24 01/08/24 01/03/24 19:54 16:34 06:58 WBC RBC Hgb Hct MCV MCH MCHC RDW Plt Count MPV Sodium Potassium Chloride Carbon Dioxide Anion Gap BUN Creatinine Estim Creat Clear Calc Estimated GFR Glucose POC Capillary Glucose 166 H 128 H Calcium Phosphorus Magnesium Albumin DOUGLAS Screen Negative ANCA Screen Negative Preliminary micro results at discharge 01/05/24 15:33 Blood Culture - Preliminary Blood 01/05/24 15:31 Blood Culture - Preliminary Blood Discharge Plan Discharge Attending physician on discharge: Jody Mckeon Consulting providers: Rylee Min; Dhaval Prater Discharging Clinician: Milo Albright Activity: as tolerated Diet: heart healthy and low sodium Discharge Instructions: Hyperkalemia patient is instructed to eat low potassium heart healthy diet, patient to follow up with Dr. Bhandari in 1 week with lab, patient to follow up with his primary care provider as soon as possible, patient instructed if any symptoms worsen to go to nearest ER. Patient Instructions: Antibiotic Form, Clopidogrel (By mouth), Pain Management (DC), Hyperkalemia (GEN) Stand Alone Forms: General Discharge Information Follow-up/Referrals: Rylee Min MD [Physician] - Darrick,Kala Macdonald APRN [Primary Care Provider] - Discharge Medications: New cephalexin 250 mg Capsule 250 mg PO Q12H Qty: 10 0RF doxycycline hyclate 100 mg Tablet 100 mg PO Q12HR Qty: 10 0RF ondansetron 4 mg tablet,disintegrating 4 mg PO Q8H PRN (Reason: nausea and vomiting) Qty: 20 0RF calcium carbonate [Oyster Shell Calcium 500] 500 mg calcium (1,250 mg) Tablet 1,000 mg PO TID Qty: 30 0RF Continued aspirin 81 mg Tablet,Delayed Release (Dr/Ec) 81 mg PO QAM Qty: 30 1RF ergocalciferol (vitamin D2) 1,250 mcg (50,000 unit) capsule 1,250 mcg PO DAILY gabapentin 300 mg capsule 600 mg PO HS Qty: 30 0RF Changed clopidogrel 75 mg tablet 75 mg PO DAILY Qty: 30 0RF Held atorvastatin 10 mg tablet 10 mg PO HS Hold Instructions: until seen by his primary care provider losartan 100 mg tablet 100 mg PO HS Hold Instructions: until seen by his primary care provider Tradjenta 5 mg tablet 5 mg PO HS Hold Instructions: until seen by his primary care provider hydrochlorothiazide 25 mg tablet 25 mg PO DAILY Hold Instructions: until seen by his primary care provider Rybelsus 7 mg tablet 7 mg PO DAILY Hold Instructions: until seen by his primary care provider Other Ambulatory Orders: Renal Function Panel (Routine) Timeframe: 1 Week Location: Determined by Patient Ordered By: Milo Albright Date of admission: 12/31/23 10:30 Primary Care Provider: Darrick,Kala Macdonald Admitting Provider: Jody Mckeon Attending physician on admission: Jody Mckeon Condition: Stable
[2024-01-09 14:00] VITALS: BP 146/70; PULSE 90; RESP 12; TEMP 37.3; O2SAT 98
[2024-01-09] MEDS: NEOMYCIN/POLYMYXIN/BACITRACIN OINTMENT PACKET 1 PACKET (14:37)
[2024-01-14 13:19] LABS: Anti Glomerular Basement Memb <1.0 AI
[2024-01-14 13:56] LABS: Creatinine Random Urine 55 mg/dL
== END 2024-01-09 15:45 | disposition home or self-care (01) | DRG 674 ==
LOC: ANHED 22:03 → ANHIMU 22:37 → ANH3MEDSUR 01-02 23:30
PROVIDERS: Hospitalist; Internal Medicine; Internal Medicine Gastroenterology; Internal Medicine Nephrology; Physician Assistant; Admitting Provider Internal Medicine; Emergency Provider Emergency Medicine; Visit Provider Family Medicine
PROC: 0DJ08ZZ Inspection of Upper Intestinal Tract, Via Natural or Artificial Opening Endoscopic (ICD-10-PCS; CPT 43235; principal; 2024-01-02 14:00)
DX: N17.9 Acute kidney failure, unspecified (principal); E87.20 Acidosis, unspecified; G93.49 Other encephalopathy; N18.4 Chronic kidney disease, stage 4 (severe); E87.5 Hyperkalemia; I12.9 Hypertensive chronic kidney disease with stage 1 through stage 4 chronic kidney disease, or unspecified chronic kidney disease; E11.22 Type 2 diabetes mellitus with diabetic chronic kidney disease; E11.43 Type 2 diabetes mellitus with diabetic autonomic (poly)neuropathy; E11.51 Type 2 diabetes mellitus with diabetic peripheral angiopathy without gangrene; E83.51 Hypocalcemia; Z87.891 Personal history of nicotine dependence; D64.9 Anemia, unspecified; K29.30 Chronic superficial gastritis without bleeding; K31.84 Gastroparesis; J45.909 Unspecified asthma, uncomplicated; L02.92 Furuncle, unspecified; T37.5X5A Adverse effect of antiviral drugs, initial encounter; M19.90 Unspecified osteoarthritis, unspecified site; R29.6 Repeated falls; G71.01 Duchenne or Becker muscular dystrophy; T68.XXXA Hypothermia, initial encounter; G89.29 Other chronic pain; Z89.511 Acquired absence of right leg below knee; Z79.02 Long term (current) use of antithrombotics/antiplatelets; Z79.4 Long term (current) use of insulin
CPT/HCPCS: 36415; 36430; 36600; 70450; 71045; 71046; 76775; 80048; 80053; 80069; 81001; 82436; 82550; 82570; 82607; 82728; 82746; 82805; 82948; 83520; 83540; 83550; 83735; 84100; 84133; 84155; 84156; 84165; 84166; 84300; 84443; 85018; 85025; 85027; 85046; 85652; 85999; 86036; 86038; 86039; 86060; 86140; 86160; 86162; 86225; 86703; 86704; 86705; 86706; 86803; 86850; 86900; 86901; 86923; 87040; 87340; 88305; 93005; 94640; 96361; 96374; 96375; 99285; A9270; C1751; C1752; G0257; G0378; G0432; J0612; J0613; J1171; J1644; J1815; J2003; J2405; J2704; J3475; J7030; J7040; J7050; J7070; P9016; Q5105

== ENCOUNTER 2024-01-13 16:43 | Outpatient (CLI) | payer BC, SELFPAY ==
--- NOTE | ~2024-01-13 | US_ITS ---
LEFT UPPER EXTREMITY VENOUS ULTRASOUND Ordering provider: Kala Hollingsworth, SECURITY SYSTEMS INTEGRATOR History: . painin lt arm . Comparison: None. FINDINGS: --JUGULAR: Patent and free of thrombus. Normal compressibility, phasic flow and augmentation. --SUBCLAVIAN: Patent and free of thrombus. Normal compressibility, phasic flow and augmentation. --AXILLARY: Patent and free of thrombus. Normal compressibility, phasic flow and augmentation. --BRACHIAL: Patent and free of thrombus. Normal compressibility, phasic flow and augmentation. --CEPHALIC: Patent and free of thrombus. Normal compressibility, phasic flow and augmentation. --BASILIC: Patent and free of thrombus. Normal compressibility, phasic flow and augmentation. --RADIAL: Patent and free of thrombus. Normal compressibility, phasic flow and augmentation. --ULNAR: Thrombi are seen. IMPRESSION: Thrombosis seen in the left ulnar vein. Reviewed, dictated and finalized at location A. NG MILL OPERATOR
== END 2024-01-13 16:44 | disposition home or self-care (01) ==
DX: I82.622 Acute embolism and thrombosis of deep veins of left upper extremity (principal)
CPT/HCPCS: 93971

== ENCOUNTER 2024-01-13 18:57 | Observation (INO) | payer BC, SELFPAY ==
--- NOTE | ~2024-01-13 | US_ITS ---
EXAMINATION:US venous doppler LE LT INDICATION:Left lower extremity edema TECHNIQUE: Multiple grayscale, color flow and Doppler images of the left lower extremity deep venous systems were obtained and reviewed. COMPARISON:No prior studies for comparison. FINDINGS: The common femoral, superficial femoral and popliteal veins demonstrate normal respiratory variation, augmentation and compressibility. Color flow is also seen within the posterior tibial, pe roneal, greater saphenous and profunda veins. IMPRESSION: 1: No lower extremity deep venous thrombosis. Reviewed, dictated and finalized at location B. CULTURE INSTRUCTOR
[2024-01-13 19:00] VITALS: BP 166/90; PULSE 101; RESP 19; TEMP 37; O2SAT 100
--- NOTE | 2024-01-13 19:08 | ED.EXTPRO ---
HPI - Extremity Problem General Chief complaint: Extremity Problem,Nontraumatic <Christine Gardner APRN - Last Filed: 01/13/24 19:12> Stated complaint: dvt <Christine Gardner APRN - Last Filed: 01/13/24 19:12> Time Seen by Provider: 01/13/24 18:58 <Christine Gardner APRN - Last Filed: 01/13/24 19:12> Focused HPI: patient is a 43-year-old male who presents to the ER after being dosed with the left arm DVT. He reports he went to his primary care provider earlier today due to left arm swelling. It is she ordered an ultrasound which later revealed patient has she D Leona left arm. Patient denies any history of blood clots but he has history of right lower BKA and chronic kidney disease. He denies any recent fevers, abdominal pain or shortness of breath. GENERAL: Well-appearing, well-nourished, and in no acute distress. HEAD: Normocephalic, atraumatic. CHEST: Clear to auscultation. ?No respiratory distress. HEART: Mildly tachycardic, but regular rhythm.? NEURO: ?Alert and oriented x3. Patient screened in triage and initial orders placed.? ?Additional care and disposition to be based upon?diagnostic testing and treatment. <Christine Gardner APRN - Last Filed: 01/13/24 19:12> History of Present Illness HPI Narrative: Patient is a 43-year-old gentleman who presents emergency department chief complaint of left upper extremity DVT. Patient size primary care provider today after he had swelling in his left arm the patient reports no chest pain denies shortness of breath the patient recently was in the hospital after having acute renal failure and had dialysis the patient is being followed by Nephrology as an outpatient is currently not undergoing dialysis. <Doug Mello MD - Last Filed: 01/14/24 00:34> Related Data Home medications: Home Medications Medication Instructions Recorded Confirmed linagliptin 5 mg tablet (Tradjenta) 5 mg PO HS 10/25/19 12/30/23 atorvastatin 10 mg tablet 10 mg PO HS 04/07/22 12/30/23 losartan 100 mg tablet 100 mg PO HS 01/16/23 12/30/23 ergocalciferol (vitamin D2) 1,250 1,250 mcg PO DAILY 12/30/23 12/30/23 mcg (50,000 unit) capsule hydrochlorothiazide 25 mg tablet 25 mg PO DAILY 12/30/23 12/30/23 semaglutide 7 mg tablet (Rybelsus) 7 mg PO DAILY 12/30/23 12/30/23 <Christine Gardner APRN - Last Filed: 01/13/24 19:12> Allergies/Adverse reactions: Allergies Allergy/AdvReac Type Severity Reaction Status Date / Time insulin detemir Allergy Unknown Other Verified 01/14/24 00:33 [From Levemir U-100 Insulin] latex Allergy Unknown Anaphylaxis Verified 01/14/24 00:33 metformin AdvReac Unknown Gastrointestinal Verified 01/14/24 00:33 Upset hydrochlorothiazide AdvReac Dizziness Verified 01/14/24 00:33 <Christine Gardner, AGRICULTURAL EQUIPMENT OPERATOR - Last Filed: 01/13/24 19:12> Review of Systems Review of Systems: A 10 system review of systems was completed on the patient and is negative except for what is stated in the HPI. Nursing and ancillary documentation was reviewed. <Doug Mello MD - Last Filed: 01/14/24 00:34> [facility] Past Medical History Medical History: Medical History Acute on chronic anemia Arthritis Asthma Hobbs muscular dystrophy Chronic kidney disease Chronic pain Club foot of both lower extremities Diabetes Food allergy History of adverse reaction to anesthesia HTN (hypertension) Obesity (BMI 30-39.9) Peripheral vascular disease <Christine Gardner, AGRICULTURAL EQUIPMENT OPERATOR - Last Filed: 01/13/24 19:12> Surgical History Surgical History: Surgical History Hx of amputation below knee Right below knee amputation 05/22/23 Hx of clubfoot correction <Christine Gardner APRN - Last Filed: 01/13/24 19:12> Family History Family History: Family History Grandparent Arthritis Heart disease Diabetes mellitus Hypertension Malignant neoplasm Mother Heart disease Diabetes mellitus Hypertension <Christine Gardner AGRICULTURAL EQUIPMENT OPERATOR - Last Filed: 01/13/24 19:12> Social History Social History: Social History Social History: He lives with his of 10 years. He has his son who is 20 years old. He is currently working for [employer]. He did smoke a few cigarettes a day for approximately 5 years but quit smoking many years ago. He does not use alcohol or illicit substances. Code status: Full code Surrogate decision maker: Smoking packs per day: 0.1 Smoking cigarettes per day: 2.0 Years smoked: 4 Smoking pack-years: 0.40 Smoking status: Former smoker Second hand tobacco smoke exposure: Yes Alcohol intake: former Alcohol use details: 1/YEAR Substance use: never Substance use type: does not use Do You Feel Safe in your Home?: Yes Lack of Transportation: No Lack of Food: Never True Current Housing: I Have Housing Concerned About Future Housing: No Difficulty Paying Gas/Electric Bills: No Difficulty Paying for Meds: No Currently Unemployed: No Education: Associate Degree Difficulty w/ Childcare or Family Care: No Living arrangements: with family Gender identity (if verbalized by the patient): Male Spiritual care concerns: No <Christine DupontKrishna Gardner, AGRICULTURAL EQUIPMENT OPERATOR - Last Filed: 01/13/24 19:12> Exam Narrative: GENERAL: Well-appearing, well-nourished, and in no acute distress. HEAD: Normocephalic, atraumatic. EYES: PERRLA and EOMI. ENT: Nares clear, no rhinorrhea or epistaxis. Mucous membranes moist. NECK: Supple. CHEST: Clear to auscultation. No respiratory distress. HEART: Regular rate and rhythm. No murmur heard. Normal peripheral pulses. ABDOMEN: Soft, nontender, nondistended, normal active bowel sounds. EXTREMITIES: Normal range of motion. No edema. Tenderness to palpation the left forearm SKIN: Warm, dry, no rash. NEURO: No focal deficits. Alert and oriented x3. PSYCH: Normal mood and affect. <Doug Mello MD - Last Filed: 01/14/24 00:34> Course Vital Signs Vital signs: Vital Signs Temperature 37.0 C 01/13/24 19:00 Pulse Rate 101 H 01/13/24 19:00 Respiratory Rate 19 01/13/24 19:00 Blood Pressure 166/90 H 01/13/24 19:00 Pulse Oximetry 100 01/13/24 19:00 Temperature 37.0 C 01/13/24 19:00 Pulse Rate 84 01/14/24 00:15 Respiratory Rate 16 01/14/24 00:15 Blood Pressure 144/71 H 01/14/24 00:15 Pulse Oximetry 100 01/14/24 00:15 <Christine Gardner, AGRICULTURAL EQUIPMENT OPERATOR - Last Filed: 01/13/24 19:12> Vital Signs Temperature 37.0 C 01/13/24 19:00 Pulse Rate 101 H 01/13/24 19:00 Respiratory Rate 19 01/13/24 19:00 Blood Pressure 166/90 H 01/13/24 19:00 Pulse Oximetry 100 01/13/24 19:00 Temperature 37.0 C 01/13/24 19:00 Pulse Rate 84 01/14/24 00:15 Respiratory Rate 16 01/14/24 00:15 Blood Pressure 144/71 H 01/14/24 00:15 Pulse Oximetry 100 01/14/24 00:15 <Doug Mello MD - Last Filed: 01/14/24 00:34> MDM - Extremity (Nontraumatic) MDM Narrative Medical decision making narrative: Differential diagnosis includes acute kidney injury, fluid overload, DVT Patient's ultrasound was reviewed from the outpatient did show a left upper extremity DVT. Given his renal failure the case was discussed with his breakdown man who will consult on the patient and recommended doing heparin and warfarin. The patient is not showing signs of hyperkalemia or fluid overload at this time. The patient has no signs of pulmonary embolism <Doug Mello MD - Last Filed: 01/14/24 00:34> Lab Data Result diagrams: 01/13/24 20:35 01/13/24 20:35 <Christine Gardner, AGRICULTURAL EQUIPMENT OPERATOR - Last Filed: 01/13/24 19:12> Labs: Lab Results 01/13/24 Range/Units 20:35 WBC 6.1 (4.5-10.0) K/mm3 RBC 2.76 L (4.6-6.20) M/mm3 Hgb 7.8 L (14.0-18.0) g/dL Hct 25.4 L (42.0-52.0) % MCV 92.0 (80-100) fl MCH 28.3 (26-34) pg MCHC 30.7 L (32-36) g/dl RDW 13.8 (11.5-14.5) % Plt Count 367 D (150-375) k/mm3 MPV 9.1 (7.4-10.4) fl Immature Gran % (Auto) 1.5 H (0-0.5) % Neut % (Auto) 71.9 (45.5-73.1) % Lymph % (Auto) 11.2 L (18.3-44.2) % [place] % (Auto) 7.7 (2.6-8.5) % Eos % (Auto) 6.9 H (0-4.4) % Baso % (Auto) 0.8 (0.2-1.2) % Lymph # (Auto) 0.68 L (0.9-3.2) K/mm3 [place] # (Auto) 0.5 (0.1-0.6) K/mm3 Eos # (Auto) 0.4 H (0-0.3) K/mm3 Baso # (Auto) 0.1 (0.0-0.1) K/mm3 Abs Immat Gran (auto) 0.09 H (0.00-0.031) K/mm3 Absolute Neuts (auto) 4.4 (1.3-6.7) K/mm3 Absolute Nucleated RBC 0.000 (0.0-0.012) K/mm3 Nucleated RBC % 0.0 (0.0-0.2) % PT 16.7 H (11.1-14.7) Seconds INR 1.3 APTT 50.9 H (22.3-36.8) Seconds Sodium 136 L (137-145) mmol/L Potassium 3.6 (3.4-5.0) mmol/L Chloride 101 (98-107) mmol/L Carbon Dioxide 28 (22-30) mmol/L Anion Gap 7 (4-12) mmol/L BUN 35 H (9-20) mg/dL Creatinine 6.50 H (0.7-1.3) mg/dL Estim Creat Clear Calc 19 ml/min Estimated GFR 9 L (59 - ) Glucose 171 H (65-110) mg/dL Calcium 6.9 L (8.4-10.2) mg/dL Total Bilirubin 0.7 (0.2-1.3) mg/dL AST 27 (17-59) U/L ALT 22 (6-50) U/L Alkaline Phosphatase 104 (38-126) U/L Total Protein 6.0 L (6.3-8.2) g/dL Albumin 3.2 L (3.5-5.1) g/dL <Christine Gardner, AGRICULTURAL EQUIPMENT OPERATOR - Last Filed: 01/13/24 19:12> Lab Results 01/13/24 Range/Units 20:35 WBC 6.1 (4.5-10.0) K/mm3 RBC 2.76 L (4.6-6.20) M/mm3 Hgb 7.8 L (14.0-18.0) g/dL Hct 25.4 L (42.0-52.0) % MCV 92.0 (80-100) fl MCH 28.3 (26-34) pg MCHC 30.7 L (32-36) g/dl RDW 13.8 (11.5-14.5) % Plt Count 367 D (150-375) k/mm3 MPV 9.1 (7.4-10.4) fl Immature Gran % (Auto) 1.5 H (0-0.5) % Neut % (Auto) 71.9 (45.5-73.1) % Lymph % (Auto) 11.2 L (18.3-44.2) % [place] % (Auto) 7.7 (2.6-8.5) % Eos % (Auto) 6.9 H (0-4.4) % Baso % (Auto) 0.8 (0.2-1.2) % Lymph # (Auto) 0.68 L (0.9-3.2) K/mm3 [place] # (Auto) 0.5 (0.1-0.6) K/mm3 Eos # (Auto) 0.4 H (0-0.3) K/mm3 Baso # (Auto) 0.1 (0.0-0.1) K/mm3 Abs Immat Gran (auto) 0.09 H (0.00-0.031) K/mm3 Absolute Neuts (auto) 4.4 (1.3-6.7) K/mm3 Absolute Nucleated RBC 0.000 (0.0-0.012) K/mm3 Nucleated RBC % 0.0 (0.0-0.2) % PT 16.7 H (11.1-14.7) Seconds INR 1.3 APTT 50.9 H (22.3-36.8) Seconds Sodium 136 L (137-145) mmol/L Potassium 3.6 (3.4-5.0) mmol/L Chloride 101 (98-107) mmol/L Carbon Dioxide 28 (22-30) mmol/L Anion Gap 7 (4-12) mmol/L BUN 35 H (9-20) mg/dL Creatinine 6.50 H (0.7-1.3) mg/dL Estim Creat Clear Calc 19 ml/min Estimated GFR 9 L (59 - ) Glucose 171 H (65-110) mg/dL Calcium 6.9 L (8.4-10.2) mg/dL Total Bilirubin 0.7 (0.2-1.3) mg/dL AST 27 (17-59) U/L ALT 22 (6-50) U/L Alkaline Phosphatase 104 (38-126) U/L Total Protein 6.0 L (6.3-8.2) g/dL Albumin 3.2 L (3.5-5.1) g/dL <Doug Mello MD - Last Filed: 01/14/24 00:34> Discharge Plan Discharge Clinical Impression: Acute deep vein thrombosis (DVT) of left upper extremity <Christine Gardner APRN - Last Filed: 01/13/24 19:12> Patient Disposition: Still a Patient <Christine Gardner APRN - Last Filed: 01/13/24 19:12> Condition: Stable <Christine Gardner APRN - Last Filed: 01/13/24 19:12> Prescriptions: No Action atorvastatin 10 mg tablet 10 mg PO HS Hold Instructions: until seen by his primary care provider losartan 100 mg tablet 100 mg PO HS Hold Instructions: until seen by his primary care provider Tradjenta 5 mg tablet 5 mg PO HS Hold Instructions: until seen by his primary care provider aspirin 81 mg Tablet,Delayed Release (Dr/Ec) 81 mg PO QAM Qty: 30 1RF hydrochlorothiazide 25 mg tablet 25 mg PO DAILY Hold Instructions: until seen by his primary care provider ergocalciferol (vitamin D2) 1,250 mcg (50,000 unit) capsule 1,250 mcg PO DAILY Rybelsus 7 mg tablet 7 mg PO DAILY Hold Instructions: until seen by his primary care provider calcium carbonate [Oyster Shell Calcium 500] 500 mg calcium (1,250 mg) Tablet 1,000 mg PO TID Qty: 30 0RF cephalexin 250 mg Capsule 250 mg PO Q12H Qty: 10 0RF doxycycline hyclate 100 mg Tablet 100 mg PO Q12HR Qty: 10 0RF ondansetron 4 mg tablet,disintegrating 4 mg PO Q8H PRN (Reason: nausea and vomiting) Qty: 20 0RF clopidogrel 75 mg tablet 75 mg PO DAILY Qty: 30 0RF gabapentin 300 mg capsule 600 mg PO HS Qty: 30 0RF <Christine Gardner APRN - Last Filed: 01/13/24 19:12> Follow-up/Referrals: Darrick,Kala Macdonald APRN [Primary Care Provider] - <Christine Gardner APRN - Last Filed: 01/13/24 19:12> Time of Disposition: 00:34 <Christine Gardner APRN - Last Filed: 01/13/24 19:12> 00:34 <Doug Mello MD - Last Filed: 01/14/24 00:34>
--- NOTE | 2024-01-13 19:12 | ECG_ITS ---
Test Date: 2024-01-13 20:24:03 Measurements Intervals [place]bell Rate: 87 P: 43 DC: 197 QRS: 14 QRSD: 96 T: 48 QT: 409 QTc: 494 Interpretive Statements SINUS RHYTHM CONSIDER INFERIOR INFARCT, AGE INDETERMINATE BASELINE ARTIFACT- I, III, AVR, AVL ,V2 ABNORMAL ECG Compared to ECG 12/30/2023 17:42:26 First degree AV block no longer present Intraventricular conduction delay no longer present Electronically Signed On 01-14-2024 06:08:50 GEARCASE ASSEMBLER by Chago Valenzuela D.O.
[2024-01-13 20:42] LABS: Basophils Absolute Auto 0.1 K/mm3 (0.0-0.1); Basophils Percent Auto 0.8 % (0.2-1.2); Eosinophils Absolute Auto 0.4 K/mm3 (0-0.3); Eosinophils Percent Auto 6.9 % (0-4.4); Hematocrit 25.4 % (42.0-52.0); Hemoglobin 7.8 g/dL (14.0-18.0); Immature Granulocyte Absolute 0.09 K/mm3 (0.00-0.031); Immature Granulocyte Percent A 1.5 % (0-0.5); Lymphocytes Absolute Auto 0.68 K/mm3 (0.9-3.2); Lymphocytes Percent Auto 11.2 % (18.3-44.2); Mean Corpuscular HGB Conc 30.7 g/dl (32-36); Mean Corpuscular Hemoglobin 28.3 pg (26-34); Mean Platelet Volume 9.1 fl (7.4-10.4); Monocytes Absolute Auto 0.5 K/mm3 (0.1-0.6); Monocytes Percent Auto 7.7 % (2.6-8.5); Neutrophils Absolute Auto 4.4 K/mm3 (1.3-6.7); Neutrophils Percent Auto 71.9 % (45.5-73.1); Platelet Count Result 367 k/mm3 (150-375); Red Blood Count 2.76 M/mm3 (4.6-6.20); Red Cell Distribution Width 13.8 % (11.5-14.5); White Blood Count 6.1 K/mm3 (4.5-10.0)
[2024-01-13 20:52] LABS: Alanine Aminotransferase 22 U/L (6-50); Albumin Level 3.2 g/dL (3.5-5.1); Alkaline Phosphatase 104 U/L (38-126); Anion Gap 7 mmol/L (4-12); Aspartate Amino Transferase 27 U/L (17-59); Bilirubin,Total 0.7 mg/dL (0.2-1.3); Blood Urea Nitrogen 35 mg/dL (9-20); Calcium 6.9 mg/dL (8.4-10.2); Carbon Dioxide 28 mmol/L (22-30); Chloride 101 mmol/L (98-107); Estimated CRCL calculation 19 ml/min; Estimated Glomerular Filt Rate 9; Glucose 171 mg/dL (65-110); Potassium 3.6 mmol/L (3.4-5.0); Sodium 136 mmol/L (137-145)
[2024-01-13 20:57] LABS: INR 1.3; Prothrombin Time 16.7 Seconds (11.1-14.7)
[2024-01-13 20:58] LABS: Partial Thromboplastin Time 50.9 Seconds (22.3-36.8)
[2024-01-13 22:56] VITALS: PULSE 80; RESP 16; O2SAT 100
[2024-01-14] VITALS (9 sets, daily range): BP systolic 101–162; BP diastolic 38–90; PULSE 82–106; RESP 16–18; TEMP 36.4–37.1; O2SAT 98–100; BMI 36.4
--- NOTE | 2024-01-14 | ECHO_ITS ---
Patient Info Name: Jose Roberto Maria Age: 43 years : 1980 Gender: Male Ht: 71 in Wt: 271 lbs BSA: 2.53 m2 HR: 86 bpm BP: 163 / 90 mmHg Heart Rhythm: Sinus Rhythm Technical Quality: Good Exam Date: 01/14/2024 10:47 AM Exam Location: Echo Lab Patient Status: Inpatient Admit Date: 01/14/2024 Staff Ordering Physician: Gretel Braden PA-C Supervisor [employer]iliaries: She Romero RDCS Attending Provider: Jody Mckeon DO Referring Physician: Sampson BLAKELY; Exam Type: CA echo dop color flow w con Study Info Indications - LUE DVT Complete two-dimensional, color flow and Doppler transthoracic echocardiogram is performed with contrast to opacify the left ventricle and to improve the deliniation of the left ventricle endocardial borders. Summary 1. Left ventricular chamber dimension is normal. 2. Left ventricular systolic function is normal, estimated at 65-70%. 3. There is mildly increased left ventricular wall thickness. 4. The left ventricular diastolic function is grade I diastolic dysfunction. 5. Right ventricular systolic function is normal. 6. Left atrial chamber dimension is normal. 7. Right atrial chamber dimension is normal. 8. 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 9. No significant valvular disease. Left Ventricle Left ventricular chamber dimension is normal. Left ventricular systolic function is normal, estimated at 65-70%. There is mildly increased left ventricular wall thickness. The left ventricular diastolic function is grade I diastolic dysfunction. Right Ventricle Right ventricular chamber dimension is normal. Right ventricular systolic function is normal. Left Atria Left atrial chamber dimension is normal. Right Atria Right atrial chamber dimension is normal. 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 Aortic Valve The aortic valve is not well visualized. There is no aortic valve stenosis. There is no aortic valve regurgitation. Pulmonic Valve The pulmonic valve is not well visualized. Mitral Valve There is trace mitral valve regurgitation. Tricuspid Valve There is trace tricuspid valve regurgitation. Pericardium/Pleural There is no pericardial effusion. Inferior Vena Cava Dilated inferior vena cava with <50% collapse upon inspiration consistent with elevated right atrial pressure, 15 mmHg. Aorta The aortic root size at the sinus of Valsalva is normal. Left Ventricular Outflow Tract Name Value Normal LVOT 2D LVOT Diameter 2.27 cm LVOT Doppler LVOT Peak Gradient 3 mmHg LVOT Mean Gradient 2 mmHg LVOT VTI 24.58 cm LVOT VTI/AV VTI Ratio 0.99 LVOT Stroke Volume 99.32 ml LVOT CO 7.99 l/min LVOT CI 3.16 L/min/m2 Mitral Valve Name Value Normal MV Doppler MV Decel [place] 735.25 cm/s2 MV PHT 0 s MV Area (PHT) 6.21 cm2 4.00-5.00 MV Diastolic Function MV E Peak Velocity 89.86 cm/s MV A Peak Velocity 102.05 cm/s MV E/A 0.88 MV Decel Time 0 s MV Annular TDI MV E/e' (Septal) 12.56 <=8.00 MV E/e' (Lateral) 8.90 <=8.00 MV E/e' (Average) 10.73 Tricuspid Valve Name Value Normal TV Regurgitation Doppler TR Peak Velocity 175.59 cm/s TR Peak Gradient 12 mmHg Estimated PAP/RSVP RA Pressure 15 mmHg <=5 PA Systolic Pressure 27 mmHg <36 RV Systolic Pressure 27 mmHg <36 Aortic Valve Name Value Normal AV Doppler AV Peak Velocity 126.94 cm/s AV Peak Gradient 6 mmHg AV Mean Gradient 4 mmHg AV VTI 24.73 cm AV Area (Cont Eq VTI) 4.02 cm2 >=3.00 AV Area (Cont Eq Dorian) 2.95 cm2 AV Regurgitation 2D LVOT Area 4.04 cm2 Ventricles Name Value Normal LV Dimensions 2D/MM IVS Diastolic Thickness (2D) 1.28 cm 0.60-1.00 LVID Diastole (2D) 5.63 cm 4.20-5.80 LVIW Diastolic Thickness (2D) 1.15 cm 0.60-1.00 LVID Systole (2D) 3.60 cm 2.50-4.00 LVOT Diameter 2.27 cm LV Mass (2D Cubed) 287.27 g 88.00-224.00 LV Mass Index (2D Cubed) 0.01 g/cm2 0.00-0.01 Relative Wall Thickness (2D) 0.41 LV Fractional Shortening/Ejection Fraction 2D/MM LV Fractional Shortening (2D) 36 % 25-43 LV EF (2D Teicholz) 65 % 52-72 LV Diastolic Volume (4C MOD) 186.89 ml LV EF (4C MOD) 66 % LV Diastolic Volume (2C MOD) 160.71 ml LV EF (2C MOD) 65 % LV Diastolic Volume (BP MOD) 174.95 ml 62.00-150.00 LV Diastolic Volume Index (BP MOD) 0.07 l/m2 0.03-0.07 LV Systolic Volume (BP MOD) 61.52 ml 21.00-61.00 LV Systolic Volume Index (BP MOD) 0.02 l/m2 0.01-0.03 LV EF (BP MOD) 65 % 52-72 LV Diastolic Length (4C) 8.85 cm LV Systolic Length (4C) 7.03 cm LV Stroke Volume (4C MOD) 123.15 ml Atria Name Value Normal LA Dimensions LA Volume (4C A-L) 62.97 ml LA Volume (BP A-L) 62.85 ml RA Dimensions RA Area (4C) 17.78 cm2 <=18.00 Report Signatures
[2024-01-14] MEDS: HEPARIN SODIUM 5,000 UNITS/ML VIAL 7500 UNITS IV PUSH (00:17)
[2024-01-14] MEDS: HEPARIN SOD/D5W 100 UNITS/ML 25,000 UNITS/250 ML BAG 15 UNITS IV CONT (00:18)
--- NOTE | 2024-01-14 01:57 | PC.NURSE ---
Admission completed and report provided to PURA Freeman.
[2024-01-14 06:31] LABS: Glucose Point of Care 149 mg/dl (65-105)
[2024-01-14 06:56] LABS: Basophils Absolute Auto 0.1 K/mm3 (0.0-0.1); Eosinophils Absolute Auto 0.3 K/mm3 (0-0.3); Eosinophils Percent Auto 6.6 % (0-4.4); Hematocrit 23.7 % (42.0-52.0); Hemoglobin 7.1 g/dL (14.0-18.0); Immature Granulocyte Absolute 0.08 K/mm3 (0.00-0.031); Immature Granulocyte Percent A 1.6 % (0-0.5); Lymphocytes Absolute Auto 0.56 K/mm3 (0.9-3.2); Lymphocytes Percent Auto 11.5 % (18.3-44.2); Mean Corpuscular Hemoglobin 27.7 pg (26-34); Mean Corpuscular Volume 92.6 fl (80-100); Mean Platelet Volume 9.6 fl (7.4-10.4); Monocytes Absolute Auto 0.5 K/mm3 (0.1-0.6); Monocytes Percent Auto 10.3 % (2.6-8.5); Neutrophils Absolute Auto 3.4 K/mm3 (1.3-6.7); Platelet Count Result 361 k/mm3 (150-375); Red Blood Count 2.56 M/mm3 (4.6-6.20); Red Cell Distribution Width 13.7 % (11.5-14.5); White Blood Count 4.9 K/mm3 (4.5-10.0)
[2024-01-14 07:19] LABS: INR 1.4; Prothrombin Time 17.8 Seconds (11.1-14.7)
[2024-01-14 07:32] LABS: Glucose Point of Care 136 mg/dl (65-105)
[2024-01-14 07:42] LABS: Partial Thromboplastin Time 178.4 Seconds (22.3-36.8)
--- NOTE | 2024-01-14 08:21 | P.HP_ITS ---
H&P: HPI History of Present Illness Date/Time: 01/14/24 08:21 Chief Complaint: LUE DVT Narrative: 43-year-old male with past medical history of chronic kidney disease stage 3, peripheral artery disease, diabetic gastroparesis, controlled diabetes mellitus, essential hypertension and Hobbs's muscular dystrophy who presented to the hospital for a left arm DVT diagnosed by PCP. He states he was going to his [facility] follow up appointment with his PCP when he started discussing his pain to the left arm. PCP ordered an US which was positive and sent him to the hospital for anticoagulation and further workup. Patient states that his left arm had been hurting with palpation for a while, but had no other symptoms denying redness, swelling, tingling/numbness. He denies a history of blood clots. He was previously on aspirin and Plavix for PAD with ulceration of his right foot, however he states these were discontinued following his right BKA in July. He denies a history of arrhythmias but does note that he will occasionally feel as though his heart is racing. He denies associated chest pain, shortness of breath, dizziness/lightheadedness. Patient was last admitted to the hospital from 12/30-01/08 for acute on chronic renal failure with associated severe hyperkalemia requiring urgent hemodialysis and bicarb drip. Surgery placed a bedside temporary right IJ Otmasz dialysis catheter at that time, per patient this was removed at time of discharge. Patient was to follow up with nephrology but has not been home long enough to do so. He has not been on dialysis since discharge. Patient was also having dark stool during that admission. EGD and colonoscopy unremarkable. He denies any dark stools since discharge. ED workup: CBC without leukocytosis. H/H 7.8/25.4. PT/INR 16.7/1.3. PTT 50.9. Chemistry with BUN/Cr 35/6.50, otherwise unremarkable. LFTs WNL. Venous doppler: Thrombosis seen in the left ulnar vein. Started on a heparin drip, repeat PTT 178.4. Nephrology consulted for dialysis. Review of Systems Review of Systems: All systems reviewed & are unremarkable except as noted in HPI and below PMFSH Past Medical History Medical History Acute on chronic anemia Arthritis Asthma Hobbs muscular dystrophy Chronic kidney disease Chronic pain Club foot of both lower extremities Diabetes Food allergy History of adverse reaction to anesthesia HTN (hypertension) Obesity (BMI 30-39.9) Peripheral vascular disease Surgical History Surgical History Hx of amputation below knee Right below knee amputation 05/22/23 Hx of clubfoot correction Family History Family History Grandparent Arthritis Heart disease Diabetes mellitus Hypertension Malignant neoplasm Mother Heart disease Diabetes mellitus Hypertension Social History Social History (Updated 01/14/24 @ 15:42 by Gretel Braden PA-C) Social History: He lives with his of 10 years. He has his son who is 20 years old. Has 2 dogs and 5 cats. He did smoke a few cigarettes a day for approximately 10 years but quit smoking about 10 years ago. He drinks socially. He does not use illicit substances. Code status: Full code Surrogate decision maker: Smoking packs per day: 0.1 Smoking cigarettes per day: 2.0 Years smoked: 10 Smoking pack-years: 1.00 Smoking status: Former smoker Second hand tobacco smoke exposure: Yes ( smokes) Alcohol intake: current Alcohol use details: social drinker Substance use: never Substance use type: does not use Do You Feel Safe in your Home?: Yes Lack of Transportation: No Lack of Food: Never True Current Housing: I Have Housing Concerned About Future Housing: No Difficulty Paying Gas/Electric Bills: No Difficulty Paying for Meds: No Currently Unemployed: No Education: Associate Degree Difficulty w/ Childcare or Family Care: No Living arrangements: with family Gender identity (if verbalized by the patient): Male Spiritual care concerns: No Meds Home Medications and Allergies Home Medications Medication Instructions Recorded Confirmed Type linagliptin 5 mg tablet (Tradjenta) 5 mg PO HS 10/25/19 01/14/24 History atorvastatin 10 mg tablet 10 mg PO HS 04/07/22 01/14/24 History losartan 100 mg tablet 100 mg PO HS 01/16/23 01/14/24 History aspirin 81 mg tablet,delayed 81 mg PO QAM #30 tabs 03/03/23 01/14/24 Rx release ergocalciferol (vitamin D2) 1,250 1,250 mcg PO DAILY 12/30/23 01/14/24 History mcg (50,000 unit) capsule hydrochlorothiazide 25 mg tablet 25 mg PO DAILY 12/30/23 01/14/24 History semaglutide 7 mg tablet (Rybelsus) 7 mg PO DAILY 12/30/23 01/14/24 History calcium carbonate (Oyster Shell 1,000 mg PO TID #30 tabs 01/09/24 01/14/24 Rx Calcium 500) clopidogrel 75 mg tablet 75 mg PO DAILY #30 tabs 01/09/24 01/14/24 Rx gabapentin 300 mg capsule 600 mg PO HS #30 caps 01/09/24 01/14/24 Rx ondansetron 4 mg disintegrating 4 mg PO Q8H PRN nausea and 01/09/24 01/14/24 Rx tablet vomiting #20 tabs Allergies Allergy/AdvReac Type Severity Reaction Status Date / Time insulin detemir Allergy Unknown Other Verified 01/14/24 00:33 [From Levemir U-100 Insulin] latex Allergy Unknown Anaphylaxis Verified 01/14/24 00:33 valacyclovir [From Valtrex] Allergy Other Verified 01/14/24 01:50 metformin AdvReac Unknown Gastrointestinal Verified 01/14/24 00:33 Upset hydrochlorothiazide AdvReac Dizziness Verified 01/14/24 00:33 Vital Signs Vital Signs - 24 hr 01/13/24 19:00 01/13/24 22:56 01/14/24 00:15 Temperature 98.6 F Pulse Rate 101 H 80 84 Respiratory Rate 19 16 16 Blood Pressure 166/90 H 144/71 H Pulse Oximetry 100 100 100 Oxygen Delivery 01/14/24 01:20 01/14/24 01:42 01/14/24 06:00 Temperature 97.7 F Pulse Rate 85 89 Respiratory Rate 16 18 Blood Pressure 152/73 H 162/90 H Pulse Oximetry 99 100 Oxygen Delivery Room Air 01/14/24 06:00 Temperature 97.6 F Pulse Rate 86 Respiratory Rate 18 Blood Pressure 138/69 Pulse Oximetry 98 Oxygen Delivery Exam Narrative: AF HR 88 RR 18 SpO2 100 BP 101/38 General: male in no acute respiratory distress who is nontoxic appearing, sitting up in his bed HEENT: Normocephalic. Atraumatic. Pupils equal round reactive to light. Extraocular movement intact. Sclera clear and anicteric. No facial asymmetry. Neck: Neck was supple. No dominant adenopathy, thyromegaly or masses. Chest: Lungs are clear to auscultation bilaterally. No wheezes or crackles. CV: Heart was regular rate and rhythm. S1/S2. No murmurs, gallops, or rubs. Abd: Abdomen was soft. Nontender. Nondistended. Positive bowel sounds. No organomegaly or masses. Ext: No clubbing, cyanosis. Right BKA. Left lower extremity with 1+ pitting edema. 2+ DP pulse on the left. Neuro: Patient is alert and oriented x4. Strength is 5/5 in both upper extremities. No decrease ROM of the left arm. Cranial nerves 2-12 are intact. Speech is clear. Psych: Normal mood and affect. Patient is pleasant and cooperative. Skin: Warm and dry. No rashes noted. H&P: Results Labs Labs: Short CBC 01/13/24 01/14/24 Range/Units 20:35 06:35 WBC 6.1 4.9 (4.5-10.0) K/mm3 Hgb 7.8 L 7.1 L (14.0-18.0) g/dL Hct 25.4 L 23.7 L (42.0-52.0) % Plt Count 367 D 361 (150-375) k/mm3 BMP 01/13/24 20:35 Sodium 136 L Potassium 3.6 Chloride 101 Carbon Dioxide 28 BUN 35 H Creatinine 6.50 H Glucose 171 H Calcium 6.9 L Liver Function 01/13/24 Range/Units 20:35 Total Bilirubin 0.7 (0.2-1.3) mg/dL AST 27 (17-59) U/L ALT 22 (6-50) U/L Alkaline Phosphatase 104 (38-126) U/L Albumin 3.2 L (3.5-5.1) g/dL Assessment and Plan Assessment and plan (1) Acute deep vein thrombosis (DVT) of left upper extremity: Code(s): I82.622 - Acute embolism and thrombosis of deep veins of left upper extremity Status: Acute Assessment and Plan: Patient was at his PCP for left upper extremity pain. Denies history of DVT/PE. - Started on heparin drip in the ED. H/H decreased to 7.1/23.7 from 7.8/25.4 on admission. PTT 178.4. Transitioned to oral Eliquis 5 mg BID. - Repeat Hgb 8.0 - Upper extremity venous doppler: Thrombosis seen in the left ulnar vein. - Left lower extremity venous doppler ordered - EKG sinus rhythm - Tele - Echo: LVEF 65-70% with grade I diastolic dysfunction - Monitor for signs of bleeding - Monitor vital signs and patient is a fall risk - Monitor serum electrolytes and CBC (2) Chronic kidney disease on chronic dialysis: Code(s): N18.6 - End stage renal disease; Z99.2 - Dependence on renal dialysis Status: Acute Assessment and Plan: Patient was last admitted to the hospital from 12/30-01/08 for acute on chronic renal failure with associated severe hyperkalemia requiring urgent hemodialysis and bicarb drip. Surgery placed a bedside temporary right IJ Tomasz dialysis catheter at that time, per patient this was removed at time of discharge. Patient was to follow up with nephrology but has not been home long enough to do so. He has not been on dialysis since discharge. BUN/Cr 35/6.50 on admission. - Monitor with am labs - Avoid nephrotoxic medications - Renally dose medications - Nephrology consulted, appreciate recommendations (3) Anemia: Qualifiers: Anemia type: unspecified type Qualified Code(s): D64.9 - Anemia, unspe cified Code(s): D64.9 - Anemia, unspecified Status: Acute Assessment and Plan: H/H 7.8/25.4 on admission. no signs of active bleeding, patient denies hematuria, hematemesis, melena and hematochezia. - H/H 7.1/23.7 on am labs, repeat hgb 8 - Most likely etiology is ARF and heparin drip for DVT. Heparin drip transitioned to eliquis. - Iron panel and B12/folate WNL last admission - EGD and colonoscopy unremarkable on 01/01 - Monitor with am labs (4) HTN (hypertension): Qualifiers: Hypertension type: primary hypertension Qualified Code(s): I10 - Essential (primary) hypertension Code(s): I10 - Essential (primary) hypertension Status: Chronic Assessment and Plan: Chronic, recently taken off of HCTZ and losartan for ARF. - Started on amlodipine 5 mg daily - Monitor (5) Diabetes: Qualifiers: Chronic kidney disease stage: unspecified stage Diabetes mellitus complication detail: with chronic kidney disease Diabetes mellitus complication status: with kidney complications Diabetes mellitus senior living insulin use: with senior living use Diabetes mellitus type: type 2 Qualified Code(s): E11.22 - Type 2 diabetes mellitus with diabetic chronic kidney disease; Z79.4 - penitentiary (current) use of insulin Code(s): E11.9 - Type 2 diabetes mellitus without complications Status: Chronic Assessment and Plan: - hypoglycemia protocol - POC blood glucose ACHS - home medication - tradjenta 5 mg HS (on hold) - correct regimen ordered - low dose TIDWM (spoke with pharmacy about latex allergy and they state okay to start insulin) - A1C 5.8 Quality VTE Prophylaxis VTE prophylaxis: pharmacologic ordered Hospitalist MIPS Advance Care Plan I have confirmed that the patient's Advanced Care Plan is present, code status is documented, or surrogate decision maker is listed in patient medical record.: Yes Medication Reconciliation I have utilized all available resources to obtain, update and review the patients current medications (includes all prescriptions, OTC, herbals, cannabis, and nutritional supplements).: Yes
[2024-01-14] MEDS: amLODIPine BESYLATE 5 MG TABLET PO (09:30)
[2024-01-14] MEDS: APIXABAN 5 MG TABLET PO ×2 (09:30→20:27)
[2024-01-14 10:29] LABS: Hemoglobin A1C 5.8 % (<5.7)
[2024-01-14] MEDS: PERFLUTREN LIPID MICROSPHERES 1.5 ML VIAL DILUTED TO 10 ML TOTAL VOLUME IV PUSH (10:50)
--- NOTE | 2024-01-14 11:16 | IVDEFINITY ---
Prior to administration of IV Definity the patient was educated on the risks and benefits of the imaging enhancing agent including potential adverse side effects. The patient verbalized understanding. Allergies were verified. No exclusion criteria were identified and at least one of the following inclusion criteria were met: 1) physician request, 2) patient technically difficult to image (per the [place] [employer]ocardi[employer] guidelines of two or more segments not discernable within the apical view), or 3) questionable left ventricular function. ?
[2024-01-14 11:42] LABS: Glucose Point of Care 162 mg/dl (65-105)
[2024-01-14 12:40] LABS: Hematocrit 25.9 % (42.0-52.0)
--- NOTE | 2024-01-14 13:00 | P.CONNP_ITS ---
Assessment and Plan Assessment and plan (1) SHABNAM (acute kidney injury): Code(s): N17.9 - Acute kidney failure, unspecified Status: Acute Assessment and Plan: * etiology not clear - suspect ATN * however, complicated by hyperkalemia, acidosis, and possible uremia on last hospitalization/admission * s/p dialysis on 12/30, 12/31, and 01/02 * evaluation to date noted: * urine electrolytes non-prerena; * C3 low but normal C4 * ESR 111 * CPK was mildly elevated (doubt effect on kidneys) * urine eosinophils negative * moderate proteinuria * DOUGLAS/ANCA/dsNDA-Ab/AntiGBM-Ab negative * given lack of clear answer for his SHABNAM/ARF, I had been leaning towards doing a renal biopsy * unfortunately, was on plavix and now requiring anticoagulation... this makes doing a renal biopsy HIGH RISK * creatinine peaked/plateaued at 7.0mg/dl on last hospital stay * slow downtrend of creatinine noted since * follow repeat labs and UOP (2) Chronic kidney disease, stage IV (severe): Code(s): N18.4 - Chronic kidney disease, stage 4 (severe) Status: Chronic Assessment and Plan: * last creatinine was ~ 3.0 - 3.2mg/dl in May 2023 * not clear what true baseline creatinine really is * suspect an element of CKD from HTN, DM, and vascular disease (3) Acute deep vein thrombosis (DVT) of left upper extremity: Code(s): I82.622 - Acute embolism and thrombosis of deep veins of left upper extremity Status: Acute Assessment and Plan: * as noted by imaging done in ER * upper extremity venous doppler with hrombosis seen in the left ulnar vein. * started on heparin gtt * venous doppler negative * follow-up on Echo results (4) Anemia: Qualifiers: Anemia type: unspecified type Qualified Code(s): D64.9 - Anemia, unspecified Code(s): D64.9 - Anemia, unspecified Status: Acute Assessment and Plan: * as noted since last hospitalization * PRBC transfusion per protocol * no signs/symptoms of bleeding * EGD and colonoscopy unremarkable on 01/01 * due to SHABNAM and CKD * consider resuming Retacrit while hospitalized * suspect will need as an outpatient * will likely refer to Hem/Onc * follow trend of H/H (5) HTN (hypertension): Qualifiers: Hypertension type: primary hypertension Qualified Code(s): I10 - Essential (primary) hypertension Code(s): I10 - Essential (primary) hypertension Status: Chronic Assessment and Plan: * reasonable control at this time * continue current medications and titrate if needed * follow trend of hemodynamics (6) Diabetes: Qualifiers: Chronic kidney disease stage: unspecified stage Diabetes mellitus complication detail: with chronic kidney disease Diabetes mellitus complication status: with kidney complications Diabetes mellitus fdc insulin use: with terminal system operator use Diabetes mellitus type: type 2 Qualified Code(s): E11.22 - Type 2 diabetes mellitus with diabetic chronic kidney disease; Z79.4 - adjunct faculty for medical terminology (current) use of insulin Code(s): E11.9 - Type 2 diabetes mellitus without complications Status: Chronic Assessment and Plan: * follow accu-cheks * glycemic control per hospitalists I will continue to follow the patient with you while he remains hospitalized and make further recommendations as deemed necessary. Thank you for allowing me to participate in the care of this patient. History of Present Illness Reason for Consult Consult date: 01/14/24 Reason for consult: acute renal failure (on chronic kidney disease) Chief Complaint Chief complaint: Chronic renal insufficiency, Left upper extremity History of Present Illness Narrative: The patient is a 43-year-old male with a past medical history as outlined below who presented to [facility] for further evaluation of a left arm DVT. The patient was just recently discharged from [facility] with regard to his acute kidney injury/acute renal failure on top of his baseline chronic kidney disease. During that hospital stay, he required temporary dialysis but on discharge, his creatinine was improving and he continued make fairly good urine output with stable electrolytes. Apparently, he noted increasing pain to his left arm since discharge. On follow-up with his primary care physician after this recent hospitalization, his primary care physician ordered an ult rasound of his left upper extremity which was positive for a DVT. upon further questioning, other than the pain in his left arm, he otherwise has been doing fairly well. There were no associated symptoms of erythema, swelling, tingling, or numbness, present no reported history of previous blood clots and he is already on aspirin and Plavix for his known history of peripheral arterial disease. He was subsequently sent to the emergency room for further assessment of this it finding. Workup and evaluation emergency room demonstrated labs consistent with his known history of chronic kidney disease although his BUN and creatinine were somewhat better in comparison to his last hospital discharge in association with a normal white blood cell count and chronic anemia which was also an issue during his last hospital stay. Repeat venous Dopplers of his left arm confirmed the left ulnar vein DVT. He was subsequently initiated on a heparin drip and admitted to hospital for further evaluation therapy. Renal consultation was requested due to his acute kidney injury/acute renal failure on top of his baseline chronic kidney disease. As mentioned above, the patient was recently hospitalized here at [facility] due to complications of his acute kidney injury which included hyperkalemia, metabolic acidosis, and uremia with associated uremic encephalopathy. He required 3 sessi ons of dialysis during that hospital stay. he started making reasonable urine output with relative stability in his electrolytes so dialysis was placed on hold and his kidney function was closely monitored. There was possibility of doing a renal biopsy but unfortunately the patient had been on Plavix since admission making this procedure somewhat high risk. As his kidney function was continuing to improve with relative stability in his electrolytes, it was opted for conservative management and observation with the plan to follow up on outpatient labs to ensure that his kidney function was improving. As already mentioned, he does have known chronic kidney disease with his last creatinine in the threes range in May of 2023. The presumed etiology of his chronic kidney disease is hypertension, diabetes, and significant vascular disease. The assumption with regard to the etiology of the acute kidney injury/acute renal failure was possibly acute tubular necrosis as significant testing during his last hospital stay did not demonstrate any other clear-cut etiology. Currently, at the time my visit, the patient appears in no acute distress. Review of Systems Review of Systems: As per HPI. [facility] Past Medical History Medical History Acute on chronic anemia Arthritis Asthma Hobbs muscular dystrophy Chronic kidney disease Chronic pain Club foot of both lower extremities Diabetes Food allergy History of adverse reaction to anesthesia HTN (hypertension) Obesity (BMI 30-39.9) Peripheral vascular disease Surgical History Surgical History Hx of amputation below knee Right below knee amputation 05/22/23 Hx of clubfoot correction Family History Family History Grandparent Arthritis Heart disease Diabetes mellitus Hypertension Malignant neoplasm Mother Heart disease Diabetes mellitus Hypertension Social History Social History (Updated 01/14/24 @ 15:42 by Gretel Braden PA-C) Social History: He lives with his of 10 years. He has his son who is 20 years old. Has 2 dogs and 5 cats. He did smoke a few cigarettes a day for approximately 10 years but quit smoking about 10 years ago. He drinks socially. He does not use illicit substances. Code status: Full code Surrogate decision maker: Smoking packs per day: 0.1 Smoking cigarettes per day: 2.0 Years smoked: 10 Smoking pack-years: 1.00 Smoking status: Former smoker Second hand tobacco smoke exposure: Yes ( smokes) Alcohol intake: current Alcohol use details: social drinker Substance use: never Substance use type: does not use Do You Feel Safe in your Home?: Yes Lack of Transportation: No Lack of Food: Never True Current Housing: I Have Housing Concerned About Future Housing: No Difficulty Paying Gas/Electric Bills: No Difficulty Paying for Meds: No Currently Unemployed: No Education: Associate Degree Difficulty w/ Childcare or Family Care: No Living arrangements: with family Gender identity (if verbalized by the patient): Male Spiritual care concerns: No Meds Home Medications and Allergies Home Medications Medication Instructions Recorded Confirmed Type linagliptin 5 mg tablet (Tradjenta) 5 mg PO HS 10/25/19 01/14/24 History atorvastatin 10 mg tablet 10 mg PO HS 04/07/22 01/14/24 History losartan 100 mg tablet 100 mg PO HS 01/16/23 01/14/24 History aspirin 81 mg tablet,delayed 81 mg PO QAM #30 tabs 03/03/23 01/14/24 Rx release ergocalciferol (vitamin D2) 1,250 1,250 mcg PO DAILY 12/30/23 01/14/24 History mcg (50,000 unit) capsule hydrochlorothiazide 25 mg tablet 25 mg PO DAILY 12/30/23 01/14/24 History semaglutide 7 mg tablet (Rybelsus) 7 mg PO DAILY 12/30/23 01/14/24 History calcium carbonate (Oyster Shell 1,000 mg PO TID #30 tabs 01/09/24 01/14/24 Rx Calcium 500) clopidogrel 75 mg tablet 75 mg PO DAILY #30 tabs 01/09/24 01/14/24 Rx gabapentin 300 mg capsule 600 mg PO HS #30 caps 01/09/24 01/14/24 Rx ondansetron 4 mg disintegrating 4 mg PO Q8H PRN nausea and 01/09/24 01/14/24 Rx tablet vomiting #20 tabs amlodipine 5 mg tablet (Norvasc) 5 mg PO DAILY #30 tabs 01/16/24 Rx Allergies Allergy/AdvReac Type Severity Reaction Status Date / Time insulin detemir Allergy Unknown Other Verified 01/14/24 00:33 [From Levemir U-100 Insulin] latex Allergy Unknown Anaphylaxis Verified 01/14/24 00:33 valacyclovir [From Valtrex] Allergy Other Verified 01/14/24 01:50 metformin AdvReac Unknown Gastrointestinal Verified 01/14/24 00:33 Upset hydrochlorothiazide AdvReac Dizziness Verified 01/14/24 00:33 Vital Signs Vital Signs Temp Pulse Resp BP Pulse Ox O2 Del Method 01/14/24 12:02 98.3 F 88 18 101/38 L 100 01/14/24 08:45 Room Air 01/14/24 06:00 97.6 F 86 18 138/69 98 01/14/24 06:00 Room Air 01/14/24 01:42 97.7 F 89 18 162/90 H 100 01/14/24 01:20 85 16 152/73 H 99 01/14/24 00:15 84 16 144/71 H 100 01/13/24 22:56 80 16 100 01/13/24 19:00 98.6 F 101 H 19 166/90 H 100 Exam Narrative: GENERAL APPEARANCE: well developed well nourished male in no acute distress HEENT: normocephalic, atraumatic, normal conjunctiva and sclera, nares patient NECK: no lymphadenopathy, thyromegaly, or JVD MOUTH: normal lips, teeth, and gums CARDIOVASCULAR: RRR, normal S1 and S2, no rub RESPIRATORY: clear to auscultation bilaterally ABDOMEN: soft, nontender, nondistended, positive bowel sounds present EXTREMITIES: no evidence of cyanosis, clubbing, 1+ edema; s/p right BKA NEUROLOGICAL: alert and oriented x 3; CN II - XII intact bilaterally; no focal deficits noted Results Lab Results 01/16/24 05:45 01/16/24 05:44 Lab results: Most recent lab results Calcium 6.9 mg/dL (8.4-10.2) L 01/13/24 20:35
[2024-01-14 16:53] LABS: Glucose Point of Care 130 mg/dl (65-105)
[2024-01-14 20:07] LABS: Glucose Point of Care 161 mg/dl (65-105)
[2024-01-14] MEDS: GABAPENTIN 300 MG CAPSULE 600 MG PO (20:27)
[2024-01-15] VITALS (11 sets, daily range): BP systolic 140–155; BP diastolic 80–89; PULSE 78–92; RESP 16–18; TEMP 36.8–37.2; O2SAT 99–100
[2024-01-15 06:47] LABS: Basophils Absolute Auto 0.1 K/mm3 (0.0-0.1); Basophils Percent Auto 1.1 % (0.2-1.2); Eosinophils Absolute Auto 0.2 K/mm3 (0-0.3); Eosinophils Percent Auto 5.4 % (0-4.4); Hematocrit 22.9 % (42.0-52.0); Immature Granulocyte Absolute 0.06 K/mm3 (0.00-0.031); Immature Granulocyte Percent A 1.4 % (0-0.5); Lymphocytes Absolute Auto 0.65 K/mm3 (0.9-3.2); Lymphocytes Percent Auto 14.7 % (18.3-44.2); Mean Corpuscular HGB Conc 29.7 g/dl (32-36); Mean Corpuscular Hemoglobin 27.9 pg (26-34); Mean Corpuscular Volume 93.9 fl (80-100); Mean Platelet Volume 9.7 fl (7.4-10.4); Monocytes Absolute Auto 0.3 K/mm3 (0.1-0.6); Monocytes Percent Auto 7.7 % (2.6-8.5); Neutrophils Absolute Auto 3.1 K/mm3 (1.3-6.7); Neutrophils Percent Auto 69.7 % (45.5-73.1); Platelet Count Result 376 k/mm3 (150-375); Red Blood Count 2.44 M/mm3 (4.6-6.20); Red Cell Distribution Width 13.7 % (11.5-14.5); White Blood Count 4.4 K/mm3 (4.5-10.0)
[2024-01-15 06:58] LABS: Alanine Aminotransferase 19 U/L (6-50); Albumin Level 2.9 g/dL (3.5-5.1); Alkaline Phosphatase 101 U/L (38-126); Anion Gap 6 mmol/L (4-12); Aspartate Amino Transferase 25 U/L (17-59); Bilirubin,Total 0.7 mg/dL (0.2-1.3); Blood Urea Nitrogen 32 mg/dL (9-20); Calcium 6.8 mg/dL (8.4-10.2); Carbon Dioxide 25 mmol/L (22-30); Chloride 106 mmol/L (98-107); Estimated CRCL calculation 19 ml/min; Estimated Glomerular Filt Rate 10; Glucose 131 mg/dL (65-110); Potassium 3.7 mmol/L (3.4-5.0); Sodium 137 mmol/L (137-145)
[2024-01-15 07:00] LABS: INR 1.4; Prothrombin Time 17.9 Seconds (11.1-14.7)
[2024-01-15 07:01] LABS: Partial Thromboplastin Time 51.8 Seconds (22.3-36.8)
[2024-01-15 07:14] LABS: Hemoglobin 6.8 g/dL (14.0-18.0)
[2024-01-15 07:15] LABS: Hypochromasia 1+; Platelet Estimate Increased (Adequate); Schistocytes None Seen
--- NOTE | 2024-01-15 07:31 | P.PNIM_ITS ---
Progress Note: A&P Assessment and Plan (1) Acute deep vein thrombosis (DVT) of left upper extremity: Code(s): I82.622 - Acute embolism and thrombosis of deep veins of left upper extremity Status: Acute Assessment and Plan: Patient was at his PCP for left upper extremity pain. Denies history of DVT/PE. - Started on heparin drip in the ED. H/H decreased to 7.1/23.7 from 7.8/25.4 on admission. PTT 178.4. Transitioned to oral Eliquis 5 mg BID. Repeat Hgb 8.0. - Upper extremity venous doppler: Thrombosis seen in the left ulnar vein. - Left lower extremity with 1+ pitting edema, venous doppler negative - EKG sinus rhythm - Tele - Echo: LVEF 65-70% with grade I diastolic dysfunction - Monitor for signs of bleeding - Monitor vital signs and patient is a fall risk - Monitor serum electrolytes and CBC (2) Chronic kidney disease on chronic dialysis: Code(s): N18.6 - End stage renal disease; Z99.2 - Dependence on renal dialysis Status: Acute Assessment and Plan: Patient was last admitted to the hospital from 12/30-01/08 for acute on chronic renal failure with associated severe hyperkalemia requiring urgent hemodialysis and bicarb drip. Surgery placed a bedside temporary right IJ Tomasz dialysis catheter at that time, per patient this was removed at time of discharge. Patient was to follow up with nephrology but has not been home long enough to do so. He has not been on dialysis since discharge. BUN/Cr 35/6.50 on admission. - BUN/Cr 34/6.1 am labs - Avoid nephrotoxic medications - Renally dose medications - Nephrology consulted, appreciate recommendations (3) Anemia: Qualifiers: Anemia type: unspecified type Qualified Code(s): D64.9 - Anemia, unspecified Code(s): D64.9 - Anemia, unspecified Status: Acute Assessment and Plan: H/H 7.8/25.4 on admission. no signs of active bleeding, patient denies hematuria, hematemesis, melena and hematochezia. - H/H 6.8/22.9 on 01/14 am labs, s/p 1 pRBC repeat H/H following transfusion - Most likely etiology is ARF and heparin drip for DVT. Heparin drip transitioned to eliquis. - Iron panel and B12/folate WNL last admission - EGD and colonoscopy unremarkable on 01/01 - Monitor with am labs (4) HTN (hypertension): Qualifiers: Hypertension type: primary hypertension Qualified Code(s): I10 - Essential (primary) hypertension Code(s): I10 - Essential (primary) hypertension Status: Chronic Assessment and Plan: Chronic, recently taken off of HCTZ and losartan for ARF. 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 insulin use: with fpc use Diabetes mellitus type: type 2 Qualified Code(s): E11.22 - Type 2 diabetes mellitus with diabetic chronic kidney disease; Z79.4 - long-term (current) use of insulin Code(s): E11.9 - Type 2 diabetes mellitus without complications Status: Chronic Assessment and Plan: - hypoglycemia protocol - POC blood glucose ACHS - home medication - tradjenta 5 mg HS (on hold) - correct regimen ordered - low dose TIDWM (spoke with pharmacy about latex allergy and they state okay to start insulin) - A1C 5.8 Time Spent With Patient Time with patient: 25 - 35 minutes Subjective Date/time seen: 01/15/24 07:31 Interval history: 43-year-old male with past medical history of chronic kidney disease stage 3, peripheral artery disease, diabetic gastroparesis, controlled diabetes mellitus, essential hypertension and Hobbs's muscular dystrophy who presented to the hospital for a left arm DVT diagnosed by PCP. Patient is pleasant lying comfortably in bed. He has no complaints at this time denies chest pain, shortness a breath, palpitations, nausea /vomiting, and abdominal pain. He had a hemoglobin level of 6.8 on a.m. labs requiring transfusion. Anemia most likely related to patient's kidney disease as he a has no signs of active bleeding. Remains on his Eliquis for the DVT. Review of Systems Review of Systems: All systems reviewed & are unremarkable except as noted in HPI and below Exam Narrative: AF HR 86 RR 26 SPO2 100 BP 140/80 General: male in no acute respiratory distress who is nontoxic appearing, sitting up in his bed HEENT: Normocephalic. Atraumatic. Extraocular movement intact. Sclera clear and anicteric. No facial asymmetry. Chest: Lungs are clear to auscultation bilaterally. No wheezes or crackles. CV: Heart was regular rate and rhythm. S1/S2. No murmurs, gallops, or rubs. Abd: Abdomen was soft. Nontender. Nondistended. Positive bowel sounds. No organomegaly or masses. Ext: No clubbing, cyanosis. No upper extremity edema. Right BKA. Left lower extremity with 1+ pitting edema. 2+ DP pulse on the left. Neuro: Speech is clear. Objective Data Vital Signs Vital Signs: Vital Signs - 24 hr 01/14/24 08:45 01/14/24 12:02 01/14/24 14:00 Temperature 98.3 F Pulse Rate 82 88 Respiratory Rate 18 Blood Pressure 101/38 L Pulse Oximetry 100 Oxygen Delivery Room Air 01/14/24 16:00 01/14/24 20:09 01/14/24 20:00 Temperature 98.7 F Pulse Rate 106 H 85 90 Respiratory Rate 18 Blood Pressure 141/77 H Pulse Oximetry 100 Oxygen Delivery 01/15/24 00:00 01/15/24 04:00 01/15/24 05:05 Temperature 98.2 F Pulse Rate 83 78 86 Respiratory Rate 18 Blood Pressure 143/81 H Pulse Oximetry 99 Oxygen Delivery Intake/Output Intake/Output: Intake & Output 01/12/24 01/13/24 01/14/24 01/15/24 23:59 23:59 23:59 23:59 Intake Total 2798.5 550 Output Total 400 Balance 2398.5 550 Meds/Results Medications: Active Medications Generic Name Dose Route Start Last Admin Trade Name Freq PRN Reason Stop Dose Admin Amlodipine Besylate 5 mg 01/14/24 09:00 01/14/24 09:30 Amlodipine Besylate 5 Mg Tablet PO 5 mg DAILY LISSET Administration Apixaban 5 mg 01/14/24 09:00 01/14/24 20:27 Apixaban 5 Mg Tablet PO 5 mg Q12HR LISSET Administration Dextrose 12.5 gm 01/14/24 09:04 Dextrose 50% 25 Gm/50 Ml Syringe IV PUSH PRN PRN Hypoglycemia Protocol Gabapentin 600 mg 01/14/24 21:00 01/14/24 20:27 Gabapentin 300 Mg Capsule PO 600 mg HS LISSET Administration Glucagon 1 mg 01/14/24 09:04 Glucagon For Inj 1 Mg Vial IM PRN PRN Hypoglycemia Protocol Glucose 15 gm 01/14/24 09:04 Glucose Oral Gel 15 Gm Of Glucse In 37.5 Gm Tube PO PRN PRN Hypoglycemia Protocol Dextrose 1,000 mls @ 100 mls/hr 01/14/24 09:04 Dextrose 5% 1,000 Ml IVPB PRN PRN Hypoglycemia Protocol Insulin Aspart 2 - 5 units 01/14/24 17:00 01/14/24 16:55 Insulin Aspart (*Bkc) 100 Units/Ml SUB-Q Not Given TIDWM LISSET Protocol Radiology Results: ITS Impressions Venous Doppler Study 01/14/24 16:53 IMPRESSION: 1: No lower extremity deep venous thrombosis. Labs Labs: Laboratory Results - last 24 hr 01/14/24 01/14/24 01/14/24 06:34 06:35 07:28 WBC RBC Hgb Hct MCV MCH MCHC RDW Plt Count MPV Immature Gran % (Auto) Neut % (Auto) Lymph % (Auto) Roosevelt % (Auto) Eos % (Auto) Baso % (Auto) Lymph # (Auto) Roosevelt # (Auto) Eos # (Auto) Baso # (Auto) Abs Immat Gran (auto) Absolute Neuts (auto) Absolute Nucleated RBC Nucleated RBC % Platelet Estimate Hypochromasia Schistocytes PT 17.8 H INR 1.4 APTT 178.4 H* Sodium Potassium Chloride Carbon Dioxide Anion Gap BUN Creatinine Estim Creat Clear Calc Estimated GFR Glucose POC Capillary Glucose 136 H Hemoglobin A1c 5.8 H Calcium Total Bilirubin AST ALT Alkaline Phosphatase Total Protein Albumin 01/14/24 01/14/24 01/14/24 11:37 12:33 16:50 WBC RBC Hgb 8.0 L Hct 25.9 L MCV MCH MCHC RDW Plt Count MPV Immature Gran % (Auto) Neut % (Auto) Lymph % (Auto) Roosevelt % (Auto) Eos % (Auto) Baso % (Auto) Lymph # (Auto) Roosevelt # (Auto) Eos # (Auto) Baso # (Auto) Abs Immat Gran (auto) Absolute Neuts (auto) Absolute Nucleated RBC Nucleated RBC % Platelet Estimate Hypochromasia Schistocytes PT INR APTT Sodium Potassium Chloride Carbon Dioxide Anion Gap BUN Creatinine Estim Creat Clear Calc Estimated GFR Glucose POC Capillary Glucose 162 H 130 H Hemoglobin A1c Calcium Total Bilirubin AST ALT Alkaline Phosphatase Total Protein Albumin 01/14/24 01/15/24 19:58 06:00 WBC 4.4 L RBC 2.44 L Hgb 6.8 L* Hct 22.9 L MCV 93.9 MCH 27.9 MCHC 29.7 L RDW 13.7 Plt Count 376 H MPV 9.7 Immature Gran % (Auto) 1.4 H Neut % (Auto) 69.7 Lymph % (Auto) 14.7 L Roosevelt % (Auto) 7.7 Eos % (Auto) 5.4 H Baso % (Auto) 1.1 Lymph # (Auto) 0.65 L Roosevelt # (Auto) 0.3 Eos # (Auto) 0.2 Baso # (Auto) 0.1 Abs Immat Gran (auto) 0.06 H Absolute Neuts (auto) 3.1 Absolute Nucleated RBC 0.000 Nucleated RBC % 0.0 Platelet Estimate Increased Hypochromasia 1+ Schistocytes None seen PT 17.9 H INR 1.4 APTT 51.8 H Sodium 137 Potassium 3.7 Chloride 106 Carbon Dioxide 25 Anion Gap 6 BUN 32 H Creatinine 6.10 H Estim Creat Clear Calc 19 Estimated GFR 10 L Glucose 131 H POC Capillary Glucose 161 H Hemoglobin A1c Calcium 6.8 L Total Bilirubin 0.7 AST 25 ALT 19 Alkaline Phosphatase 101 Total Protein 6.0 L Albumin 2.9 L Quality VTE Prophylaxis VTE prophylaxis: pharmacologic ordered
[2024-01-15 07:33] LABS: Glucose Point of Care 138 mg/dl (65-105)
[2024-01-15] MEDS: amLODIPine BESYLATE 5 MG TABLET PO (08:57)
[2024-01-15] MEDS: APIXABAN 5 MG TABLET PO ×2 (08:57→20:44)
[2024-01-15] MEDS: CALCIUM CARBONATE (OSCAL) 500 MG TABLET 1000 MG PO ×3 (08:57→17:59)
--- NOTE | 2024-01-15 11:34 | P.PNNP_ITS ---
Progress Note: A&P Assessment and Plan (1) SHABNAM (acute kidney injury): Code(s): N17.9 - Acute kidney failure, unspecified Status: Acute Assessment and Plan: * etiology not clear - suspect ATN * however, complicated by hyperkalemia, acidosis, and possible uremia on last hospitalization/admission * s/p dialysis on 12/30, 12/31, and 01/02 * evaluation to date noted: * urine electrolytes non-prerena; * C3 low but normal C4 * ESR 111 * CPK was mildly elevated (doubt effect on kidneys) * urine eosinophils negative * moderate proteinuria * DOUGLAS/ANCA/dsNDA-Ab/AntiGBM-Ab negative * given lack of clear answer for his SHABNAM/ARF, I had been leaning towards doing a renal biopsy * unfortunately, was on plavix and not require anticoagulation... this makes doing a renal biopsy HIGH RISK * creatinine peaked/plateaued at 7.0mg/dl on last hospital stay * slow downtrend of creatinine noted since last hospital discharge * follow repeat labs and UOP (2) Chronic kidney disease, stage IV (severe): Code(s): N18.4 - Chronic kidney disease, stage 4 (severe) Status: Chronic Assessment and Plan: * last creatinine was ~ 3.0 - 3.2mg/dl in May 2023 * not clear what true baseline creatinine really is * suspect an element of CKD from HTN, DM, and vascular disease (3) Acute deep vein thrombosis (DVT) of left upper extremity: Code(s): I82.622 - Acute embolism and thrombosis of deep veins of left upper extremity Status: Acute Assessment and Plan: * as noted by imaging done in ER * upper extremity venous doppler with thrombosis seen in the left ulnar vein. * on heparin gtt * transitioning to eliquis * venous doppler negative * Echo results noted (4) Anemia: Qualifiers: Anemia type: unspecified type Qualified Code(s): D64.9 - Anemia, unspecified Code(s): D64.9 - Anemia, unspecified Status: Acute Assessment and Plan: * noted drop in H/H by labs on 01/14 * PRBC transfusion per protocol * no signs/symptoms of bleeding * EGD and colonoscopy unremarkable on 01/01 * due to SHABNAM, CKD, and possible heparin gtt * stared ont Retacrit while hospitalized * follow trend of H/H (5) HTN (hypertension): Qualifiers: Hypertension type: primary hypertension Qualified Code(s): I10 - Essential (primary) hypertension Code(s): I10 - Essential (primary) hypertension Status: Chronic Assessment and Plan: * reasonable control at this time * continue current medications and titrate if needed * follow trend of hemodynamics (6) Diabetes: Qualifiers: Chronic kidney disease stage: unspecified stage Diabetes mellitus complication detail: with chronic kidney disease Diabetes mellitus complication status: with kidney complications 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 Subjective Date/time seen: 01/15/24 11:34 Interval history: Follow-up for acute kidney injury/acute renal failure on chronic kidney disease. Renal function/creatinine continues to improve albeit extremely slowly -- good urine output noted and no critical electrolytes noted; drop in H/H noted by AM labs so PRBC transfusion ordered; no other acute issues/events voiced at this time or overnight. Exam Narrative: General: WD/WN male in NAD Heart: normal S1 and S2; no rub Lungs: clear to auscultation Abdomen: soft, nontender, nondistended, positive bowel sounds Extremities: no cyanosis or clubbing; no edema; s/p right BKA Skin: warm and dry Objective Data Vital Signs Vital Signs: Vital Signs Temp Pulse Resp BP Pulse Ox O2 Del Method 01/15/24 11:13 99.0 F 90 18 144/82 H 100 01/15/24 08:00 83 01/15/24 08:00 Room Air 01/15/24 05:05 98.2 F 86 18 143/81 H 99 01/15/24 04:00 78 01/15/24 00:00 83 01/14/24 20:00 90 01/14/24 20:09 98.7 F 85 18 141/77 H 100 Intake/Output Intake/Output: Intake & Output 01/12/24 01/13/24 01/14/24 01/15/24 23:59 23:59 23:59 23:59 Intake Total 2798.5 1718 Output Total 400 Balance 2398.5 1718 Meds/Results Medications: Active Medications Generic Name Dose Route Start Last Admin Trade Name Freq PRN Reason Stop Dose Admin Amlodipine Besylate 5 mg 01/14/24 09:00 01/15/24 08:57 Amlodipine Besylate 5 Mg Tablet PO 5 mg DAILY LISSET Administration Apixaban 5 mg 01/14/24 09:00 01/15/24 08:57 Apixaban 5 Mg Tablet PO 5 mg Q12HR LISSET Administration Calcium Carbonate 1,000 mg 01/15/24 09:00 01/15/24 14:15 Calcium Carbonate (Oscal) 500 Mg Tablet PO 1,000 mg TID LISSET Administration Dextrose 12.5 gm 01/14/24 09:04 Dextrose 50% 25 Gm/50 Ml Syringe IV PUSH PRN PRN Hypoglycemia Protocol Epoetin Pawel-epbx 20,000 units 01/15/24 17:42 Epoetin Pawel-Epbx 20,000 Units/Ml Vial SUB-Q 01/15/24 17:43 ONCE ONE Epoetin Pawel-epbx 10,000 units 01/16/24 09:00 Epoetin Pawel-Epbx 10,000 Units/Ml Vial SUB-Q 01/16/24 09:01 ONCE ONE Gabapentin 600 mg 01/14/24 21:00 01/14/24 20:27 Gabapentin 300 Mg Capsule PO 600 mg HS LISSET Administration Glucagon 1 mg 01/14/24 09:04 Glucagon For Inj 1 Mg Vial IM PRN PRN Hypoglycemia Protocol Glucose 15 gm 01/14/24 09:04 Glucose Oral Gel 15 Gm Of Glucse In 37.5 Gm Tube PO PRN PRN Hypoglycemia Protocol Dextrose 1,000 mls @ 100 mls/hr 01/14/24 09:04 Dextrose 5% 1,000 Ml IVPB PRN PRN Hypoglycemia Protocol Insulin Aspart 2 - 5 units 01/14/24 17:00 01/15/24 17:38 Insulin Aspart (*Bkc) 100 Units/Ml SUB-Q Not Given TIDWM [facility] Protocol Radiology Results: ITS Impressions Venous Doppler Study 01/14/24 16:53 IMPRESSION: 1: No lower extremity deep venous thrombosis. Labs Labs: Laboratory Tests 01/15/24 06:00 01/15/24 06:00 Calcium 6.8 L Total Bilirubin 0.7 AST 25 ALT 19 Alkaline Phosphatase 101 Total Protein 6.0 L Albumin 2.9 L
[2024-01-15 11:39] LABS: Glucose Point of Care 165 mg/dl (65-105)
[2024-01-15] MEDS: SODIUM CHLORIDE 0.9% IV 250 ML 30 ML IV CONT (14:15)
[2024-01-15 16:29] LABS: Glucose Point of Care 139 mg/dl (65-105)
[2024-01-15] MEDS: EPOETIN ALFA-EPBX 20,000 UNITS/ML VIAL 20000 UNITS SUB-Q (18:03)
[2024-01-15 18:09] LABS: Hemoglobin 8.2 g/dL (14.0-18.0)
[2024-01-15] MEDS: GABAPENTIN 300 MG CAPSULE 600 MG PO (20:44)
[2024-01-15 21:19] LABS: Glucose Point of Care 163 mg/dl (65-105)
[2024-01-16] VITALS: PULSE 78
[2024-01-16 04:00] VITALS: PULSE 78
[2024-01-16 06:00] VITALS: BP 153/88; PULSE 81; RESP 18; TEMP 36.4; O2SAT 98
[2024-01-16 06:26] LABS: Basophils Percent Auto 0.7 % (0.2-1.2); Eosinophils Absolute Auto 0.3 K/mm3 (0-0.3); Eosinophils Percent Auto 6.3 % (0-4.4); Hemoglobin 8.6 g/dL (14.0-18.0); Immature Granulocyte Absolute 0.07 K/mm3 (0.00-0.031); Immature Granulocyte Percent A 1.5 % (0-0.5); Lymphocytes Absolute Auto 0.62 K/mm3 (0.9-3.2); Lymphocytes Percent Auto 13.6 % (18.3-44.2); Mean Corpuscular HGB Conc 31.9 g/dl (32-36); Mean Corpuscular Hemoglobin 29.3 pg (26-34); Mean Corpuscular Volume 91.8 fl (80-100); Mean Platelet Volume 9.5 fl (7.4-10.4); Monocytes Absolute Auto 0.3 K/mm3 (0.1-0.6); Monocytes Percent Auto 7.4 % (2.6-8.5); Neutrophils Absolute Auto 3.2 K/mm3 (1.3-6.7); Neutrophils Percent Auto 70.5 % (45.5-73.1); Platelet Count Result 348 k/mm3 (150-375); Red Blood Count 2.94 M/mm3 (4.6-6.20); Red Cell Distribution Width 14.3 % (11.5-14.5); White Blood Count 4.6 K/mm3 (4.5-10.0)
[2024-01-16 06:43] LABS: Alanine Aminotransferase 18 U/L (6-50); Albumin Level 2.9 g/dL (3.5-5.1); Alkaline Phosphatase 101 U/L (38-126); Anion Gap 6 mmol/L (4-12); Aspartate Amino Transferase 22 U/L (17-59); Bilirubin,Total 0.7 mg/dL (0.2-1.3); Blood Urea Nitrogen 32 mg/dL (9-20); Calcium 6.9 mg/dL (8.4-10.2); Carbon Dioxide 27 mmol/L (22-30); Chloride 104 mmol/L (98-107); Estimated CRCL calculation 21 ml/min; Estimated Glomerular Filt Rate 11; Glucose 131 mg/dL (65-110); Sodium 137 mmol/L (137-145)
[2024-01-16 07:26] LABS: Glucose Point of Care 131 mg/dl (65-105)
[2024-01-16 08:00] VITALS: PULSE 80
[2024-01-16] MEDS: EPOETIN ALFA-EPBX 10,000 UNITS/ML VIAL 10000 UNITS SUB-Q (08:07)
[2024-01-16] MEDS: amLODIPine BESYLATE 5 MG TABLET PO (08:09)
[2024-01-16] MEDS: APIXABAN 5 MG TABLET PO (08:09)
[2024-01-16] MEDS: CALCIUM CARBONATE (OSCAL) 500 MG TABLET 1000 MG PO ×2 (08:09→12:01)
[2024-01-16 11:47] LABS: Glucose Point of Care 153 mg/dl (65-105)
--- NOTE | 2024-01-16 11:48 | P.PNNP_ITS ---
Progress Note: A&P Assessment and Plan (1) SHABNAM (acute kidney injury): Code(s): N17.9 - Acute kidney failure, unspecified Status: Acute Assessment and Plan: * etiology not clear - suspect ATN * however, complicated by hyperkalemia, acidosis, and possible uremia on last hospitalization/admission * s/p dialysis on 12/30, 12/31, and 01/02 * evaluation to date noted: * urine electrolytes non-prerena; * C3 low but normal C4 * ESR 111 * CPK was mildly elevated (doubt effect on kidneys) * urine eosinophils negative * moderate proteinuria * DOUGLAS/ANCA/dsNDA-Ab/AntiGBM-Ab negative * given lack of clear answer for his SHABNAM/ARF, I had been leaning towards doing a renal biopsy * unfortunately, was on plavix and now requiring anticoagulation... this makes doing a renal biopsy HIGH RISK * creatinine peaked/plateaued at 7.0mg/dl on last hospital stay * slow downtrend of creatinine noted since last hospital discharge * follow repeat labs and UOP (2) Chronic kidney disease, stage IV (severe): Code(s): N18.4 - Chronic kidney disease, stage 4 (severe) Status: Chronic Assessment and Plan: * last creatinine was ~ 3.0 - 3.2mg/dl in May 2023 * not clear what true baseline creatinine really is * suspect an element of CKD from HTN, DM, and vascular disease (3) Acute deep vein thrombosis (DVT) of left upper extremity: Code(s): I82.622 - Acute embolism and thrombosis of deep veins of left upper extremity Status: Acute Assessment and Plan: * as noted by imaging done in ER * upper extremity venous doppler with thrombosis seen in the left ulnar vein. * on heparin gtt * transitioning to eliquis * venous doppler negative * Echo results noted (4) Anemia: Qualifiers: Anemia type: unspecified type Qualified Code(s): D64.9 - Anemia, unspecified Code(s): D64.9 - Anemia, unspecified Status: Acute Assessment and Plan: * noted drop in H/H by labs on 01/14 * PRBC transfusion per protocol * no signs/symptoms of bleeding * EGD and colonoscopy unremarkable on 01/01 * due to SHABNAM, CKD, and possible heparin gtt * stared on Retacrit while hospitalized * outpatient referral to Hem/Onc for ongoing IVAN * follow trend of H/H (5) HTN (hypertension): Qualifiers: Hypertension type: primary hypertension Qualified Code(s): I10 - Essential (primary) hypertension Code(s): I10 - Essential (primary) hypertension Status: Chronic Assessment and Plan: * reasonable control at this time * continue current medications and titrate if needed * follow trend of hemodynamics (6) Diabetes: Qualifiers: Chronic kidney disease stage: unspecified stage Diabetes mellitus complication detail: with chronic kidney disease Diabetes mellitus complication status: with kidney complications Diabetes mellitus termite treater helper insulin use: with termite treater helper use Diabetes mellitus type: type 2 Qualified Code(s): E11.22 - Type 2 diabetes mellitus with diabetic chronic kidney disease; 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 He will likely need outpatient referral to Hematology/Oncology for ongoing erythropoietic stimulating agents given his anemia of chronic kidney disease. Will continue to follow. Subjective Date/time seen: 01/16/24 11:48 Interval history: Follow-up for acute kidney injury/acute renal failure on chronic kidney disease. Tolerated PRBC transfusion yesterday with appropriate incrementation of hemoglobin/hematocrit; renal function/creatinine continues to slowly improve with supportive therapy; no apparent distress voiced at the time of my visit. Exam Narrative: General: WD/WN male in NAD Heart: normal S1 and S2; no rub Lungs: clear to auscultation Abdomen: soft, nontender, nondistended, positive bowel sounds Extremities: no cyanosis or clubbing; no edema; s/p right BKA Skin: warm and intact Objective Data Vital Signs Vital Signs: Vital Signs Temp Pulse Resp BP Pulse Ox O2 Del Method 01/16/24 08:00 80 01/16/24 08:00 Room Air 01/16/24 04:00 78 01/16/24 06:00 97.6 F 81 18 153/88 H 98 01/16/24 00:00 78 01/15/24 22:00 98.2 F 92 16 155/89 H 100 01/15/24 20:00 84 01/15/24 16:00 86 01/15/24 16:27 98.7 F 86 16 142/80 H 100 01/15/24 14:00 99.0 F 90 18 144/82 H 100 01/15/24 14:29 99.0 F 86 16 140/80 100 01/15/24 14:13 99.0 F 90 18 144/82 H 100 Intake/Output Intake/Output: Intake & Output 01/13/24 01/14/24 01/15/24 01/16/24 23:59 23:59 23:59 23:59 Intake Total 2798.5 2448 1030 Output Total 400 750 Balance 2398.5 2448 280 Meds/Results Medications: Active Medications Generic Name Dose Route Start Last Admin Trade Name Freq PRN Reason Stop Dose Admin Amlodipine Besylate 5 mg 01/14/24 09:00 01/16/24 08:09 Amlodipine Besylate 5 Mg Tablet PO 5 mg DAILY LISSET Administration Apixaban 5 mg 01/14/24 09:00 01/16/24 08:09 Apixaban 5 Mg Tablet PO 5 mg Q12HR LISSET Administration Calcium Carbonate 1,000 mg 01/15/24 09:00 01/16/24 12:01 Calcium Carbonate (Oscal) 500 Mg Tablet PO 1,000 mg TID LISSET Administration Dextrose 12.5 gm 01/14/24 09:04 Dextrose 50% 25 Gm/50 Ml Syringe IV PUSH PRN PRN Hypoglycemia Protocol Epoetin Pawel-epbx 10,000 units 01/17/24 09:00 Epoetin Pawel-Epbx 10,000 Units/Ml Vial SUB-Q TUTHSA@09 LISSET Gabapentin 600 mg 01/14/24 21:00 01/15/24 20:44 Gabapentin 300 Mg Capsule PO 600 mg HS LISSET Administration Glucagon 1 mg 01/14/24 09:04 Glucagon For Inj 1 Mg Vial IM PRN PRN Hypoglycemia Protocol Glucose 15 gm 01/14/24 09:04 Glucose Oral Gel 15 Gm Of Glucse In 37.5 Gm Tube PO PRN PRN Hypoglycemia Protocol Dextrose 1,000 mls @ 100 mls/hr 01/14/24 09:04 Dextrose 5% 1,000 Ml IVPB PRN PRN Hypoglycemia Protocol Insulin Aspart 2 - 5 units 01/14/24 17:00 01/16/24 08:07 Insulin Aspart (*Bkc) 100 Units/Ml SUB-Q Not Given TIDWM LISSET Protocol Radiology Results: ITS Impressions Venous Doppler Study 01/14/24 16:53 IMPRESSION: 1: No lower extremity deep venous thrombosis. Labs Labs: Laboratory Tests 01/16/24 05:45 01/16/24 05:44 Calcium 6.9 L Total Bilirubin 0.7 AST 22 ALT 18 Alkaline Phosphatase 101 Total Protein 6.0 L Albumin 2.9 L
[2024-01-16 12:00] VITALS: PULSE 97
--- NOTE | 2024-01-16 13:17 | P.DS_ITS ---
DS: Admitting Diagnosis Discharge Date 01/16/2024 Admitting Diagnosis Acute DVT CKD Anemia Diabetes Hypertension DS: Discharge Diagnosis Discharge Diagnosis (1) Acute deep vein thrombosis (DVT) of left upper extremity: Code(s): I82.622 - Acute embolism and thrombosis of deep veins of left upper extremity Status: Acute (2) Chronic kidney disease on chronic dialysis: Code(s): N18.6 - End stage renal disease; Z99.2 - Dependence on renal dialysis Status: Acute (3) Anemia: Qualifiers: Anemia type: unspecified type Qualified Code(s): D64.9 - Anemia, unspecified Code(s): D64.9 - Anemia, unspecified Status: Acute (4) HTN (hypertension): Qualifiers: Hypertension type: primary hypertension Qualified Code(s): I10 - Essential (primary) hypertension Code(s): I10 - Essential (primary) hypertension Status: Chronic (5) Diabetes: Qualifiers: Chronic kidney disease stage: unspecified stage Diabetes mellitus complication detail: with chronic kidney disease Diabetes mellitus complication status: with kidney complications Diabetes mellitus [facility]man insulin use: with care home use Diabetes mellitus type: type 2 Qualified Code(s): E11.22 - Type 2 diabetes mellitus with diabetic chronic kidney disease; Z79.4 - [facility] (current) use of insulin Code(s): E11.9 - Type 2 diabetes mellitus without complications Status: Chronic DS: Summary Hospital Course Reason for hospitalization: Acute DVT CKD Anemia Diabetes Hypertension Hospital Course: 43-year-old male with past medical history of chronic kidney disease stage 3, peripheral artery disease, diabetic gastroparesis, controlled diabetes mellitus, essential hypertension and Hobbs's muscular dystrophy who presented to the hospital for a left arm DVT diagnosed by PCP. Upper extremity doppler showing thrombosis of the left ulnar vein. ED started patient on a heparin drip. He was transitioned to eliquis during admission. H/H decreased and patient required a blood transfusion. No signs of active bleeding. H/H responded appropriately to transfusion and remained stable. Anemia likely secondary to heparin drip and CKD. Echo obtained and showed LVEF 65-70% with grade I diastolic dysfunction. No arrhythmia seen on telemetry. Nephrology was consulted. Per nephrology no need for dialysis at this time as patients kidney function has slowly been improving. He is to follow up as scheduled in the outpatient office. Throughout admission patient was hypertensive, started on amlodipine and blood pressures remain stable. At time of discharge patient had no complaints denying chest pain, shortness of breath, palpitations, nausea/vomiting and abdominal pain. Patient discharged home in a stable condition. He is to follow up with nephrology as scheduled and his PCP in 1 week. Status at Discharge Functional status at discharge: independent ambulation Time Spent with Patient Time attestation: Total time spent providing and/or coordinating discharge services: Time spent: Greater than 30 minutes Exam Narrative: AF HR 84 RR 18 SpO2 98 Spo2 150/87 General: male in no acute respiratory distress who is nontoxic appearing, sitting up in his bed HEENT: Normocephalic. Atraumatic. Extraocular movement intact. Sclera clear and anicteric. No facial asymmetry. Chest: Lungs are clear to auscultation bilaterally. No wheezes or crackles. CV: Heart was regular rate and rhythm. S1/S2. No murmurs, gallops, or rubs. Abd: Abdomen was soft. Nontender. Nondistended. Positive bowel sounds. No organomegaly or masses. Ext: No clubbing, cyanosis. No upper extremity edema. Right BKA. Left lower extremity with 1+ pitting edema. 2+ DP pulse on the left. Neuro: Speech is clear. DS: Data Data Completed and Pending Completed studies during hospitalization: Venous doppler venous doppler Labs on day of discharge: Labs from last 24 hours 01/16/24 01/16/24 01/16/24 11:08 07:13 05:45 WBC 4.6 RBC 2.94 L Hgb 8.6 L Hct 27.0 L MCV 91.8 MCH 29.3 D MCHC 31.9 L RDW 14.3 Plt Count 348 MPV 9.5 Immature Gran % (Auto) 1.5 H Neut % (Auto) 70.5 Lymph % (Auto) 13.6 L Swift % (Auto) 7.4 Eos % (Auto) 6.3 H Baso % (Auto) 0.7 Lymph # (Auto) 0.62 L Swift # (Auto) 0.3 Eos # (Auto) 0.3 Baso # (Auto) 0.0 Abs Immat Gran (auto) 0.07 H Absolute Neuts (auto) 3.2 Absolute Nucleated RBC 0.000 Nucleated RBC % 0.0 Sodium Potassium Chloride Carbon Dioxide Anion Gap BUN Creatinine Estim Creat Clear Calc Estimated GFR Glucose POC Capillary Glucose 153 H 131 H Calcium Total Bilirubin AST ALT Alkaline Phosphatase Total Protein Albumin Blood Type Antibody Screen Crossmatch 01/16/24 01/15/24 01/15/24 05:44 20:52 17:53 WBC RBC Hgb 8.2 L Hct 26.0 L MCV MCH MCHC RDW Plt Count MPV Immature Gran % (Auto) Neut % (Auto) Lymph % (Auto) Swift % (Auto) Eos % (Auto) Baso % (Auto) Lymph # (Auto) Swift # (Auto) Eos # (Auto) Baso # (Auto) Abs Immat Gran (auto) Absolute Neuts (auto) Absolute Nucleated RBC Nucleated RBC % Sodium 137 Potassium 4.0 Chloride 104 Carbon Dioxide 27 Anion Gap 6 BUN 32 H Creatinine 5.70 H Estim Creat Clear Calc 21 Estimated GFR 11 L Glucose 131 H POC Capillary Glucose 163 H Calcium 6.9 L Total Bilirubin 0.7 AST 22 ALT 18 Alkaline Phosphatase 101 Total Protein 6.0 L Albumin 2.9 L Blood Type Antibody Screen Crossmatch 01/15/24 01/15/24 16:24 08:11 WBC RBC Hgb Hct MCV MCH MCHC RDW Plt Count MPV Immature Gran % (Auto) Neut % (Auto) Lymph % (Auto) Swift % (Auto) Eos % (Auto) Baso % (Auto) Lymph # (Auto) Swift # (Auto) Eos # (Auto) Baso # (Auto) Abs Immat Gran (auto) Absolute Neuts (auto) Absolute Nucleated RBC Nucleated RBC % Sodium Potassium Chloride Carbon Dioxide Anion Gap BUN Creatinine Estim Creat Clear Calc Estimated GFR Glucose POC Capillary Glucose 139 H Calcium Total Bilirubin AST ALT Alkaline Phosphatase Total Protein Albumin Blood Type A Positive Antibody Screen Negative Crossmatch See Detail Discharge Plan Discharge Attending physician on discharge: Hussein Huerta Consulting providers: Rylee Min; Gretel Braden Discharging Clinician: Gretel Braden Anticipated Discharge Date/Time: 01/16/24 13:06 Patient Disposition: Home, Self-Care Activity: as tolerated Diet: as tolerated, diabetic and renal Discharge Instructions: Discharge disposition: Patient was admitted to the hospital for a left upper extremity blood clot as seen on ultrasound There was no arrhythmia seen on cardiac monitoring and echo was unremarkable Take all medications as prescribed even if feeling better Eliquis 10 mg twice a day for 7 days, then start 5 mg twice a day for 3 months Strict bleeding precautions since you are being started on Eliquis including shaving with an electric razor, holding pressure for greater than 20 minutes for injury, protection of had with any falls, monitor your urine/stool for any signs of blood, etc. Eat well balanced meals and stay hydrated During your admission you required a blood transfusion Likely etiology of anemia is your kidney function Your levels have been stable since transfusion Nephrology started you on Epoetin during your admission To continue this medication follow up with Dr. Luna with hematology Patient was evaluated by nephrology during admission He is to follow up with them in the office to continue monitoring renal function Attached is the office information Monitor blood pressures You were started on amlodipine 5 mg daily, attached is information on this medication Take caution while standing, rising, or moving Change positions slowly taking a break between each position change If you standing feel dizzy sat back down and take a break Encouraged to continue with yearly vaccinations Return to the emergency department if he developed sudden shortness of breath, chest pain, nausea, vomiting, upset stomach or intractable diarrhea Return to the emergency department if you develop fever greater than 101.5 Follow-up with the primary care physician within 1-2 weeks Thank you for [facility] for your healthcare needs Patient Instructions: Amlodipine (By mouth), Apixaban (By mouth), Blood Thinners (DC) Patient Language: Nepali Stand Alone Forms: General Discharge Information, Work/School Release IP Follow-up/Referrals: Choco Luna MD [Physician] - Call for Appointment Rylee Min MD [Physician] - Call for Appointment Darrick,Kala Macdonald APRN [Primary Care Provider] - 1 Week Discharge Medications: New amlodipine [Norvasc] 5 mg Tablet 5 mg PO DAILY Qty: 30 0RF Eliquis 5 mg tablet 10 mg PO BID 7 Days Qty: 28 0RF Rx Instructions: start this medication 01/15, completed on 01/22. On 01/22 start the 5 mg twice a day dose for the next three months. Eliquis 5 mg tablet 5 mg PO BID 90 Days Qty: 180 0RF Rx Instructions: Start this on 01/22 after the 10 mg twice a day course has been completed. Continued atorvastatin 10 mg tablet 10 mg PO HS Hold Instructions: until seen by his primary care provider ergocalciferol (vitamin D2) 1,250 mcg (50,000 unit) capsule 1,250 mcg PO DAILY calcium carbonate [Oyster Shell Calcium 500] 500 mg calcium (1,250 mg) Tablet 1,000 mg PO TID Qty: 30 0RF ondansetron 4 mg tablet,disintegrating 4 mg PO Q8H PRN (Reason: nausea and vomiting) Qty: 20 0RF gabapentin 300 mg capsule 600 mg PO HS Qty: 30 0RF Held losartan 100 mg tablet 100 mg PO HS Hold Instructions: until seen by his primary care provider Tradjenta 5 mg tablet 5 mg PO HS Hold Instructions: until seen by his primary care provider Patient Comments: patient states he has not taken this for at least 2 weeks hydrochlorothiazide 25 mg tablet 25 mg PO DAILY Hold Instructions: until seen by his primary care provider Rybelsus 7 mg tablet 7 mg PO DAILY Hold Instructions: until seen by his primary care provider Patient Comments: pt states I am prescribed it, but I don't know if I want to keep taking it Discontinued aspirin 81 mg Tablet,Delayed Release (Dr/Ec) 81 mg PO QAM Qty: 30 1RF clopidogrel 75 mg tablet 75 mg PO DAILY Qty: 30 0RF Patient Comments: patient is not currently taking r/t blood being too thin Date of admission: 01/14/24 00:34 Primary Care Provider: Darrick,Kala Macdonald Admitting Provider: Jody Mckeon Attending physician on admission: Jody cMkeon Condition: Stable Hospitalist MIPS Heart Failure (Exclusion) Patient has history of Heart Transplant or Left Ventricular Assistive Device?: No IF YES, STOP HERE Heart Failure (Qualifier) Patient has current or prior documentation of LVEF less than or equal to 40%, or mod/servere depressed LVSF?: No IF NO, STOP HERE
[2024-01-16 13:53] VITALS: BP 150/87; PULSE 84; RESP 18; TEMP 36.2; O2SAT 98
== END 2024-01-16 15:11 | disposition home or self-care (01) ==
LOC: ANHED 01-14 00:34 → ANH3MEDSUR 01-14 02:08
PROVIDERS: Registered Nurse; Student in an Organized Health Care Education/Training Program; Admitting Provider Internal Medicine; Emergency Provider Emergency Medicine; Visit Provider Internal Medicine
DX: I82.622 Acute embolism and thrombosis of deep veins of left upper extremity (principal); E11.51 Type 2 diabetes mellitus with diabetic peripheral angiopathy without gangrene; E11.22 Type 2 diabetes mellitus with diabetic chronic kidney disease; I12.9 Hypertensive chronic kidney disease with stage 1 through stage 4 chronic kidney disease, or unspecified chronic kidney disease; N18.4 Chronic kidney disease, stage 4 (severe); N17.9 Acute kidney failure, unspecified; D63.1 Anemia in chronic kidney disease; Z99.2 Dependence on renal dialysis; E11.43 Type 2 diabetes mellitus with diabetic autonomic (poly)neuropathy; K31.84 Gastroparesis; J45.909 Unspecified asthma, uncomplicated; E66.9 Obesity, unspecified; Z68.36 Body mass index [BMI] 36.0-36.9, adult; G71.01 Duchenne or Becker muscular dystrophy; Z89.511 Acquired absence of right leg below knee; Z87.891 Personal history of nicotine dependence; Z79.82 Long term (current) use of aspirin; Z79.899 Other long term (current) drug therapy; Z87.768 Personal history of other specified (corrected) congenital malformations of integument, limbs and musculoskeletal system
CPT/HCPCS: 36415; 36430; 80053; 82948; 83036; 85014; 85018; 85025; 85610; 85730; 86850; 86900; 86901; 86923; 93005; 93971; 96365; 96366; 96372; 96375; 99285; A9270; C8929; G0378; J1644; J7050; P9016; Q5105; Q9957

== ENCOUNTER 2024-06-09 15:19 | Outpatient (CLI) | payer BC, SELFPAY ==
[2024-06-09 15:29] LABS: Hematocrit 29.1 % (42.0-52.0); Hemoglobin 9.6 g/dL (14.0-18.0); Mean Corpuscular Hemoglobin 29.7 pg (26-34); Mean Corpuscular Volume 90.1 fl (80-100); Mean Platelet Volume 9.1 fl (7.4-10.4); Platelet Count Result 181 k/mm3 (150-375); Red Blood Count 3.23 M/mm3 (4.6-6.20); Red Cell Distribution Width 14.6 % (11.5-14.5); White Blood Count 5.2 K/mm3 (4.5-10.0)
--- OUTSIDE RECORDS SUMMARY | 2024-06-09 17:17 | XMS_ITS | Encounter Summary ---
Author Organization [facility] Address [address] [place] [id number] Care Team Providers Care Distribution Lineman Name Role Phone Bret Ward Primary Care Provider [phone] [place] Torres MD Primary Care Provider [phone] Encounter Details Date Type Department Care Team (Late st Contact Info) Description 03/25/2023 Abstract [facility] [address] Chau Osuna MA Social History Tobacco Use Types Packs/Day Years Used Date Smoking Tobacco: Every Day Cigarettes Smokeless Tobacco: Never Alcohol Use Standard Drinks/Week Comments Yes 0 (1 standard drink = 0.6 oz pur e alcohol) Sex and Gender Information Value Date Recorded Sex Assigned at Not on file Legal Sex Male 5:41 PM CDT Gender Identity Not on file Sexual Orientation Not on file 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 Not on file Not on file documented as of this encounter Plan of Treatment Not on file documented as of this encounter Procedures Procedure Name Priority Date/Time Associated Diagnosis Comments COMPREHENSIVE METABOLIC PANEL Routine 03/12/2023 CBC, MANUAL DIFF Routine 03/12/2023 C-REACTIVE PROTEIN Routine 03/12/2023 documented in this encounter Results * C-REACTIVE PROTEIN (03/12/2023) CRP 2.8 03/12/2023 us Default History Genericprovider LABORATORY Final Result * (ABNORMAL) COMPREHENSIVE METABOLIC PANEL (03/12/2023) SODIUM S/P/B 138 GLUCOSE 167 mg/dL AST 17 BUN 30 CREATININE S/P/B 1.40(A) 0.7 - 1.3 CALCIUM S/P/B 8.7 POTASSIUM S/P/B 5.0 CHLORIDE S/P/B 109 ALT 25 GFR ESTIMATE 56 us Default History Genericprovider LABORATORY Final Result * CBC, MANUAL DIFF (03/12/2023) WBC 5.6 HGB 8.6 HCT 28.6 PLT 202 us Default History Genericprovider LABORATORY Final Result documented in this encounter Visit Diagnoses Not on filedocumented in this encounter Care Teams Distribution Lineman Relationship Specialty Start Date End Date Bret Ward FNP [address] [place] [address] PCP - General NURSE PRACTITIONER 09/25/21 05/13/23 [place] Torres MD [address] [place] [address] PCP - General FAMILY PRACTICE 05/14/23 documented as of this encounter
--- OUTSIDE RECORDS SUMMARY | 2024-06-09 17:17 | XMS_ITS | Clinical Summary ---
Author Organization [facility] Address [address] [place] [address] Care Team Providers Care Grubber Name Role Phone Florentin Ni MD Primary Care Provider [phone] Source Comments [facility],non-owned Affiliates and Associated Physician Practices is amultiple site organization consisting of ambulatory clinics and hospital sitesin [place], [place], [place] and [place]. This disclosure is being madepursuant to the Care Everywhere program and may not contain all information available regarding this patient. 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 Gender Identity Not on file Sexual Orientation Not on file Plan of Treatment Health Maintenance Due Date Last Done Comments LIPID TESTING 1982 MEDICARE AWV 12 MONTHS 1982 HIV SCREENING 1997 HEPATITIS C SCREENING 11/04/2000 DTAP/TDAP/TD VACCINES (1 - Tdap) 2001 HEPATITIS B VACCINE (1 of 3 - 19+ 3-dose series) 2001 COVID-19 VACCINE ( - 2023-2 5 season) 2023 DEPRESSION SCREENING 02/18/2024 INFLUENZA VACCINE (Season Ended) 2024 ZOSTER VACCINE (1 of 2) 2032 HIB VACCINE Aged Out No longer eligi ble based on patient's age to complete this topic HPV VACCINE Aged Out No longer eligi ble based on patient's age to complete this topic MENINGOCOCCAL (Group B) VACC INE SHARED DECISION-MAKING Aged Out No longer eligibl e based on patient's age to complete this topic MENINGOCOCCAL GROUPS A/C/Y/W VACCINE Aged Out No longer eligible b ased on patient's age to complete this topic PNEUMOCOCCAL VACCINE Aged Out No long er eligible based on patient's age to complete this topic Insurance [facility] MEDICARE MEDICAID - OUT OF STATE BCBS/BLUE BLUE CROSS BLUE [facility] MEDICA[facility] SELF PAY NO INSURANCE Member Subscriber Plan / Payer (Ef fective for All Dates) Name:Jose Roberto Maria Member ID:Not on file Relation to Subscriber:Not on file Name:JOSE ROBERTO MARIA Subscriber ID:Not on file (Home) Address: [address] [place] [id number] Payer ID:Not on file Group ID:Not on file Type:Self Pay Address: [place], [place] [facility] MEDICA[facility] ANTH [facility] MEDICAID [facility] MEDICAID [facility] MEDICAID Care Teams Grubber Relationship Specialty [place] [address] [place] [id number] PCP - General 12/24/17
--- OUTSIDE RECORDS SUMMARY | 2024-06-09 17:17 | XMS_ITS | Clinical Summary ---
Author Organization [facility] Facility Address [address] [address] Care Team Providers Care Public Health Administrator Name Role Phone Kala Hollingsworth INTRAOPERATIVE NEURO TECH Primary Care Provider [phone] Encounters Date Type Department Care Team Description 06/09/2024 Documentation Only [facility], [address] [id number] Provider, MD Gerald from Last 3 Months Social History Tobacco Use Types Packs/Day Years Used Date Smoking Tobacco: Never Assessed Sex and Gender Information Value Date Recorded Sex Assigned at Not on file Legal Sex Male 11:37 AM EDT Gender Identity Not on file Sexual Orientation Not on file Plan of Treatment Health Maintenance Due Date Last Done Comments Hepatitis B Vaccine (1 of 3 - 19+ 3-dose series) 2001 Pneumococcal Vaccine: Peds ( 0 to 5 Years) and At-Risk Patients (6 to 49 Years) (1 of 2 - PCV) 2001 Diabetes: Hemoglobin A1C 06/09/2024 05/15/2023, 11/18 Diabetes: Ophthalmology Exam 06/09/2024 Diabetes: Pedal Pulse Checked 06/09/2024 Diabetes: Sensory Foot Exam 06/09/2024 Diabetes: Visual Foot Exam 06/09/2024 Influenza Vaccine (Season Ended) 2024 11/30/2019, 10/12/2013, 11/11/2012 [facility] Care Teams Public Health Administrator Relationship Specialty Start Date End Date Kala Hollingsworth FNP [address] [place] [address] PCP - General Family Medicine 06/09/24
--- OUTSIDE RECORDS SUMMARY | 2024-06-09 17:17 | XMS_ITS | Clinical Summary ---
Author Organization [facility] Address [facility] [place] [address] Care Team Providers Care Security Administrator Name Role Phone Amelia Torres MD Primary Care Provider [phone] Allergies Active Allergy Reactions Criticality Noted Date Comments Insulin Detemir Unknown 03/24/2023 Latex Hives,Rash Low 03/24/2023 Metformin Nausea Only,Vomiting 03/24/2023 Trazodone Unknown 03/24/2023 Medications insulin glargine (LANTUS) 100 UNIT/ML injection (VIAL) Inject 60 Units into the skin daily. Active rOPINIRole (REQUIP) 0.5 MG tablet Take 1 tablet (0.5 mg total) by mouth daily. Active raNITIdine (ZANTAC) 75 MG Tab Take 1 tablet (75 mg total) by mouth daily. Active naproxen (NAPROSYN) 250 MG tablet Take 1 tablet (250 mg total) by mouth. Active losartan (COZAAR) 25 MG tablet Take 1 tablet (25 mg total) by mouth daily. 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, with long-term current use of insulin ([facility]) 12/10/2017 Immunizations Immunization Administration Dates Next Due Influenza Adult (Generic) 11/30/2019,10/12/2013, 11/11/2012 Family History Medical History Relation Comments Diabetes Mother Hypertension Mother Diabetes Paternal Grandfather Hypertension Paternal Grandfather Diabetes Paternal Grandmother Hypertension Paternal Grandmother Relation Status Comments Mother Paternal Grandfather Paternal Grandmother Social History Tobacco Use Types Packs/Day Years Used Date Smoking Tobacco: Former Cigarettes Smokeless Tobacco: Never Tobacco Cessation:Counseling Given: Not Answered Alcohol Use Standard Drinks/Week Comments Yes 0 (1 standard drink = 0.6 oz pur e alcohol) [facility] Utilities Answer Date Recorded In the past 12 months has e maufait, gas, oil, or water [employer] threatened to shut off services in your home? No 05/15/2023 Humiliation, Afraid, Rape, and Kick questionnair e Answer Date Recorded Within the last year, have y ou been afraid of your partner or ex-partner? No 05/15/2023 Within the last year, have y ou been humiliated or emotionally abused in other ways by your partner or ex-partner? No Within the last year, have y ou been kicked, hit, slapped, or otherwise physically hurt by your partner or ex-partner? No 05/15/2023 Within the last year, have y ou been raped or forced to have any kind of sexual activity by your partner or ex-partner? No 05/15/2023 Overall Financial Resource Strain (CARDIA) Answe r Date Recorded How hard is it for you to pa y for the very basics like food, housing, medical care, and heating? Not very hard 05/15/2023 Hunger Vital Sign Answer Date Recorded Within the past 12 months, y ou worried that your food would run out before you got the money to buy more. Never true 05/15/19 24 Within the past 12 months, t he food you bought just didn't last and you didn't have money to get more. Never true 05/15/2023 PRAPARE - Transportation Answer Date Re corded In the past 12 months, has l ack of transportation kept you from medical appointments or from getting medications? No 04/18 In the past 12 months, has l ack of transportation kept you from meetings, work, or from getting things needed for daily living? No 05/15/2023 Housing Stability Vital Sign Answer Genaro e Recorded In the last 12 months, was t here a time when you were not able to pay the mortgage or rent on time? No 05/15/2023 In the last 12 months, how many places have you lived? 1 05/15/2023 In the last 12 months, was t here a time when you did not have a steady place to sleep or slept in a fci (including now)? 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 on file Not on file Last Filed Vital Signs Vital Sign Reading Time Taken Comments Blood Pressure 124/89 05/18/2023 12:33 PM CDT Pulse 97 05/18/2023 12:33 PM CDT Temperature 37 C (98.6 F) 05/18/2023 12:33 PM CDT Respiratory Rate 18 05/18/2023 12:33 PM CDT Oxygen Saturation 100% 05/18/2023 12:33 PM CDT Inhaled Oxygen Concentration - - Weight 117.9 kg (260 lb) 05/14/2023 8:08 PM CDT Height 180.3 cm (5' 11 ) 05/14/2023 8:08 PM CDT Body Mass Index 36.26 05/14/2023 8:08 PM CDT Plan of Treatment Health Maintenance Due Date Last Done Comments Kidney Health Evaluation 1982 Lipid Panel 1982 Annual Physical 1985 Diabetes: Retinopathy Eye Exam 2000 Hepatitis C 2000 DTaP, Tdap and Td Vaccines ( 1 - Tdap) 2001 Hepatitis B Vaccines (1 of 3 - 19+ 3-dose series) 2001 Pneumococcal Vaccine: Pediatrics (0 to 5 Years) and At-Risk Patients (6 to 49 Years) (1 of 2 - PCV) 2001 COVID-19 Vaccine (2023-2 5 season) 2023 05/05/2020, 04/11/2020 Hemoglobin A1C 11/15/2023 05/15/2023 HPV Vaccines Aged Out No longer eligi ble based on patient's age to complete this topic Meningococcal B Vaccine Aged Out No l onger eligible based on patient's age to complete this topic Meningococcal Vaccine Aged Out No caty hailee eligible based on patient's age to complete this topic RSV Immunizations Under 20 Months Aged Out No longer eligible b ased on patient's age to complete this topic Procedures Procedure Name Priority Date/Time Associated Diagnosis Comments HEMOGLOBIN, GLYCOSYLATED STAT 05/15/2023 6:27 AM CDT from Last 3 Months or Most Recently Relevant to Health Maintenance Results * (ABNORMAL) HEMOGLOBIN, GLYCOSYLATED (05/15/2023 6:27 AM CDT) HGB A1C 6.6(H) <5.7 % 05/15/2023 8:09 AM CDT [facility] Comment: ADA GUIDELINES 2010 5.7 TO 6.4% INCREASED RISK OF DIABETES > OR = 6.5% CONSISTENT WITH DIABETES ESTIMATED AVG GLUCOSE 143 mg/dL 05/15/2023 8:09 AM CDT [facility] 05/15/2023 6:27 AM CDT Elva Bull [employer] [facility] [facility] Final Resul t [facility] [address] [place] [address], [place] [phone] from Last 3 Months or Most Recently Relevant to Health Maintenance Insurance [facility] Advance Directives * Full Code (Latest Code Status on File) Date Activated Date Inactivated Comments 05/14/2023 11:18 PM 05/18/2023 5:02 PM Care Teams Security Administrator Relationship Specialty Start Date End Date Amelia Torres MD [address] [place] [address] [place] [address] PCP - General FAMILY PRACTICE 05/14/23
--- OUTSIDE RECORDS SUMMARY | 2024-06-09 17:17 | XMS_ITS | Clinical Summary ---
Author Organization [facility] Address [address] [place] [address] Phone Care Team Providers Care Retail Account Representative Name Role Phone Provider, None Primary Care Provider Unavailabl e Allergies Active Allergy Reactions Criticality Noted Date Comments Latex Hives,Rash Metformin Hcl Diarrhea,Nausea,Vomiting Trazodone Unknown 12/12/2023 Medications naproxen 250 MG PO TABS Take 250 mg by mouth every 6 hours. Active losartan 25 MG PO TABS Take 25 mg by mouth daily. Active ranitidine 75 MG PO TABS Take 75 mg by mouth daily. Active rOPINIRole (REQUIP) 0.5 MG PO TABS Take 0.5 mg by mouth daily. Active insulin lispro (HUMALOG) 100 UNIT/ML SC SOLN by Subcutaneous route 2 times daily. Use as directed Active insulin glargine (LANTUS) 100 UNIT/ML SC SOLN 60 Units by Subcutaneous route daily. Active HYDROcodone-aleida taminophen (NORCO) 5-325 MG Tablet Take 1 Tab by mouth every 4 hours as needed for Moderate or more severe pain. 15 Tab 8 Active Additional Information Patient not taking.Reported on 01/26/2018 atorvastatin (LIPITOR) 10 MG Tablet Take 10 mg by mouth daily. 4 Active gabapentin (NEURONTIN) 300 MG Capsule TAKE 1 TO 2 CAPSULES BY MOUTH ONCE DAILY AT BEDTIME NEEDED 4 Active hydroCHLOROthia zide 25 MG Tablet Take 25 mg by mouth daily. 4 Active metoprolol Succinate (TOPROL-XL) 25 MG TABLET SR 24 HR TAKE 1 TABLET BY MOUTH ONCE DAILY DIRECTED FOR 90 DAYS 4 Active Rybelsus 7 MG Tablet take 1 tablet by mouth once daily as directed 4 Active valACYclovir (VALTREX) 1 GM Tablet 4 Active Tradjenta 5 MG Tablet Take 5 mg by mouth daily. 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, with long-term current use of insulin 12/10/2017 Hypertension 12/10/2017 Asthma without acute exacerbation 12/10/2017 Hyponatremia 12/10/2017 Family History Medical History Relation Name Comments No Known Problems Father Diabetes Maternal Grandfather Seizures Maternal Grandfather Stroke Maternal Grandfather Diabetes Maternal Grandmother Diabetes Mother Heart Attack Mother Lupus Mother Other-comment Mother SVT Pacemaker Mother Seizures Mother Stroke Mother Bqwj-Rucdgvzfn-Ljaqp Syndrome Mother Relation Name Status Comments Father Alive Maternal Grandfather Maternal Grandmother Mother Alive Social History Tobacco Use Types Packs/Day Years Used Date Smoking Tobacco: Never Smokeless Tobacco: Never Tobacco Cessation:Counseling Given: No Alcohol Use Standard Drinks/Week Comments No 0 (1 standard drink = 0.6 oz pur e alcohol) twice/year Sexually Active Control Partners Comments Yes Male Condom Female Sex and Gender Information Value Date Recorded Sex Assigned at Not on file Legal Sex Male 7:28 PM CDT Gender Identity Not on file Sexual Orientation Not on file Last Filed Vital Signs Vital Sign Reading Time Taken Comments Blood Pressure 126/82 01/26/2018 10:38 AM [employer] Pulse 98 01/26/2018 10:38 AM [employer] Temperature 36.4 C (97.6 F) 01/26/2018 10:38 AM [employer] Respiratory Rate 16 01/26/2018 10:38 AM [employer] Oxygen Saturation 97% 01/26/2018 10:38 AM [employer] Inhaled Oxygen Concentration - - Weight 112.9 kg (249 lb) 01/26/2018 10:38 AM [employer] Height 180.3 cm (5' 11 ) 01/26/2018 10:38 AM [employer] Body Mass Index 34.73 01/26/2018 10:38 AM [employer] Plan of Treatment Health Maintenance Due Date Last Done Comments Diabetes: Eye Exam 1982 Diabetes: Foot Exam 1982 Hepatitis C Virus (HCV) Screening 1982 TdaP Immunization 1982 Hepatitis B Immunization (1 of 3 - 19+ 3-dose series) 2001 Pneumococcal Immunization Combined (1 of 2 - PCV) 2001 Diabetes: Hemoglobin A1c 06/11/2018 12/11/2017 Diabetes: Nephropathy Screening 12/13/2018 12/13/2017, 12/12/2017, 12/11/2017, Additional history exists Influenza Immunization (#1) 10/19/202310/18, 11/02/2014, 10/12/2013, Additional history exists SARS-COV-2 Immunization ( - season) 2023 05/05/2020, 04/11/2020 Respiratory Syncytial Virus (RSV) Immunization (Adult) (1 - 1-dose 75+ series) 2057 Meningococcal Immunization (ACWY) Aged Out No longer eligible based on patient's age to complete this topic Rotavirus Immunization Aged Out No lo nger eligible based on patient's age to complete this topic Procedures Procedure Name Priority Date/Time Associated Diagnosis Comments CMP (COMPREHENSIVE METABOLIC PANEL) Routine 12/13/2017 4:56 AM CDT HEMOGLOBIN A1C W/ ESTIMATED GLUCOSE STAT 12/11/2017 4:50 AM CDT from Last 3 Months or Most Recently Relevant to Health Maintenance Results * (ABNORMAL) Comprehensive Metabolic Panel (CMP) (12/13/2017 4:56 AM CDT) SODIUM 137 136 - 144 mmol/L 12/13/2017 6:19 AM CDT [facility] POTASSIUM 4.1 3.5 - 5.1 mmol/L 12/13/2017 6:19 AM CDT [facility] CHLORIDE 102 100 - 110 mmol/L 12/13/2017 6:19 AM CDT [facility] CO2, VENOUS 26 22 - 32 mmol/L 12/13/2017 6:19 AM CDT [facility] ANION GAP 13.1 8.0 - 20.0 mmol/L 12/13/2017 6:19 AM CDT [facility] GLUCOSE 268(H) 70 - 99 mg/dL 12/13/2017 6:19 AM [facility] BUN 13 6 - 20 mg/dL 12/13/2017 6:19 AM [facility] CREATININE, BLOOD 0.40(L) 0.80 - 1.30 mg/dL 12/13/2017 6:19 AM [facility] BUN/CREATININE RATIO 33(H) 12 - 20 ratio 12/13/2017 6:19 AM [facility] TOTAL PROTEIN 5.8(L) 6.0 - 8.3 g/dL 12/13/2017 6:19 AM [facility] ALBUMIN 3.2(L) 3.5 - 5.2 g/dL 12/13/2017 6:19 AM [facility] Comment: The colormetric methods used for the determination of Albumin may lead to falsely elevated test results in patients suffering from renal failure or insufficiency due to interference with other proteins. A/G RATIO 1.2 1.0 - 2.0 12/13/2017 6:19 AM [facility] CALCIUM 8.6(L) 8.9 - 10.3 mg/dL 12/13/2017 6:19 AM [facility] T BILI 0.6 <=1.2 mg/dL 12/13/2017 6:19 AM [facility] SGOT (AST) 11 <=40 U/L 12/13/2017 6:19 AM [facility] SGPT (ALT) 14 <=41 U/L 12/13/2017 6:19 AM [facility] ALKALINE PHOSPHATASE 84 40 - 130 U/L 12/13/2017 6:19 AM [facility] GFR, EST. NONAFRICAN >60 >=60 12/13/2017 6:19 AM [facility] GFR, EST. >60 >=60 018 6:19 AM [facility] Comment: Creatinine Clearance is the preferred criteria for selecting drug dose adjustments in renally impaired patients. The GFR is provided as additional pertinent clinical information. GFR is reported in mL/min/1.73 sq m. Blood specimen (specimen) Venipuncture / Unknown 12/13/2017 4:56 AM CDT 12/13/2017 5:26 AM CDT Felicia Whitman APRN, CNP CHEMISTRY ORDERABLE S Final Result Performing Organization Address City/[facility]/ZIP Co de Phone Number [facility] [address] [place] [address] * (ABNORMAL) Hemoglobin A1C (if indicated) (12/11/2017 4:50 AM CDT) HGB-A1C 11.3(H) 4.0 - 6.0 % 12/11/2017 6:13 AM CDT [facility] Est Average Glucose 277.6 mg/dL 12/11/2017 6:13 AM CDT [facility] Blood specimen (specimen) Venipuncture / Unknown 12/11/2017 4:50 AM CDT 12/11/2017 5:47 AM CDT Narrative [facility] - 12/11/2017 6:13 AM CDT HEMOGLOBIN A1C: DIABETIC PATIENTS: WELL-CONTROLLED: 6.2 - 7.0 INTERMEDIATE WELL-CONTROLLED: 7.0 - 9.0 POORLY-CONTROLLED: >9.0 us Felicia Whitman APRN, CNP CHEMISTRY ORDERABLE S Final Result Performing Organization Address [facility] Co de Phone Number [facility] [address] [place] [address] from Last 3 Months or Most Recently Relevant to Health Maintenance Insurance [facility] Advance Directives * Full Code (Latest Code Status on File) Date Activated Date Inactivated Comments 12/10/2017 10:58 PM 12/16/2017 3:26 PM CPR-Full Treatment: FULL ARREST: Attempt Resuscitation/CPR wit intubation and mechanical ventilation. PRE-ARREST: Use entire range of life support measures to stabilize the patient. Care Teams Retail Account Representative Relationship Specialty Start Date End Date Provider, None [place] PCP - General 12/10/17
--- OUTSIDE RECORDS SUMMARY | 2024-06-09 17:18 | XMS_ITS | Encounter Summary ---
Author Organization [facility] Address [address] [place] [address] Phone Care Team Providers Care Equipment Maint Tech Name Role Phone Kala Hollingsworth Primary Care Provider [phone] Encounter Details Date Type Department Care Team (Late st Contact Info) Description 06/09/2024 Documentation Only [facility] [address] [address] Provider, MD Gerald [address] [place] [id number] Social History Tobacco Use Types Packs/Day Years Used Date Smoking Tobacco: Never Assessed Sex and Gender Information Value Date Recorded Sex Assigned at Not on file Legal Sex Male 11:37 AM EDT Gender Identity Not on file Sexual Orientation Not on file documented as of this encounter Plan of Treatment Not on file documented as of this encounter Visit Diagnoses Not on filedocumented in this encounter Care Teams Equipment Maint Tech Relationship Specialty Start Date End Date Kala Hollingsworth FNP [address] [place] [phone] PCP - General Family Medicine 06/09/24 documented as of this encounter
--- OUTSIDE RECORDS SUMMARY | 2024-06-09 17:19 | XMS_ITS | CONTINUITY OF CARE DOCUMENT ---
Author Name jarett denson Address Unknown Organization [facility] Office Address [address] [place] [address] Phone [phone] Care Team Providers Care Sales And Marketing Engineer Name Role Phone Renaldo CARVER, She Unavailable MARIA L MUHAMMAD MD Unavailable INSURANCE PROVIDERS Payer name Policy type / Coverage type [place] [employer] party ID [facility] [id number]
--- OUTSIDE RECORDS SUMMARY | 2024-06-09 17:19 | XMS_ITS | Clinical Summary ---
Author Organization [facility] Karen cao Barbara Address [address] [place] [address] Care Team Providers Care International Operations Manager Name Role Phone Amelia Torres MD Primary Care Provider + Allergies Active Allergy Reactions Criticality Noted Date Comments Latex Hives,Rash High 03/24/2023 Levomilnacipran Other (See Comments) 03/03/2024 Drops bp Metformin Diarrhea,Nausea and Vomiting Low 03/24/2023 Trazodone Nausea and Vomiting Low 03/24/2023 Valacyclovir Other (See Comments) 03/03/2024 Potassium dropped caused kidney issues/ failure according to patient Medications Eliquis 5 mg tablet Take 5 mg by mouth 2 times daily. 02/24/2024 Active Cholecalciferol, Vitamin D3, 75 mcg (3,000 unit) Tablet Take by mouth every 7 days. Active Active Problems No known active problems Encounters Date Type Department Care Team Description 05/18/2024 External Device Data STL ABSTRACTION Provider, Abstract 04/27/2024 External Device Data ST[facility] ABSTRACTION Provider, Abstract 04/27/2024 External Device Data [facility] ABSTRACTION Provider, Abstract 04/13/2024 External Device Data ST[facility] ABSTRACTION Provider, Abstract 03/30/2024 External Device Data ST[facility] ABSTRACTION Provider, Abstract 03/22/2024 11:30 AM SHIPPING CLERK/ADMIN Office Visit [facility] Oncology and Hematology - [place] [address] [address] Choco Luna MD Chronic anemia (Primary Dx); Anemia in stage 3 chronic kidney disease, unspecified whether stage 3a or 3b CKD (CMS/HCC) 03/16/2024 External Device Data STL ABSTRACTION Provider, Abstract from Last 3 Months Family History Medical History Relation Name Comments No Known Problems Brother No Known Problems Father Diabetes Maternal Grandfather Diabetes Maternal Grandmother Diabetes Mother Heart Disease Mother Ovarian Cancer Paternal Aunt Diabetes Paternal Grandfather Diabetes Paternal Grandmother Relation Name Status Comments Brother Alive Father Alive Maternal Grandfather Maternal Grandmother Mother Paternal Aunt Paternal Grandfather Paternal Grandmother Social History Tobacco Use Types Packs/Day Years Used Date Smoking Tobacco: Former Cigarettes 0.1 2 Q uit: 03/03/2009 Smokeless Tobacco: Never Tobacco Cessation:Counseling Given: Not Answered Alcohol Use Standard Drinks/Week Comments Yes 0 (1 standard drink = 0.6 oz pur e alcohol) occassionally Sex and Gender Information Value Date Recorded Sex Assigned at Not on file Legal Sex Male 1:58 PM SHIPPING CLERK/ADMIN Gender Identity Not on file Sexual Orientation Not on file Last Filed Vital Signs Vital Sign Reading Time Taken Comments Blood Pressure 182/107 03/22/2024 10:56 AM SHIPPING CLERK/ADMIN PT says he has been running high does not see hvac field service technician Pulse 85 03/22/2024 10:56 AM SHIPPING CLERK/ADMIN Temperature 36.7 C (98 F) 03/22/2024 10:56 AM SHIPPING CLERK/ADMIN Respiratory Rate 16 03/22/2024 10:5 6 AM SHIPPING CLERK/ADMIN Oxygen Saturation 97% 03/22/2024 10: 56 AM SHIPPING CLERK/ADMIN Inhaled Oxygen Concentration - - Weight 115.7 kg (255 lb) 03/22/2024 10: 56 AM SHIPPING CLERK/ADMIN Height 180.3 cm (5' 11 ) 03/03/2024 3:2 4 PM SHIPPING CLERK/ADMIN Body Mass Index 35.57 03/03/2024 3:24 PM SHIPPING CLERK/ADMIN Plan of Treatment Upcoming Encounters Date Type Department Care Team (Late st Contact Info) Description 06/10/2024 10:00 AM CDT Office Visit [facility] Oncology and Hematology - [place] [address] [place] [address] Annette Stokes MD [address] [place] [address] Health Maintenance Due Date Last Done Comments DIABETES ANNUAL FOOT EXAM 2000 DIABETES ANNUAL RETINAL EXAM 2000 DIABETES MICROALBUMIN ANNUAL SCREEN 2000 LDL CHOLESTEROL ANNUAL 2000 HEPATITIS B VACCINES (1 of 3 - 19+ 3-dose series) 2001 INFLUENZA VACCINE (#1) 2023 , 11/30/2019, 10/27/2018, Additional history exists COVID-19 Vaccine (2023- season) 2023 05/05/2020, 04/11/2020 DIABETES HBA1C Q 6 MONTHS 11/15/2023 05/15/2023, DTAP/TDAP/TD VACCINES (2 - Td or Tdap) 08/19/2033 08/20/2023 HPV VACCINES Aged Out No longer eligi ble based on patient's age to complete this topic Procedures Procedure Name Priority Date/Time Associated Diagnosis Comments CBC WITH DIFFERENTIAL Routine 03/16/2024 1:00 PM SHIPPING CLERK/ADMIN COMPREHENSIVE METABOLIC PANEL Routine 03/16/2024 1:00 PM SHIPPING CLERK/ADMIN PROTEIN ELECTROPHORESIS W/REFLEX,SERUM Routine 03/16/2024 1:00 PM SHIPPING CLERK/ADMIN Chronic anemia METHYLMALONIC ACID Routine 03/16/2024 1: 00 PM SHIPPING CLERK/ADMIN Chronic anemia TRANSFERRIN RECEPTOR TFR SOLUBLE Routine 03/16/2024 1:00 PM SHIPPING CLERK/ADMIN Chronic anemia VITAMIN B12 AND FOLATE Routine 1:00 PM SHIPPING CLERK/ADMIN Chronic anemia IRON, TIBC, AND PERCENT SATURATION Routine 03/16/2024 1:00 PM SHIPPING CLERK/ADMIN Chronic anemia FERRITIN Routine 03/16/2024 1:00 PM SHIPPING CLERK/ADMIN Chronic anemia from Last 3 Months Results * (ABNORMAL) VITAMIN B12 AND FOLATE (03/16/2024 1:00 PM SHIPPING CLERK/ADMIN) VITAMIN B12 400 200 - 1100 pg/mL [facility] FOLATE, SERUM 2.8(L) ng/mL [facility] Comment: Reference Range Low: <3.4 Borderline: 3.4-5.4 Normal: >5.4 FASTING:NO FASTING: NO Test Performed at: [facility] [address] [place] [address] Aaliyah Bejarano MD Blood 03/16/2024 1:00 PM SHIPPING CLERK/ADMIN 03/16/2024 1:04 PM SHIPPING CLERK/ADMIN Choco Luna MD CHEMISTRY ORDERABLES Final Resu lt Performing Organization Address [facility] Co de Phone Number [facility] [phone] [facility] [address] [place] [address] * TRANSFERRIN RECEPTOR TFR SOLUBLE (03/16/2024 1:00 PM SHIPPING CLERK/ADMIN) TRANSFERRIN RECEPTOR TFR SOLUBLE 1.07 0.76 - 1.76 mg/L [facility], Comment: FASTING:NO FASTING: NO Test Performed at: [facility], [address] [place] [id number] Cathy Irby MD,PhD,KRYSTAL Blood 03/16/2024 1:00 PM SHIPPING CLERK/ADMIN 03/16/2024 1:04 PM SHIPPING CLERK/ADMIN Choco Luna MD CHEMISTRY ORDERABLES Final Resu Performing Organization Address [facility] Co de Phone Number [facility] [phone] [facility], [address] [place] [address] * (ABNORMAL) METHYLMALONIC ACID (03/16/2024 1:00 PM SHIPPING CLERK/ADMIN) METHYLMALONIC ACID 1145(H) 55 - 335 nmol/L [facility] Comment: Serum methylmalonic acid (MMA) levels are used to diagnose and monitor several rare inborn errors of metabolism, including methylmalonic aciduria. The enzymatic conversion of MMA to succinic acid requires vitamin B12 (adenosyl-cobalamin) as a cofactor. Serum MMA levels are also used for assessing functional vitamin B12 deficiency. Vitamin B12 is essential for neurodevelopment, particularly early in . Undiagnosed maternal vitamin B12 deficiency may be associated with adverse / outcomes, such as neural tube defects and intrauterine growth restriction. [facility] utilized Multi-Modal Decomposition (MMD) analysis to establish first and second trimester- specific MMA reference intervals in , as given below: MMA, First trimester (<13 wks gestation): 58-167 nmol/L MMA, Second trimester (13-23 wks gestation): 63-241 nmol/L This test was developed and its analytical performance characteristics have been determined by [facility]. It has not been cleared or approved by the FDA. This assay has been validated pursuant to the CLIA regulations and is used for clinical purposes. FASTING:NO FASTING: NO Test Performed at: [facility] [address] [facility] [place] [address] José Vazquez M.D.,PhD Blood 03/16/2024 1:00 PM SHIPPING CLERK/ADMIN 03/16/2024 1:04 PM SHIPPING CLERK/ADMIN us Choco Luna MD CHEMISTRY ORDERABLES Final Resu lt [facility] [phone] [facility] [address] [facility] [place] [address] * (ABNORMAL) IRON, TIBC, AND PERCENT SATURATION (03/16/2024 1:00 PM SHIPPING CLERK/ADMIN) IRON 64 50 - 180 mcg/dL [facility] TIBC 222(L) 250 - 425 mcg/dL (calc) [facility] IRON % SATURATION 29 20 - 48 % (calc) [facility] Comment: FASTING:NO FASTING: NO Test Performed at: [facility] [address] [address] Aaliyah Bejarano MD Blood 03/16/2024 1:00 PM SHIPPING CLERK/ADMIN 03/16/2024 1:04 PM SHIPPING CLERK/ADMIN us Choco Luna MD CHEMISTRY ORDERABLES Final Resu lt [facility] [phone] [facility] [address] [address] [facility] [address] [facility] [place] [address] * (ABNORMAL) CBC WITH DIFFERENTIAL (03/16/2024 1:00 PM SHIPPING CLERK/ADMIN) WBC 4.7 3.8 - 10.8 Thousand/ uL [facility] RBC 3.21(L) 4.20 - 5.80 Million/u L [facility] HEMOGLOBIN 9.3(L) 13.2 - 17.1 g/dL [facility] HEMATOCRIT 29.2(L) 38.5 - 50.0 % [facility] MCV 91.0 80.0 - 100.0 fL [facility] MCH 29.0 27.0 - 33.0 pg [facility] MCHC 31.8(L) 32.0 - 36.0 g/dL [facility] Comment: For adults, a slight decrease in the calculated MCHC value (in the range of 30 to 32 g/dL) is most likely not clinically significant; however, it should be interpreted with caution in correlation with other red cell parameters and the patient's clinical condition. RDW 14.1 11.0 - 15.0 % [facility] PLATELETS 178 140 - 400 Thousand/ uL [facility] MPV 10.2 7.5 - 12.5 fL [facility] NEUTROPHIL ABSOLUTE 3,516 1,500 - 7,800 cells/uL [facility] LYMPHOCYTE ABSOLUTE 592(L) 850 - 3,900 cells/uL [facility] MONOCYTE ABSOLUTE 291 200 - 950 cells/uL [facility] EOSINOPHIL ABSOLUTE 259 15 - 500 cells/uL [facility] BASOPHILS ABSOLUTE 42 0 - 200 cells/uL [facility] NEUTROPHIL 74.8 % [facility] LYMPHOCYTES 12.6 % [facility] MONOCYTE 6.2 % [facility] EOSINOPHILS 5.5 % [facility] BASOPHILS 0.9 % [facility] Comment: FASTING:NO FASTING: NO Test Performed at: [facility] [place] [address] [place] [address] Aaliyah Bejarano 03/16/2024 1:00 PM SHIPPING CLERK/ADMIN 03/16/2024 1:04 PM SHIPPING CLERK/ADMIN Choco Luna MD HEMATOLOGY ORDERABLES Final Res ult Performing Organization Address City/[facility]/ZIP Code Phone Number [facility] [phone] [facility] [address] [place] [address] * (ABNORMAL) PROTEIN ELECTROPHORESIS W/REFLEX,SERUM (03/16/2024 1:00 PM SHIPPING CLERK/ADMIN) TOTAL PROTEIN 6.0(L) 6.1 - 8.1 g/dL [facility] ALBUMIN SPE 3.4(L) 3.8 - 4.8 g/dL [facility] ALPHA 1 GLOBULIN SPE 0.3 0.2 - 0.3 g/dL [facility] ALPHA 2 GLOBULIN SPE 0.6 0.5 - 0.9 g/dL [facility] Beta 1 Globulin 0.4 0.4 - 0.6 g/dL [facility] Beta 2 Globulin 0.3 0.2 - 0.5 g/dL [facility] GAMMA GLOBULIN 1.0 0.8 - 1.7 g/dL [facility] SPE INTERP [facility] Comment: Hypoalbuminemia may be seen as a result of decreased protein synthesis or protein loss. No restricted band (M-spike) seen. FASTING:NO FASTING: NO Test Performed at: [facility] [address] [place] [address] Aaliyah Bejarano MD Blood 03/16/2024 1:00 PM SHIPPING CLERK/ADMIN 03/16/2024 1:04 PM SHIPPING CLERK/ADMIN us Choco Luna MD CHEMISTRY ORDERABLES Final Resu lt Performing Organization Address City/State/ZIP Co me Phone Number [facility] [phone] [address] * FERRITIN (03/16/2024 1:00 PM SHIPPING CLERK/ADMIN) [facility] FERRITIN 166 38 - 380 ng/mL [facility] Comment: FASTING:NO FASTING: NO Test Performed at: [address] [address] Aaliyah Bejarano MD Blood 03/16/2024 1:00 PM SHIPPING CLERK/ADMIN 03/16/2024 1:04 PM SHIPPING CLERK/ADMIN Choco Luna MD CHEMISTRY ORDERABLES Final Resu lt [facility] [phone] [address] * (ABNORMAL) COMPREHENSIVE METABOLIC PANEL (03/16/2024 1:00 PM SHIPPING CLERK/ADMIN) [facility] GLUCOSE 209(H) 65 - 139 mg/dL [facility] Comment: Non-fasting reference interval BUN 44(H) 7 - 25 mg/dL [facility] CREATININE 5.44(H) 0.60 - 1.29 mg/dL [facility] GFR 13(L) > OR = 60 mL/min/1. 73m2 [facility] BUN/CREAT RATIO 8 6 - 22 (calc) [facility] SODIUM 137 135 - 146 mmol/L [facility] POTASSIUM 4.5 3.5 - 5.3 mmol/L [facility] CHLORIDE 110 98 - 110 mmol/L [facility] CO2 20 20 - 32 mmol/L [facility] CALCIUM 7.4(L) 8.6 - 10.3 mg/dL [facility] TOTAL PROTEIN 5.8(L) 6.1 - 8.1 g/dL [facility] ALBUMIN 3.6 3.6 - 5.1 g/dL [facility] GLOBULIN 2.2 1.9 - 3.7 g/dL (calc) [facility] ALBUMIN/GLOBULIN RATIO 1.6 1.0 - 2.5 (calc) [facility] BILIRUBIN TOTAL 0.6 0.2 - 1.2 mg/dL [facility] ALKALINE PHOSPHATASE 133(H) 36 - 130 U/L [facility] AST 7(L) 10 - 40 U/L [facility] ALT 8(L) 9 - 46 U/L [facility] Comment: FASTING:NO FASTING: NO Test Performed at: [place] [address] [address] Aaliyah Rosales Vo 03/16/2024 1:00 PM SHIPPING CLERK/ADMIN 03/16/2024 1:04 PM SHIPPING CLERK/ADMIN Choco Luna MD CHEMISTRY ORDERABLES Final Resu lt [facility] [phone] [place] [address] [place] [address] from Last 3 Months Insurance [facility] [employer] [facility] [place] Member Subscriber Plan / Payer (Ef fective 2023-Present) Name:Jose Roberto Maria Relation to Subscriber:Self Name:Jose Roberto Maria Payer ID:Not on file Type:O Address: [address] BLUE ACCESS/TRUE BLUE PPO Care Teams International Operations Manager Relationship Specialty Start Date End Date Amelia Torres MD [address] [place] [address] [place] [address] PCP - General Family Practice 03/05/24
--- OUTSIDE RECORDS SUMMARY | 2024-06-09 17:19 | XMS_ITS | Data Portability ---
Author Organization [facility], Main Office Address [address] [place] [address] Assessment Encounter Date Assessment Date Assessment LastModified by Organization Details LastModified Time 01/13/2024 01/13/2024 I have reconciled the patient's medications post their discharge from inpatient facility. [email or web address] Not available 01/13/2024 16:43:20 01/27/2024 01/27/2024 Following up with nephrology on 02/18/2023. Following up with forex trader on 02/28/2023 Following up with prosthetic clinic on 01/29/2024 I have reconciled the patient's medications post their discharge from inpatient facility. [email or web address] Not available 01/27/2024 11:45:31 Plan of Treatment Reminders Order Date Submit Date Provider Last Modified By Organization Details Last Modified Time Details Appointments Any 5 2024 09:30A M RAND Acosta Not available Not available Not available Lab CBC w/ auto diff 2023 024 [facility] (Lab), [address] [place], [address], 01/28/2024 04:52:43 renal function panel, serum [address] (Lab), [address] [place], [address], 02/03/2024 08:00:51 hepatitis panel (A+B+C), acute, serum [address] (Lab), [address] [place], [address], 01/20/2024 08:16:46 CMP, serum or plasma 2023 [facility] (Lab), [address] [place], [address], 01/14/2024 14:39:20 CBC w/ auto diff 2023 [facility] (Lab), [address] [place], [address], 01/14/2024 14:39:19 Referral hand surgeon referral - Please call patient to schedule an appointme nt. Thank you. 2024 PEPPER Dumont MD, [address] [facility] [address], [place], [address], 06/02/2024 19:05:17 nephrolog ist referral 2023 WILLIE Min MD, [address], [place], [address], 01/23/2024 10:34:41 Procedures None recorded. Surgeries None recorded. Imaging XR, ankle, 3 or more view 2024 [email or web address] [facility] (Radiology), [address] [place], [address], 06/02/2024 17:12:17 US, duplex, venous, upper extremity , unilatera l 2023 [facility] (Imaging), [address], [place], [address], 01/13/2024 18:36:36 Medication Orders triamcino lone acetonide 0.1 % topical cream 2024 [facility], [address] [facility], [place], [address], 06/02/2024 16:54:33 losartan 50 mg-hydroc hlorothia zide 12.5 mg tablet 2024 025 [facility], [address] [place] [address], [address], 06/02/2024 16:54:32 losartan 50 mg tablet 2024 025 [facility], [address] [place] [address], [address], 06/02/2024 16:51:08 gabapenti n 300 mg capsule 2024 [facility], [address] [place] [address], [address], 04/23/2024 11:10:43 mupirocin 2 % topical ointment 2024 [place] [address], [address] [place] [address], [address], 04/23/2024 11:10:42 losartan 50 mg tablet 2024 025 [facility] [address], [address] [place] [address], [address], 06/02/2024 16:51:08 Patient TargetsNo targets recorded. Patient Instructions Encounter Date Encounter Id Patient Instructions Last Modified By Organization Details Last Modified Time 01/13/2024 [id number] Thank you for your visit to our office today. We would like to request that you reach out to your referring or previous provider and request that they send us a Summary of Care in electronic form, so that we may have it on file in your medical record. At your visit, we had the medical records we needed to provide you with the best possible care; however, for insurance purposes, an electronic Summary of Care is beneficial. Thank you for your assistance in obtaining this information and we look forward to providing continued care to you. Please review your medication list from the Summary of Care for this visit. If there are any differences from what you are currently taking at home, please call us to discuss. Thank you for your visit to our office today. We would like to request that you reach out to your referring or previous provider and request that they send us a Summary of Care in electronic form, so that we may have it on file in your medical record. At your visit, we had the medical records we needed to provide you with the best possible care; however, for insurance purposes, an electronic Summary of Care is beneficial. Thank you for your assistance in obtaining this information and we look forward to providing continued care to you. Please review your medication list from the Summary of Care for this visit. If there are any differences from what you are currently taking at home, please call us to discuss. [email or web address] Not available 01/13/2024 16:43:20 Homebound Status : {{Patient has an inability to leave the home without a taxing effort and assistance from another person Does not meet homebound status*}} Required Home Health Services: {{none* prison, physical therapy, occupational therapy prison, physical therapy prison}} Durable Medical Equipment needed: {{cane walker wal ker with seat manual wheelchair bedsid e commode oxygen}} Billing Guidelines CPT code 81360- Transitional Care Management services with moderate medical decision complexity (dsgz-ts-ezau visit within 14 days of discharge). CPT code 17054- Transitional Care Management services with high medical decision complexity (yyuj-jk-oqtl visit within 7 days of discharge). [email or web address] Not available 01/13/2024 17:24:42 01/27/2024 [id number] Thank you for your visit to our office today. We would like to request that you reach out to your referring or previous provider and request that they send us a Summary of Care in electronic form, so that we may have it on file in your medical record. At your visit, we had the medical records we needed to provide you with the best possible care; however, for insurance purposes, an electronic Summary of Care is beneficial. Thank you for your assistance in obtaining this information and we look forward to providing continued care to you. Please review your medication list from the Summary of Care for this visit. If there are any differences from what you are currently taking at home, please call us to discuss. [email or web address] Not available 01/27/2024 11:45:31 Homebound Status : {{Patient has an inability to leave the home without a taxing effort and assistance from another person Does not meet homebound status*}} Required Home Health Services: {{none* prison, physical therapy, occupational therapy prison, physical therapy prison}} Durable Medical Equipment needed: {{cane walker wal ker with seat manual wheelchair bedsid e commode oxygen}} Billing Guidelines CPT code 48700- Transitional Care Management services with moderate medical decision complexity (fbnf-zc-ybmn visit within 14 days of discharge). CPT code 81516- Transitional Care Management services with high medical decision complexity (nury-zu-fugh visit within 7 days of discharge). [facility] Not available 01/27/2024 11:47:21 Reason for Referral [employer] Referral for Ch ronic kidney disease stage 4 Referring Physician: Family Heidi Edgar, Encounter Date: 01/13/2024 Hand Surgeon Referral for Ac quired trigger finger Please call patient to schedule an appointment. Thank you. Referring Physician: Family Heidi Edgar, Encounter Date: 06/02/2024 Results Created Date Observation Date Name Description Value Unit Range Abnormal Flag Note LastModifiedBy Organization Detail LastModifiedTime 12/30/19 24 12/30/2023 glyco hemog lobin , total , blood No observ ation record ed. [address], [address], 01/22/2024 08:15:50 12/30/19 24 12/30/2023 XR, chest , 2 view No observ ation record ed. [address], [address], 01/06/2024 10:44:38 12/31/19 24 12/31/2023 XR, chest , 2 view No observ ation record ed. [address], [address], 01/06/2024 10:44:25 01/03/20 24 01/02/2024 XR, chest No observ ation record ed. [address], [address], 01/06/2024 12:04:41 01/04/20 24 01/03/2024 US, kidne y No observ ation record ed. [address], [place], [address], 01/06/2024 12:07:12 01/13/20 24 01/13/2024 US, nenole x, venou s, upper extre mity, unila teral No observ ation record ed. [address], [place], [address], 01/14/2024 08:17:20 01/14/20 24 01/14/2024 US, anish x, venou s, upper extre mity, unila teral No observ ation record ed. [address], [place], [address], 01/15/2024 00:54:34 01/23/20 24 01/14/2024 US, doppl er echoc ardio gram No observ ation record ed. [email or web address] Not Available 2023 10:28:20 Result Notes None recorded. Problems Name Problem SNOMED Code Status Onset Date Resolution Date Notes Provider Name and Address Organization Details Recorded Time Acute bronchiti s 88229320 Completed 08/20/2023 ABDIRIZAK Edgar [address], [place], [address] , [email or web address] 4 08:26:15 Celluliti s 801466959 Completed 08/20/2023 ABDIRIZAK Edgar [address], [address], [place], [address] , [email or web address] 4 08:26:19 Abscess 633255571 Completed 08/20/2023 ABDIRIZAK Edgar [address], [address], [place], [address] , [email or web address] 4 08:25:49 Screening - NAD 494195493 Completed 08/20/2023 ABDIRIZAK Edgar [address], [address], [place], [address] , [employer] 4 08:26:56 Asthma 104418060 Active Not Available [facility] 3 15:45:11 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 1397392 Completed 12/11/2023 ABDIRIZAK Edgar [address], [address], [place], [address] , [employer] 4 14:15:57 Gastroeso phageal reflux disease 923065013 Active Not Available [facility] 3 15:45:12 Bilateral hilar adenopath y 131459336 Completed 12/11/2023 ABDIRIZAK Edgar [address], [address], [place], [address] , [employer] 4 14:16:47 Abrasion of skin of lower limb 747833131 Completed 08/20/2023 ABDIRIZAK Edgar [address], [address], [place], [address] , [employer] 4 08:25:46 Type 2 diabetes mellitus without complicat ion 151980828 Active Not Available [facility] 3 15:45:12 Restless legs 89046345 Active Not Available [facility] 3 15:45:12 Vitamin D deficienc y 57982801 Active Not Available [facility] 3 15:45:12 Motion sickness 99051398 Completed 12/11/2023 ABDIRIZAK Edgar [address], [place], [address] , [employer] 4 14:16:54 Dyslipide yordan 288353015 Active 2018 Not Available [employer] 3 15:45:12 Paronychi a of toe 262033768 Completed 202008/20/2023 ABDIRIZAK Edgar [address], [place], [address] , [employer] 4 08:26:52 Essential hypertens ion 90136677 Active Not Available [facility] 3 15:45:13 Rheumatoi d arthritis 27196195 Active 2018 Not Available [facility] 3 15:45:13 Muscular dystrophy 42710360 Active 2018 Not Available [facility] 3 15:45:13 Onycholys is 27345043 Completed 202012/11/2023 ABDIRIZAK Edgar [address], [place], [address] , [employer] 4 14:15:39 Edema of lower extremity 872281573 Completed 202208/20/2023 ABDIRIZAK Edgar [address], [place], [address] , [employer] 4 08:26:38 Pain of right knee joint 79949954407 4100 Completed 202212/11/2023 ABDIRIZAK Edgar [address], [place], [address] , [employer] 4 14:15:32 Erectile dysfuncti on 917900241 Active 2022 SAUD Abdalla [address], [place], [address] , [employer] 3 11:40:35 Swelling of bilateral lower limbs 165409064 Completed 202208/20/2023 ABDIRIZAK Edgar [address], [place], [address] , [employer] [facility] 4 08:27:03 Chronic constipat ion 345607854 Active 2022 Amelia Torres MD [address], [place], [address] , [facility] 3 17:26:38 Ulcer of right foot due to type 2 diabetes mellitus 21422315353 603009 Completed 202208/20/2023 ABDIRIZAK Edgar [address], [place], [address] , [facility] 4 08:27:21 Osteomyel itis of left foot 68551067085 27196 Completed 202312/11/2023 ABDIRIZAK Edgar [address], [place], [address] , [facility] 4 14:16:24 Osteomyel itis of right foot 96665943175 72267 Completed 202308/20/2023 ABDIRIZAK Edgar [address], [place], [address] , [facility] 4 08:26:45 Periphera l vascular disease 289571392 Active 2023 Amelia Torres MD [address], [place], [address] , [facility] 4 12:50:44 Celluliti s of skin 288693979 Completed 202308/20/2023 ABDIRIZAK Edgar [address], [place], [address] , [facility] 4 08:26:31 Celluliti s of right lower limb 59401642532 849054 Completed 202308/20/2023 ABDIRIZAK Edgar [address], [place], [address] , [facility] 4 08:26:22 Hyperlipi demia 29832160 Active 2023 ABDIRIZAK Edgar [address], [place], [address] , [facility] 4 09:34:13 Type 2 diabetes mellitus 83636804 Completed 202312/11/2023 ABDIRIZAK Edgar [address], [place], [address] , [facility] 4 14:15:49 Amputated below knee 930017452 Active 2023 ABDIRIZAK Edgar [address], [place], [address] , [facility] 4 15:56:55 Fatigue 45185812 Active 2023 ABDIRIZAK Edgar [address], [place], [address] , [facility] 4 14:18:25 Sleep apnea 82465492 Active 2023 ABDIRIZAK Edgar [address], [place], [address] , [facility] 4 14:19:23 Herpes simplex 09596831 Active 2023 ABDIRIZAK Edgar [address], [place], [address] , [facility] 4 14:22:57 Gastropar esis syndrome 394986807 Active 2023 ABDIRIZAK Edgar [address], [place], [address] , [facility] 4 14:24:04 Normocyti c normochro hayley anemia 89715403 Active 2023 ABDIRIZAK Edgar [address], [place], [address] , [facility] 4 09:01:49 Lesion of skin of face 09592788371 6 Active 2023 ABDIRIZAK Edgar [address], [place], [address] , [facility] 4 16:27:52 Chronic kidney disease stage 4 849784271 Completed 202301/27/2024 ABDIRIZAK Edgar [address], [place], [address] , [facility] 4 11:49:15 Pain in left arm 947319000 Active [address], [place], [address] , [facility] 4 16:53:21 Jaundice 47053174 Active 2023 ABDIRIZAK Edgar [address], [place], [address] , [facility] 4 16:54:37 Anemia 601459598 Active [address], [place], [address] , [facility] 4 16:55:06 Chronic kidney disease stage 5 186621931 Active 2023 ABDIRIZAK Edgar [address], [place], [address] , [facility] 4 11:49:23 Folliculi tis 21692222 Active 2024 ABDIRIZAK Edgar [address], [place], [address] , [facility] 5 10:57:50 Eruption 119556461 Active 2024 ABDIRIZAK Edgar [address], [place], [address] , [facility] 5 16:47:06 Acquired trigger finger 6727970 Active 2024 ABDIRIZAK Edgar [address], [place], [address] , [employer] 16:48:45 Pain of left ankle joint 31215316868 602930 Active 2024 ABDIRIZAK Edgar [address], [place], [address] , [email or web address] 16:52:06 Problem Notes None recorded. Procedures Surgical History Date Name Laterality Status Provider Name and Address Organization Details Recorded Time 01/27/2024 Transition al_Care_Ma nagement completed ABDIRIZAK Edgar [address], [address], [place], [address], [email or web address] 01/27/2024 11:46:09 01/13/2024 Transition al_Care_Ma nagement completed ABDIRIZAK Edgar [address], [place], [address], [employer] 01/13/2024 17:24:28 Imaging Results Imaging Date Name Status LastModified by Organization Details LastModified Time 12/30/2023 glycohemoglobin, total, blood completed [address], [address], 01/22/2024 08:15:50 12/30/2023 XR, chest, 2 view completed [address], [address], 01/06/2024 10:44:38 12/31/2023 XR, chest, 2 view completed [address], [address], 01/06/2024 10:44:25 01/02/2024 XR, chest completed [address], [address], 01/06/2024 12:04:41 01/03/2024 US, kidney completed [address] [place], [address], 01/06/2024 12:07:12 01/13/2024 US, duplex, venous, upper extremity, unilateral completed [place] [address] [facility] [address], [place], [address], 01/14/2024 08:17:20 01/14/2024 US, duplex, venous, upper extremity, unilateral completed [place] [address] [facility] [address], [place], [address], 01/15/2024 00:54:34 01/14/2024 US, doppler echocardiogram completed [email or web address] Information not available 01/23/2024 10:28:20 Procedure Notes None recorded. Medical Equipment None Reported. Allergies Allergen ID Allergen Name Allergen Category Reaction Reaction Severity Criticality Documentation Date Start Date Code Code System Note Provider Name and Address Organization Details Recorded Time 07616 trazodone medicatio n Not available Not available Not available 04/17/2022 12609 RxNorm Not Available [facility] 3 15:46:33 55000 NovoLog Mix medicatio n Not available Not available Not available 04/17/2022 94792 41 RxNorm Not Available [facility] 3 15:46:33 48768 metformin medicatio n nausea vomiting Not available Not available Not available 04/17/2022 6809 RxNorm Not Available [facility] 3 15:46:33 88319 Levemir medicatio n Not available Not available Not available 04/17/2022 78334 0 RxNorm Not Available [facility] 3 15:46:33 19231 latex environme nt,medica tion other rash Not available Not available Not available 04/17/2022 82436 91 RxNorm Not Available [facility] 3 15:46:34 37491 Valtrex medicatio n Not available Not available [facility] 01/13/2024 36475 0 RxNorm Christina Ruelas RN null, [place] [facility] [employer] [facility] 4 16:33:19 Medications Name Sig Start Date Stop Date Status Note LastModified by Organization Details LastModified Time losartan 50 mg tablet TAKE 1 TABLET BY MOUTH ONCE DAILY DIRECTED 06/02 completed Not Available Not Available Not Available Humalog Mix 75-25 (U-100) Insulin 100 unit/mL subcutane ous suspensio n INJECT 20 TO 40 UNITS BID BEFORE MEALS 11/29 completed Not Available Not Available Not Available doxycycli ne hyclate 100 mg capsule TK ONE C PO Q 12 H 06/03 completed Not Available Not Available Not Available ropinirol e 1 mg tablet TK 1 T PO D 12/18 completed Not Available Not Available Not Available ipratropi um 0.5 mg-albute rol 3 mg (2.5 mg base)/3 mL nebulizat ion soln one every six hours as needed 08/05 completed Not Available Not Available Not Available clindamyc in HCl 300 mg capsule TAKE 1 CAPSULE BY MOUTH EVERY 8 HOURS FOR 10 DAYS 02/04 completed Not Available Not Available Not Available atorvasta tin 10 mg tablet TAKE 1 TABLET BY MOUTH ONCE DAILY 02/19 completed Not Available Not Available Not Available azithromy boom 250 mg tablet TK 2 TS PO AT ONCE TODAY THEN TK 1 T PO ONCE D FOR 4 DAYS active Not Available Not Available No t Available fluconazo le 150 mg tablet TK 1 T PO AFTER 1 WEEK OF ANTIBIOT ICS. REPEAT ONCE WHEN ANTIBIOT ICS ARE COMPLETE D. active Not Available Not Available No t Available metoprolo l succinate ER 50 mg tablet,ex tended release 24 hr TAKE 1 TABLET BY MOUTH EVERY DAY active Not Available Not Available No t Available valacyclo vir 1 gram tablet TAKE 1 TABLET BY MOUTH EVERY 12 HOURS DIRECTED FOR 7 DAYS 01/12 completed Not Available Not Available Not Available cephalexi n 250 mg capsule 02/19 completed Not Available Not Available Not Available hydrocodo ne 5 mg-acetam inophen 325 mg tablet TAKE 1 TABLET BY MOUTH EVERY 4 HOURS NEEDED FOR MODERATE PAIN 06/17 completed Not Available Not Available Not Available cefepime 2 gram solution for injection 06/17 completed Not Available Not Available Not Available prednison e 20 mg tablet TAKE 2 TABLETS BY MOUTH ONCE DAILY FOR 4 DAYS THEN 1 TABLET ONCE DAILY FOR 4 DAYS 02/04 completed Not Available Not Available Not Available Lantus U-100 Insulin 100 unit/mL subcutane ous solution INJECT 60 UNITS HS 11/29 completed Not Available Not Available Not Available clindamyc in HCl 150 mg capsule TK 1 C PO Q 6 H active Not Available Not Available No t Available acetamino phen 300 mg-codein e 30 mg tablet TAKE 1 OR 2 TABLETS BY MOUTH EVERY 4 TO 6 HOURS NEEDED FOR PAIN 12/18 completed Not Available Not Available Not Available clopidogr el 75 mg tablet Take 1 tablet every day by oral route. 02/19 completed Not Available Not Available Not Available insulin syringe U-100 with needle 1 mL 29 gauge x 7/16 USE TO INJECT INSULIN 5 TIMES PER DAY 06/03 completed Not Available Not Available Not Available ciproflox acin 500 mg tablet TK 1 T PO Q 12 H. DONT TAKE WITH ANTACIDS 12/14 completed Not Available Not Available Not Available sulfameth oxazole 800 mg-trimet hoprim 160 mg tablet TK 1 T PO Q 12 H FOR 10 DAYS. 09/26 completed Not Available Not Available Not Available vancomyci n 1,000 mg intraveno us injection 06/17 completed Not Available Not Available Not Available triamcino lone acetonide 0.1 % topical cream APPLY A THIN LAYER TO THE AFFECTED AREA(S) BY TOPICAL ROUTE 2 TIMES PER DAY 2024 active Not Available Not Available Not Avai lable Tylenol Arthritis Ext Relief 650 mg tablet,ex tended release Take 1 tablet every 4 hours by oral route as needed for 30 days. 12/25 completed Not Available Not Available Not Available Acetamino phen-Code ine #3 300 mg-30 mg tablet 12/18 completed [facility] Not Available Not Available Not Available oxycodone -acetamin ophen 5 mg-325 mg tablet 12/18 completed Not Available Not Available Not Available Guaiatuss in AC 10 mg-100 mg/5 mL oral liquid TK 10 ML PO Q 6 H PRF COUGH active Not Available Not Available No t Available ranitidin e 75 mg tablet Take 1 tablet twice a day by oral route. 06/03 completed Not Available Not Available Not Available Humalog U-100 Insulin 100 unit/mL subcutane ous solution INJECT 20 UNITS SC BID UTD 07/30 completed Not Available Not Available Not Available meclizine 25 mg tablet TK 1 T PO TID active Not Available Not Available No t Available amlodipin e 10 mg tablet Take 1 tablet by mouth once daily 04/23 completed Not Available Not Available Not Available hydrocodo ne 7.5 mg-acetam inophen 325 mg tablet TK 1 TO 2 TS PO Q 4 TO 6 H PRN P active Not Available Not Available No t Available cephalexi n 500 mg capsule TAKE 1 CAPSULE BY MOUTH 4 TIMES DAILY FOR 25 DAYS 06/17 completed Not Available Not Available Not Available ranitidin e 150 mg tablet TK ONE T PO QD 12/18 completed Not Available Not Available Not Available glimepiri de 4 mg tablet take 1 tab once daily 09/26 completed Not Available Not Available Not Available nystatin- triamcino lone 100,000 unit/g-0. 1 % topical cream ANTOINETTE BID PRN 06/03 completed Not Available Not Available Not Available gabapenti n 300 mg capsule TAKE 1 TO 2 CAPSULES BY MOUTH ONCE DAILY AT BEDTIME NEEDED active Not Available Not Available No t Available insulin syringe U-100 with needle 1 mL 31 gauge x 5/16 USE BID 09/26 completed Not Available Not Available Not Available hydrochlo rothiazid e 25 mg tablet TAKE 1 TABLET BY MOUTH ONCE DAILY 02/19 completed Not Available Not Available Not Available mupirocin 2 % topical ointment APPLY SMALL AMOUNT TO THE AFFECTED AREA TOPICALL Y 3 TIMES DAILY active Not Available Not Available No t Available furosemid e 20 mg tablet TAKE 1 TABLET BY MOUTH ONCE DAILY FOR 5 DAYS 02/04 completed Not Available Not Available Not Available metoprolo l succinate ER 25 mg tablet,ex tended release 24 hr TAKE 1 TABLET BY MOUTH ONCE DAILY DIRECTED FOR 90 DAYS 02/19 completed Not Available Not Available Not Available ergocalci ferol (vitamin D2) 1,250 mcg (50,000 unit) capsule Take 1 capsule by mouth once a week 2024 active Not Available Not Available Not Avai lable polyethyl isrrael glycol 3350 17 gram/dose oral powder 1 capful in liquid daily prn 08/05 completed Not Available Not Available Not Available albuterol sulfate HFA 90 mcg/actua tion aerosol inhaler INHALE 2 PUFFS BY MOUTH EVERY 4 HOURS 10/28 completed Not Available Not Available Not Available losartan 50 mg-hydroc hlorothia zide 12.5 mg tablet Take 1 tablet every day by oral route as directed for 30 days. 2024 active Not Available Not Available Not Avai lable ondansetr on 4 mg disintegr ating tablet 02/19 completed Not Available Not Available Not Available losartan 100 mg tablet TAKE 1 TABLET BY MOUTH ONCE DAILY 02/19 completed Not Available Not Available Not Available doxycycli ne hyclate 100 mg tablet 02/19 completed Not Available Not Available Not Available insulin syringe U-100 with needle 0.5 mL 31 gauge x 07/02 INJECT UP TO FIVE TIMES DAILY 01/12 completed Not Available Not Available Not Available naproxen 500 mg tablet TAKE 1 TABLET BY MOUTH TWICE DAILY 12/25 completed Not Available Not Available Not Available amoxicill in 875 mg-potass ium clavulana te 125 mg tablet TK 1 T PO BID 12/14 completed Not Available Not Available Not Available oxycodone 5 mg tablet Take 1 tablet every 4 hours by oral route. 08/05 completed Not Available Not Available Not Available Tylenol-C odeine No.3 300 mg-30 mg tablet Take 1 tablet every 8 hours by oral route as needed for 30 days. 06/03 completed Not Available Not Available Not Available BD Ultra-Fin e Mini Pen Needle 31 gauge x 3/16 02/19 completed Not Available Not Available Not Available aspirin Take 1 tablet by mouth daily 10/28 completed Not Available Not Available Not Available amoxicill in 03/18 completed Not Available Not Available Not Available doxycycli ne hyclate 03/18 completed Not Available Not Available Not Available multivita min once daily 12/25 completed Not Available Not Available Not Available Januvia 100 mg tablet Take 1 tablet every day by oral route for 90 days. active Not Available Not Available No t Available hydrochlo rothiazid e 12.5 mg tablet Take 1 tablet every day by oral route. 04/23 completed Not Available Not Available Not Available Symbicort 160 mcg-4.5 mcg/actua tion HFA aerosol inhaler Inhale 2 puffs twice a day by inhalati on route for 30 days. 12/18 completed Not Available Not Available Not Available FreeStyle Lite Strips TEST QID 02/19 completed Not Available Not Available Not Available FeroSul 325 mg (65 mg iron) tablet Take 1 tablet every day by oral route as directed for 90 days. 02/19 completed Not Available Not Available Not Available Lantus Solostar U-100 Insulin 100 unit/mL (3 mL) subcutane ous pen INJECT 50 units qhs 03/18 completed Not Available Not Available Not Available FreeStyle [place] Lite kit FPD 02/19 completed Not Available Not Available Not Available Tradjenta 5 mg tablet TAKE 1 TABLET BY MOUTH ONCE DAILY 02/19 completed Not Available Not Available Not Available Eliquis 5 mg tablet BID active Not Available Not Available No t Available Fluvirin 6557-3663 45 mcg (15 mcg x 3)/0.5 mL intramusc ular suspensio n ADM 0.5ML UTD 06/03 completed Not Available Not Available Not Available Fluvirin 4911-6703 45 mcg (15 mcg x 3)/0.5 mL intramusc ular suspensio n INJECT 0.5 ML INTRAMUS CULARLY DIRECTED . active Not Available Not Available No t Available Trulicity 1.5 mg/0.5 mL subcutane ous pen injector INJECT 1 SYRINGE SUBCUTAN EOUSLY ONCE A WEEK 05/27 completed Not Available Not Available Not Available Trulicity 0.75 mg/0.5 mL subcutane ous pen injector INJECT 1 SYRINGE SUBCUTAN EOUSLY ONCE A WEEK 04/23 completed Not Available Not Available Not Available Toujeo SoloStar U-300 Insulin 300 unit/mL (1.5 mL) subcutane ous pen Inject 60 units every day by subcutan eous route. 12/12 completed Not Available Not Available Not Available Fluarix Quad (PF) 60 mcg (15 mcg x 4)/0.5 mL IM syringe ADM 0.5ML IM UTD 12/18 completed Not Available Not Available Not Available Rybelsus 7 mg tablet TAKE 1 TABLET BY MOUTH ONCE DAILY DIRECTED 02/19 completed Not Available Not Available Not Available ID NOW COVID-19 Test Kit TEST DIRECTED TODAY 12/18 completed Not Available Not Available Not Available Mounjaro 7.5 mg/0.5 mL subcutane ous pen injector Inject 0.5 mL every week by subcutan eous route as directed for 28 days. 12/10 completed Not Available Not Available Not Available Mounjaro 5 mg/0.5 mL subcutane ous pen injector INJECT 1/2 (ONE-SAPNA F) ML SUBCUTAN EOUSLY ONCE A WEEK 05/27 completed Not Available Not Available Not Available Mounjaro 10 mg/0.5 mL subcutane ous pen injector 0.5 ml sc qweek 10/28 completed Not Available Not Available Not Available Mounjaro 2.5 mg/0.5 mL subcutane ous pen injector 2023 active Not Available Not Available Not Avai lable Vitals Date Recorded Body height Body mass index (BMI) Body weight Body temperature Heart rate Respiratory rate Oxygen saturation Oxygen saturation in Arterial blood by Pulse oximetry Pain severity - 0-10 verbal numeric rating [Score] - Reported Systolic blood pressure Diastolic blood pressure Provider Name and Address Organization Details Last Updated DateTime 4 180.34 cm 37.8 kg/m2 178865. 53 g 97.5 [degF] 86 /min 20 /min 99 % 99 % 0 170 mm[Hg] 102 mm[Hg] PURA Galaviz [facility] [employer] [facility] 4 16:37:35 Date Recorded Body height Body mass index (BMI) Body weight Body temperature Heart rate Respiratory rate Oxygen saturation Oxygen saturation in Arterial blood by Pulse oximetry Pain severity - 0-10 verbal numeric rating [Score] - Reported Systolic blood pressure Diastolic blood pressure Provider Name and Address Organization Details Last Updated DateTime 4 180.34 cm 36 kg/m2 689369. 28 g 97.3 [degF] 114 /min 20 /min 98 % 98 % 0 170 mm[Hg] 94 mm[Hg] PURA Galaviz [facility] [employer] [facility] 4 11:23:31 Date Recorded Body height Body mass index (BMI) Body weight Body temperature Heart rate Respiratory rate Oxygen saturation Oxygen saturation in Arterial blood by Pulse oximetry Pain severity - 0-10 verbal numeric rating [Score] - Reported Systolic blood pressure Diastolic blood pressure Provider Name and Address Organization Details Last Updated DateTime 5 180.34 cm 37.2 kg/m2 565759. 51 g 97.9 [degF] 89 /min 24 /min 99 % 99 % 0 168 mm[Hg] 92 mm[Hg] Christina Ruelas RN [facility] [employer] 5 09:54:57 Date Recorded Body height Body mass index (BMI) Body weight Body temperature Heart rate Respiratory rate Oxygen saturation Oxygen saturation in Arterial blood by Pulse oximetry Pain severity - 0-10 verbal numeric rating [Score] - Reported Systolic blood pressure Diastolic blood pressure Provider Name and Address Organization Details Last Updated DateTime 5 180.34 cm 34.2 kg/m2 780254. 93 g 97.4 [degF] 88 /min 24 /min 99 % 99 % 4 186 mm[Hg] 110 mm[Hg] Christina Ruelas RN [facility] [employer] 5 10:36:39 Date Recorded Body height Body mass index (BMI) Body weight Body temperature Heart rate Oxygen saturation Oxygen saturation in Arterial blood by Pulse oximetry Systolic blood pressure Diastolic blood pressure Provider Name and Address Organization Details Last Updated DateTime 5 180.34 cm 34.9 kg/m2 955510. 09 g 98.6 [degF] 92 /min 98 % 98 % 178 mm[Hg] 96 mm[Hg] Chari William CNA [place] [employer] [facility] [employer] 5 16:42:07 Social History Question Answer Notes LastModified by Organization Details LastModified Time Tobacco Smoking Status Former Smoker Steph carr [employer] [facility] 03/18/2023 12:19:52 Do You Have An Advance Directive? No Information not available 08/06/2023 What Is Your Level Of Alcohol Consumption? Occasional [id number] Information not available 04/17/2022 Is Blood Transfusion Acceptable In An Emergency? Yes Information not available 08/06/2023 What Is Your Level Of Caffeine Consumption? Moderate [id number] Information not available 04/17/2022 How Much Tobacco Do You Chew? None [id number] Information not available 04/17/2022 What Is Your Code Status? Full Code Information not available 08/06/2023 In The 14 Days Before Symptom Onset, Have You Had Close Contact With A Laboratory-conf irmed COVID-19 While That Case Was Ill? No [email or web address] Information not available 03/18/2023 In The 14 Days Before Symptom Onset, Have You Had Close Contact With A Person Who Is Under Investigation For COVID-19 While That Person Was Ill? No [email or web address] Information not available 03/18/2023 Are You Currently Employed? Yes Information not available 08/20/2023 What Type Of Diet Are You Following? REGULAR [id number] Information not available 04/17/2022 Which Illicit Or Recreational Drugs Have You Used? No Information not available 03/18/2023 Do You Or Have You Ever Used E-cigarettes Or Vape? Never Used Electronic Cigarettes Information not available 03/18/2023 Have There Been Any Changes To Your Family Or Social Situation? Yes Right BKA, Money Information not available 08/06/2023 Are There Any Guns Present In Your Home? No [email or web address] Information not available 03/18/2023 Do You Use Insect Repellent Routinely? No Information not available 08/06/2023 Where Do You Live? SingleLevelHouse Information not available 08/06/2023 Do You Have A Medical Power Of Geothermal Field Technician? No Information not available 08/06/2023 How Many Children Do You Have? 1 Information not available 08/06/2023 Do You Have Any Pets? Yes Information not available 08/06/2023 What Is Your Relationship Status? Information not available 08/06/2023 Do You Use Your Seat Belt Or Car Seat Routinely? Yes Sometimes Information not available 08/06/2023 Do You Have Smoke And Carbon Monoxide Detectors In Your Home? Yes Information not available 08/06/2023 At What Age Did You Start Smoking Tobacco? 27 Information not available 03/18/2023 Are You Passively Exposed To Smoke? Yes Information not available 03/18/2023 Do You Or Have You Ever Used Smokeless Tobacco? Never Used Smokeless Tobacco [id number] Information not available 04/17/2022 Are There Any Smokers In Your House? Yes Information not available 08/06/2023 How Much Tobacco Do You Smoke? 1 PPW [id number] Information not available 04/17/2022 Do You Participate In Social Media? Yes Information not available 08/06/2023 Do You Feel Stressed (tense, Restless, Nervous, Or Anxious, Or Unable To Sleep At Night)? [id number] Information not available 08/06/2023 Do You Use Any Illicit Or Recreational Drugs? No [email or web address] Information not available 03/18/2023 How Many Years Have You Smoked Tobacco? 10 [email or web address] Information not available 03/18/2023 Have You Recently Traveled Abroad? No Information not available 08/06/2023 Sex: Unknown Functional Status Question Answer Note LastModified by [email or web address] ion Details LastModified Time What is your exercise level? Occasional [id number] Information not available 04/17/2022 Mental Status None recorded. Family History Relationship Description Onset Age of this Age Resolved Age Notes LastModified by Organization Details LastModified Time Paternal Grandmother Diabetes mellitus [id number] Not available 04/17/2022 15:44:14 Paternal Grandmother Hypertensive disorder [id number] Not available 04/17/2022 15:44:14 Paternal Grandfather Diabetes mellitus [id number] Not available 04/17/2022 15:44:14 Paternal Grandfather Hypertensive disorder [id number] Not available 04/17/2022 15:44:14 Mother Diabetes mellitus [id number] [id number] Not available 04/17/2022 15:44:14 Mother Hypertensive disorder [id number] Not available 04/17/2022 15:44:14 Mother Family history of malignant neoplasm [email or web address] Not available 2024 16:28:29 Medical History Condition Response ARTHRITIS Y DIABETES, TYPE Y KIDNEY DISEASE Y OTHER # 1 Y INSOMNIA Y HYPERTENSION Y HIGH CHOLESTEROL / HYPERLIPIDEMIA Y ANXIETY DISORDER Y BLOOD CLOTS Y BACK / NECK PROBLEMS Y HAVE YOU BEEN HOSPITALIZED OR SEEN IN [facility] ER IN THE PAST YEAR ? Y Immunizations Vaccine Type Date Status Note Provider [facility] e and Address Organization Details Recorded Time COVID-19, mRNA, LNP-S, PF, 30 mcg/0.3 mL dose [address], [place], [address], [employer] [facility] [employer] [facility] 08/20/2023 09:39:09 COVID-19, mRNA, LNP-S, PF, 30 mcg/0.3 mL dose 1 [address], [place], [address], [employer] [facility] [employer] [facility] 08/20/2023 09:39:09 Influenza, split virus, trivalent, preservative 4 completed A[address]IRIZAK [address], [place], [address], [employer] [facility] [employer] [facility] 08/20/2023 09:39:09 Influenza, split virus, trivalent, preservative 3 completed [address]IRIZAK [address], [place], [address], [employer] [facility] [employer] [facility] 08/20/2023 09:39:09 Influenza, split virus, trivalent, preservative 1 completed ABDIRIZAK [address], [place], [address], [employer] [facility] [employer] [facility] 08/20/2023 09:39:09 Influenza, split virus, trivalent, PF 6 completed ABDIRIZAK [address], [place], [address], [employer] [facility] [employer] [facility] 08/20/2023 09:39:09 Influenza, split virus, trivalent, PF 5 completed ABDIRIZAK [address], [place], [address], [employer] [facility] 08/20/2023 09:39:09 Influenza, split virus, quadrivalent, PF 9 completed ABDIRIZAK Edgar [address], [place], [address], [employer] [facility] 08/20/2023 09:39:09 Tdap 4 completed ABDIRIZAK Edgar [address], [place], [address], [employer] [facility] 08/20/2023 10:40:24 Influenza, high-dose, trivalent, PF 3 completed ABDIRIZAK Edgar [address], [place], [address], [employer] [facility] 08/20/2023 09:39:09 Influenza, high-dose, trivalent, PF 4 completed ABDIRIZAK Edgar [address], [place], [address], [employer] [facility] 08/20/2023 09:39:09 Influenza, split virus, quadrivalent, PF 0 completed Not Available [facility] 04/17/2022 15:46:28 Past Encounters Encounter ID Performer Location Encounter Start Date Encounter Closed Date Diagnosis/Indication Diagnosis SNOMED-CT Code Diagnosis ICD10 Code Diagnosis Note [id number] [facility] [address] [facility] [address] [facility] [place] [address] 04/25/2020 00:00:00 04/25/2020 18:29:54 [id number] [facility] [employer] [address] [place] [address] 05/22/2020 00:00:00 05/23/2020 10:59:22 [id number] [facility] [employer] [address] [place] [address] 06/05/2020 00:00:00 06/06/2020 12:49:37 [id number] [facility] [place] [address] [place] [address] 08/24/2020 00:00:00 08/25/2020 16:01:51 [id number] [facility] [place] [address] [place] [address] 09/01/2020 00:00:00 09/01/2020 13:55:33 [id number] [facility] [place] [address] [place] [address] 12/12/2020 00:00:00 12/12/2020 19:18:28 [id number] [facility] [place] [address] [place] [address] 08/14/2021 00:00:00 08/14/2021 20:07:38 [id number] [facility] [place] [address] [place] [address] 08/28/2021 00:00:00 08/28/2021 17:56:32 [id number] [facility] [place] [address] [place] [address] 09/11/2021 00:00:00 09/11/2021 15:26:17 [id number] [facility] [place] [address] [place] [address] 10/25/2021 00:00:00 10/25/2021 16:44:51 [id number] ABDIRIZAK Hopson [facility] [place] [address] [place] [address] 05/17/2022 08:51:18 05/17/2022 09:42:39 Uncontrolled type 2 diabetes mellitus [id number] E11.65 Uncontroll edA1C 12.0 (09/01/20); 12.2 (12/12/20) ; 12.5 (08/23/21) Discussed need for regular exercise, increase intake of water/vege tables/fib er. Decrease intake of carbs, especially white rice/pasta /flour/sera ad/sugar. Unable to take metformin d/t severe abd pain and diarrhea. Has also failed glimepirid e, humalog, januvia, lantus, toujeo in the past.Sanjuanita nue tradjenta 5mg daily.Resu me Lantus 50 units, no refill needed.Yared licity 0.75mg weeklyOk to continue humalog sliding scale prn, but should monitor closely with starting GLP-1 Edema of l ower extremity [id number] R60.0 New problemBLE Elevate lower extremitie s, try not to keep legs dependent. Limit salt, pork, caffeine. Try otc compressio n socks. Work on appropriat e water intake. Take diuretics as directed.F urosemide 20mg daily x 5 days Pain of ri ght knee joint [id number] 30312 M25.561 Chronic, following injury to right foot.Will send for xray of right kneeWill consider ortho referral once imaging reviewed. [id number] ABDIRIZAK Hopson [facility] [address] [place] [address] 05/30/2022 08:07:02 05/30/2022 09:41:29 Uncontrolled type 2 diabetes mellitus [id number] E11.65 Uncontroll edA1C 12.0 (09/01/20); 12.2 (12/12/20) ; 12.5 (08/23/21); 8.2 (05/17/22)D iscussed need for regular exercise, increase intake of water/vege tables/fib er. Decrease intake of carbs, especially white rice/pasta /flour/sera ad/sugar.U nable to take metformin d/t severe abd pain and diarrhea. Has also failed with glimepirid e, humalog, januvia, lantus, toujeo in the past.Sanjuanita nue tradjenta 5mg daily.Redu ce Lantus to 30 units, no refill needed.Inc rease Trulicity to 1.5mg weekly in 2 weeks (06/11/22)O k to continue humalog sliding scale prn, but should monitor closely with starting GLP-1 Edema of l ower extremity 372511282 R60.0 Improved with course of furosemide .BLEElevat e lower extremitie s, try not to keep legs dependent. Limit salt, pork, caffeine. Try otc compressio n socks. Work on appropriat e water intake. Take diuretics as directed.F urosemide 20mg daily x 5 days prn Pain of ri ght knee joint 2025185569 62966 M25.561 Chronic, following injury to right foot.xray of right knee (05/22/22) shows mild tricompart mental OA, small effusion, medial excrescenc ePt declines referral at this time. Essential hypertension 85629920 I10 Not in good controlAsy mptomatic at this timeElevat ion may be due, in part, to high caffeine intake (2+ cups coffee/day )Encourage d pt to increase water intake, reduce caffeine intake, exercise regularly, decrease/e liminate sodium intake, work on weight loss and stress reductionW ill continue to monitor closely and consider additional medication next visit if still not improved with lower BS.Amlodip ine 10mg dailyLosar luna 50mg daily [id number] SAUD Abdalla [facility] Primary [facility] [address] [facility] [address] [place] [address] 12/25/2022 11:23:31 12/25/2022 13:56:52 Erectile dysfunction [id number] F52.21 -pt has hx of normal low testostero ne-having trouble getting an erection-w ill obtain testostero ne-has never tried medication -declines at this time-he would like referral to urology Diabetes mellitus 415613 09 E11.65 -chronic, stable-cur rently taking mounjaro, lantus, and tradjenta- notes taking blood sugar daily, his highest levels have been in the 150s-does not get daily exercise-l ast a1c 8.2, will obtain labs today-may increase mounjaro after review of A1c Swelling o f bilateral lower limbs 693711733 M79.89 -has been an issue for a couple months, symptoms continue-u sing furosemide and compressio n socks as needed-not es low salt in his diet-will trial hctz 12.5 daily-f/u in 1 month [id number] Amelia Torres MD [facility] Primary Care [address] [place] [address] 02/04/2023 16:37:47 02/04/2023 17:30:51 Diabetes mellitus 50537032 E11.65 needs improved controlcon tinue lantus 50 unitsresta rt trulicity 0.75 mg sc qweek, plan to titrate up monthly as toleratedf /u in 4 weeks, repeat labs including renal function Chronic constipation 236 796155 K59.09 miralax daily unless/unt il diarrhea Ulcer of r ight foot due to type 2 diabetes mellitus [id number] 6143845 E11.621 wearing post op shoe and having to avoid excessive weight bearingout of work until released, may take 12 weeks for healing, unable to wear safety shoe required by his Cnekt work on excellent blood sugar controlwil l see wound care for ongoing debridemen ts/treatme nt for ulcer [id number] Clifford Oro, [employer]-C [facility] Primary Care [address] [place] [address] 02/12/2023 10:27:05 02/12/2023 10:52:21 [id number] Amelia Torres MD [facility] Primary Care [address] [place] [address] 03/18/2023 12:17:43 03/18/2023 13:01:07 Diabetes mellitus [id number] E11.65 needs improved controlcon tinue lantus 50 unitsresta rt trulicity 0.75 mg sc qweek, plan to titrate up monthly as toleratedf /u in 4 weeks, repeat labs including renal function update 03/18/23: home blood sugars in good controlsta y off lantuscont inue tradjentai ncrease trulicity 1.5 mg sc qweekf/u in 4 weeks or sooner if needed Osteomyeli tis of right foot [id number] 803996 M86.9 out of work until releasedes timated return to work day is 06/09/23non weight bearing until releasedwe ar post op shoecontin ue IV abx for at least 4 more weeks (vancomyci n and cefepime)g etting home health weekly with lab drawshas f/u appt with Dr. Prater Peripheral vascular disease 876918024 I73.9 on plavix and ASACT angiogram shows poor perfusion posterior tibial arteryvasc ular surgery referral given [id number] Amelia Torres MD [facility] Primary Care [address] [place] [address] 04/24/2023 11:03:34 04/24/2023 11:54:28 Essential hypertension 13526862 I10 check home blood pressures 1-2x per weekbegin hctz 25 mg daily Diabetes mellitus 450778 09 E11.65 needs improved controlcon tinue lantus 50 unitsresta rt trulicity 0.75 mg sc qweek, plan to titrate up monthly as toleratedf /u in 4 weeks, repeat labs including renal function update 03/18/23: home blood sugars in good controlsta y off lantuscont inue tradjentai ncrease trulicity 1.5 mg sc qweekf/u in 4 weeks or sooner if needed 04/24/23: out of trulicity, change to mounjaro 5 mg sc qweek, plan to increase q4 weeks as toleratedn eeds improved diabetes control with significan t ulcers right LE Dyslipidemia 281565240 E 78.5 Osteomyeli tis of right foot [id number] 215947 M86.9 out of work until releasedno nweight bearing until releasedwe ar post op shoecontin ue home health wound care and wound care outpt visits with surgeon [id number] Amelia Torres MD [facility] [address] [place] [address] 06/18/2023 14:01:16 06/18/2023 14:39:08 Amputated below knee [id number] Z89.519 on 05/22/23appt with hangar 07/03/23usi ng knee walkerunab le to return to work indefinite ly Diabetes mellitus 324519 09 E11.65 needs improved controlcon tinue lantus 50 unitsresta rt trulicity 0.75 mg sc qweek, plan to titrate up monthly as toleratedf /u in 4 weeks, repeat labs including renal function update 03/18/23: home blood sugars in good controlsta y off lantuscont inue tradjentai ncrease trulicity 1.5 mg sc qweekf/u in 4 weeks or sooner if needed 04/24/23: out of trulicity, change to mounjaro 5 mg sc qweek, plan to increase q4 weeks as toleratedn eeds improved diabetes control with significan t ulcers right LE 06/18/23: still waiting on auth for mounjaro [id number] ABDIRIZAK Edgar [address] [address] 08/06/2023 11:17:43 08/06/2023 12:22:40 Amputated right lower limb below knee 062552533 Z89.511 Okay to return to work, note provided.W aiting for prosthesis [id number] ABDIRIZAK Edgar [address] [address] 08/20/2023 08:34:02 08/20/2023 10:43:55 Amputated below knee 518075014 Z89.511 Return to work, continue aspirin Hyperlipidemia 02400958 E78.5 Administra tion of tetanus vaccine 749957997 Z23 Type 2 sinai betes mellitus 84634184 E11.9 [id number] ABDIRIZAK Edgar [address] [address] 10/29/2023 09:47:28 10/29/2023 10:24:57 Type 2 diabetes mellitus 82074781 E11.9 He has been utilizing Mounjaro for 1 year and has had good glucose control. Insurance would like him to try Victoza and Rybelsus. He has tried and failed victoza. Rybelsus will not be effective in control blood glucose, as he needs a stronger medication . Essential hypertension 41837700 I10 [id number] ABDIRIZAK Edgar [address] [address] 12/11/2023 13:57:50 12/11/2023 14:32:10 Muscular dystrophy 64498605 G71.00 Rheumatoid arthritis 698 62759 M06.9 Dyslipidemia 045281210 E 78.5 Type 2 sinai betes mellitus without complication 474720935 E11.9 Goal of Mounjaro, insurance needs an updated A1C showing more than 6.5 Fatigue 89867029 R53.83 Sleep apnea 52079443 G47 .30 Herpes simplex 97290759 B00.9 [id number] ABDIRIZAK Edgar [address] [address] 01/13/2024 16:21:01 01/13/2024 17:33:29 Transition of care 5375593925 105 Z75.8 Patient prognosis fairNeeds to see specialist TAMERA. STAT referral sent Chronic ki dney disease stage 4 447832425 N18.4 Pain in left arm 5352259 00 M79.602 Jaundice 65265550 R17 Anemia 915497300 D64.9 [id number] ABDIRIZAK Edgar [address] [address] 01/27/2024 11:08:43 01/27/2024 12:02:39 History of deep vein thrombosis 153175754 Z86.718 Started eliquis 5 mg BID while hospitaliz ed Transition of care 49549 41459 105 Z75.8 Patient prognosis goodDVT and CKD controlled Has multiple specialist FU appts Anemia 144055608 D64.9 Chronic ki dney disease stage 5 938501571 N18.5 [id number] ABDIRIZAK Edgar [address] [address] 02/20/2024 09:37:04 02/20/2024 10:21:18 Fit to return to work 972616638 Z78.9 Work form completed, scanned into chart, and faxed into [employer] Essential hypertension 78958538 I10 [id number] ABDIRIZAK Edgar [address] [address] 04/23/2024 10:14:14 04/23/2024 14:57:49 Folliculitis 67654697 L73.9 On rt amputation Essential hypertension 12999042 I10 Has not had meds, elevated today Renewal of prescription 835856557 Z76.0 [id number] ABDIRIZAK Edgar [facility] [address] [place] [address] 06/02/2024 16:27:07 06/02/2024 17:12:16 Lesion of skin of face 6884635254 06 L98.9 flat warts, multipleDe rmatology referral offered, pt declines Eruption 884306505 R21 Sores to arm, appear erythemato us and itchy Acquired t drug abuse technician finger 0832582 M65.30 Essential hypertension 97049088 I10 Has not had meds, elevated today Pain of le ft ankle joint 1789049334 1218288 M25.572 Health Concerns Section Related Observation LastModified by Organization Detai ls LastModified Time None Recorded Concern Status LastModified by Organization Details LastModified Time None Recorded Advance Directives Directive N: Payers Encounter Date Sequence Insurance Name Policy Number Policy Stone Covered Member ID Stone Member ID Guarantor Name 01/13/2024 2 [place] [employer] [facility] (MEDICAID REPLACEMENT - HMO) [id number] Enmanuel Callahan Candace [id number] Jose Roberto Callahan [facility] 01/13/2024 1 [place] [id number] Jose Roberto Callahan Candace [id number] Jose Roberto Callahan [facility] 01/27/2024 2 [place] [facility] (MEDICAID REPLACEMENT - HMO) [id number] Enmanuel Callahan Candace [id number] Jose Roberto Callahan [facility] 01/27/2024 1 [place] [id number] Jose Roberto Callahan Candace [id number] Jose Roberto Callahan [facility] 02/20/2024 2 [place] [facility] (MEDICAID REPLACEMENT - HMO) [id number] Enmanuel Callahan Candace [id number] Jose Roberto Callahan [facility] 02/20/2024 1 [place] [id number] Jose Roberto Maria [id number] Jose Roberto Callahan Candace 04/23/2024 2 [place] [facility] (MEDICAID REPLACEMENT - HMO) [id number] Enmanuel Maria [id number] Jose Roberto Callahan Candace 04/23/2024 1 [place] [id number] Jose Roberto Maria [id number] Jose Roberto Callahan Candace 06/02/2024 2 [place] [facility] (MEDICAID REPLACEMENT - HMO) [id number] Enmanuel Maria [id number] Jose Roberto Callahan Candace 06/02/2024 1 [place] [id number] Jose Roberto Maria [id number] Jose Roberto Maria Notes Date Note Type Note Provider Name and Address Organization Details Recorded Time 4 text/html Jose Roberto Maria is a 43 year old male patient here today for a hospital FU On 12/30/23 he reported to the ER feeling abnormal. In the ER his GFR was 3, creatinine 16, BUN 125, potassium 7.1Was admitted to the ER and given dialysis.Had low hemoglobin, did colonoscopy and EGD, no abnormalities Discharged on 01/09/24as referral for nephrology, has not made an appt yet Kala Hollingsworth, [facility] [address] [facility], [facility] [address], [place], [address], [place] [facility] 01/13/2024 17:26:26 4 text/html Jose Roberto Maria is a 43 year old male patient here today for a hospital FU On 12/30/23 he reported to the ER feeling abnormal. In the ER his GFR was 3, creatinine 16, BUN 125, potassium 7.1Was admitted to the ER and given dialysis.Had low hemoglobin, did colonoscopy and EGD, no abnormalitiesDischarged on 01/09/24 01/13/24 DVT found in left forearm, sent to [facility] ER admitted for 3 days (01/12-01/15). Was placed on heparin drip for 12 hours. Got dialysis 3 times while in the hospital which was removed before discharge. Creatinine was decreasing during this stay. Last HbA1c was 5.8 in the hospital. Was discharged in stable condition. Only, medications taking now are calcium carbonate, vitamin D, eliquis, amlodipine. Has a glucometer at home. Most recent GFR was 11. Echo was performed as well and was normal. Lower extremity doppler was also normal. Received one unit of blood and EPO secondary to anemia. Blood pressure elevated today. Following up with nephrology on 02/18/2023.Following up with forex trader on 02/28/2023Following up with prosthetic clinic on 01/29/2024 ABDIRIZAK Edgar [address], [place], [address], [email or web address] 01/27/2024 12:02:00 5 text/html Jose Roberto Maria is a 43 year old male patient here today for work clearance. He needs [facility] paperwork. 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 He has the orders with him today. All medications were stopped during hospitalization. BP medications were all stopped, he is currently taking amlodipine 10 mg. His BP on arrival is 168/92. Will add back losartan 50 mg PO daily. Last A1C 5.8 01/14/24, would like to avoid adding in diabetic medications until we recheck A1C in March. ABDIRIZAK Edgar [address], [place], [address], [employer] 02/20/2024 10:19:18 5 text/html Jose Roberto Maria is a 43 year old male patient here today for paperwork He needs disability forms signed, these were previously denied, they are requesting a signature of a physician.Work accomodations updatedGross: walking no more than 1 continuous hour, no more than 2 hrs of standing, unable to squat and stoop, lifting no more than 25lbsMedical device needed: prosthesisAble to work all shifts, no more than 10 consecutive hours, can work as many as per week as needed2 additional breaks lasting up to 15 minutes each1 absence per month lasting up to 5 days per absencePush/Pull up to 30 lbsNo ladders/heights His blood pressure is elevated today, states that he has not taken losartan x 5 days ABDIRIZAK Edgar [address], [place], [address], [employer] [facility] 04/23/2024 14:28:17 5 text/html Ilia Maria is a 43 year old male patient here today for multiple concerns Has multiple flat warts on his face, now spreading to scalp Notes his KATIE ring fingers are locking into place. Concerns with left ankle pain, notices swelling after 12 hr work day. ABDIRIZAK Edgar [address], [place], [address], [email or web address] 06/02/2024 17:01:11
[2024-06-09 17:39] LABS: Anion Gap 12 mmol/L (4-12); Blood Urea Nitrogen 48 mg/dL (9-20); Calcium 7.9 mg/dL (8.4-10.2); Carbon Dioxide 16 mmol/L (22-30); Chloride 109 mmol/L (98-107); Estimated Glomerular Filt Rate 10; Glucose 122 mg/dL (65-110); Potassium 4.9 mmol/L (3.4-5.0); Sodium 137 mmol/L (137-145)
[2024-06-09 18:44] LABS: Folic Acid 4.5 ng/mL (2.76->20)
== END 2024-06-09 15:20 | disposition home or self-care (01) ==
LOC: ANHLAB 15:22
PROVIDERS: Visit Provider Internal Medicine Hematology & Oncology
DX: D64.9 Anemia, unspecified (principal)
CPT/HCPCS: 36415; 80048; 82607; 82746; 85027